=== PATIENT | male | born 1975 | race Two or more races ===

== ENCOUNTER → 2023-09-07 | Outpatient (CLI) | payer OTHER, SELFPAY ==
--- NOTE | 2023-09-07 09:10 | VDLE_ITS ---
Reason For Study: PAIN RIGHT LEFT GSV is normal. CFV is compressible, spontaneous, phasic, Acute deep vein thrombosis is noted in the competent, and demonstrates normal CFV. It is dilated and NONCOMPRESSIBLE. augmentation. Acute deep vein thrombosis is noted in the FV. It is dilated and NONCOMPRESSIBLE. Acute deep vein thrombosis is noted in the POP V. It is dilated and NONCOMPRESSIBLE. DEIV is NONCOMPRESSIBLE with minimal flow noted. PTV is compressible with flow noted by color/PW doppler. Unable to ass T/P trunk nor PER V. Procedure This is a venous duplex using B-mode, color flow and spectral Doppler. Exam performed in department. The study was technically difficult. A preliminary report was called and/or faxed to Zulma SHELTON @ 09:40 am. PT has appt Mon & procedure Tu. VL/Venous Duplex US, Unilateral Interpretation Summary Acute deep vein thrombosis is noted in the right external iliac vein, common fe moral vein, femoral vein, popliteal vein. Ordering Physician: Meir Hurtado Referring Physician: Jaime Bailey Performed By: Violet Whiting, RDCS, RVT
--- OUTSIDE RECORDS SUMMARY | 2023-09-07 09:35 | XMS RPT_ITS | CCD ---
Author Name Unknown Address [address] [place] [address] Organization [facility] Care Team Providers Care Slip Tender Name Role Phone Prakash Garridos Unavailable Wyatt Triplett Unavailable Unavailable Wyatt Triplett Unavailable Unavailable Tourlas, Justino Unavailable Unavailabl e Radhika, Justino Unavailable UnavailAv Schreiber Unavailable Unavailable Tourlas, Justino Unavailable Unavailabl e Tourlas, Justino Unavailable Unavailabl e Yan Garridostantinos Primary Care Provider [phone] Justino Garrido Primary Care Provider LIDIA LAW Referring Unavailab le LIDIA LAW Admitting Unavailab le YAN GARRIDOSTANTINOS Primary Care UnavailJustino Almanzar MD Primary Care Provider Justino Garrido MD Unavailable Unavail able Radhika Justino Unavailable UnavailAv Schreiber Unavailable Unavailable Tristianlas, Justino Unavailable [phone] Unavailable Unavailable Unavailable Unavailable Justino Garrido MD Primary Care Provider Justino Garrido MD Primary Care Provider Leny Garridonos Unavailable [place], [place] I Unavailable Unavailable Radhika PÉREZ, Justino Primary Care Provider Mallgrisel, Carissa Nag S Unavailable Unavailable Unavailable Radhika PÉREZ, Justino Primary Care Provider Leo PÉREZ MPH, Carissa Johnson S Primary Care Pro vider Leo PÉREZ MPH, Carissa Nag S Unavailable Mallapareddi, Carissa Primary Care Provider MALLSTEFREDDI, CARISSA Primary Care Unavailable COOPERRIDER II, ORIN Doherty Referring Unavailabl e COOPERRIDERRADHA Attending Unavailabl e COOPERRIDER II, ORIN Doherty Referring Unavailabl e COOPERRIDER II, ORIN Doherty Attending Unavailabl e TOURBELLE JUSTINO Primary Care Unavailabl e MALLAPAREDDI, CARISSA NAG S Primary Care Unavail able MALLAPAREDDI, CARISSA NAG S Primary Care Unavail able Dr. Wolf Cardenas Attending Unavailable Mallstefredmikala, Dr. Carissa Johnson [facility] Primary Care Unavailable ELA COOLEY Referring Unavailable ELA COOLEY Admitting [facility] Attending Un[facility] Un[facility]LA [facility]OOLEY [facility]av[facility] Referring Unavailable ELA COOLEY Admitting Un[facility] Care Unavailabl e ELA COOLEY Attending Unavailable TOURBELLE, [facility] Primary Care Unavailabl e Radhika PÉREZ, [facility] Primary Care Provider DIDIER THOMPSON Attending Unavailab le MALLAPAREDDI, CARISSA Primary Care Unavailable MALLAPAREDDI, CARISSA NAG S Attending Unavail able MALLAPAREDMIKALA, CARISSA NAG S Primary Care Unavail able MALLAPAREDDI, CARISSA NAG S Attending Unavail able MALLAPAREDDI, CARISSA NAG S Primary Care Unavail able MALLAPAREDDI, CARISSA NAG S Attending Unavail able MALLAPAREDDI, CARISSA NAG S Primary Care Unavail able MALLAPAREDDI, CARISSA NAG S Attending Unavail able MALLAPAREDDI, CARISSA NAG S Primary Care Unavail able MALLSTEFREDDI, CARISSA NAG S Attending Unavail able MALLSTEFREDMIKALA, CARISSA NAG S Primary Care Unavail able DIDIER THOMPSON Referring Unavailab le LEO, CARISSA Primary Care Unavailable ASHVIN SANTOS Attending Unavailable BRITTANY CHOI Consulting Unavailable Allergies Allergy Classification Reported Allergen(s) Allergy Type Date of Onset Reaction(s) Facility NSAIDs (8 sources) celecoxib; Translations: [CeleBREX CAPS] Drug Allergy 6 Shortness Of Breath [facility] (20 sources) celecoxib; Translations: [CELECOXIB] Propensity to adverse reactions to drug 6 Shortness Of Breath [facility] Work Phone: Medications Current Medications Medication Drug Class(es) Dates Sig (Normalized) Sig (Original) allopurinol 300 mg oral tablet (20 sources) Xanthine Oxidase Inhibitor Start: 12-09-2018 take 1 tablet by mouth once daily allopurinol (ZYLOPRIM) 300 MG tablet Take 1 (one) tablet (300 mg total) by mouth daily . 1 12/09/2018 Active Completed/Discontinued Medications Medication Drug Class(es) Dates Sig (Normalized) Sig (Original) acetaminophen 325 mg / HYDROcodone bitartrate 5 mg oral tablet (2 sources) Opioid Agonist Start: 06-28-2017 End: 07-12-2017 take 1 tablet by mouth every six hours HYDROcodone-acetami nophen (NORCO) 5-325 mg per tablet Take 1 (one) tablet by mouth every 6 (six) hours as needed for pain. 20 tablet 0 06/28/2017 07/12/2017 Discontinued BD Disp Hemet 18G X 1-1/2 (1 source) BD Disp Hemet 18G X 1-1/2 Use a new needle to draw up testosterone every 4 weeks. Quantity: 3 Refills: 1 Justino Garrido MD Active BD Disp Hemet 18G X 1-1/2 (1 source) BD Disp Hemet 18G X 1-1/2 Use a new needle to draw up testosterone every 4 weeks. Quantity: 3 Refills: 1 Justino Garrido MD Active calcium carbonate-Vit D3-minerals (CALTRATE) 600 mg calcium- 400 unit tab (5 sources) Start: 09-20-2016 take 1 tablet by mouth once daily calcium carbonate-Vit D3-minerals (CALTRATE) 600 mg calcium- 400 unit tab Take 1 tablet by mouth once daily. 0 09/20/2016 Active Problems Active Problems Problem Classification Problem Date Documented Da te Episodic/Chronic Attention-deficit conduct and disruptive behavior disorders (20 sources) Adult attention deficit hyperactivity disorder ; Translations: [Attention deficit disorder with hyperactivity] 12-01-2022 Chronic Attention-deficit, conduct, and disruptive behavior disorders (20 sources) Attention deficit hyperactivity disorder; Translations: [Attention-deficit hyperactivity disorder, unspecified type] Onset: 6 02-08-2016 Chronic Attention-deficit, conduct, and disruptive behavior disorders (2 sources) Attention-deficit hyperactivity disorder, unspecified type; Translations: [Attention-deficit hyperactivity disorder, unspecified type] Onset: Chronic Blindness and vision defects (6 sources) Hyperopia of right eye; Translations: [Hypermetropia, right eye] Episodic Blindness and vision defects (2 sources) Myopia of left eye; Translations: [Myopia, left eye] Episodic Cataract (20 sources) Nuclear senile cataract; Translations: [Age-related nuclear cataract, unspecified eye] Onset: 6 09-14-2015 Chronic Diseases of white blood cells (2 sources) Elevated white blood cell count, unspecified; Translations: [Elevated white blood cell count, unspecified] Onset: 3 Chronic Disorders of lipid metabolism (20 sources) Hyperlipidemia; Translations: [Hyperlipidemia, unspecified] Onset: 6 05-11-2016 Chronic Esophageal disorders (5 sources) Gastroesophageal reflux disease without esophagitis; Translations: [Gastro-esophageal reflux disease without esophagitis] Onset: 7 09-22-2016 Chronic Essential hypertension (20 sources) Essential hypertension; Translations: [Hypertensive disorder] Onset: 6 07-12-2017 Chronic Gout and other crystal arthropathies (20 sources) Gout; Translations: [Gout, unspecified] 05-22-2023 Chronic Immunizations and screening for infectious disease (20 sources) Contact with and (suspected) exposure to other viral communicable diseases; Translations: [Patient encounter status] Episodic Mood disorders (20 sources) Depressive disorder; Translations: [Depressive disorder, not elsewhere classified] Chronic Osteoarthritis (7 sources) Primary gonarthrosis, bilateral; Translations: [Bilateral primary osteoarthritis of knee] Onset: 3 Chronic Other aftercare (20 sources) H/O: high risk medication; Translations: [Long-term (current) use of other medications] Episodic Other aftercare (1 source) Patient encounter status; Translations: [Other fci (current) drug therapy] 12-01-2022 Episodic Other connective tissue disease (1 source) H/O: gout; Translations: [History of gout] Episodic Other connective tissue disease (1 source) Nontraumatic rupture of rotator cuff of left shoulder; Translations: [Unspecified rotator cuff tear or rupture of left shoulder, not specified as traumatic] Episodic Other connective tissue disease (1 source) Disorder of shoulder; Translations: [Bursitis of unspecified shoulder] Episodic Other connective tissue disease (13 sources) Tear of left rotator cuff; Translations: [Tear of left rotator cuff, unspecified tear extent, unspecified whether traumatic] Onset: 1 10-05-2020 Other connective tissue disease (6 sources) Nontraumatic rupture of rotator cuff of left shoulder; Translations: [Nontraumatic tear of left rotator cuff, unspecified tear extent] Other endocrine disorders (20 sources) Male hypogonadism; Translations: [Other testicular hypofunction] 12-01-2022 Chronic Other endocrine disorders (4 sources) Testicular hypofunction; Translations: [Testicular hypofunction] Onset: 3 Chronic Other inflammatory condition of skin (20 sources) Psoriasis; Translations: [Psoriasis, unspecified] Onset: 7 08-11-2016 Chronic Other liver diseases (20 sources) Steatosis of liver; Translations: [Other chronic nonalcoholic liver disease] Chronic Other male genital disorders (5 sources) Impotence of organic origin; Translations: [Erectile dysfunction] Onset: 6 02-08-2016 Chronic Other male genital disorders (2 sources) Impotence; Translations: [Erectile dysfunction] Onset: 6 02-08-2016 Chronic Other male genital disorders (20 sources) Male erectile dysfunction, unspecified; Translations: [Impotence of organic origin] Onset: 6 02-08-2016 Chronic Other non-traumatic joint disorders (20 sources) Shoulder stiff; Translations: [Stiffness of joint, not elsewhere classified, shoulder region] Episodic Other nutritional; endocrine; and metabolic disorders (20 sources) Body mass index 40+ - severely obese; Translations: [Morbid obesity] Chronic Other nutritional; endocrine; and metabolic disorders (2 sources) Morbid obesity; Translations: [Morbid (severe) obesity due to excess calories] 05-22-2023 Chronic Other nutritional; endocrine; and metabolic disorders (2 sources) Morbid (severe) obesity due to excess calories; Translations: [Morbid (severe) obesity due to excess calories (CMS/HCC)] Onset: 3 Chronic Other screening for suspected conditions (not mental disorders or infectious disease) (13 sources) Hypotestosteronism; Translations: [Testosterone deficiency] Onset: 7 08-11-2016 Chronic Other screening for suspected conditions (not mental disorders or infectious disease) (20 sources) Ultrasonography of abdomen abnormal; Translations: [Abnormal findings on diagnostic imaging of other abdominal regions, including retroperitoneum] Onset: 7 07-12-2017 Episodic Other upper respiratory disease (2 sources) Epistaxis; Translations: [Epistaxis] 11-15-2021 Episodic Phlebitis; thrombophlebitis and thromboembolism (5 sources) Deep venous thrombosis of lower extremity; Translations: [Acute embolism and thrombosis of unspecified deep veins of right proximal lower extremity] Onset: 4 08-28-2023 Episodic Residual codes; unclassified (4 sources) History of arthroscopic procedure on shoulder; Translations: [Other specified postprocedural states] Episodic Residual codes; unclassified (2 sources) Pain, unspecified; Translations: [Pain, unspecified] Onset: 3 Episodic Residual codes; unclassified (2 sources) Other specified postprocedural states; Translations: [Other specified postprocedural states] Onset: 3 Episodic Residual codes; unclassified (2 sources) Edema of foot; Translations: [Localized edema] 05-22-2023 Episodic Substance-related disorders (7 sources) Stimulant dependence; Translations: [Other stimulant dependence, uncomplicated] Onset: 4 08-22-2023 Chronic Unclassified (20 sources) Obstructive sleep apnea syndrome; Translations: [Obstructive sleep apnea (adult) (pediatric)] Onset: 11-02-2016 Chronic Past or Other Problems Problem Classification Problem Date Documented Da te Episodic/Chronic Abdominal pain (20 sources) Right upper quadrant pain; Translations: [Right upper quadrant pain] Onset: 07-12-2017 07-12-2017 Episodic Biliary tract disease (20 sources) Gallstone; Translations: [Cholelithiasis without obstruction] Onset: 07-12-2017 07-12-2017 Episodic Complication of device; implant or graft (5 sources) Astigmatism; Translations: [Astigmatism following corneal transplant] Onset: 09-26-2016 09-26-2016 Episodic Nausea and vomiting (20 sources) Nausea and vomiting; Translations: [Nausea with vomiting, unspecified] Onset: 07-12-2017 07-12-2017 Episodic Other aftercare (20 sources) Surgical follow-up; Translations: [Encounter for follow-up examination after completed treatment for conditions other than malignant neoplasm] Onset: 08-02-2017 08-02-2017 Episodic Other aftercare (4 sources) Other salvage determiner (current) drug therapy; Translations: [Other salvage determiner (current) drug therapy] Onset: 12-01-2022 Episodic Other aftercare (2 sources) Encounter for follow-up examination after completed treatment for conditions other than malignant neoplasm; Translations: [Encounter for follow-up examination after completed treatment for conditions other than malignant neoplasm] Onset: 08-14-2022 Episodic Other connective tissue disease (8 sources) Tear of left rotator cuff; Translations: [Unspecified rotator cuff tear or rupture of left shoulder, not specified as traumatic] Onset: 10-05-2020 10-05-2020 Episodic Other endocrine disorders (11 sources) Endocrine disorder, unspecified; Translations: [Hypotestosteronis m] Onset: 08-11-2016 08-11-2016 Episodic Other eye disorders (8 sources) Bilateral keratoconus of corneas; Translations: [Keratoconus, unspecified, bilateral] Onset: 09-29-2016 09-29-2016 Episodic Other eye disorders (5 sources) Keratoconus of left cornea; Translations: [Keratoconus, unspecified, left eye] Onset: 10-09-2016 10-09-2016 Episodic Other gastrointestinal disorders (3 sources) Abnormal findings on diagnostic imaging of other abdominal regions, including retroperitoneum; Translations: [Abnormal abdominal ultrasound] Onset: 07-12-2017 07-12-2017 Episodic Other non-traumatic joint disorders (3 sources) Pain in left shoulder; Translations: [Pain in left shoulder] Onset: 12-06-2022 Episodic Other nutritional; endocrine; and metabolic disorders (20 sources) Hyperuricemia; Translations: [Other abnormal blood chemistry] Resolved: 05-24-2020 Episodic Residual codes; unclassified (1 source) H/O: surgery; Translations: [Postop check] Onset: 08-02-2017 08-02-2017 Episodic Residual codes; unclassified (4 sources) Localized edema; Translations: [Localized edema] Onset: 05-22-2023 Episodic Unclassified (5 sources) Onset: 12-01-2022 12-01-2022 NEGATED: Highlighted row has not occurred!Residual codes; unclassified (13 sources) Disease Episodic Results Test Name Value Interpretation Reference Range Facil ity Vital Signs Date Time Vital Sign Value Performing Clinician Faci lity 08-28-2023 07:47-0500 Body height 177.8 cm Carissa Winslow MD MPH Work Phone: [facility] 08-28-2023 07:47-0500 Body mass index (BMI) [Ratio] 46.36 kg/m2 Carissa Winslow MD MPH Work Phone: [facility] 08-28-2023 07:47-0500 Body weight 146.56 kg Carissa Winslow MD MPH Work Phone: [facility] 08-28-2023 07:47-0500 Diastolic blood pressure 80 mm[Hg] Carissa Winslow MD MPH Work Phone: [facility] 08-28-2023 07:47-0500 Heart rate 81 /min Carissa Winslow MD MPH Work Phone: [facility] 08-28-2023 07:47-0500 SaO2% (BldA) [Mass fraction] 96 % Carissa Winslow MD MPH Work Phone: [facility] 08-28-2023 07:47-0500 Systolic blood pressure 120 mm[Hg] Carissa Winslow MD MPH Work Phone: [facility] 08-22-2023 07:56-0500 Body mass index (BMI) [Ratio] 45.92 kg/m2 Carissa Winslow MD MPH Work Phone: [facility] 08-22-2023 07:56-0500 Body weight 145.15 kg Carissa Winslow MD MPH Work Phone: [facility] 08-22-2023 07:56-0500 Diastolic blood pressure 90 mm[Hg] Carissa Winslow MD MPH Work Phone: [facility] 08-22-2023 07:56-0500 Heart rate 83 /min Carissa Winslow MD MPH Work Phone: [facility] 08-22-2023 07:56-0500 SaO2% (BldA) [Mass fraction] 96 % Carissa Winslow MD MPH Work Phone: [facility] 08-22-2023 07:56-0500 Systolic blood pressure 138 mm[Hg] Carissa Winslow MD MPH Work Phone: [facility] 05-22-2023 09:15-0400 Body mass index (BMI) [Ratio] 45.38 kg/m2 Carissa Winslow MD MPH Work Phone: [facility] 05-22-2023 09:15-0400 Body weight 143.47 kg Carissa Winslow MD MPH Work Phone: [facility] 05-22-2023 09:15-0400 Diastolic blood pressure 90 mm[Hg] Cairssa Winslow MD MPH Work Phone: [facility] 05-22-2023 09:15-0400 Heart rate 77 /min Carissa Winslow MD MPH Work Phone: [facility] 05-22-2023 09:15-0400 SaO2% (BldA) [Mass fraction] 98 % Carissa Winslow MD MPH Work Phone: [facility] 05-22-2023 09:15-0400 Systolic blood pressure 142 mm[Hg] Carissa Winslow MD MPH Work Phone: [facility] 03-27-2023 12:53-0400 Body height 175.3 cm Ela Cooley [employer] Work Phone: [facility] 03-27-2023 12:53-0400 Body mass index (BMI) [Ratio] 57.3 kg/m2 Ela Cooley [employer] Work Phone: [facility] 03-27-2023 12:53-0400 Body weight 176 kg Ela Rodriguezck [employer] Work Phone: [facility] 03-06-2023 08:20-0400 Body mass index (BMI) [Ratio] 44.22 kg/m2 Carissa Winslow MD MPH Work Phone: [facility] 03-06-2023 08:20-0400 Body weight 139.8 kg Carissa Winslow MD MPH Work Phone: [facility] 03-06-2023 08:20-0400 Diastolic blood pressure 80 mm[Hg] Carissa Winslow MD MPH Work Phone: [facility] 03-06-2023 08:20-0400 Heart rate 75 /min Carissa Winslow MD MPH Work Phone: [facility] 03-06-2023 08:20-0400 SaO2% (BldA) [Mass fraction] 96 % Carissa Winslow MD MPH Work Phone: [facility] 03-06-2023 08:20-0400 Systolic blood pressure 120 mm[Hg] Carissa Winslow MD MPH Work Phone: [facility] 12-01-2022 07:56-0400 Body height 177.8 cm Carissa Winslow MD MPH Work Phone: [facility] 12-01-2022 07:56-0400 Body mass index (BMI) [Ratio] 43.46 kg/m2 Carissa Winslow MD MPH Work Phone: [facility] 12-01-2022 07:56-0400 Body weight 137.4 kg Carissa Winslow MD MPH Work Phone: [facility] 12-01-2022 07:56-0400 Diastolic blood pressure 70 mm[Hg] Carissa Winslow MD MPH Work Phone: [facility] 12-01-2022 07:56-0400 Heart rate 97 /min Carissa Winslow MD MPH Work Phone: [facility] 12-01-2022 07:56-0400 SaO2% (BldA) [Mass fraction] 96 % Carissa Winslow MD MPH Work Phone: [facility] 12-01-2022 07:56-0400 Systolic blood pressure 110 mm[Hg] Carissa Winslow MD MPH Work Phone: [facility] 11-30-2022 08:00-0400 Body height 175.3 cm Ela Cooley CNP Work Phone: [facility] 11-30-2022 08:00-0400 Body mass index (BMI) [Ratio] 57.3 kg/m2 Ela Cooley CNP Work Phone: [facility] 11-30-2022 08:00-0400 Body weight 176 kg Ela Cooley CNP Work Phone: [facility] 08-22-2022 07:43-0500 Body height 176.91 cm Carissa Winslow Work Phone: [facility] Work Phone: 08-22-2022 07:43-0500 Body mass index (BMI) [Ratio] 51.21 kg/m2 Carissa Winslow Work Phone: [facility] Work Phone: 08-22-2022 07:43-0500 Body surface area Derived from formula 2.65 m2 Carissa Nag S Mallapareddi Work Phone: [facility] Work Phone: 08-22-2022 07:43-0500 Body weight 160.26 kg Carissa Nag S Mallapareddi Work Phone: [facility] Work Phone: 08-22-2022 07:43-0500 Diastolic blood pressure 80 mm[Hg] Carissa Nag S Mallapareddi Work Phone: [facility] Work Phone: 08-22-2022 07:43-0500 Heart rate 74 /min Carissa Nag S Mallapareddi Work Phone: [facility] Work Phone: 08-22-2022 07:43-0500 Systolic blood pressure 122 mm[Hg] Carissa Nag S Mallapareddi Work Phone: [facility] Work Phone: 05-12-2022 13:50-0400 Body height 176.91 cm Carissa Nag S Mallapareddi Work Phone: [facility] Work Phone: 05-12-2022 13:50-0400 Body mass index (BMI) [Ratio] 54.7 kg/m2 Carissa Nag S Mallapareddi Work Phone: [facility] Work Phone: 05-12-2022 13:50-0400 Body surface area Derived from formula 2.72 m2 Carissa Nag S Mallapareddi Work Phone: [facility] Work Phone: 05-12-2022 13:50-0400 Body weight 171.21 kg Carissa Nag S Mallapareddi Work Phone: [facility] Work Phone: 05-12-2022 13:50-0400 Diastolic blood pressure 84 mm[Hg] Carissa Nag S Mallapareddi Work Phone: [facility] Work Phone: 05-12-2022 13:50-0400 Heart rate 89 /min Carissa Nag S Mallapareddi Work Phone: [facility] Work Phone: 05-12-2022 13:50-0400 Systolic blood pressure 128 mm[Hg] Carissa Nag S Mallapareddi Work Phone: [facility] Work Phone: 02-10-2022 10:42-0400 Body height 176.9 cm Carissa Nag S Mallapareddi Work Phone: [facility] Work Phone: 02-10-2022 10:42-0400 Body mass index (BMI) [Ratio] 53.83 kg/m2 Carissa Nag S Mallapareddi Work Phone: [facility] Work Phone: 02-10-2022 10:42-0400 Body surface area Derived from formula 2.71 m2 Carissa Nag S Mallapareddi Work Phone: [facility] Work Phone: 02-10-2022 10:42-0400 Body weight 168.46 kg Carissa Nag S Mallapareddi Work Phone: [facility] Work Phone: 02-10-2022 10:42-0400 Diastolic blood pressure 90 mm[Hg] Carissa Nag S Mallapareddi Work Phone: [facility] Work Phone: 02-10-2022 10:42-0400 Heart rate 84 /min Carissa Nag S Mallapareddi Work Phone: [facility] Work Phone: 02-10-2022 10:42-0400 Systolic blood pressure 144 mm[Hg] Carissa Rice Mallapareddi Work Phone: [facility] Work Phone: 11-15-2021 14:30-0400 Diastolic blood pressure 110 mm[Hg] Justino Tourlas Other Phone: [facility] 11-15-2021 14:30-0400 Heart rate 102 /min Justino Tourlas Other Phone: [facility] 11-15-2021 14:30-0400 SaO2% (BldA) [Mass fraction] 97 % Justino Tourlas Other Phone: [facility] 11-15-2021 14:30-0400 Systolic blood pressure 169 mm[Hg] Justino Tourlas Other Phone: [facility] 11-15-2021 13:01-0400 Body temperature 97.16 [degF] Justino Tourlas Other Phone: [facility] 11-15-2021 13:01-0400 Body weight 170 kg Justino Tourlas Other Phone: [facility] 11-15-2021 13:01-0400 Respiratory rate 18 /min Justino Tourlas Other Phone: [facility] 05-30-2021 08:46-0400 Body mass index (BMI) [Ratio] 50.03 kg/m2 Justino Tourlas Work Phone: [facility] Work Phone: 05-30-2021 08:46-0400 Body surface area Derived from formula 2.62 m2 Justino Tourlas Work Phone: [facility] Work Phone: 05-30-2021 08:46-0400 Body temperature 98.2 [degF] Justino Radhika Work Phone: [facility] Work Phone: 05-30-2021 08:46-0400 Body weight 156.72 kg Justino Garrido Work Phone: [facility] Work Phone: 05-30-2021 08:46-0400 Diastolic blood pressure 80 mm[Hg] Justino Radhika Work Phone: [facility] Work Phone: 05-30-2021 08:46-0400 Heart rate 85 /min Justino Garrido Work Phone: [facility] Work Phone: 05-30-2021 08:46-0400 Systolic blood pressure 130 mm[Hg] Justino Radhika Work Phone: [facility] Work Phone: 03-07-2021 08:25-0400 Body mass index (BMI) [Ratio] 49.59 kg/m2 Justino Garrido Work Phone: [facility] Work Phone: 03-07-2021 08:25-0400 Body surface area Derived from formula 2.61 m2 Justino Radhika Work Phone: [facility] Work Phone: 03-07-2021 08:25-0400 Body temperature 98 [degF] Justino Tristianlas Work Phone: [facility] Work Phone: 03-07-2021 08:25-0400 Body weight 155.36 kg Justino Garrido Work Phone: [facility] Work Phone: 03-07-2021 08:25-0400 Diastolic blood pressure 90 mm[Hg] Justino Radhika Work Phone: [facility] Work Phone: 03-07-2021 08:25-0400 Diastolic blood pressure 86 mm[Hg] Justino Tristianlas Work Phone: [facility] Work Phone: 03-07-2021 08:25-0400 Heart rate 72 /min Justino Garrido Work Phone: [facility] Work Phone: 03-07-2021 08:25-0400 Systolic blood pressure 138 mm[Hg] Justino Tristianlas Work Phone: [facility] Work Phone: 03-07-2021 08:25-0400 Systolic blood pressure 136 mm[Hg] Justino Tristianlas Work Phone: [facility] Work Phone: 12-06-2020 10:55-0400 Body mass index (BMI) [Ratio] 55.46 kg/m2 Justino Osborne DO Work Phone: 12-06-2020 10:55-0400 Body surface area Derived from formula 2.74 m2 Justino Osborne DO Work Phone: 12-06-2020 10:55-0400 Body weight 173.73 kg Justino Garrido MD [facility] DO Work Phone: 12-06-2020 10:55-0400 Diastolic blood pressure 88 mm[Hg] Justino Garrido MD [facility] DO Work Phone: 12-06-2020 10:55-0400 Heart rate 88 /min Justino Garrido MD [facility] DO Work Phone: 12-06-2020 10:55-0400 Systolic blood pressure 122 mm[Hg] Justino Garrido MD [facility] DO Work Phone: 10-22-2020 14:21-0400 BMI (Body Mass Index) 56.12 kg/m2 Lidia [facility] 10-22-2020 14:21-0400 Body weight 172.37 kg [facility] 10-22-2020 14:21-0400 Height 175.3 cm Lidia [facility] 08-31-2020 09:29-0500 BMI (Body Mass Index) 53.09 kg/m2 [facility] 08-31-2020 09:29-0500 Body weight 167.83 kg [facility] 08-31-2020 09:29-0500 Height 177.8 cm [facility] 03-11-2020 08:05-0400 BMI (Body Mass Index) 53.09 kg/m2 [facility] 03-11-2020 08:05-0400 Body weight 167.83 kg [facility] 03-11-2020 08:05-0400 Height 177.8 cm [facility] 09-22-2019 10:24-0500 BMI (Body Mass Index) 55.6 kg/m2 Justino Garrido [facility] Work Phone: 09-22-2019 10:24-0500 Body weight 174.18 kg Justino Garrido [facility] Work Phone: 09-22-2019 10:24-0500 BP Diastolic 80 mm[Hg] Justino Garrido [facility] Work Phone: 09-22-2019 10:24-0500 BP Systolic 118 mm[Hg] Justino Garrido [facility] Work Phone: 09-22-2019 10:24-0500 BSA (Body Surface Area) 2.75 m2 Justino Garrido [facility] Work Phone: 09-22-2019 10:24-0500 Height 176.99 cm Justino Garrido [facility] Work Phone: 09-22-2019 10:24-0500 Pulse (Heart Rate) 80 /min Justino Garrido [facility] Work Phone: 12-03-2017 08:57-0400 BMI (Body Mass Index) 50.22 kg/m2 Lidia Law [facility] 12-03-2017 08:57-0400 Height 177.8 cm Lidia Thanh [facility] 12-03-2017 08:57-0400 Weight 158.76 kg Lidia Law [facility] 08-02-2017 09:13-0500 Body Temperature 98.8 [degF] Wyatt [facility] Work Phone: 08-02-2017 09:13-0500 BP Diastolic 75 mm[Hg] Wyatt Triplett [facility] Work Phone: 08-02-2017 09:13-0500 BP Systolic 118 mm[Hg] Wyatt Triplett [facility] Work Phone: 08-02-2017 09:13-0500 Pulse (Heart Rate) 100 /min Wyatt Triplett [facility] Work Phone: 08-02-2017 09:13-0500 Pulse Oximetry 94 % Wyatt Triplett [facility] Work Phone: 07-12-2017 08:12-0500 BMI (Body Mass Index) 50.43 kg/m2 [facility] Work Phone: 07-12-2017 08:12-0500 Body Temperature 97.81 [degF] [facility]att [facility] Work Phone: 07-12-2017 08:12-0500 BP Diastolic 79 mm[Hg] Wyatt Triplett [facility] Work Phone: 07-12-2017 08:12-0500 BP Systolic 124 mm[Hg] Wyatt [facility] Work Phone: 07-12-2017 08:12-0500 Pulse (Heart Rate) 84 /min [facility] Work Phone: 07-12-2017 08:12-0500 Pulse Oximetry 95 % Wyatt Triplett [employer] Work Phone: 07-12-2017 08:12-0500 Weight 159.44 kg Wyatt Triplett [employer] Work Phone: 06-28-2017 15:00-0500 BP Diastolic 92 mm[Hg] Marbin Krishna [employer] Work Phone: 06-28-2017 15:00-0500 BP Systolic 147 mm[Hg] Marbin Krishna [employer] Work Phone: 06-28-2017 15:00-0500 Pulse (Heart Rate) 94 /min Marbin Krishna [employer] Work Phone: 06-28-2017 15:00-0500 Pulse Oximetry 93 % Marbin Krishna [employer] Work Phone: 06-28-2017 15:00-0500 Respiratory Rate 18 /min Marbin Krishna [employer] Work Phone: 06-28-2017 10:34-0500 BMI (Body Mass Index) 51.53 kg/m2 Marbin Krishna [employer] Work Phone: 06-28-2017 10:34-0500 Body Temperature 98.49 [degF] Marbin Krishna [employer] Work Phone: 06-28-2017 [id number] Height 177.8 cm Marbin Krishna [facility] Work Phone: 06-28-2017 [id number] Weight 162.89 kg Marbin Krishna [facility] Work Phone: Encounters Encounter Date Encounter Type Care Provider Facility Start: 08-28-2023 End: 08-28-2023 ambulatory CARISSA WINSLOW [facility] Ambulatory Start: 08-28-2023 End: 08-28-2023 Office outpatient visit 25 minutes Carissa Winslow MD MPH Work Phone: [facility] Procedures Date Procedure Procedure Detail Performing Clinician Start: 03-06-2023 OPIATE/OPIOID/BENZO EXTENDED PRESCRIPTION COMPLIANCE CARISSA MALLAPAREDDI Start: 03-06-2023 OPIATE/OPIOID/BENZO PRESCRIPTION COMPLIANCE CARISSA MALLAPAREDDI Start: 03-02-2023 CBC W Auto Differential panel - Blood CARISSA MALLAPAREDDI Start: 12-01-2022 CBC W Auto Differential panel - Blood CARISSA MALLAPAREDDI Start: 12-01-2022 Comprehensive metabolic 2000 panel - Serum or Plasma CARISSA MALLAPAREDDI Start: 12-01-2022 Lipid panel CARISSA MALLAPAREDDI Start: 12-01-2022 PROSTATE SPECIFIC ANTIGEN, SCREEN CARISSA MALLAPAREDDI Start: 12-01-2022 Testosterone [Mass/volume] in Serum or Plasma [facility] Start: 12-01-2022 Lipid 1996 panel - Serum or Plasma Carissa Winslow MD MPH Work Phone: Start: 11-30-2022 Arthrocentesis aspir&/inj major jt/bursa w/o us Ela Cooley [employer] Work Phone: Start: 12-20-2021 End: 12-20-2021 Arthrocentesis aspir&/inj major jt/bursa w/o us Ela Cooley [employer] Work Phone: Start: 12-17-2021 Lipid 1996 panel - Serum or Plasma Carissa Winslow MD MPH Work Phone: Start: 06-27-2021 Arthrocentesis aspir&/inj major jt/bursa w/o us Ela Velasquezcock [employer] Work Phone: Start: 09-20-2020 Mri any jt upper extremity w/o contrast matrl Ela Raphael Cooley Work Phone: Start: 05-17-2020 Lipid panel Justino Garrido Start: 03-11-2020 Arthrocentesis Ela Velasquezcock Work Phone: Start: 11-20-2016 H/O: surgery Status post repair of complex wound Radha Rice OD Work Phone: Start: 11-02-2016 Adult depression screening assessment Ela Rodriguezyariel ROJAS Work Phone: Start: 09-29-2016 H/O: cornea recipient Status post corneal transplant Radha Rice OD Work Phone: Arthroscopy of shoulder Mena Garrido MD Plan of Treatment Date Care Activity Detail Author Start: 11-30-2031 DTaP/Tdap/Td Vaccine s (2 - Td or Tdap) DTaP/Tdap/Td Vaccines (2 - Td or Tdap) [facility] Start: 11-30-2031 Tetanus vaccination Tetanus: Every 1 0yrs [facility] Start: 12-02-2027 Lipid panel Lipid Panel [facility] Start: 12-02-2027 LIPID SCREEN LIPID SCREEN [facility] Start: 12-17-2026 Lipid panel Lipid Panel [facility] Start: 12-01-2025 DIABETES SCREEN DIABETES SCREEN [facility] Start: 12-17-2024 Diabetes mellitus screening Diabetes Screening [facility] Start: 09-19-2023 End: 09-19-2023 Patient encounter procedure 09/19/2023 8:20 AM EST Office Visit [facility] [address] [place] [id number] Carissa Winslow MD MPH [address] [facility] [address] [place], [place] [id number] [facility] Start: 2023 Zoster Vaccines (1 of 2) Zoste r Vaccines (1 of 2) [facility] Start: 08-22-2023 End: 08-22-2024 Basic metabolic 2000 panel - Serum or Plasma [facility] Service Area Work Phone: Immunizations Immunization Date Immunization Notes Care Provider Fa cility 11-29-2021 tetanus toxoid, reduced diphtheria toxoid, and acellular pertussis vaccine, adsorbed; Translations: [Tdap (Boostrix)] Justino Garrido Work Phone: [facility] Work Phone: Payers Date Payer Category Payer Unknown 2021 Unknown [employer] [place] [employer] [id number] 07/30/2021-Present [id number] [place] [address] Indemnity [id number] 07-30-2021 Unknown [id number] 07-30-2018 Private Health Insurance xxx [id number] 07-30-2017 Private Health Insurance xxx [id number] 04-29-2017 Private Health Insurance [id number] 3 04-29-2017 Private Health Insurance [id number] 1973 Unknown [id number] [id number] .900 1973 Unknown [id number] 2.16.840.1.550910.3.579.2 .1245 1973 Unknown [id number] 2.16.840.1.590964.3.579.2 .1245 1973 Unknown [id number] 2.16.840.1.190918.3.579.2 .1069 1973 Unknown [id number] 2.16.840.1.163369.3.579.2 .903 1973 Unknown [id number] 2.16.840.1.864278.3.579.2 .903 1973 Unknown [id number] 2.16.840.1.036053.3.579.2 .90 1973 Unknown [id number] 2.16.840.1.571925.3.579.2 .1973 Unknown [id number] 2.16.840.1.094171.3.579.2 .1973 Unknown [id number] 2.16.840.1.206245.3.579.2 .1259 1973 Unknown [id number] 2.16.840.1.530772.3.579.2 .902 1973 Unknown [id number] 2.16.840.1.216738.3.579.2 .4 1973 Unknown [id number] 2.16.840.1.608537.3.579.2 .1243 1973 Unknown [id number] 2.16.840.1.372188.3.579.2 .1243 1973 Unknown [id number] 2.16.840.1.249068.3.579.2 .1243 1973 Unknown [id number] 2.16.840.1.712244.3.579.2 .1243 1973 Unknown [id number] 2.16.840.1.154382.3.579.2 .903 Medicaid [id number] [id number] 3 Unknown [id number] 3 Social History Date Type Detail Facility Start: 12-03-2017 End: 12-01-2022 Tobacco smoking status NHIS Never smoker [facility] Work Phone: Start: 1975 Sex Assigned At Not on file O [facility] Work Phone: Start: 08-31-2020 End: 12-01-2022 Tobacco use and exposure [facility] Start: 08-31-2020 End: 03-28-2023 Alcohol intake Current non-drinker of alcohol (finding) [facility] Start: 10-17-2021 End: 08-28-2023 Exposure to SARS-CoV-2 (event) Not sure [facility] Start: 06-27-2021 End: 08-22-2023 No recent domestic travel No recent domestic travel [facility] Work Phone: Tobacco smoking consumption unknown [facility] Start: 08-14-2022 End: 08-22-2023 Tobacco use panel [facility] Start: 08-30-2020 Gender identity Identifies as male gender (finding) [facility] Start: 08-30-2020 Sexual orientation Heterosexual (fin ding) [facility] Start: 12-01-2022 Alcohol intake Lifetime non-d zach (finding) [facility] Work Phone: Start: 03-06-2023 End: 08-28-2023 Alcohol intake Ex-drinker (finding) [facility] Work Phone: NEGATED: Highlighted row - - [facility] Work Phone: Medical Equipment Procedure Code Equipment Code Equipment Origin al Text Equipment Identifier Dates Corneal Tissue F[employer] - [id number] Start: 08-05-2015 Functional Status Date Assessment Result Facility NEGATED: Highlighted row Functional performance Functional status health issues are not documented Disease [facility] Work Phone: Mental Status Date Assessment Result Facility NEGATED: Highlighted row Cognitive function [Interpretation] Cognitive status health issues are not documented Disease [facility] Work Phone: Clinical Notes 07-12-2016 to 08-28-2023 Carissa Winslow MD MPH - 08/28/2023 7:40 AM ESTAssessment & Plan Note - Carissa Winslow MD MPH - 08/22/2023 8:16 AM Sandra Winslow MD MPH - 08/22/2023 8:00 AM EST Note Date & Type Note Facility 08-28-2023 History of Present illness Narrative Subjective Patient ID: Shivani Veras III is a 47 y.o. male who presents for ER Follow-up (Pt went [facility] for a Blood clot - was advised to discuss being on xarelto daily due to having these before). HPI Patient is here for follow up after recent ED visit for DVT. Patient reports that he has had chronic right lower extremity edema which is worse than left edema since a very young age. However recently he noticed a significant increase overnight along with pain in his right hip. Due to this he went to the emergency department for further evaluation for possible hip abnormalities. However they found DVT on further evaluation. Was started on Xarelto. He is on testosterone supplementation. No recent extended sendentary periods. No recent surgical interventions. Denies shortness of breath. Reviewed records from his recent emergency department visit including imaging. Reports that it was initially thought that he needed thrombectomy but later on decided not to go ahead with the thrombectomy at the previous facility. He would like to discuss that with a specialist. Referral has been provided. Referral to vascular surgery given the chronic nature of the swelling in the right lower extremity and now with DVT. Ultrasound Duplex Venous Leg RIGHT Conclusions * Right. * Acute partially occlusive deep vein thrombosis noted in the mid and distal segment of the external iliac vein. * Completely occlusive acute deep vein thrombosis in the common femoral, profunda, femoral and popliteal veins of the right lower extremity. * Inadequate visualization of compression of the right posterior tibial veins. However, color flow noted suggestive of vein patency. * Unable to visualize the right peroneal veins due to edema and body habitus. Recommendations * Acute, partially occlusive right iliofemoral DVT. Review of Systems ROS negative except discussed above in HPI. Vitals: 08/28/23 0747 BP: 120/80 Pulse: 81 SpO2: 96% Objective Physical Exam Musculoskeletal: Right lower leg: Edema (significant pedal edema worse in right lower extremity. no significant tenderness appreciated.) present. Assessment/Plan Shivani was seen today for er follow-up. Diagnoses and all orders for this visit: Deep vein thrombosis (DVT) of proximal vein of right lower extremity, unspecified chronicity (CMS/HCC) (Primary) - Referral to Vascular Surgery; Future Follow up as scheduled in late Aug. Carissa Winslow MD MPH documented in this encounter [facility] Work Phone: 08-22-2023 Evaluation + Plan note Associated Problem(s): Stimulant dependence (CMS/HCC) Is taking Ritalin for ADHD. Under control with regimen. No side-effects so far from Ritalin. [facility] Work Phone: 08-22-2023 Miscellaneous Notes Associated Problem(s): Stimulant dependence (CMS/HCC) Is taking Ritalin for ADHD. Under control with regimen. No side-effects so far from Ritalin. documented in this encounter [facility] Work Phone: 08-22-2023 History of Present illness Narrative Subjective Patient ID: Shivani Veras III is a 47 y.o. male who presents for Follow-up (PT is here today for 3 month FUV. ). HPI Here for follow up. I have personally reviewed the OARRS report for SHIVANI VERAS. I have considered the risks of abuse, dependence, addiction and diversion. Is the patient prescribed a combination of a benzodiazepine and opioid? No. Last urine drug screening date/ordered today: 03/06/2023 Date of the last Controlled Substance Agreement: 03/06/2023 STIMULANTS What is the patient s goal of therapy? Adult ADHD. Is this being achieved with current treatment? yes. Activities of Daily Living: Yes, it is my opinion that this patient is benefitting from stimulant therapy . Physical functioning: Same Family relationships: Same Social relationships: Same Mood: Same Sleep patterns: Same Overall functioning: Same TESTOSTERONE Testosterone: continuation of therapy. What is the patient s goal of therapy? low testosterone. Is this being achieved with current treatment? yes. Date of last Testosterone check: 12/01/2022. Date of last CBC: 03/06/2023 Date of last PSA: 03/06/2023. Activities of Daily Living: Yes, it is my overall opinion that this patient is benefitting from testosterone therapy Physical functioning: Same Family relationships: Same Social relationships: Same Mood: Same Sleep patterns: Same Overall functioning: Same Here for follow up. Gout: Last flare up was about 3 years ago. Flare up frequency is reduced since stopping indapamide. Takes allopurinol when he notices symptoms are starting. As discussed below pedal edema is being a concern. With starting Lasix. Patient reports that he is able to recognize a flareup coming on before it happens. So he will be cautious. Encouraged to avoid dehydration. Psoriasis: He was diagnosed more than 20 years ago. Has been using betamethasone cream when he has plaques. Male hypogonadism: Currently taking testosterone. Has not noticed any side effects from testosterone as well. last CBC is normal. Erectile dysfunction: Takes sildenafil 20 mg. Takes about 5 tablets each time. Uses this about couple times a week. Denies noticing any side effects from the medication. Denies chest pain, palpitation or headaches. Adult ADHD: Was diagnosed over 20 years ago. Has been on Ritalin since then. 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 Pedal edema: Patient reports that based on the diet he takes pedal edema can be mild to severe. He was started on lasix at previous visit. Reports that he has noticed improvement but feels like he needs higher dose as he has residual edema. Increasing dose to 20mg. Discussed the potential for gout flareups. Hypertension: Blood pressure is elevated today. No chest pain cough or shortness of breath. Always been within normal limits in the past. Has been having little more salty food lately. Plan: Starting Lisinopril. BMP before the appointment. Recommended to check his blood pressure regularly. Improve his diet as well. Reviewed blood test results with patient. No concerns for Cushings at this time. Morbid obesity: reports that he has tried Wellbutrin in the past with some success. He would like to try that. Thinks that it may cause drowsiness. No hx of seizures. Plan: Started Wellbutrin. Discussed possible side-effects. Review of Systems ROS negative except discussed above in HPI. Vitals: 08/22/23 0756 BP: 138/90 Pulse: 83 SpO2: 96% Objective Physical Exam Constitutional: Appearance: Normal appearance. Cardiovascular: Rate and Rhythm: Normal rate and regular rhythm. Pulmonary: Effort: Pulmonary effort is normal. Breath sounds: Normal breath sounds. Musculoskeletal: Cervical back: Normal range of motion and neck supple. Lymphadenopathy: Cervical: No cervical adenopathy. Neurological: Mental Status: He is alert. Assessment/Plan Shivani was seen today for follow-up. Diagnoses and all orders for this visit: Stimulant dependence (CMS/HCC) (Primary) Pedal edema - Basic Metabolic Panel; Future - furosemide (Lasix) 20 mg tablet; Take 1 tablet (20 mg) by mouth once daily. Attention deficit disorder of adult with hyperactivity - buPROPion SR (Wellbutrin SR) 150 mg 12 hr tablet; Take 1 tablet (150 mg) by mouth 2 times a day. Do not crush, chew, or split. Morbid obesity (CMS/HCC) - buPROPion SR (Wellbutrin SR) 150 mg 12 hr tablet; Take 1 tablet (150 mg) by mouth 2 times a day. Do not crush, chew, or split. Hypogonadism in male Follow up in 4 weeks. Carissa Winslow MD MPH documented in this encounter [facility] Work Phone: 05-22-2023 History of Present illness Narrative Subjective Patient ID: Shivani Veras III is a 47 y.o. male who presents for 3 mth ov. [facility] Here for follow up. I have personally reviewed the OARRS report for SHIVANI VERAS. I have considered the risks of abuse, dependence, addiction and diversion. Is the patient prescribed a combination of a benzodiazepine and opioid? No. Last urine drug screening date/ordered today: 03/06/2023 Date of the last Controlled Substance Agreement: 03/06/2023 STIMULANTS What is the patient s goal of therapy? Adult ADHD. Is this being achieved with current treatment? yes. Activities of Daily Living: Yes, it is my opinion that this patient is benefitting from stimulant therapy . Physical functioning: Same Family relationships: Same Social relationships: Same Mood: Same Sleep patterns: Same Overall functioning: Same TESTOSTERONE Testosterone: continuation of therapy. What is the patient s goal of therapy? low testosterone. Is this being achieved with current treatment? yes. Date of last Testosterone check: 12/01/2022. Date of last CBC: 03/06/2023 Date of last PSA: 03/06/2023. Activities of Daily Living: Yes, it is my overall opinion that this patient is benefitting from testosterone therapy Physical functioning: Same Family relationships: Same Social relationships: Same Mood: Same Sleep patterns: Same Overall functioning: Same Here for follow up. Gout: Last flare up was about 2 years ago. Flare up frequency is reduced since stopping indapamide. Takes allopurinol when he notices symptoms are starting. As discussed below pedal edema is being a concern. With starting Lasix. Patient reports that he is able to recognize a flareup coming on before it happens. So he will be cautious. Encouraged to avoid dehydration. Psoriasis: He was diagnosed more than 20 years ago. Has been using betamethasone cream when he has plaques. Male hypogonadism: Currently taking testosterone. Has not noticed any side effects from testosterone as well. last CBC is normal. Erectile dysfunction: Takes sildenafil 20 mg. Takes about 5 tablets each time. Uses this about couple times a week. Denies noticing any side effects from the medication. Denies chest pain, palpitation or headaches. Adult ADHD: Was diagnosed over 20 years ago. Has been on Ritalin since then. 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 Pedal edema: Patient reports that based on the diet he takes pedal edema can be mild to severe. Starting lasix. Discussed the potential for gout flareups. Hypertension: Blood pressure is elevated today. No chest pain cough or shortness of breath. Always been within normal limits in the past. Has been having little more salty food lately. Plan: Recommended to check his blood pressure regularly. Improve his diet as well. Will consider checking for cushings at follow up visit. Morbid obesity: We will contact further evaluation with checking cortisol levels. Review of Systems ROS negative except discussed above in HPI. Vitals: 05/22/23 0915 BP: 142/90 Pulse: 77 SpO2: 98% Objective Physical Exam Constitutional: Appearance: Normal appearance. Cardiovascular: Rate and Rhythm: Normal rate and regular rhythm. Pulmonary: Effort: Pulmonary effort is normal. Breath sounds: Normal breath sounds. Musculoskeletal: Cervical back: Normal range of motion and neck supple. Right lower leg: Edema (Right more than left) present. Left lower leg: Edema present. Lymphadenopathy: Cervical: No cervical adenopathy. Neurological: Mental Status: He is alert. Assessment/Plan Shivani was seen today for 3 mth ov. Diagnoses and all orders for this visit: Hypogonadism in male (Primary) Attention deficit disorder of adult with hyperactivity Morbid obesity (CMS/HCC) - dexAMETHasone (Decadron) 1 mg tablet; Take at 11pm one time - Cortisol AM; Future Pedal edema - furosemide (Lasix) 20 mg tablet; Take 0.5 tablets (10 mg) by mouth once daily. Chronic gout without tophus, unspecified cause, unspecified site Follow up in 3 months. Carissa Winslow MD MPH documented in this encounter [facility] Work Phone: 04-06-2023 History of Present illness Narrative At this time patient does not wish to proceed forward with any therapy or required conservative measures that his insurance company wants. Will phone in if at sometime he wishes to go forward. documented in this encounter [facility] 03-28-2023 History of Present illness Narrative [facility] [address] [facility] [address] [facility] [id number] Chief Complaint Patient presents with Left Shoulder - Follow-up Shivani Veras returns to the office today for follow-up on the left shoulder. He denies any recent injury to the shoulder we have been trying to treat the left shoulder pain conservatively, with pills, injections as well as a previous arthroscopy. Unfortunately during his arthroscopy there was significant chondromalacia throughout the shoulder, the humeral head. Today he reports that his pain seems to sit right at the surgical neck of the humerus. He reports that he is able to push on this and reproduce the pain. He had been seen by a different provider and states that that provider had injected the bicep tendon. The patient reports he got about 2 or 3 months of great relief but then it returned. He states that he has had this pain for the last 20+ years and even after his arthroscopy if he did not get any type of relief. This pain is what is causing him so much grief. He is unable to do many activities, be active with his daughter, due to the pain in the left shoulder. He had discussed a possible surgery which would cut the bicep tendon with another provider. He had also discussed shoulder replacements, a total shoulder as well as a reverse total shoulder replacement. Dr. Law had made mention that a shoulder replacement would probably be needed in the future. We are trying to delay that surgery for as long as we can. Unfortunately, the patient continues to have increasing pain as well as limitations on his everyday life activities. The patient's past medical history, surgical history, social history, family history, medications and allergies were reviewed with the patient today and are available in the chart for further review. Allergies Allergen Reactions Celebrex [Celecoxib] Shortness Of Breath Current Outpatient Medications: allopurinol (ZYLOPRIM) 300 MG tablet, Take 1 (one) tablet (300 mg total) by mouth daily ., Disp: , Rfl: 1 CHOLECALCIFEROL, VITAMIN D3, (VITAMIN D3 ORAL), Take 2,000 Units by mouth daily ., Disp: , Rfl: ibuprofen 200 mg cap, Take by mouth As needed ., Disp: , Rfl: methylphenidate HCl (RITALIN) 20 MG tablet, Take 1 (one) tablet (20 mg total) by mouth 3 (three) times a day ., Disp: , Rfl: 0 multivitamin (THERAGRAN) per tablet, Take 1 (one) tablet by mouth daily ., Disp: , Rfl: omeprazole (PRILOSEC) 10 MG capsule, Take 1 (one) capsule (10 mg total) by mouth daily ., Disp: , Rfl: sildenafil, antihypertens, (REVATIO) 20 mg tablet, , Disp: , Rfl: testosterone cypionate (DEPOTESTOTERONE CYPIONATE) 200 mg/mL injection, Inject 1 mL (200 mg total) into the shoulder, thigh, or buttocks every 28 days., Disp: 1 mL, Rfl: 5 Past Medical History: Diagnosis Date ADHD (attention deficit hyperactivity disorder) Hypertension Neuromuscular disorder (HCC) degenerative joint disease Sleep apnea, obstructive wears CPAP Past Surgical History: Procedure Laterality Date ARTHROSCOPY SHOULDER W/ ROTATOR CUFF REPAIR Left 11/12/2020 Procedure: Left shoulder arthroscopy; Surgeon: Lidia Law MD; Location: Main OR; Service: Orthopedic CHOLECYSTECTOMY LAPAROSCOPIC 07/17/2017 [facility] CLOSED REDUCTION HAND FRACTURE EYE SURGERY left cornea replaced INTRACAPSULAR CATARACT EXTRACTION Left JOINT REPLACEMENT Bilateral hip Social History Socioeconomic History Marital status: Tobacco Use Smoking status: Never Smokeless tobacco: Never Substance and Sexual Activity Alcohol use: No Alcohol/week: 0.0 standard drinks of alcohol Drug use: No Sexual activity: Yes Partners: Female control/protection: None ROS: Review of Systems Musculoskeletal: Positive for arthralgias and myalgias. Decreased range of motion in the left shoulder PE: Physical Exam ORTHO: Left Shoulder Exam Tenderness The patient is experiencing tenderness in the biceps tendon. Range of Motion Active abduction: 140 Extension: 30 External rotation: 70 Forward flexion: 150 Internal rotation 90 degrees: 70 Muscle Strength Abduction: 5/5 Internal rotation: 5/5 External rotation: 5/5 Supraspinatus: 4/5 Subscapularis: 5/5 Biceps: 5/5 Other Erythema: absent Scars: present Sensation: normal Pulse: present Comments: +obriens +full can Imaging: Assessment/Plan: After discussion I am ordering a MRI of the left shoulder. I did explain to the patient that after we obtain the MRI we can discuss further surgical interventions. I did relay all of this information on to Dr. Law and he and I are in agreement that after the MRI scan, we would be able to provide better options for the patient. I will see the patient back in the office to review the MRI results. documented in this encounter [facility] 03-06-2023 History of Present illness Narrative Subjective Patient ID: Shviani Veras III is a 47 y.o. male who presents for Follow-up (3 month OV. ). HPI I have personally reviewed the OARRS report for SHIVANI VERAS. I have considered the risks of abuse, dependence, addiction and diversion. Is the patient prescribed a combination of a benzodiazepine and opioid? No. Last urine drug screening date/ordered today: 02/10/2022 Date of the last Controlled Substance Agreement: 02/10/2022 STIMULANTS What is the patient s goal of therapy? Adult ADHD. Is this being achieved with current treatment? yes. Activities of Daily Living: Yes, it is my opinion that this patient is benefitting from stimulant therapy . Physical functioning: Same Family relationships: Same Social relationships: Same Mood: Same Sleep patterns: Same Overall functioning: Same TESTOSTERONE Testosterone: continuation of therapy. What is the patient s goal of therapy? low testosterone. Is this being achieved with current treatment? yes. Date of last Testosterone check: 12/17/2021. Date of last CBC: 12/17/2021. Date of last PSA: 12/17/2021. Activities of Daily Living: Yes, it is my overall opinion that this patient is benefitting from testosterone therapy Physical functioning: Same Family relationships: Same Social relationships: Same Mood: Same Sleep patterns: Same Overall functioning: Same Here for follow up. Gout: Last flare up was about 2 years ago. Flare up frequency is reduced since stopping indapamide. Takes allopurinol when he notices symptoms are starting. Psoriasis: He was diagnosed more than 20 years ago. Has been using betamethasone cream when he has plaques. Male hypogonadism: Currently taking testosterone. Has not noticed any side effects from testosterone as well. last CBC is normal. Erectile dysfunction: Takes sildenafil 20 mg. Takes about 5 tablets each time. Uses this about couple times a week. Denies noticing any side effects from the medication. Denies chest pain, palpitation or headaches. Adult ADHD: Was diagnosed over 20 years ago. Has been on Ritalin since then. 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 Will consider checking for cushings at follow up visit. Review of Systems ROS negative except discussed above in HPI. Vitals: 03/06/23 0820 BP: 120/80 Pulse: 75 SpO2: 96% Objective Physical Exam Constitutional: Appearance: Normal appearance. Cardiovascular: Rate and Rhythm: Normal rate and regular rhythm. Pulmonary: Effort: Pulmonary effort is normal. Breath sounds: Normal breath sounds. Neurological: Mental Status: He is alert. Assessment/Plan Shivani was seen today for follow-up. Diagnoses and all orders for this visit: Attention deficit disorder of adult with hyperactivity - Opiate/Opioid/Benzo Extended Prescription Compliance; Future Needed contracts signed. Signed contracts. Checked OARRS. Urine drug screen ordered. Follow up in 3 months. Carissa Winslow MD MPH documented in this encounter [facility] Work Phone: 01-10-2023 Note HNO ID: [id number] Author: Radha Rice OD Service: ? Author Type: THREAD TOOL GRINDER SET UP OPERATOR Type: Progress Notes Filed: 01/10/2023 10:47 AM Note Text: ASSESSMENT/PLAN: 1. 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 Myopia, left - ICD9: 367.1, ICD10: H52.12 3. Regular astigmatism, bilateral - ICD9: 367.21, ICD10: H52.223 4. Presbyopia - ICD9: 367.4, ICD10: H52.4 Continue to wear his glasses with the update. Will recheck his contact lens at a visit and see how we can improve his vision Return in 1-2 weeks wearing the CL and checking OR Radha Rice OD I have confirmed and edited as necessary the relevant ophthalmic history, ROS, and the neuro exam findings as obtained by others. [facility] 01-10-2023 Instructions Radha Rice OD - 01/10/2023 10:45 AM EDT ASSESSMENT/PLAN: 1. 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 Myopia, left - ICD9: 367.1, ICD10: H52.12 3. Regular astigmatism, bilateral - ICD9: 367.21, ICD10: H52.223 4. Presbyopia - ICD9: 367.4, ICD10: H52.4 Continue to wear his glasses with the update. Will recheck his contact lens at a visit and see how we can improve his vision Return in 1-2 weeks wearing the CL and checking OR documented in this encounter [facility] 01-10-2023 History of Present illness Narrative ASSESSMENT/PLAN: 1. 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 Myopia, left - ICD9: 367.1, ICD10: H52.12 3. Regular astigmatism, bilateral - ICD9: 367.21, ICD10: H52.223 4. Presbyopia - ICD9: 367.4, ICD10: H52.4 Continue to wear his glasses with the update. Will recheck his contact lens at a visit and see how we can improve his vision Return in 1-2 weeks wearing the CL and checking OR Radha Rice OD I have confirmed and edited as necessary the relevant ophthalmic history, ROS, and the neuro exam findings as obtained by others. documented in this encounter [facility] 12-01-2022 History of Present illness Narrative Subjective Patient ID: Shivani Veras III is a 47 y.o. male who presents for Follow-up (3 month OV. ). HPI I have personally reviewed the OARRS report for SHIVANI VERAS. I have considered the risks of abuse, dependence, addiction and diversion. Is the patient prescribed a combination of a benzodiazepine and opioid? No. Last urine drug screening date/ordered today: 02/10/2022 Date of the last Controlled Substance Agreement: 02/10/2022 STIMULANTS What is the patient s goal of therapy? Adult ADHD. Is this being achieved with current treatment? yes. Activities of Daily Living: Yes, it is my opinion that this patient is benefitting from stimulant therapy . Physical functioning: Same Family relationships: Same Social relationships: Same Mood: Same Sleep patterns: Same Overall functioning: Same TESTOSTERONE Testosterone: continuation of therapy. What is the patient s goal of therapy? low testosterone. Is this being achieved with current treatment? yes. Date of last Testosterone check: 12/17/2021. Date of last CBC: 12/17/2021. Date of last PSA: 12/17/2021. Activities of Daily Living: Yes, it is my overall opinion that this patient is benefitting from testosterone therapy Physical functioning: Same Family relationships: Same Social relationships: Same Mood: Same Sleep patterns: Same Overall functioning: Same Here for follow up. Gout: Last flare up was about 2 years ago. Flare up frequency is reduced since stopping indapamide. Takes allopurinol when he notices symptoms are starting. Psoriasis: He was diagnosed more than 20 years ago. Has been using betamethasone cream when he has plaques. Male hypogonadism: Currently taking testosterone. Has not noticed any side effects from testosterone as well. last CBC is normal. Erectile dysfunction: Takes sildenafil 20 mg. Takes about 5 tablets each time. Uses this about couple times a week. Denies noticing any side effects from the medication. Denies chest pain, palpitation or headaches. Adult ADHD: Was diagnosed over 20 years ago. Has been on Ritalin since then. 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 Will consider checking for cushings at follow up visit. Review of Systems ROS negative except discussed above in HPI. Vitals: 12/01/22 0756 BP: 110/70 Pulse: 97 SpO2: 96% Objective Physical Exam Constitutional: Appearance: Normal appearance. Neck: Comments: Mild hump in the back(patient thinks this is from weight lifting). Cardiovascular: Rate and Rhythm: Normal rate and regular rhythm. Pulmonary: Effort: Pulmonary effort is normal. Breath sounds: Normal breath sounds. Musculoskeletal: Cervical back: Normal range of motion and neck supple. Lymphadenopathy: Cervical: No cervical adenopathy. Neurological: Mental Status: He is alert. Assessment/Plan Shivani was seen today for follow-up. Diagnoses and all orders for this visit: Attention deficit disorder of adult with hyperactivity (Primary) Follow-up encounter involving medication - Comprehensive Metabolic Panel; Future - Lipid Panel; Future Hypogonadism in male - Prostate Specific Antigen, Screen; Future - CBC and Auto Differential; Future - Testosterone; Future Healthcare maintenance - Comprehensive Metabolic Panel; Future - Lipid Panel; Future Follow up in 3 months. Carissa Winslow MD MPH documented in this encounter [facility] Work Phone: 11-30-2022 History of Present illness Narrative Associated Order(s): LG Jt Injection/Arthrocentesis: R knee; LG Jt Injection/Arthrocentesis: L knee Post-Procedure Diagnose(s): Primary osteoarthritis of both knees 11/30/22 Shivani Veras 1975 Chief Complaint Patient presents with Left Knee - Pain B/l knee inj Right Knee - Pain HISTORY of Present Illness: Shivani Veras is a 47 y.o. year old male that presents today with Pain of the Left Knee (B/l knee inj ) and Pain of the Right Knee . Shivani Veras has had injections in the past. Last injection to right/left knee was 08/14/22 and they tolerated well. They have been treated w/ oral medications & injections. Patient denies new injury to the knees. The following portions of the patient's history were reviewed and updated as appropriate: allergies, current medications, past surgical history and problem list PAST MEDICAL HISTORY The patient's Medications, Allergies, Past Surgical History, Medical History, Family History and Social History were reviewed and can be found in their online medical record, and I have reviewed this information with Shivani Veras at the time of their visit. They are significant for Past Medical History: Diagnosis Date ADHD (attention deficit hyperactivity disorder) Hypertension Neuromuscular disorder (HCC) degenerative joint disease Sleep apnea, obstructive wears CPAP IMAGING Notes: none new today. Reviewed from last visit. IMPRESSION And PLAN: Cortisone injection today. Will follow up in 3 months if effective. Call if no improvement in 10 days. 1. Primary osteoarthritis of both knees LG Jt Injection/Arthrocentesis: R knee Performed by: Ela Cooley CNP Authorized by: Ela Cooley CNP CPT 79864 - Large Joint Arthrocentesis: Consent given by: Patient Time out: Immediately prior to the procedure a time out was called Physician or proceduralist has discussed critical or nonroutine steps, procedure duration and anticipated blood loss: Yes Supporting Documentation: Indications: Pain, joint swelling and diagnostic evaluation Procedure Details: Location: Knee Site: R knee Prep: patient was prepped and draped in usual sterile fashion Needle size: 22 G Approach: Anterolateral Medications: 40 mg triamcinolone acetonide 40 mg/mL Anesthetic used: Lidocaine 1% Anesthetic amount (mL): 2 Patient tolerance: Patient tolerated the procedure well with no immediate complications LG Jt Injection/Arthrocentesis: L knee Performed by: Ela Cooley CNP Authorized by: Ela Cooley CNP CPT 16382 - Large Joint Arthrocentesis: Consent given by: Patient Time out: Immediately prior to the procedure a time out was called Physician or proceduralist has discussed critical or nonroutine steps, procedure duration and anticipated blood loss: Yes Supporting Documentation: Indications: Pain and diagnostic evaluation Procedure Details: Location: Knee Site: L knee Prep: patient was prepped and draped in usual sterile fashion Needle size: 22 G Approach: Anterolateral Medications: 40 mg triamcinolone acetonide 40 mg/mL Anesthetic used: Lidocaine 1% Anesthetic amount (mL): 2 Patient tolerance: Patient tolerated the procedure well with no immediate complications Ela Cooley CNP documented in this encounter [facility] 02-10-2022 History of Present illness Narrative I have personally reviewed the OARRS report for SHIVANI VERAS. I have considered the risks of abuse, dependence, addiction and diversion.Is the patient prescribed a combination of a benzodiazepine and opioid? No.Last urine drug screening date/ordered today: 2Date of the last Controlled Substance Agreement: 02/10/2022TIMULANTSWhat is the patient s goal of therapy? Adult ADHD.Is this being achieved with current treatment? yes.Activities of Daily Living:Yes, it is my opinion that this patient is benefitting from stimulant therapy .Physical functioning: SameFamily relationships: SameSocial relationships: SameMood: SameSleep patterns: SameOverall functioning: SameTESTOSTERONETestosterone: continuation of therapy.What is the patient s goal of therapy? low testosterone.Is this being achieved with current treatment? yes.Date of last Testosterone check: 12/17/2021.Date of last CBC: 12/17/2021.Date of last PSA: 12/17/2021.Activities of Daily Living: Yes, it is my overall opinion that this patient is benefitting from testosterone therapyPhysical functioning: SameFamily relationships: SameSocial relationships: SameMood: SameSleep patterns: SameOverall functioning: SameGout: Last flare up was about 2 years ago. Flare up frequency is reduced since stopping indapamide. Takes allopurinol when he notices symptoms are starting.Psoriasis: He was diagnosed more than 20 years ago. Has been using betamethasone cream when he has plaques. ItMale hypogonadism: Currently taking testosterone. Has not noticed any side effects from testosterone as well.Erectile dysfunction: Takes sildenafil 20 mg. Takes about 5 tablets each time. Uses this about couple times a week. Denies noticing any side effects from the medication. Denies chest pain, palpitation or headaches.Adult ADHD: Was diagnosed over 20 years ago. 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 I have considered the risks of abuse, dependence, addiction and diversion.Is the patient prescribed a combination of a benzodiazepine and opioid? No.Last urine drug screening date/ordered today: 2Date of the last Controlled Substance Agreement: 02/10/2022TIMULANTSWhat is the patient s goal of therapy? Adult ADHD.Is this being achieved with current treatment? yes.Activities of Daily Living:Yes, it is my opinion that this patient is benefitting from stimulant therapy .Physical functioning: SameFamily relationships: SameSocial relationships: SameMood: SameSleep patterns: SameOverall functioning: SameTESTOSTERONETestosterone: continuation of therapy.What is the patient s goal of therapy? low testosterone.Is this being achieved with current treatment? yes.Date of last Testosterone check: 12/17/2021.Date of last CBC: 12/17/2021.Date of last PSA: 12/17/2021.Activities of Daily Living: Yes, it is my overall opinion that this patient is benefitting from testosterone therapyPhysical functioning: SameFamily relationships: SameSocial relationships: SameMood: SameSleep patterns: SameOverall functioning: SameHere for follow up.Gout: Last flare up was about 2 years ago. Flare up frequency is reduced since stopping indapamide. Takes allopurinol when he notices symptoms are starting.Psoriasis: He was diagnosed more than 20 years ago. Has been using betamethasone cream when he has plaques.Male hypogonadism: Currently taking testosterone. Has not noticed any side effects from testosterone as well. last CBC is normal.Erectile dysfunction: Takes sildenafil 20 mg. Takes about 5 tablets each time. Uses this about couple times a week. Denies noticing any side effects from the medication. Denies chest pain, palpitation or headaches.Adult ADHD: Was diagnosed over 20 years ago. 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 Three point touch. Will adjust contact lens power. Continue yearly exams. I have confirmed and edited as necessary the relevant ophthalmic history, ROS, and the neuro exam findings as obtained by others. I have seen and examined Shivani Veras. I have discussed the case and the management of this patient's care with the Resident/Fellow, if applicable. I also have reviewed and agree with the assessment and plan as stated above and agree with all of its relevant components. 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 Three point touch. Will adjust contact lens power. Continue yearly exams. I have confirmed and edited as necessary the relevant ophthalmic history, ROS, and the neuro exam findings as obtained by others. I have seen and examined Shivani Veras. I have discussed the case and the management of this patient's care with the Resident/Fellow, if applicable. I also have reviewed and agree with the assessment and plan as stated above and agree with all of its relevant components. 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 Three point touch. Will adjust contact lens power. Continue yearly exams. I have confirmed and edited as necessary the relevant ophthalmic history, ROS, and the neuro exam findings as obtained by others. I have seen and examined Shivani Veras. I have discussed the case and the management of this patient's care with the Resident/Fellow, if applicable. I also have reviewed and agree with the assessment and plan as stated above and agree with all of its relevant components. Orin Rice II, OD documented in this encounter [facility] 12-20-2021 History of Present illness Narrative Associated Order(s): LG Jt Injection/Arthrocentesis: L knee; LG Jt Injection/Arthrocentesis: L glenohumeral Post-Procedure Diagnose(s): Primary osteoarthritis of both knees; S/P arthroscopy of left shoulder LG Jt Injection/Arthrocentesis: L knee Date/Time: 12/20/2021 12:00 PM Performed by: Ela Cooley CNP Authorized by: Ela Cooley CNP CPT 05419 - Large Joint Arthrocentesis: Consent given by: Patient Time out: Immediately prior to the procedure a time out was called Physician or proceduralist has discussed critical or nonroutine steps, procedure duration and anticipated blood loss: Yes Supporting Documentation: Indications: Pain and diagnostic evaluation Procedure Details: Location: Knee Site: L knee Prep: patient was prepped and draped in usual sterile fashion Needle size: 22 G Approach: Anterolateral Medications: 40 mg triamcinolone acetonide 40 mg/mL Anesthetic used: Lidocaine 1% Anesthetic amount (mL): 2 Patient tolerance: Patient tolerated the procedure well with no immediate complications LG Jt Injection/Arthrocentesis: L glenohumeral Date/Time: 12/20/2021 12:00 PM Performed by: Ela Cooley CNP Authorized by: Ela Cooley CNP CPT [id number] - Large Joint Arthrocentesis: Consent given by: Patient Time out: Immediately prior to the procedure a time out was called Supporting Documentation: Indications: Pain and diagnostic evaluation Procedure Details: Location: Shoulder Site: L glenohumeral Prep: patient was prepped and draped in usual sterile fashion Needle size: 22 G Approach: Posterior Medications: 40 mg triamcinolone acetonide 40 mg/mL Anesthetic used: Lidocaine 1% Anesthetic amount (mL): 2 Patient tolerance: Patient tolerated the procedure well with no immediate complications 12/20/21 Shivani Veras 1975 Chief Complaint Patient presents with Left Knee - Pain, Follow-up Left Shoulder - Pain, Follow-up HISTORY of Present Illness: Shivani Veras is a 46 y.o. year old male that presents today with Pain and Follow-up of the Left Knee and Pain and Follow-up of the Left Shoulder . Shivani Veras has had injections in the past. Last injection to left knee was 03/11/2020 and to the shoulder was 06/21/21. and they tolerated well. They have been treated w/ oral medications & injections. Patient denies new injury to the knee or shoulder The following portions of the patient's history were reviewed and updated as appropriate: allergies, current medications, past surgical history and problem list Assessment No documentation. PAST MEDICAL HISTORY The patient's Medications, Allergies, Past Surgical History, Medical History, Family History and Social History were reviewed and can be found in their online medical record, and I have reviewed this information with Shivani Veras at the time of their visit. They are significant for Past Medical History: Diagnosis Date ADHD (attention deficit hyperactivity disorder) Hypertension Neuromuscular disorder (HCC) degenerative joint disease Sleep apnea, obstructive wears CPAP IMAGING Notes: L Knee: No acute fracture or dislocation. There is moderate to severe degenerative changes of the left knee. IMPRESSION And PLAN: Cortisone injection today. Will follow up in 3 months if effective. Call if no improvement in 10 days. 1. S/P arthroscopy of left shoulder 2. 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 Refit into HGP. Order in trial for pick-up. Will need starter kit and suction cup. Recheck in one week. I have confirmed and edited as necessary the relevant ophthalmic history, ROS, and the neuro exam findings as obtained by others. I have seen and examined Shivani Veras. I have discussed the case and the management of this patient's care with the Resident/Fellow, if applicable. I also have reviewed and agree with the assessment and plan as stated above and agree with all of its relevant components. 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 Refit into HGP. Order in trial for pick-up. Will need starter kit and suction cup. Recheck in one week. I have confirmed and edited as necessary the relevant ophthalmic history, ROS, and the neuro exam findings as obtained by others. I have seen and examined Shivani Veras. I have discussed the case and the management of this patient's care with the Resident/Fellow, if applicable. I also have reviewed and agree with the assessment and plan as stated above and agree with all of its relevant components. Orin Rice II, OD documented in this encounter [facility] 10-27-2021 Instructions Radha Rice OD - 10/27/2021 4:44 PM EDT ASSESSMENT/PLAN: 1. 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 Myopia, left - ICD9: 367.1, ICD10: H52.12 3. Regular astigmatism, bilateral - ICD9: 367.21, ICD10: H52.223 4. Presbyopia - ICD9: 367.4, ICD10: H52.4 Suggested updating his glasses as desired. Will order RGP for the right eye and call to dispense. Return when CL comes in. documented in this encounter [facility] 10-27-2021 History of Present illness Narrative ASSESSMENT/PLAN: 1. 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 Myopia, left - ICD9: 367.1, ICD10: H52.12 3. Regular astigmatism, bilateral - ICD9: 367.21, ICD10: H52.223 4. Presbyopia - ICD9: 367.4, ICD10: H52.4 Suggested updating his glasses as desired. Will order RGP for the right eye and call to dispense. Return when CL comes in. Radha Rice OD documented in this encounter [facility] 06-27-2021 History of Present illness Narrative Associated Order(s): LG Jt Injection/Arthrocentesis: L glenohumeral; LG Jt Injection/Arthrocentesis: R glenohumeral Post-Procedure Diagnose(s): S/P arthroscopy of left shoulder; Bursitis and tendinitis of shoulder region LG Jt Injection/Arthrocentesis: L glenohumeral Performed by: Ela Cooley CNP Authorized by: Ela Cooley CNP CPT 06524 - Large Joint Arthrocentesis: Consent given by: Patient Time out: Immediately prior to the procedure a time out was called Physician or proceduralist has discussed critical or nonroutine steps, procedure duration and anticipated blood loss: Yes Supporting Documentation: Indications: Pain and diagnostic evaluation Procedure Details: Location: Shoulder Site: L glenohumeral Prep: patient was prepped and draped in usual sterile fashion Needle size: 22 G Approach: Posterior Medications: 40 mg triamcinolone acetonide 40 mg/mL Anesthetic used: Lidocaine 1% Anesthetic amount (mL): 2 Patient tolerance: Patient tolerated the procedure well with no immediate complications LG Jt Injection/Arthrocentesis: R glenohumeral Performed by: Ela Cooley CNP Authorized by: Ela Cooley CNP CPT 54913 - Large Joint Arthrocentesis: Consent given by: Patient Time out: Immediately prior to the procedure a time out was called Physician or proceduralist has discussed critical or nonroutine steps, procedure duration and anticipated blood loss: Yes Supporting Documentation: Indications: Pain and diagnostic evaluation Procedure Details: Location: Shoulder Site: R glenohumeral Prep: patient was prepped and draped in usual sterile fashion Needle size: 22 G Approach: Posterior Medications: 40 mg triamcinolone acetonide 40 mg/mL Anesthetic used: Lidocaine 1% Anesthetic amount (mL): 2 Patient tolerance: Patient tolerated the procedure well with no immediate complications [facility] [address] [facility] [address] [facility] [id number] No chief complaint on file. Shivani Veras returns to the office today for an injection to the left shoulder and for right shoulder pain. He had the left shoulder scoped this past spring which is doing well with the injections. The right shoulder, that has been painful for years, is now becoming worse. He denies any specific injury to the right shoulder. He reports that it isn't as bad as the left one was. He has only minimal decreased range of motion in the right shoulder but he has pain with motion and some decreased strength due to the pain. He has tried otc pain medications but they only seem to take the edge off. The injections help with the left shoulder and he would like to try an injection to the right. He denies any injury to the right shoulder. The patient's past medical history, surgical history, social history, family history, medications and allergies were reviewed with the patient today and are available in the chart for further review. Allergies Allergen Reactions Celebrex [Celecoxib] Shortness Of Breath Current Outpatient Medications: allopurinol (ZYLOPRIM) 300 MG tablet, Take 300 mg by mouth daily ., Disp: , Rfl: 1 CHOLECALCIFEROL, VITAMIN D3, (VITAMIN D3 ORAL), Take 2,000 Units by mouth daily ., Disp: , Rfl: ibuprofen 200 mg cap, Take by mouth As needed ., Disp: , Rfl: methylphenidate HCl (RITALIN) 20 MG tablet, Take 20 mg by mouth 3 (three) times a day., Disp: , Rfl: 0 multivitamin (THERAGRAN) per tablet, Take 1 tablet by mouth daily., Disp: , Rfl: omeprazole (PRILOSEC) 10 MG capsule, Take 10 mg by mouth daily ., Disp: , Rfl: testosterone cypionate (DEPOTESTOTERONE CYPIONATE) 200 mg/mL injection, Inject 1 mL (200 mg total) into the shoulder, thigh, or buttocks every 28 days., Disp: 1 mL, Rfl: 5 Past Medical History: Diagnosis Date ADHD (attention deficit hyperactivity disorder) Hypertension Neuromuscular disorder (HCC) degenerative joint disease Sleep apnea, obstructive wears CPAP Past Surgical History: Procedure Laterality Date ARTHROSCOPY SHOULDER W/ ROTATOR CUFF REPAIR Left 11/12/2020 Procedure: Left shoulder arthroscopy; Surgeon: Lidia Law MD; Location: [place]; Service: Orthopedic CHOLECYSTECTOMY LAPAROSCOPIC 07/17/2017 [facility] CLOSED REDUCTION HAND FRACTURE EYE SURGERY left cornea replaced INTRACAPSULAR CATARACT EXTRACTION Left JOINT REPLACEMENT Bilateral hip Social History Socioeconomic History Marital status: Tobacco Use Smoking status: Never Smoker Smokeless tobacco: Never Used Substance and Sexual Activity Alcohol use: No Alcohol/week: 0.0 standard drinks Drug use: No Sexual activity: Yes Partners: Female control/protection: None ROS: Review of Systems PE: Physical Exam ORTHO: Right Shoulder Exam Tenderness The patient is experiencing tenderness in the acromioclavicular joint and acromion. Range of Motion Active abduction: 160 Forward flexion: 170 Muscle Strength Internal rotation: 5/5 External rotation: 5/5 Supraspinatus: 4/5 Subscapularis: 5/5 Biceps: 5/5 Tests Cross arm: positive Impingement: negative Drop arm: negative Other Erythema: absent Scars: absent Sensation: normal Pulse: present Comments: +obriens +Neer +Empty can Imaging: R Shoulder: No acute fracture or dislocation identified. Moderate osteoarthritis of the acromioclavicular and moderate to severe osteoarthritis of the glenohumeral joint. Slight high-riding humerus suggest underlying rotator cuff pathology Assessment/Plan: After exam and reviewing of the patient x-ray images, I offered him cortisone injections to bilateral shoulders which he gladly accepted. I did this without complications and he tolerated this well. He is able to have these every 3 months if needed. He is to return to the office in two weeks if there is no improvement. He verbalizes understanding and is in agreement with the treatment plan. documented in this encounter [facility] 03-07-2021 History of Present illness Narrative OARRS Report Last Screening Date: 03/07/21I have personally reviewed the OARRS report for SHIVANI VERAS. I have considered the risks of abuse, dependence, addiction and diversion.Last urine drug screening date/ordered today: 03/05/21 - consistentDate of the last Controlled Substance Agreement: 05/30/21IMULANTSWhat is the patient s goal of therapy? To help control ADHD.Is this being achieved with current treatment? Yes.Activities of Daily Living:Yes, it is my opinion that this patient is benefitting from stimulant therapy .Physical functioning: BetterFamily relationships: BetterSocial relationships: BetterMood: BetterSleep patterns: BetterOverall functioning: BetterTESTOSTERONETestosterone: continuation of therapy.What is the patient s goal of therapy? To help improve male hypogonadism.Is this being achieved with current treatment? Yes.I attest the patient DOES NOT have: breast cancer, polycythemia (hematocrit > 54%), prostate cancer (Prostate-specific antigen > 4 ng per mL (4 mcg per L) or presence of nodules/induration on digital rectal examination (referral to a urologist is required before considering testosterone therapy).Date of last Testosterone check: Febate of last CBC: Febate of last PSA: Febctivities of Daily Living: Yes, it is my overall opinion that this patient is benefitting from testosterone therapyPhysical functioning: BetterFamily relationships: BetterSocial relationships: BetterMood: BetterSleep patterns: BetterOverall functioning: BetterMale hypogonadismStableCurrently inj himself w/ testosterone 200 mg [id number] any adverse rxns to thisSince starting testosterone injections, pt feels like he has more energy and less fatigueTestosterone does not help ED - using sildenafil for this - this helps - denies any adverse rxns to medADHDControlledCurrently on Ritalin 20 mg tid - helping him focus at work and at home - denies adverse rxns to medGout w/ hyperuricemiaStableRecent uric acid level elevated - pt states he has not been consistently taking his allopurinol - he forgetsDenies any recent gout flaresPsoriasisStableLocated on skin and scalpPRN Betamethasone cream helps - denies any adverse rxns to med [facility] Work Phone: 11-26-2020 History of Present illness Narrative Dictation on: 11/26/2020 5:30 PM by: LIDIA LAW [[id number]] documented in this encounter [facility] 05-24-2020 History of Present illness Narrative OARRS Report Last Screening Date: 03/07/21I have personally reviewed the OARRS report for SHIVANI VERAS. I have considered the risks of abuse, dependence, addiction and diversion.Last urine drug screening date/ordered today: 05/24/2020 - consistentDate of the last Controlled Substance Agreement: 05/24/2020STIMULANTSWhat is the patient s goal of therapy? To help control ADHD.Is this being achieved with current treatment? Yes.Activities of Daily Living:Yes, it is my opinion that this patient is benefitting from stimulant therapy .Physical functioning: BetterFamily relationships: BetterSocial relationships: BetterMood: BetterSleep patterns: BetterOverall functioning: BetterTESTOSTERONETestosterone: continuation of therapy.What is the patient s goal of therapy? To help improve male hypogonadism.Is this being achieved with current treatment? Yes.I attest the patient DOES NOT have: breast cancer, polycythemia (hematocrit > 54%), prostate cancer (Prostate-specific antigen > 4 ng per mL (4 mcg per L) or presence of nodules/induration on digital rectal examination (referral to a urologist is required before considering testosterone therapy).Date of last Testosterone check: Julate of last CBC: Julate of last PSA: Julctivities of Daily Living: Yes, it is my overall opinion that this patient is benefitting from testosterone therapyPhysical functioning: BetterFamily relationships: BetterSocial relationships: BetterMood: BetterSleep patterns: BetterOverall functioning: BetterMale hypogonadismStableCurrently inj himself w/ testosterone 200 mg [id number] any adverse rxns to thisSince starting testosterone injections, pt feels like he has more energy and less fatigueTestosterone does not help ED - using sildenafil for this - this helps - denies any adverse rxns to medADHDControlledCurrently on Ritalin 20 mg tid - helping him focus at work and at home - denies adverse rxns to medGout w/ hyperuricemiaStableRecent uric acid level elevated - pt states he has not been consistently taking his allopurinol - he forgetsDeneis any recent gout flaresPsoriasisStableLocated on skin and scalpPRN Betamethasone cream helps - denies any adverse rxns to medReviewed recent labs w/ ptLDL elevatedPt has intentionally lost about 40 lbs since November 2020 by watching his diet and exercise -[facility] Work Phone: documented as of this encounter (statuses as of 10/27/2021) [facility] History of Past illness Narrative* Problem Noted Date Resolved Date Cupping of optic disc 07/12/2016 09/22/2016 Astigmatism following corneal transplant 016 09/22/2016 Keratoconus of left eye 10/05/2015 09/22/19 17 Astigmatism of both eyes 08/31/2015 017 Status post corneal transplant 08/06/2015 0 09/22/2016 MICHELLE (subconjunctival hemorrhage) 08/06/2015 09/22/2016 Glaucoma suspect 06/30/2015 10/27/2021 Corneal scar, left eye 06/30/2015 7 Disability examination 06/09/2015 7 Keratoconus of both eyes 06/09/2015 017 Glaucoma suspect of both eyes 06/09/2015 Myelinated nerve fibers of optic disc 06/09/2015 09/22/2016 documented as of this encounter (statuses as of 11/25/2021) [facility] History of Past illness Narrative* Problem Noted Date Resolved Date Cupping of optic disc 07/12/2016 09/22/2016 Astigmatism following corneal transplant 016 09/22/2016 Keratoconus of left eye 10/05/2015 09/22/19 17 Astigmatism of both eyes 08/31/2015 017 Status post corneal transplant 08/06/2015 0 09/22/2016 MICHELLE (subconjunctival hemorrhage) 08/06/2015 09/22/2016 Glaucoma suspect 06/30/2015 10/27/2021 Corneal scar, left eye 06/30/2015 7 Disability examination 06/09/2015 7 Keratoconus of both eyes 06/09/2015 017 Glaucoma suspect of both eyes 06/09/2015 Myelinated nerve fibers of optic disc 06/09/2015 09/22/2016 documented as of this encounter (statuses as of 12/20/2021) [facility] History of Past illness Narrative* Problem Noted Date Resolved Date Cupping of optic disc 07/12/2016 09/22/2016 Astigmatism following corneal transplant 016 09/22/2016 Keratoconus of left eye 10/05/2015 09/22/19 17 Astigmatism of both eyes 08/31/2015 017 Status post corneal transplant 08/06/2015 0 09/22/2016 MICHELLE (subconjunctival hemorrhage) 08/06/2015 09/22/2016 Glaucoma suspect 06/30/2015 10/27/2021 Corneal scar, left eye 06/30/2015 7 Disability examination 06/09/2015 7 Keratoconus of both eyes 06/09/2015 017 Glaucoma suspect of both eyes 06/09/2015 Myelinated nerve fibers of optic disc 06/09/2015 09/22/2016 documented as of this encounter (statuses as of 01/13/2022) [facility] History of Past illness Narrative* Problem Noted Date Resolved Date Cupping of optic disc 07/12/2016 09/22/2016 Astigmatism following corneal transplant 016 09/22/2016 Keratoconus of left eye 10/05/2015 09/22/19 17 Astigmatism of both eyes 08/31/2015 017 Status post corneal transplant 08/06/2015 0 09/22/2016 MICHELLE (subconjunctival hemorrhage) 08/06/2015 09/22/2016 Glaucoma suspect 06/30/2015 10/27/2021 Corneal scar, left eye 06/30/2015 7 Disability examination 06/09/2015 7 Keratoconus of both eyes 06/09/2015 017 Glaucoma suspect of both eyes 06/09/2015 Myelinated nerve fibers of optic disc 06/09/2015 09/22/2016 documented as of this encounter (statuses as of 01/10/2023) [facility] S/P [facility]roscopy of left [facility]- [facility] S/P [facility]roscopy of left shoulder- Primary Nontraumatic tear of left rotator cuff, unspecified tear extent Bursitis and tendinitis of shoulder region [facility] Hyperopia, right- Primary Myopia, left Regular astigmatism, bilateral Presbyopia [facility] Diagnosis Keratoconus of both eyes- Primary [facility]atoconus, unspecified [facility] Keratoconus of both eyes- Primary Keratoconus, unspecified documented in this encounter [facility] note* Diagnosis S/P arthroscopy of left shoulder- Primary Primary osteoarthritis of both knees documented in this encounter [facility] note* Diagnosis Keratoconus of both eyes- Primary Keratoconus, unspecified [facility] Diagnosis Primary osteoarthritis of both knees- Primary documented in this encounter [facility] note* Diagnosis Attention deficit disorder of adult with hyperactivity- Primary Attention deficit disorder with hyperactivity Follow-up encounter involving medication Hypogonadism in male Healthcare maintenance documented in this encounter [facility] Work Phone: Evaluation note* Diagnosis Hyperopia, right- Primary Myopia, left Regular astigmatism, bilateral Presbyopia documented in this encounter [facility] note* Diagnosis Attention deficit disorder of adult with hyperactivity Attention deficit disorder with hyperactivity documented in this encounter [facility] Work Phone: Evaluation note* Diagnosis S/P arthroscopy of left shoulder- Primary Tear of left rotator cuff, unspecified tear extent, unspecified whether traumatic documented in this encounter [facility] note* Diagnosis Hypogonadism in male- Primary Attention deficit disorder of adult with hyperactivity Attention deficit disorder with hyperactivity Morbid obesity (CMS/HCC) Morbid obesity Pedal edema Edema Chronic gout without tophus, unspecified cause, unspecified site documented in this encounter [facility] Work Phone: Evaluation note* Diagnosis Stimulant dependence (CMS/HCC)- Primary Pedal edema Edema Attention deficit disorder of adult with hyperactivity Attention deficit disorder with hyperactivity Morbid obesity (CMS/HCC) Morbid obesity Hypogonadism in male Primary hypertension Unspecified essential hypertension documented in this encounter [facility] Work Phone: Evaluation note* Diagnosis Deep vein thrombosis (DVT) of proximal vein of right lower extremity, unspecified chronicity (CMS/HCC)- Primary documented in this encounter [facility] Work Phone: Instructions* Name Dates Details Instructions not documented [facility] Work Phone: Reason for referral (narrative)* Consultation (Routine) - Pending Review Specialty Diagnoses / Procedures Referred By Raquel roldan Referred To Contact Vascular Surgery Diagnoses Deep vein thrombosis (DVT) of proximal vein of right lower extremity, unspecified chronicity (CMS/HCC) Carissa Winslow MD MPH [facility] [facility], [address] [place] [address] [address], [address] [facility] [address] [place] [address] Referral ID Status Reason Start Date Expiration Date Visits Requested Visits Authorized [id number] Pending Review Specialty Services Required 08/28/2023 08/27/2024 1 1 [facility] Work Phone: Assessments Diagnosis Primary osteoarthritis of jodie th knees - Primary Diagnosis Right upper quadrant abdomin al pain - Primary Nausea and vomiting, intract ability of vomiting not specified, unspecified vomiting type Calculus of gallbladder with out cholecystitis without obstruction Abnormal abdominal ultrasoun d Nonspecific (abnormal) findings on radiological and other examination of abdominal area, including retroperitoneum DAYAN on CPAP Essential hypertension Unspecified essential hypertension Diagnosis Calculus of gallbladder with out cholecystitis without obstruction - Primary Diagnosis Postop check - Primary Follow-up examination, following unspecified surgery Diagnosis Tear of left rotator cuff, unspecified tear extent, unspecified whether traumatic- Primary Diagnosis Tear of left rotator cuff, unspecified tear extent, unspecified whether traumatic Diagnosis Tear of left rotator cuff, unspecified tear extent, unspecified whether traumatic- Primary Hypertension, unspecified type Exposure to SARS-associated coronavirus Tear of left rotator cuff- Primary Diagnosis Tear of left rotator cuff- Primary Tear of left rotator cuff, unspecified tear extent, unspecified whether traumatic Diagnosis Tear of left rotator cuff- Primary Nontraumatic tear of left rotator cuff, unspecified tear extent Tear of left rotator cuff, unspecified tear extent, unspecified whether traumatic Diagnosis Tear of left rotator cuff- Primary Nontraumatic tear of left rotator cuff, unspecified tear extent- Primary Tear of left rotator cuff, unspecified tear extent, unspecified whether traumatic Diagnosis Primary osteoarthritis of both knees- Primary Diagnosis Primary osteoarthritis of both knees Diagnosis Tear of left rotator cuff- Primary Nontraumatic tear of left rotator cuff, unspecified tear extent- Primary Tear of left rotator cuff, unspecified tear extent, unspecified whether traumatic Diagnosis Tear of left rotator cuff- Primary Nontraumatic tear of left rotator cuff, unspecified tear extent- Primary Tear of left rotator cuff, unspecified tear extent, unspecified whether traumatic Diagnosis Tear of left rotator cuff- Primary Nontraumatic tear of left rotator cuff, unspecified tear extent- Primary Tear of left rotator cuff, unspecified tear extent, unspecified whether traumatic Discharge Instructions * Marbin Krishna MD - 06/28/2017 Biliary Colic: Care Instructions Your Care Instructions Biliary (say [id number] ) colic is belly pain caused by gallbladder problems. It is usually caused by a gallstone moving through or blocking the common bile duct or cystic duct. Gallstones are stones that form in the gallbladder. They are made of cholesterol and other substances. The gallbladder is a small sac located just under the liver. It stores bile released by the liver. Bile helps you digest fats. Gallstones also can form in the common bile duct or cystic duct. These ducts carry bile from the gallbladder and the liver to the small intestine. Gallstones may be as small as a grain of sand or as large as a golf ball. Gallstones that cause severe symptoms usually are treated with surgery to remove the gallbladder. If the first attack of biliary colic is mild, it is often safe to wait until you have had another attack before you think about having surgery. The doctor has checked you carefully, but problems can develop later. If you notice any problems ornew symptoms, get medical treatment right away. Follow-up care is a esqueda part of your treatment and safety. Be sure to make and go to all appointments, and call your doctor if you are having problems. It's also a good idea to know your test resultsand keep a list of the medicines you take. How can you care for yourself at home? Take pain medicines exactly as directed. If the doctor gave you a prescription medicine for pain, take it as prescribed. If you are not taking a prescription pain medicine, ask your doctor if you can take an [id number]-dul-[id number] medicine. Read and follow all instructions on the label. Avoid foods that cause symptoms, especially fatty foods. These can cause biliary colic. You may need more tests to look at your gallbladder. When should you call for help? Call your doctor now or seek immediate medical care if: You have a fever. You have new belly pain, or your pain gets worse. There is a new or increasing yellow tint to your skin or the whites of your eyes. Your urine is dark yellow-brown, or your stools are light-colored or white. You cannot keep down fluids. Watch closely for changes in your health, and be sure to contact your doctor if: You do not get better as expected. You are not getting better after 1 day (24 hours). Where can you learn more? Log into your personal health record on https://[employer]Ut[employer] and enter X038 in the Education box to learn more about Biliary Colic: Care Instructions. Current as of: March 07, 2016 Content Version: 11.2 2449-1963 [employer]. Care instructions adapted under license by your healthcare professional. If you have questions about a medical condition or this instruction, always ask your healthcare professional. [employer] disclaims any warranty or liability for your use of this information. Gallbladder and Liver: Anatomy Sketch Current as of: August 03, 2016 Content Version: 11.2 [employer]. Care instructions adapted under license by your healthcare professional. If you have questions about a medical condition or this instruction, always ask your healthcare professional. [employer] disclaims any warranty or liability for your use of this information. Low-Fat Diet for Gallbladder Disease: Care Instructions Your Care Instructions When you eat, the gallbladder releases bile, which helps you digest the fat in food. If you have aninflamed gallbladder, this may cause pain. A low-fat diet may give your gallbladder a rest so you can start to heal. Your doctor and dietitian can help you make an eating plan that does not irritate your digestive system. Always talk with your doctor or dietitian before you make changes in your diet. Follow-up care is a esqueda part of your treatment and safety. Be sure to make and go to all appointments, and call your doctor if you are having problems. It's also a good idea to know your test resultsand keep a list of the medicines you take. How can you care for yourself at home? Eat many small meals and snacks each day instead of three large meals. Choose lean meats. Eat no more than 5 to 6 ounces of meat a day. Cut off all fat you can see. Eat chicken and turkey without the skin. Many types of fish, such as salmon, taveras trout, tuna, and reeves, provide healthy omega-3 fat. But, avoid fish canned in oil, such as sardines in olive oil. Bake, broil, or grill meats, poultry, or fish instead of frying them in butter or fat. Drink or eat nonfat or low-fat milk, yogurt, cheese, or other milk products each day. Read the labels on cheeses, and choose those with less than 5 grams of fat an ounce. Try fat-free sour cream, cream cheese, or yogurt. Avoid cream soups and cream sauces on pasta. Eat low-fat ice cream, frozen yogurt, or sorbet. Avoid regular ice cream. Eat whole-grain cereals, breads, crackers, rice, or pasta. Avoid high-fat foods such as croissants,scones, biscuits, waffles, doughnuts, muffins, granola, and high-fat breads. Flavor your foods with herbs and spices (such as basil, tarragon, or mint), fat- free sauces, or lemon juice instead of butter. You can also use butter substitutes, fat-free mayonnaise, or fat-free dressing. Try applesauce, prune puree, or mashed bananas to replace some or all of the fat when you bake. Limit fats and oils, such as butter, margarine, mayonnaise, and salad dressing, to no more than 1 tablespoon a meal. Avoid high-fat foods, such as: Chocolate, whole milk, ice cream, and processed cheese. Fried or buttered foods. Sausage, salami, and gallardo. Cinnamon rolls, cakes, pies, cookies, and other pastries. Prepared snack foods, such as potato chips, nut and granola bars, and mixed nuts. Coconut and avocado. Learn how to read food labels for serving sizes and ingredients. Fast-food and convenience-food meals often have lots of fat. Where can you learn more? Log into your personal health record on https://[employer]Ut[employer] and enter Z797 in the Education box to learn more about Low-Fat Diet for Gallbladder Disease: Care Instructions. Current as of: February 22, 2016 Content Version: 11.2 9356-9225 [employer]. Care instructions adapted under license by your healthcare professional. If you have questions about a medical condition or this instruction, always ask your healthcare professional. [employer] disclaims any warranty or liability for your use of this information. Your blood pressure was noted to be elevated in the Emergency Department today. Please follow-up with your primary care physician to have your blood pressure rechecked and to decide if you will benefit from life style changes,starting on medications, or modify your current blood pressure regimen. in this encounter Summary Purpose Family History No Family History Records Found Father Name Dates Details Family history of dementia(V 17.2, Z81.8) Status:Active Family history of type 2 haylee betes mellitus(V18.0, Z83.3) Status:Active Family history of cerebrovas cular accident (CVA)(V17.1, Z82.3) Status:Active Father Name Dates Details Family history of dementia(V 17.2, Z81.8) Status:Active Family history of type 2 haylee betes mellitus(V18.0, Z83.3) Status:Active Family history of cerebrovas cular accident (CVA)(V17.1, Z82.3) Status:Active Father Name Dates Details Family history of dementia(V 17.2, Z81.8) Status:Active Family history of type 2 haylee betes mellitus(V18.0, Z83.3) Status:Active Family history of cerebrovas cular accident (CVA)(V17.1, Z82.3) Status:Active Unknown Family Member Name Dates Details Family history of cerebrovas cular accident (CVA): Father(V17.1, Z82.3) Status:Active Family history of type 2 haylee betes mellitus: Father(V18.0, Z83.3) Status:Active Family history of dementia: Father(V17.2, Z81.8) Status:Active Unknown Family Member Name Dates Details Family history of dementia: Father(V17.2, Z81.8) Status:Active Family history of type 2 haylee betes mellitus: Father(V18.0, Z83.3) Status:Active Family history of cerebrovas cular accident (CVA): Father(V17.1, Z82.3) Status:Active Unknown Family Member Name Dates Details Family history of dementia: Father(V17.2, Z81.8) Status:Active Family history of type 2 haylee betes mellitus: Father(V18.0, Z83.3) Status:Active Family history of cerebrovas cular accident (CVA): Father(V17.1, Z82.3) Status:Active Unknown Family Member Name Dates Details Family history of cerebrovas cular accident (CVA): Father(V17.1, Z82.3) Status:Active Family history of type 2 haylee betes mellitus: Father(V18.0, Z83.3) Status:Active Family history of dementia: Father(V17.2, Z81.8) Status:Active Unknown Family Member Name Dates Details Family history of dementia: Father(V17.2, Z81.8) Status:Active Family history of type 2 haylee betes mellitus: Father(V18.0, Z83.3) Status:Active Family history of cerebrovas cular accident (CVA): Father(V17.1, Z82.3) Status:Active Unknown Family Member Name Dates Details Family history of dementia: Father(V17.2, Z81.8) Status:Active Family history of type 2 haylee betes mellitus: Father(V18.0, Z83.3) Status:Active Family history of cerebrovas cular accident (CVA): Father(V17.1, Z82.3) Status:Active Unknown Family Member Name Dates Details Family history of dementia: Father(V17.2, Z81.8) Status:Active Family history of type 2 haylee betes mellitus: Father(V18.0, Z83.3) Status:Active Family history of cerebrovas cular accident (CVA): Father(V17.1, Z82.3) Status:Active Unknown Family Member Name Dates Details Family history of dementia: Father(V17.2, Z81.8) Status:Active Family history of type 2 haylee betes mellitus: Father(V18.0, Z83.3) Status:Active Family history of cerebrovas cular accident (CVA): Father(V17.1, Z82.3) Status:Active Unknown Family Member Name Dates Details Family history of dementia: Father(V17.2, Z81.8) Status:Active Family history of type 2 haylee betes mellitus: Father(V18.0, Z83.3) Status:Active Family history of cerebrovas cular accident (CVA): Father(V17.1, Z82.3) Status:Active Unknown Family Member Name Dates Details Family history of dementia: Father(V17.2, Z81.8) Status:Active Family history of type 2 haylee betes mellitus: Father(V18.0, Z83.3) Status:Active Family history of cerebrovas cular accident (CVA): Father(V17.1, Z82.3) Status:Active Unknown Family Member Name Dates Details Family history of cerebrovas cular accident (CVA): Father(V17.1, Z82.3) Status:Active Family history of type 2 haylee betes mellitus: Father(V18.0, Z83.3) Status:Active Family history of dementia: Father(V17.2, Z81.8) Status:Active Unknown Family Member Name Dates Details Family history of dementia: Father(V17.2, Z81.8) Status:Active Family history of type 2 haylee betes mellitus: Father(V18.0, Z83.3) Status:Active Family history of cerebrovas cular accident (CVA): Father(V17.1, Z82.3) Status:Active Unknown Family Member Name Dates Details Family history of dementia: Father(V17.2, Z81.8) Status:Active Family history of type 2 haylee betes mellitus: Father(V18.0, Z83.3) Status:Active Family history of cerebrovas cular accident (CVA): Father(V17.1, Z82.3) Status:Active Unknown Family Member Name Dates Details Family history of cerebrovas cular accident (CVA): Father(V17.1, Z82.3) Status:Active Family history of type 2 haylee betes mellitus: Father(V18.0, Z83.3) Status:Active Family history of dementia: Father(V17.2, Z81.8) Status:Active Unknown Family Member Name Dates Details Family history of dementia: Father(V17.2, Z81.8) Status:Active Family history of type 2 haylee betes mellitus: Father(V18.0, Z83.3) Status:Active Family history of cerebrovas cular accident (CVA): Father(V17.1, Z82.3) Status:Active Unknown Family Member Name Dates Details Family history of dementia: Father(V17.2, Z81.8) Status:Active Family history of type 2 haylee betes mellitus: Father(V18.0, Z83.3) Status:Active Family history of cerebrovas cular accident (CVA): Father(V17.1, Z82.3) Status:Active Unknown Family Member Name Dates Details Family history of dementia: Father(V17.2, Z81.8) Status:Active Family history of type 2 haylee betes mellitus: Father(V18.0, Z83.3) Status:Active Family history of cerebrovas cular accident (CVA): Father(V17.1, Z82.3) Status:Active Unknown Family Member Name Dates Details Family history of dementia: Father(V17.2, Z81.8) Status:Active Family history of type 2 haylee betes mellitus: Father(V18.0, Z83.3) Status:Active Family history of cerebrovas cular accident (CVA): Father(V17.1, Z82.3) Status:Active Advance Directives No Advanced Directives Records FoundDocuments on File Type Date Recorded Patient Interventional Radiology Technologist Expl anation Advance Directives and Living Will Documents on File Type Date Recorded Patient Interventional Radiology Technologist Expl anation Advance Directives and Livin g Will 09/20/2020 7:10 AM Documents on File Type Date Recorded Patient Interventional Radiology Technologist Expl anation Advance Directives and Livin g Will 09/20/2020 7:10 AM Documents on File Type Date Recorded Patient Interventional Radiology Technologist Expl anation Advance Directives and Livin g Will 10/13/2020 7:10 AM Documents on File Type Date Recorded Patient Interventional Radiology Technologist Expl anation Advance Directives and Living Will Documents on File Type Date Recorded Patient Interventional Radiology Technologist Expl anation Advance Directives and Livin g Will 10/19/2020 7:10 AM Documents on File Type Date Recorded Patient Interventional Radiology Technologist Expl anation Advance Directives and Livin g Will 11/12/2020 8:59 AM Documents on File Type Date Recorded Patient Interventional Radiology Technologist Expl anation Advance Directive(s) 09/28/2016 10:02 AM Advance Directive(s) 10/05/2015 9:13 AM Advance Directive(s) 09/16/2015 12:06 PM Reason for Referral Status Reason Specialty Diagnoses / Procedures Referred By Contact Referred To Contact New Request Radiology Diagnoses Tear of left rotator cuff, unspecified tear extent, unspecified whether traumatic Procedures MR Shoulder Left Without Contrast Ela Cooley CNP [address] [place] [address] Status Reason Specialty Diagnoses / Procedures Referre d By Contact Referred To Contact Closed Radiology Diagnoses Tear of left rotator cuff, unspecified tear extent, unspecified whether traumatic Procedures MR Shoulder Left Without Contrast Ela Cooley CNP [address] [place] [address] Status Reason Specialty Diagnoses / Procedures Referred By Contact Referred To Contact Authorized Rehabilitation Diagnoses Tear of left rotator cuff, unspecified tear extent, unspecified whether traumatic Ela Cooley CNP [address] [place] [address] [facility] [place] [id number] [place] [address] Specialty Diagnoses / Procedures Referred By Contac t Referred To Contact Radiology Diagnoses Tear of left rotator cuff, unspecified tear extent, unspecified whether traumatic Procedures MR Shoulder Left Without Contrast Ela Cooley CNP [address] [place] [address] Referral ID Status Reason Start Date Expiration Date V isits Requested Visits Authorized [id number] New Request 03/27/2023 03/26/2024 1 1 History of Present Illness * Ela Cooley CNP - 08/31/2020 4:45 PM EST [facility] [address] [place] [phone] Chief Complaint Patient presents with Left Shoulder - Pain Shivani E Dove returns to the office today for left shoulder pain. The left shoulder started to hurt him about 20 years ago. He was told that he was too young for any type of surgery. The shoulder hurtoff and on but now his range of motion has become much more limited. He does notice a decreased in strength, just range of motion. He states that when he tries to lift the arm over his head, it catches, pops with a sharp pain and then he is able to lift the arm further. He feels as though the shoulder is unstable at times but has never been dislocated. He has had injections in the past, 4 or so years ago and they never helped. He has also had physical therapy years ago, again, not helping with the shoulder. With the shape the shoulder is in today, he doesn't believe that any type of injectionor therapy will help. He takes otc pain relievers which only just seem to take the edge off but doesn't take the pain away. The patient's past medical history, surgical history, social history, family history, medications and allergies were reviewed with the patient today and are available in the chart for further review. Allergies Allergen Reactions Celebrex [Celecoxib] Shortness Of Breath Current Outpatient Medications: allopurinol (ZYLOPRIM) 300 MG tablet, Take 300 mg by mouth daily ., Disp: , Rfl: 1 CHOLECALCIFEROL, VITAMIN D3, (VITAMIN D3 ORAL), Take 2,000 Units by mouth daily ., Disp: , Rfl: FLUoxetine (PROZAC) 20 MG capsule, TAKE 1 CAPSULE BY MOUTH EVERY DAY, Disp: , Rfl: ibuprofen (ADVIL,MOTRIN) 800 MG tablet, Take 800 mg by mouth daily., Disp: , Rfl: indapamide (LOZOL) 2.5 MG tablet, Take 1 tablet (2.5 mg total) by mouth daily., Disp: 30 tablet, Rfl: 11 methylphenidate HCl (RITALIN) 20 MG tablet, Take 20 mg by mouth 3 (three) times a day., Disp: , Rfl: 0 multivitamin (THERAGRAN) per tablet, Take 1 tablet by mouth daily., Disp: , Rfl: sildenafil (VIAGRA) 100 MG tablet, TAKE 1 TABLET BY MOUTH ONCE DAILY NEEDED FOR ERECTILE DYSFUNCTION, Disp: 10 tablet, Rfl: 11 testosterone cypionate (DEPOTESTOTERONE CYPIONATE) 200 mg/mL injection, Inject 1 mL (200 mg total) into the shoulder, thigh, or buttocks every 28 days., Disp: 1 mL, Rfl: 5 topiramate (TOPAMAX) 25 MG capsule, Take 50 mg by mouth 2 (two) times a day., Disp: , Rfl: 0 Past Medical History: Diagnosis Date ADHD (Attention Deficit Hyperactivity Disorder) Hypertension Neuromuscular disorder (HCC) degenerative joint disease Past Surgical History: Procedure Laterality Date CHOLECYSTECTOMY LAPAROSCOPIC 07/17/2017 [facility] CLOSED REDUCTION HAND FRACTURE EYE SURGERY left cornea replaced INTRACAPSULAR CATARACT EXTRACTION Left JOINT REPLACEMENT Bilateral hip Social History Socioeconomic History Marital status: Spouse name: Not on file Number of children: Not on file Years of education: Not on file Highest education level: Not on file Occupational History Not on file Social Needs Financial resource strain: Not on file Food insecurity Worry: Not on file Inability: Not on file Transportation needs Medical: Not on file Non-medical: Not on file Tobacco Use Smoking status: Never Smoker Smokeless tobacco: Never Used Substance and Sexual Activity Alcohol use: No Alcohol/week: 0.0 standard drinks Drug use: No Sexual activity: Yes Partners: Female control/protection: None Lifestyle Physical activity Days per week: Not on file Minutes per session: Not on file Stress: Not on file Relationships Social connections Talks on phone: Not on file Gets together: Not on file Attends amish service: Not on file Active member of club or organization: Not on file Attends meetings of clubs or organizations: Not on file Relationship status: Not on file Other Topics Concern Not on file Social History Narrative Not on file ROS: Review of Systems Constitutional: Negative for activity change and fatigue. HENT: Negative for congestion, hearing loss and trouble swallowing. Eyes: Negative for visual disturbance. Respiratory: Negative for chest tightness and shortness of breath. Cardiovascular: Negative for chest pain and palpitations. Gastrointestinal: Negative for abdominal pain, diarrhea, nausea and vomiting. Endocrine: Negative for polydipsia, polyphagia and polyuria. Genitourinary: Negative for decreased urine volume, difficulty urinating and hematuria. Musculoskeletal: Positive for arthralgias. Negative for joint swelling and myalgias. Skin: Negative for color change, rash and wound. Allergic/Immunologic: Negative for immunocompromised state. Neurological: Negative for dizziness, weakness, light-headedness and numbness. Hematological: Does not bruise/bleed easily. Psychiatric/Behavioral: Negative for confusion and sleep disturbance. The patient is not nervous/anxious. PE: Physical Exam Constitutional: He is oriented to person, place, and time. He appears well- developed and well-nourished. HENT: Head: Normocephalic. Eyes: Pupils are equal, round, and reactive to light. Neck: Normal range of motion. Neck supple. Cardiovascular: Normal rate and regular rhythm. Pulmonary/Chest: Effort normal and breath sounds normal. Abdominal: Soft. Bowel sounds are normal. Musculoskeletal: General: Tenderness present. Left shoulder: He exhibits decreased range of motion, bony tenderness, crepitus, pain and decreasedstrength. Neurological: He is alert and oriented to person, place, and time. Skin: Skin is warm and dry. ORTHO: Left Shoulder Exam Tenderness The patient is experiencing tenderness in the acromion and biceps tendon. Range of Motion Active abduction: 90 abnormal Forward flexion: 130 abnormal Muscle Strength Supraspinatus: 4/5 Subscapularis: 5/5 Biceps: 4/5 Tests Apprehension: positive Cross arm: positive Drop arm: positive Other Erythema: absent Scars: absent Sensation: normal Pulse: present Comments: +obriens +speeds Imaging: L Shoulder No acute fracture or dislocation. There is severe glenohumeral joint arthritis. Assessment/Plan: After examination and reviewing of the patient x-ray images, we discussed treatment options. I am going to order a MRI for further evaluation of the rotator cuff. I am also going to review the patient imaging with Dr. Law and discuss surgical options for the shoulder. The patient would like to avoid a shoulder replacement if at all possible and is curious as to if the bone spurs can just be removed. I informed him that I would dicussed these options with Dr. Law and get back to him with Dr. Law's recommendations. The patient verbalizes understanding and is in agreement with the treatment plan. documented in this encounter* Ela Cooley CNP - 09/29/2020 11:46 AM EST [facility] [address] [facility] [address] [facility] [phone] Chief Complaint Patient presents with Left Shoulder - Follow-up Shivani Veras returns to the office today for follow up on the left shoulder. He states the shoulderis about the same. It continues to be sore and he continues with limited range of motion and strength. He did have a MRI and is here today for results. He denies any new injury or change in the shoulder. The patient's past medical history, surgical history, social history, family history, medications and allergies were reviewed with the patient today and are available in the chart for further review. Allergies Allergen Reactions Celebrex [Celecoxib] Shortness Of Breath Current Outpatient Medications: allopurinol (ZYLOPRIM) 300 MG tablet, Take 300 mg by mouth daily ., Disp: , Rfl: 1 CHOLECALCIFEROL, VITAMIN D3, (VITAMIN D3 ORAL), Take 2,000 Units by mouth daily ., Disp: , Rfl: FLUoxetine (PROZAC) 20 MG capsule, TAKE 1 CAPSULE BY MOUTH EVERY DAY, Disp: , Rfl: ibuprofen (ADVIL,MOTRIN) 800 MG tablet, Take 800 mg by mouth daily., Disp: , Rfl: indapamide (LOZOL) 2.5 MG tablet, Take 1 tablet (2.5 mg total) by mouth daily., Disp: 30 tablet, Rfl: 11 methylphenidate HCl (RITALIN) 20 MG tablet, Take 20 mg by mouth 3 (three) times a day., Disp: , Rfl: 0 multivitamin (THERAGRAN) per tablet, Take 1 tablet by mouth daily., Disp: , Rfl: sildenafil (VIAGRA) 100 MG tablet, TAKE 1 TABLET BY MOUTH ONCE DAILY NEEDED FOR ERECTILE DYSFUNCTION, Disp: 10 tablet, Rfl: 11 sildenafil, antihypertens, (REVATIO) 20 mg tablet, TAKE 1 5 TABS BY MOUTH 1 HOUR BEFORE SEXUAL ACTIVITY. NO MORE THAN 5 TABS IN 24 HOURS, Disp: , Rfl: testosterone cypionate (DEPOTESTOTERONE CYPIONATE) 200 mg/mL injection, Inject 1 mL (200 mg total) into the shoulder, thigh, or buttocks every 28 days., Disp: 1 mL, Rfl: 5 topiramate (TOPAMAX) 25 MG capsule, Take 50 mg by mouth 2 (two) times a day., Disp: , Rfl: 0 Past Medical History: Diagnosis Date ADHD (Attention Deficit Hyperactivity Disorder) Hypertension Neuromuscular disorder (HCC) degenerative joint disease Past Surgical History: Procedure Laterality Date CHOLECYSTECTOMY LAPAROSCOPIC 07/17/2017 [facility] CLOSED REDUCTION HAND FRACTURE EYE SURGERY left cornea replaced INTRACAPSULAR CATARACT EXTRACTION Left JOINT REPLACEMENT Bilateral hip Social History Socioeconomic History Marital status: Spouse name: Not on file Number of children: Not on file Years of education: Not on file Highest education level: Not on file Occupational History Not on file Social Needs Financial resource strain: Not on file Food insecurity Worry: Not on file Inability: Not on file Transportation needs Medical: Not on file Non-medical: Not on file Tobacco Use Smoking status: Never Smoker Smokeless tobacco: Never Used Substance and Sexual Activity Alcohol use: No Alcohol/week: 0.0 standard drinks Drug use: No Sexual activity: Yes Partners: Female control/protection: None Lifestyle Physical activity Days per week: Not on file Minutes per session: Not on file Stress: Not on file Relationships Social connections Talks on phone: Not on file Gets together: Not on file Attends amish service: Not on file Active member of club or organization: Not on file Attends meetings of clubs or organizations: Not on file Relationship status: Not on file Other Topics Concern Not on file Social History Narrative Not on file ROS: Review of Systems Constitutional: Negative for activity change and fatigue. HENT: Negative for congestion, hearing loss and trouble swallowing. Eyes: Negative for visual disturbance. Respiratory: Negative for chest tightness and shortness of breath. Cardiovascular: Negative for chest pain and palpitations. Gastrointestinal: Negative for abdominal pain, diarrhea, nausea and vomiting. Endocrine: Negative for polydipsia, polyphagia and polyuria. Genitourinary: Negative for decreased urine volume, difficulty urinating and hematuria. Musculoskeletal: Positive for arthralgias. Negative for joint swelling and myalgias. Skin: Negative for color change, rash and wound. Allergic/Immunologic: Negative for immunocompromised state. Neurological: Negative for dizziness, weakness, light-headedness and numbness. Hematological: Does not bruise/bleed easily. Psychiatric/Behavioral: Negative for confusion and sleep disturbance. The patient is not nervous/anxious. PE: Physical Exam Constitutional: He is oriented to person, place, and time. He appears well- developed and well-nourished. HENT: Head: Normocephalic. Eyes: Pupils are equal, round, and reactive to light. Neck: Normal range of motion. Neck supple. Cardiovascular: Normal rate and regular rhythm. Pulmonary/Chest: Effort normal and breath sounds normal. Abdominal: Soft. Bowel sounds are normal. Musculoskeletal: General: Tenderness present. Left shoulder: He exhibits decreased range of motion, pain and decreased strength. Neurological: He is alert and oriented to person, place, and time. Skin: Skin is warm and dry. Imaging: MRI L Shoulder 1. Rotator cuff tendinosis with intermediate to high-grade partial-thickness articular sided tearing of the central cuff with possible full-thickness component. 2. Intact biceps tendon. 3. Mild acromioclavicular osteoarthritis with subacromial subdeltoid bursitis. 4. Severe glenohumeral osteoarthritis with circumferential labral degeneration, joint effusion and synovitis. Assessment/Plan: After exam and reviewing of the MRI images, we discussed surgical options. Shivani does not want a shoulder replacement at all at this time. I did review the MRI images with Dr. Law and he agreed to perform an arthroscopy of the shoulder with RC repair and hopefully postpone theshoulder replacement. I am going to start him in physical therapy at this time although I don't believe it will bring much benefit given how much arthritis is in the shoulder. The office will contacthim to schedule the surgery. I am more than happy to see him back if needed prior to his surgery. The patient verbalizes understanding and is in agreement with the treatment plan. documented in this encounter* Rick Elizabeth, PT - 10/06/2020 7:00 AM EST [facility] Evaluation Today's Date 10/06/2020 Patient Name: Shivani Veras Date of : 1975 Case Name: Left Rotator Cuff Tear Functional Diagnosis: 1. Tear of left rotator cuff, unspecified tear extent, unspecified whether traumatic Clinical Information: Subjective Referring Diagnosis: Left Rotator Cuff Tear Follow-up with physician: 10/22/2020 History of Present Illness Surgery Date: 11/10/2020 Per medical records dated: 09/20/20 Contemporary Medical History: MRI IMPRESSION: 1. Rotator cuff tendinosis with intermediate to high-grade partial-thickness articular sided tearing of the central cuff with possible full-thickness component. 2. Intact biceps tendon. 3. Mild acromioclavicular osteoarthritis with subacromial subdeltoid bursitis. 4. Severe glenohumeral osteoarthritis with circumferential labral degeneration, joint effusion and synovitis. Subjective History: Pt reports c/o chronic left shoulder pain worsening over the past 1-2 years. Hereports h/o degenerative joint disease and a bone spur in his shoulder. He reports unknown mechanism of injury and denies trauma. He denies numbness/tingling in the UE. Previous Imaging: X-ray and MRI Hand dominance: right Pain Scale: Pain location: shoulder Average Pain: 4/10 Pain at highest: 9/10 Aggravating factors: reaching, lifting, carrying Easing factors: rest, Ibuprofen 24 Hour Symptom Behavior Morning Pain: sudden End of day pain: worse Personal Goals: Manage pain and improve stability Functional Mobility Status Functional Limitations: recent decline in level of ADL Social Support: Jewish, social, or cultural considerations to be made aware of before starting treatment: No Activities of Daily Living: Lower Body: increased time and effort with all Instrumental Activities of Daily Living: Current Vocational Participation: [employer] Vocational Task Requirements: primarily working from a computer Sleep Assessment Sleep disturbance: Sleep Disturbance Red Flags: None Comments: Barriers to Care: None Jewish, social, or cultural considerations to be made aware of before starting treatment: No Shoulder Left Shoulder Tenderness: acromioclavicular joint and biceps tendon Range of Motion: Flexion: Active: 80 Extension: Active: 42 Abduction: Active: 70 IR 0 deg.: ROM Left Active IR 0: PSIS. ER 0 deg.: Active: 34 Muscle Strength: Flexion: 2 Extension: 3+ Abduction: 2 Adduction: 4+ IR: 4 ER: 2+ Special Testing Cross arm: Negative Empty can: Positive Load shift: Negative Speed's test: Negative Additional Comments: FOTO: 30 Treatments: Physical Therapy Exercise Log - 10/06/20 0739 OTHER Notes Visit 1: 7:06 - 7:36 Therapeutic Exercise (76522) Intervention provided written HEP handouts consisting of the following: Parameters table slides (flex, scap and abd) Intervention ER doorway stretch Parameters scap retractions PT Treatment Times Total Treatment Time 30 Goals: Physical Therapy Ortho Goals: CARRYING/MOVING/HANDLING: Patient will be able to lift and carry up to 10 lbs in 4 weeks SELF CARE: Patient will be able to complete ADL's including bathing, dressing, and hair care without difficulty in 4 weeks. IMPAIRMENT: Patient will demonstrate improved postural awareness in PT sessions to facilitate mechanical alignment and function in 3 weeks. IMPAIRMENT: Improve pain from 9/10 to <4/10 during reaching, lifting and carrying in 4 weeks IMPAIRMENT: Improve gross MMT of the Left Shoulder from 2+/5 to 3/5 in 4 weeks IMPAIRMENT: Improve AROM of Left Shoulder Flexion and Abduction to at least 120 degrees in 4 weeks. IMPAIRMENT: Improve AROM of Left Shoulder ER from 34 degrees to at least 45 degrees in 4 weeks. OTHER: Patient will increase FOTO score from 30 to at least 40 to show MDC/MCII and expected functional outcome in 4 weeks. OTHER: Patient will be able to properly demonstrate independence with HEP in 1 week. CPT Code 01899 Low 51692 Moderate 96014 High History 0 1-2 3+ Comorbidities: HTN and DJD, Personal factors: chronicity or severity of the current condition Examination of body systems (elements of body structures & functions, activity limitations, and/or participation restrictions) 1-2 elements 3+ elements 4+ elements See below clinical impression Clinical Presentation Stable Evolving Unstable As evidenced by reproduction of or changes in symptoms with certain movements and pt report of overall worsening of symtpoms over time Decision Making Low (FOTO >/= 69) Moderate (FOTO 34 - 68) High (FOTO </= 33) FOTO score= 30 Pt is a 45 y.o. male who presents to PT services with c/o left shoulder pain. Upon assessment, pt has been found with the following impairments: impaired posture, decreased ROM, decreased strength and pain. 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 The pt would benefit from skilled PT services focused on the above listed impairments and limitations in order to safely progress pt to their desired level of function. Pt to be discharged from OP PT services if/when goals are met, if they fail to make progress with conservative management in PT, if their level of progress plateaus, or if they do not maintain compliance with attendance or HEP. At this time, it is my clinical judgment that services are medically necessary. Plan of Care Frequency of Visits: 2 times per week Duration: 4 weeks Interventions: Therapeutic Exercise, Neuromuscular Re-Education, Manual Therapy, Hot/Cold Pack and Vasopneumatic Rehab Potential: fair Suicide Screen Signs and Symptoms of Abuse/Neglect: No Actions Taken: No Suicide Risk: Does the patient feel like ending their life today?No Actions Taken: No Patient Education Provided Pt was educated on the benefits of therapy and importance of compliance with sessions and HEP for rehabilitation. Pt was also educated on treatment diagnosis, POC, and frequency/duration of treatment. Clinical Impression Pt would benefit from PT interventions for left rotator cuff tear to address impairments in ROM andstability as well as pain control. Rick Elizabeth PT State License, [id number] documented in this encounter* Ann Jolly, SYED - 10/08/2020 7:00 AM EST [facility] DAILY TREATMENT NOTE Today's Date 10/08/2020 Patient Name: Shivani Veras Date of : 1975 Current Visit #: 2 Authorized Visits: 199 Case Name: Left Rotator Cuff Tear History: Pre-Treatment Pain Scale: 3 Symptoms: stabilized Functional Diagnosis: 1. Nontraumatic tear of left rotator cuff, unspecified tear extent Clinical Information: Subjective: His shoulder is sore most all the time. Surgery is scheduled for November 10. He is compliant with HEP. Objective Reviewed HEP for correct techniques. Initiated light strengthening without sx increase. Treatments: Physical Therapy Exercise Log - 10/08/20 0751 OTHER Notes visit 2: 7:04-7:40 Therapeutic Exercise (28732) Intervention provided written HEP handouts consisting of the following: Parameters table slides (flex, scap and abd) x10 each Intervention ER doorway stretch Parameters scap retractions rows LIBRADO 2x10 Intervention ER 2x10 GTT Parameters IR LIBRADO 2x10 Intervention supine cane x10 flex/horizontal/ER/press ups Parameters UEB 6' fwd/back PT Treatment Times Therex Total Time 36 Direct Treatment Time 36 Total Treatment Time 36 Goals: Physical Therapy Ortho Goals: CARRYING/MOVING/HANDLING: Patient will be able to lift and carry up to 10 lbs in 4 weeks SELF CARE: Patient will be able to complete ADL's including bathing, dressing, and hair care without difficulty in 4 weeks. IMPAIRMENT: Patient will demonstrate improved postural awareness in PT sessions to facilitate mechanical alignment and function in 3 weeks. IMPAIRMENT: Improve pain from 9/10 to <4/10 during reaching, lifting and carrying in 4 weeks IMPAIRMENT: Improve gross MMT of the Left Shoulder from 2+/5 to 3/5 in 4 weeks IMPAIRMENT: Improve AROM of Left Shoulder Flexion and Abduction to at least 120 degrees in 4 weeks. IMPAIRMENT: Improve AROM of Left Shoulder ER from 34 degrees to at least 45 degrees in 4 weeks. OTHER: Patient will increase FOTO score from 30 to at least 40 to show MDC/MCII and expected functional outcome in 4 weeks. OTHER: Patient will be able to properly demonstrate independence with HEP in 1 week. Patient Education: Quality of movement with patient demonstrated understanding. Post-Treatment Pain Scale: 3 Assessment: Patient had an expected response to treatment. Skilled Intervention demonstrated by modifications of treatment per exercise log including increased intensity and safety interventions per exercise log. Progress towards goals as expected. Plan for Next Visit: Treatment Visit with focus on pain control and strengthening Ann Jolly PTA STATE LICENSE, [id number] documented in this encounter* Jayden Owen PTA - 10/13/2020 7:00 AM EDT [facility] DAILY TREATMENT NOTE Today's Date 10/13/2020 Patient Name: Shivani Veras Date of : 1975 Current Visit #: 3 Authorized Visits: 199 Case Name: Left Rotator Cuff Tear History: Pre-Treatment Pain Scale: 3 Symptoms: stabilized Functional Diagnosis: 1. Nontraumatic tear of left rotator cuff, unspecified tear extent Clinical Information: Subjective: Pt reports shoulder was hurting yesterday but did not remember doing anything out of the ordinary to get it flared up. Objective Treatments: Physical Therapy Exercise Log - 10/13/20 0705 OTHER Notes visit 2: 7:05-7:40 Therapeutic Exercise ([id number]) Intervention Pulleys - x3 min Parameters UEB 6' fwd/back Intervention table slides (flex, scap and abd) x10 each Parameters ER doorway stretch - 20 sec x3 Intervention IR strap stretch - 20 sec x3 Parameters scap retractions rows, ext LIBRADO 2x10 Intervention IR LIBRADO 2x10 Parameters ER 2x10 GTT Intervention Wall Push up - 2x10 Parameters supine cane x10 flex/horizontal/ER/press ups Intervention Reverse Codemans - x20 cw, ccw Parameters Serratus punch - x10 Intervention Sidelying - 2x10 1# PT Treatment Times Therex Total Time 35 Direct Treatment Time 35 Total Treatment Time 35 Goals: Physical Therapy Ortho Goals: CARRYING/MOVING/HANDLING: Patient will be able to lift and carry up to 10 lbs in 4 weeks SELF CARE: Patient will be able to complete ADL's including bathing, dressing, and hair care without difficulty in 4 weeks. IMPAIRMENT: Patient will demonstrate improved postural awareness in PT sessions to facilitate mechanical alignment and function in 3 weeks. IMPAIRMENT: Improve pain from 9/10 to <4/10 during reaching, lifting and carrying in 4 weeks IMPAIRMENT: Improve gross MMT of the Left Shoulder from 2+/5 to 3/5 in 4 weeks IMPAIRMENT: Improve AROM of Left Shoulder Flexion and Abduction to at least 120 degrees in 4 weeks. IMPAIRMENT: Improve AROM of Left Shoulder ER from 34 degrees to at least 45 degrees in 4 weeks. OTHER: Patient will increase FOTO score from 30 to at least 40 to show MDC/MCII and expected functional outcome in 4 weeks. OTHER: Patient will be able to properly demonstrate independence with HEP in 1 week. Patient Education: Quality of movement with patient demonstrated understanding. Post-Treatment Pain Scale: 3 Assessment: Patient had an expected response to treatment. Skilled Intervention demonstrated by modifications of treatment per exercise log including increased load and increased rate and safety interventions per exercise log. Progress towards goals as expected. Plan for Next Visit: Treatment Visit with focus on strengthening and stability Jayden Owen PTA STATE LICENSE, [id number] documented in this encounter* Ann Jolly PTA - 10/15/2020 7:00 AM EDT [facility] DAILY TREATMENT NOTE Today's Date 10/15/2020 Patient Name: Shivani Vears Date of : 1975 Current Visit #: 4 Authorized Visits: 199 Case Name: Left Rotator Cuff Tear History: Pre-Treatment Pain Scale: 3 Symptoms: gradually improved Functional Diagnosis: 1. Nontraumatic tear of left rotator cuff, unspecified tear extent Clinical Information: Subjective: He still has pain with certain movements. Objective ER strength 4-/5. Initiated door stretches and s/l abd stretch with mild pain increase. Treatments: Physical Therapy Exercise Log - 10/15/20 0912 OTHER Notes visit 3: 7:05-7:45 Therapeutic Exercise (68891) Intervention Pulleys - x3 min Parameters UEB 6' fwd/back Intervention table slides (flex, scap and abd) x10 each NT Parameters ER doorway stretch - 20 sec x3 Intervention IR strap stretch - 20 sec x3 Parameters scap retractions rows, ext LIBRADO 2x10 Intervention IR LIBRADO 2x10 Parameters ER 2x10 GTT Intervention Wall Push up - 2x10 Parameters supine cane x10 flex/horizontal/ER/press ups Intervention Reverse [employer]emans - x20 cw, ccw 1# Parameters Serratus punch -2x10 3# Intervention Sidelying - ER/abd 2x10 1# Parameters supine alphabet 1# PT Treatment Times Therex Total Time 40 Direct Treatment Time 40 Total Treatment Time 40 Goals: Physical Therapy Ortho Goals: CARRYING/MOVING/HANDLING: Patient will be able to lift and carry up to 10 lbs in 4 weeks SELF CARE: Patient will be able to complete ADL's including bathing, dressing, and hair care without difficulty in 4 weeks. IMPAIRMENT: Patient will demonstrate improved postural awareness in PT sessions to facilitate mechanical alignment and function in 3 weeks. IMPAIRMENT: Improve pain from 9/10 to <4/10 during reaching, lifting and carrying in 4 weeks IMPAIRMENT: Improve gross MMT of the Left Shoulder from 2+/5 to 3/5 in 4 weeks IMPAIRMENT: Improve AROM of Left Shoulder Flexion and Abduction to at least 120 degrees in 4 weeks. IMPAIRMENT: Improve AROM of Left Shoulder ER from 34 degrees to at least 45 degrees in 4 weeks. OTHER: Patient will increase FOTO score from 30 to at least 40 to show MDC/MCII and expected functional outcome in 4 weeks. OTHER: Patient will be able to properly demonstrate independence with HEP in 1 week. Patient Education: Quality of movement with patient demonstrated understanding. Post-Treatment Pain Scale: 3 Assessment: Patient had an expected response to treatment. Skilled Intervention demonstrated by modifications of treatment per exercise log including increased intensity and safety interventions per exercise log. Progress towards goals as expected. Plan for Next Visit: Treatment Visit with focus on strengthening Ann Jolly PTA STATE LICENSE, [id number] documented in this encounter* Lidia Law MD - 02/10/2019 5:41 PM EDT Dictation on: 02/10/2019 5:42 PM by: LIDIA LAW [[id number]] documented in this encounter* Ela Cooley CNP - 03/11/2020 5:07 PM EDT Associated Order(s): LG Jt Injection/Arthrocentesis: R knee; LG Jt Injection/Arthrocentesis: L knee Post-Procedure Diagnose(s): Primary osteoarthritis of both knees LG Jt Injection/Arthrocentesis: R knee Performed by: Ela Cooley CNP Authorized by: Ela Cooley CNP CPT 18979 - Large Joint Arthrocentesis: Consent given by: Patient Time out: Immediately prior to the procedure a time out was called Physician or proceduralist has discussed critical or nonroutine steps, procedure duration and anticipated blood loss: Yes Supporting Documentation: Indications: Pain, joint swelling and diagnostic evaluation Procedure Details: Location: Knee Site: R knee Prep: patient was prepped and draped in usual sterile fashion Needle size: 22 G Approach: Anterolateral Medications: 40 mg triamcinolone acetonide 40 mg/mL Anesthetic used: Lidocaine 1% Anesthetic amount (mL): 2 Patient tolerance: Patient tolerated the procedure well with no immediate complications LG Jt Injection/Arthrocentesis: L knee Performed by: Ela Cooley CNP Authorized by: Ela Cooley CNP CPT 30904 - Large Joint Arthrocentesis: Consent given by: Patient Time out: Immediately prior to the procedure a time out was called Physician or proceduralist has discussed critical or nonroutine steps, procedure duration and anticipated blood loss: Yes Supporting Documentation: Indications: Pain and diagnostic evaluation Procedure Details: Location: Knee Site: L knee Prep: patient was prepped and draped in usual sterile fashion Needle size: 22 G Approach: Anterolateral Medications: 40 mg triamcinolone acetonide 40 mg/mL Anesthetic used: Lidocaine 1% Anesthetic amount (mL): 2 Patient tolerance: Patient tolerated the procedure well with no immediate complications * Ela Cooley CNP - 03/11/2020 5:04 PM EDT [facility] [address] [facility] [address] [facility] [id number] Chief Complaint Patient presents with Left Knee - Pain Right Knee - Pain Left Shoulder - Pain Shivani Veras returns to the office today for injections to bilateral knees. He states he has had injections to the knees previously by Dr. Law. These injections do seem to help him with bilateral knee pain. He states his last injection was about 1 year ago. He states the injections do help himfor quite a few months. He is here today for another round of injections. He did state that Dr. Law told him that soon as the injections stop working for him that they would discuss a total kneereplacement. The patient's past medical history, surgical history, social history, family history, medications and allergies were reviewed with the patient today and are available in the chart for further review. Allergies Allergen Reactions Celebrex [Celecoxib] Shortness Of Breath Current Outpatient Medications: allopurinol (ZYLOPRIM) 300 MG tablet, Take 300 mg by mouth daily ., Disp: , Rfl: 1 CHOLECALCIFEROL, VITAMIN D3, (VITAMIN D3 ORAL), Take 2,000 Units by mouth daily ., Disp: , Rfl: FLUoxetine (PROZAC) 20 MG capsule, TAKE 1 CAPSULE BY MOUTH EVERY DAY, Disp: , Rfl: ibuprofen (ADVIL,MOTRIN) 800 MG tablet, Take 800 mg by mouth daily., Disp: , Rfl: indapamide (LOZOL) 2.5 MG tablet, Take 1 tablet (2.5 mg total) by mouth daily., Disp: 30 tablet, Rfl: 11 methylphenidate HCl (RITALIN) 20 MG tablet, Take 20 mg by mouth 3 (three) times a day., Disp: , Rfl: 0 multivitamin (THERAGRAN) per tablet, Take 1 tablet by mouth daily., Disp: , Rfl: sildenafil (VIAGRA) 100 MG tablet, TAKE 1 TABLET BY MOUTH ONCE DAILY NEEDED FOR ERECTILE DYSFUNCTION, Disp: 10 tablet, Rfl: 11 testosterone cypionate (DEPOTESTOTERONE CYPIONATE) 200 mg/mL injection, Inject 1 mL (200 mg total) into the shoulder, thigh, or buttocks every 28 days., Disp: 1 mL, Rfl: 5 topiramate (TOPAMAX) 25 MG capsule, Take 50 mg by mouth 2 (two) times a day., Disp: , Rfl: 0 Past Medical History: Diagnosis Date ADHD (Attention Deficit Hyperactivity Disorder) Hypertension Neuromuscular disorder (HCC) degenerative joint disease Past Surgical History: Procedure Laterality Date CHOLECYSTECTOMY LAPAROSCOPIC 07/17/2017 [facility] CLOSED REDUCTION HAND FRACTURE EYE SURGERY left cornea replaced INTRACAPSULAR CATARACT EXTRACTION Left JOINT REPLACEMENT Bilateral hip Social History Socioeconomic History Marital status: Spouse name: Not on file Number of children: Not on file Years of education: Not on file Highest education level: Not on file Occupational History Not on file Social Needs Financial resource strain: Not on file Food insecurity Worry: Not on file Inability: Not on file Transportation needs Medical: Not on file Non-medical: Not on file Tobacco Use Smoking status: Never Smoker Smokeless tobacco: Never Used Substance and Sexual Activity Alcohol use: No Alcohol/week: 0.0 standard drinks Drug use: No Sexual activity: Yes Partners: Female control/protection: None Lifestyle Physical activity Days per week: Not on file Minutes per session: Not on file Stress: Not on file Relationships Social connections Talks on phone: Not on file Gets together: Not on file Attends amish service: Not on file Active member of club or organization: Not on file Attends meetings of clubs or organizations: Not on file Relationship status: Not on file Other Topics Concern Not on file Social History Narrative Not on file ROS: Review of Systems Constitutional: Negative for activity change and fatigue. HENT: Negative for congestion, hearing loss and trouble swallowing. Eyes: Negative for visual disturbance. Respiratory: Negative for chest tightness and shortness of breath. Cardiovascular: Negative for chest pain and palpitations. Gastrointestinal: Negative for abdominal pain, diarrhea, nausea and vomiting. Endocrine: Negative for polydipsia, polyphagia and polyuria. Genitourinary: Negative for decreased urine volume, difficulty urinating and hematuria. Musculoskeletal: Positive for arthralgias. Negative for joint swelling and myalgias. Skin: Negative for color change, rash and wound. Allergic/Immunologic: Negative for immunocompromised state. Neurological: Negative for dizziness, weakness, light-headedness and numbness. Hematological: Does not bruise/bleed easily. Psychiatric/Behavioral: Negative for confusion and sleep disturbance. The patient is not nervous/anxious. PE: Physical Exam Constitutional: He is oriented to person, place, and time. He appears well- developed and well-nourished. HENT: Head: Normocephalic. Eyes: Pupils are equal, round, and reactive to light. Neck: Normal range of motion. Neck supple. Cardiovascular: Normal rate and regular rhythm. Pulmonary/Chest: Effort normal and breath sounds normal. Abdominal: Soft. Bowel sounds are normal. Musculoskeletal: Normal range of motion. General: Tenderness present. Neurological: He is alert and oriented to person, place, and time. Skin: Skin is warm and dry. Imaging: B/L Knees Right knee: No acute fracture. Severe medial knee compartment joint space narrowing with moderate marginal osteophytes. Moderate marginal osteophytes of the lateral knee compartment. Mild patellofemoral compartment joint space narrowing with minimal osteophytic spurring. Small suprapatellar joint effusion. Left knee: No acute fracture. Severe medial knee compartment joint space narrowing with [id number]-fo-mech appearance and moderate marginal osteophytes. Moderate marginal osteophytes of the lateral knee compartments. Severe patellofemoral compartment joint space narrowing with [id number] appearance andmoderate marginal osteophytes. No significant joint effusion. Assessment/Plan: After examination and reviewing of the patient x-ray images I injected bilateral knees, per patient request, without complications. He tolerated this well. I did inform him he could receive these every 3 months as needed. I will be happy to see him back as needed. documented in this encounter* Rick Elizabeth, PT - 10/20/2020 7:00 AM EDT [facility] OUT[facility] DAILY TREATMENT NOTE Today's Date 10/20/2020 Patient Name: Shivani Veras Date of : 1975 Current Visit #: 5 Authorized Visits: 199 Case Name: Left Rotator Cuff Tear History: Pre-Treatment Pain Scale: 0 Symptoms: gradually improved Functional Diagnosis: 1. Nontraumatic tear of left rotator cuff, unspecified tear extent Clinical Information: Subjective: Pt denies change in med hx and reports no new complaints. He reports slight improvementin ROM and ability to use the left arm for ADLs/IADLs but continues to have pain with reaching. Objective Treatments: Physical Therapy Exercise Log - 10/20/20 0704 OTHER Notes visit 5: 7:03 - 7:42 Therapeutic Exercise ([id number]) Intervention UEB lvl 2, 3' fwd/back Parameters Flexion wall slides 10x5 Intervention IR strap stretch - 20 sec x3 Parameters ER doorway stretch - 20 sec x3 Intervention rows/ext LIBRADO 2x10 Parameters ER 2x10 LIBRADO Intervention IR LIBRADO 2x10 Parameters Wall Push up - 2x10 Intervention cane AAROM scaption and abd x5 Parameters standing serratus punches LIBRADO 2x10 Intervention Reverse Codemans - x20 cw, ccw 2# Parameters Sidelying - ER/abd 2x10 2# PT Treatment Times Therex Total Time 39 Direct Treatment Time 39 Total Treatment Time 39 Goals: Physical Therapy Ortho Goals: CARRYING/MOVING/HANDLING: Patient will be able to lift and carry up to 10 lbs in 4 weeks SELF CARE: Patient will be able to complete ADL's including bathing, dressing, and hair care without difficulty in 4 weeks. IMPAIRMENT: Patient will demonstrate improved postural awareness in PT sessions to facilitate mechanical alignment and function in 3 weeks. IMPAIRMENT: Improve pain from 9/10 to <4/10 during reaching, lifting and carrying in 4 weeks IMPAIRMENT: Improve gross MMT of the Left Shoulder from 2+/5 to 3/5 in 4 weeks IMPAIRMENT: Improve AROM of Left Shoulder Flexion and Abduction to at least 120 degrees in 4 weeks. IMPAIRMENT: Improve AROM of Left Shoulder ER from 34 degrees to at least 45 degrees in 4 weeks. OTHER: Patient will increase FOTO score from 30 to at least 40 to show MDC/MCII and expected functional outcome in 4 weeks. OTHER: Patient will be able to properly demonstrate independence with HEP in 1 week. Patient Education: Quality of movement and HEP Adherence with patient verbalized understanding. Post-Treatment Pain Scale: 0 Assessment: Patient had an expected response to treatment. Skilled Intervention demonstrated by modifications of treatment per exercise log including increased load and increased intensity and safety interventions per exercise log. Progress towards goals as expected. Plan: Discharge Rick Elizabeth PT State License, [id number] documented in this encounter* Lidia Law MD - 10/22/2020 5:54 PM EDT Dictation on: 10/22/2020 5:57 PM by: LIDIA LAW [[id number]] documented in this encounter* Randy Barrera PTA - 10/22/2020 1:45 PM EDT [facility] OUT[facility] DAILY TREATMENT NOTE Today's Date 10/22/2020 Patient Name: Shivani Veras Date of : 1975 Current Visit #: 6 Authorized Visits: 199 Case Name: Left Rotator Cuff Tear History: Pre-Treatment Pain Scale: 1 Symptoms: stabilized Functional Diagnosis: 1. Nontraumatic tear of left rotator cuff, unspecified tear extent Clinical Information: Subjective: Pt reports generalized ache and pain at rest and increased intensity with movement Objective 1 Pt reports min difficulty carrying 10lbs, he would have more trouble raising it to shoulder ht 2 Pt reports min difficulty with ADL's 3 Pt reports and demos improved postural awareness and alignment 4 Pt reports 6/10 pain on avg with use 5 MMT gross LUE = 3/5 6 pt demod 120 flexion and 100 abd in LUE 7 Pt demod 45 deg ER 8 FOTO score = 53 9 Pt reports ind with HEP and has no questions Treatments: Physical Therapy Exercise Log - 10/22/20 1354 OTHER Notes visit 6: [id number] Therapeutic Exercise ([id number]) Intervention UEB lvl 2, 3' fwd/back Parameters Flexion wall slides 10x5 Intervention IR strap stretch - 20 sec x3 Parameters ER doorway stretch - 20 sec x3 Intervention rows/ext LIBRADO 2x10 Parameters ER 2x10 LIBRADO Intervention IR LIBRADO 2x10 Parameters Wall Push up - 2x10 Intervention cane AAROM scaption and abd x5 Parameters standing serratus punches LIBRADO 2x10 Intervention Reverse Codemans - x20 cw, ccw 2# Parameters Sidelying - ER/abd 2x10 2# PT Treatment Times Therex Total Time 28 Direct Treatment Time 28 Total Treatment Time 28 Goals: Physical Therapy Ortho Goals: CARRYING/MOVING/HANDLING: Patient will be able to lift and carry up to 10 lbs in 4 weeks SELF CARE: Patient will be able to complete ADL's including bathing, dressing, and hair care without difficulty in 4 weeks. IMPAIRMENT: Patient will demonstrate improved postural awareness in PT sessions to facilitate mechanical alignment and function in 3 weeks. IMPAIRMENT: Improve pain from 9/10 to <4/10 during reaching, lifting and carrying in 4 weeks IMPAIRMENT: Improve gross MMT of the Left Shoulder from 2+/5 to 3/5 in 4 weeks IMPAIRMENT: Improve AROM of Left Shoulder Flexion and Abduction to at least 120 degrees in 4 weeks. IMPAIRMENT: Improve AROM of Left Shoulder ER from 34 degrees to at least 45 degrees in 4 weeks. OTHER: Patient will increase FOTO score from 30 to at least 40 to show MDC/MCII and expected functional outcome in 4 weeks. OTHER: Patient will be able to properly demonstrate independence with HEP in 1 week. Patient Education: Verbal HEP with patient verbalized understanding. Post-Treatment Pain Scale: 1 Assessment: Patient had an expected response to treatment. Skilled Intervention demonstrated by modifications of treatment per exercise log including assessment of patient's response and safety interventions per exercise log. Progress towards goals as expected. Plan for Next Visit: Discharge Randy Barrera PTA STATE LICENSE, [id number] documented in this encounter Chief Complaint F/U on medicationFollow upPt received Tdap vaccine in left deltoid. Pt tolerated well. Pt stable upon release3 month.3 month. Medications Administered Section Inactive Administered Medications - up to 3 most recent administrations Medication Order MAR Action Action Date Dose Rate Site tropicamide 1 % 1 Drop (MYDRIACYL) 1 Drop, BOTH EYES, ONCE, 1 dose, On Kaylin 10/27/21 at 1700, FOR THE EYE Given 10/27/2021 5:00 PM EDT 1 Drop Inactive Administered Medications - up to 3 most recent administrations Medication Order MAR Action Action Date Dose Rate Site tropicamide 1 % 1 Drop (MYDRIACYL) 1 Drop, BOTH EYES, ONCE, 1 dose, On Sun01/10/23 at 1030, FOR THE EYE Given 01/10/2023 10:30 AM EDT 1 Drop Additional Source Comments ED Provider Notes - Marbin Krishna MD - 06/28/2017 12:07 PM ESTED Notes - July Parnell RN - 06/28/2017 11:47 AM ESTED Triage Notes - Lissett Carmona RN - 06/28/2017 10:30 AM EST Miscellaneous Notes (unrecog nized section and content) Formatting of this note may be different from the original. PCP: Justino Garrido MD Chief Complaint Patient presents with Abdominal Pain HPI: This is a 41-year-old male reports today to the emergency department with midepigastric abdominal pain. The symptoms been present since last night after they ate at a local soup and sandwich restaurant in which he states that he might have eaten too much but then forced himself to vomit and has since been experiencing some constipation. He is describing moderate to severe abdominal pain. He tried 2 enemas and magnesium citrate yesterday without a lot of improvement in his symptoms. No fever chills. No chest pain or shortness breath. No headache or confusion. He arrives today in the emerge department for evaluation with his and child. He has never had previous abdominal surgery. REVIEW OF SYSTEMS: Review of Systems Constitutional: Negative for chills, fatigue and fever. HENT: Negative for ear pain and nosebleeds. Eyes: Negative for pain and visual disturbance. Respiratory: Negative for cough, chest tightness and shortness of breath. Cardiovascular: Negative for chest pain and palpitations. Gastrointestinal: Positive for abdominal pain, constipation and nausea. Negative for diarrhea and vomiting. Genitourinary: Negative for dysuria, flank pain and hematuria. Musculoskeletal: Negative for back pain. Skin: Negative for rash and wound. Allergic/Immunologic: Negative for immunocompromised state. Neurological: Negative for seizures. Psychiatric/Behavioral: Negative for agitation and confusion. All other systems reviewed and are negative. Past Medical History: Past Medical History: Diagnosis Date ADHD (attention deficit hyperactivity disorder) Hypertension Neuromuscular disorder (HCC) degenerative joint disease Past medical history reviewed. Past Surgical History: Past Surgical History: Procedure Laterality Date EYE SURGERY left cornea replaced JOINT REPLACEMENT Past surgical history reviewed. Family History: Family History Problem Relation Age of Onset Diabetes Father Family history reviewed. Social History: Social History Social History Marital status: Spouse name: N/A Number of children: N/A Years of education: N/A Occupational History Not on file. Social History Main Topics Smoking status: Never Smoker Smokeless tobacco: Never Used Alcohol use No Drug use: No Sexual activity: Yes Partners: Female control/ protection: None Other Topics Concern Not on file Social History Narrative No narrative on file Social history reviewed. Allergies: Allergies Allergen Reactions Celebrex [Celecoxib] Shortness Of Breath Medications: Shivani Veras Home Medication Instructions Prior to Surgery JACQUELINE:[id number] Printed on:06/28/17 0820 Medication Information Take last dose on Take the morning of surgery Comment(s) betamethasone dipropionate (DIPROLENE) 0.05 % cream Apply topically 2 (two) times a day. CHOLECALCIFEROL, VITAMIN D3, (VITAMIN D3 ORAL) Take 2,000 Units by mouth daily . HYDROcodone-acetaminophen (NORCO) 5-325 mg per tablet Take 1 (one) tablet by mouth every 6 (six) hours as needed for pain. ibuprofen (ADVIL,MOTRIN) 800 MG tablet Take 800 mg by mouth daily. indapamide (LOZOL) 2.5 MG tablet Take 1 tablet (2.5 mg total) by mouth daily. multivitamin (THERAGRAN) per tablet Take 1 tablet by mouth daily. ondansetron (ZOFRAN ODT) 4 MG disintegrating tablet Dissolve 1 (one) tablet (4 mg total) on top of tongue every 8 (eight) hours as needed for nausea. pravastatin (PRAVACHOL) 20 MG tablet Take 20 mg by mouth daily . prednisoLONE acetate (PRED FORTE) 1 % ophthalmic suspension Apply 1 drop to eye daily Left eye. testosterone cypionate (DEPOTESTOTERONE CYPIONATE) 200 mg/mL injection Inject 1 mL (200 mg total) into the shoulder, thigh, or buttocks every 28 days. PHYSICAL EXAMINATION: Initial Vital Signs BP 136/77 (BP Location: Right arm, Patient Position: Lying) Pulse 91 Temp 98.5 ?F (36.9 ?C) Resp 18 Ht 5' 10 Wt (!) 162.9 kg (359 lb 1.6 oz) SpO2 93% BMI 51.53 kg/m2 Physical Exam Constitutional: He is oriented to person, place, and time. He appears well- developed and well-nourished. No distress. HENT: Head: Normocephalic and atraumatic. Eyes: Conjunctivae are normal. No scleral icterus. Cardiovascular: Normal rate and regular rhythm. Pulmonary/Chest: Effort normal and breath sounds normal. No respiratory distress. Abdominal: Soft. He exhibits no distension. There is generalized tenderness. There is no rigidity, no rebound and no guarding. Neurological: He is alert and oriented to person, place, and time. No cranial nerve deficit. Coordination normal. Skin: No rash noted. He is not diaphoretic. No pallor. Psychiatric: He has a normal mood and affect. His behavior is normal. Vital Signs During ED Visit (as charted by nursing) Patient Vitals for the past 24 hrs: BP Temp Pulse Resp SpO2 Height Weight 06/28/17 1300 136/77 - 91 18 93 % - - 06/28/17 1204 (!) 138/93 - 90 18 93 % - - 06/28/17 1034 (!) 125/92 98.5 ?F (36.9 ?C) (!) 100 16 95 % 5' 10 (!) 162.9 kg (359 lb 1.6 oz) IMPRESSION: SNOMED CT(R) 1. Calculus of gallbladder without cholecystitis without obstruction [facility] DECISION MAKING: MDM Number of Diagnoses or Management Options Diagnosis management comments: Abdominal pain yesterday and a 41-year-old male taking Prilosec for GERD. Amount and/or Complexity of Data Reviewed Clinical lab tests: ordered and reviewed Tests in the radiology section of CPT : ordered and reviewed Review and summarize past medical records: yes Risk of Complications, Morbidity, and/or Mortality Presenting problems: high Diagnostic procedures: high Management options: high Patient Progress Patient progress: stable Laboratory Results Labs Reviewed COMPREHENSIVE METABOLIC PANEL - Abnormal; Notable for the following: Result Value Potassium 3.4 (*) Glucose 103 (*) All other components within normal limits Narrative: The eGFR should be used for monitoring renal function only and not for medication dosing. URINALYSIS - Abnormal; Notable for the following: Clarity, Urine Cloudy (*) Specific Andrews 1.033 (*) pH, Urine 8.0 (*) Blood, Urine Small (*) Bacteria, Urine Rare (*) Amorphous Crystals Many (*) All other components within normal limits Narrative: Microscopic examination is performed on all urinalysis samples and only positive findings are reported. The test for blood on the chemical analytic portion of urinalysis may also be positive due to hemoglobinuria and myoglobinuria and if red blood cells are present they are quantified by microscopic examination. CBC WITH AUTO DIFFERENTIAL - Abnormal; Notable for the following: WBC 13.48 (*) Neutrophils Abs 10.06 (*) Monocytes Abs 1.35 (*) All other components within normal limits LIPASE - Normal LACTIC ACID, PLASMA - Normal RAINBOW DRAW Narrative: The following orders were created for panel order [place] Draw. Procedure Abnormality Status --------- ------ Lavender Top[[id number]] Final result Mint Green Top[[id number]] Final result Gold Top[[id number]] Final result Light Blue Top[[id number]] Final result Khan Top[[id number]] Final result [place] Top[[id number]] Final result Please view results for these tests on the individual orders. LAVENDER TOP MINT GREEN TOP GOLD TOP LIGHT BLUE TOP KHAN TOP PINK TOP CBC AND DIFFERENTIAL Narrative: The following orders were created for panel order CBC w/ Diff. Procedure Abnormality Status --------- ------ CBC Auto Differential[[id number]] Abnormal Final result Please view results for these tests on the individual orders. Imaging Results US Abdomen Limited Study Preliminary Result 1. Cholelithiasis with mild distention of the lumen of the gallbladder and minimal pericholecystic fluid. There is no gallbladder wall thickening and there was no sonographic Arriaga's sign to strongly suggest cholecystitis. If there is clinical concern for cystic duct obstruction, consider further evaluation with a nuclear medicine hepatobiliary scan. 2. Probable mild fatty infiltration of the liver without focal hepatic lesion. [facility] Workstation ID: [id number] CT Abdomen Pelvis With IV Contrast Only Preliminary Result 1. Nonspecific gallbladder distention. If there is clinical concern for cholecystitis, consider ultrasound follow-up. 2. Small infiltrate in the posterior right lung base could reflect atelectasis or mild pneumonia. [facility] Workstation ID: [id number] I have discussed the results of tests and studies, suggested appropriate follow- up and symptomatic control at home and answered questions for the patient and loved ones. Low-fat diet, and symptomatic treatment with pain and nausea medications and prescriptions. Patient should follow-up promptly with general surgery. PROCEDURES (if any, during ED visit): Procedures MEDICATIONS ORDERED/GIVEN (if any, during ED visit): Medications sodium chloride (PF) (NS) 0.9 % flush 5 mL (not administered) HYDROmorphone (DILAUDID) 0.5 mg/mL injection 0.5 mg (0.5 mg Intravenous Given 06/28/17 1158) ondansetron (ZOFRAN) injection 4 mg (4 mg Intravenous Given 06/28/17 1158) iopamidol (ISOVUE-370) 76 % injection 75 mL (75 mL Intravenous Contrast Administered 06/28/17 1148) Marbin Krishna MD 06/28/17 9408 Pt states that he started having abd pain yesterday afternoon. Pt thought it was just gas but pepto bismol didn't help. Pt states that he took 2 enemas and a bottle of mag citrate yesterday with minimal results. Pt c/o generalized abd pain and black liquid stool. Pt with abd pain since yesterday located mid epigastric, pt denies n/v/d/feversin this encounter (unrecognized sect ion and content) No Status Records FoundNo Status Records FoundNo Status Records FoundNo Status Records FoundNo Status Records FoundNo Status Records FoundNo Status Records FoundNo Status Records FoundNo Status Records FoundNo Status Records FoundNo Status Records FoundNo Status Records FoundNo Status Records Found INFORMATION SOURCE (unrecogn ized section and content) DATE CREATED AUTHOR AUTHOR'S ORGANIZ ATION 03/28/2019 [facility] DATE CREATED AUTHOR AUTHOR'S ORGANIZ ATION 11/09/2020 [facility] DATE CREATED AUTHOR AUTHOR'S ORGANIZ ATION 02/16/2022 [employer] DATE CREATED AUTHOR AUTHOR'S ORGANIZ ATION 02/19/2022 [facility] DATE CREATED AUTHOR AUTHOR'S ORGANIZ ATION 01/11/2023 [facility] DATE CREATED AUTHOR AUTHOR'S ORGANIZ ATION 03/06/2023 [facility] DATE CREATED AUTHOR AUTHOR'S ORGANIZ ATION 03/09/2023 [facility] DATE CREATED AUTHOR AUTHOR'S ORGANIZ ATION 03/28/2023 [facility] DATE CREATED AUTHOR AUTHOR'S ORGANIZ ATION 07/22/2023 [facility] DATE CREATED AUTHOR AUTHOR'S ORGANIZ ATION 08/30/2023 [facility] DATE CREATED AUTHOR AUTHOR'S ORGANIZ ATION 08/30/2023 [facility] DATE CREATED AUTHOR AUTHOR'S ORGANIZ ATION 08/31/2023 [facility] Reason for Visit (unrecogniz ed section and content) Status Reason Specialty Diagnoses / Procedures Referre d By Contact Referred To Contact Closed Radiology Diagnoses Tear of left rotator cuff, unspecified tear extent, unspecified whether traumatic Procedures MR Shoulder Left Without Contrast Ela Cooley, CRYSTAL [address] [id number] Reason Comments Follow-up Reason Comments Physical Therapy Status Reason Specialty Diagnoses / Procedures Referred By Contact Referred To Contact Authorized Rehabilitation Diagnoses Tear of left rotator cuff, unspecified tear extent, unspecified whether traumatic Ela Cooley CNP [address] [place] [address] [facility] [place] [address] [address] [address] [place] [address] Reason Comments Follow-up Reason Comments Pain Reason Comments Pre-op Exam left shoulder Reason Comments Follow-up Suture / Staple Removal Reason Comments Pain Follow-up Reason Comments Yearly Exam Reason Comments Contact lens evaluation Reason Comments New contact Reason Comments Contact Lens Follow Up Reason Comments Medication Refill Reason Comments Pain B/l knee inj Pain Reason Comments Follow-up 3 month OV. Reason Comments Yearly Exam Contact lens evaluation Reason Comments 3 mth ov Reason Comments Follow-up PT is here today for 3 month FUV. Reason Comments ER Follow-up Pt went [facility] f or a Blood clot - was advised to discuss being on xarelto daily due to having these before Care Teams (unrecognized sec tion and content) Slip Tender Relationship Specialty Start Date End Date Justino Garrido MD [address] [place] [address] PCP - General Family Practice 10/27/21 Slip Tender Relationship Specialty Start Date End Date Justino Garrido MD [address] [place] [address] PCP - General Family Practice 10/27/21 Slip Tender Relationship Specialty Start Date End Date Justino Garrido MD [address] [place] [address] PCP - General Family Practice 10/27/21 Slip Tender Relationship Specialty Start Date End Date Justino Garrido MD PCP - General Family Medicine 06/28/17 Slip Tender Relationship Specialty Start Date End Date Justino Garrido MD [address] [place] [address] PCP - General Family Practice 10/27/21 Slip Tender Relationship Specialty Start Date End Date Justino Garrido MD PCP - General Family Medicine 06/28/17 Slip Tender Relationship Specialty Start Date End Date Justino Garrido MD PCP - General Family Medicine 06/28/17 Slip Tender Relationship Specialty Start Date End Date Carissa Winslow MD MPH [address] [facility], [address] [place] [address] PCP - General 02/10/22 Carissa Winslow MD MPH [address] [facility] [address] [place] [address] PCP - [employer] PCP 02/27/22 Slip Tender Relationship Specialty Start Date End Date Carissa Winslow [address] [facility] [facility] [address] [place] [address] PCP - General Family Medicine 01/10/23 Slip Tender Relationship Specialty Start Date End Date Carissa Winslow MD MPH [address] [facility], [address] [place] [address] PCP - General 02/10/22 [facility] Wins[facility] [address] [facility] [address] [place] [address] PCP - [employer] PCP 02/27/22 Slip Tender Relationship Specialty Start Date End Date Justino Garrido MD PCP - General Family Medicine 06/28/17 Slip Tender Relationship Specialty Start Date End Date Justino Garrido MD [address] [place] [address] PCP - General Family Medicine 06/28/17 Slip Tender Relationship Specialty Start Date End Date Carissa Winslow MD MPH [address] [facility], [address] [place] [address] PCP - General 02/10/22 Carissa Winslow MD MPH [address] [facility], [address] [place] [address] PCP - [employer] PCP 02/27/22 Slip Tender Relationship Specialty Start Date End Date Carissa Winslow MD MPH [address] [facility] [address] [place] [address] PCP - General 02/10/22 Carissa Winslow MD MPH [address] [facility] [address] [place] [address] PCP - [employer] PCP 02/27/22 Slip Tender Relationship Specialty Start Date End Date Carissa Winslow MD MPH [address] [facility], [address] [place] [address] PCP - General 02/10/22 Carissa Winslow MD MPH [address] [facility] [address] [place] [address] PCP - [employer] PCP 02/27/22 Source Comments (unrecognize d section and content) In the event this informatio n is protected by the Federal Confidentiality of Alcohol and Drug Abuse Patient Records regulations: The Federal rules restrict any use of the information to criminally investigate or prosecute any alcohol or drug abuse patient.[facility] the event this information is protected by the Federal Confidentiality of Alcohol and Drug Abuse Patient Records regulations: The Federal rules restrict any use of the information to criminally investigate or prosecute any alcohol or drug abuse patient.[facility] the event this information is protected by the Federal Confidentiality of Alcohol and Drug Abuse Patient Records regulations: The Federal rules restrict any use of the information to criminally investigate or prosecute any alcohol or drug abuse patient.[facility] the event this information is protected by the Federal Confidentiality of Alcohol and Drug Abuse Patient Records regulations: The Federal rules restrict any use of the information to criminally investigate or prosecute any alcohol or drug abuse patient.[facility] the event this information is protected by the Federal Confidentiality of Alcohol and Drug Abuse Patient Records regulations: The Federal rules restrict any use of the information to criminally investigate or prosecute any alcohol or drug abuse patient.[facility] <item> Privacy Markings (unrecogniz ed section and content) Section Author: Jennyfer Gonzales PROHIBITION ON REDISCLOSURE OF CONFIDENTIAL INFORMATION This notice accompanies a disclosure of information concerning a client made to you with the consent of such client. FOR RECORDS PERTAINING TO PATIENTS WHO ARE OR HAVE BEEN ENROLLED IN A CHEMICAL DEPENDENCY/SUBSTANCEABUSE PROGRAM, SOME INFORMATION MAY BE OMITTED. This clinical summary was aggregated from multiple sources. Caution should be exercised in using it in the provision of clinical care. This summary normalizes information from multiple sources, and as a consequence, information in this document may materially change the coding, format and clinical context of patient data. In addition, data may be omitted in some cases. CLINICAL DECISIONS SHOULD BE BASED ON THE PRIMARY CLINICAL RECORDS. [facility]. provides no warranty or guarantee of the accuracy or completeness of information in this document.
== END | disposition home or self-care (01) ==
LOC: CVS 09:08
PROVIDERS: PCP Family Medicine; Referring Provider Surgery Trauma Surgery; Visit Provider Surgery Trauma Surgery
DX: M79.604 Pain in right leg (principal); I82.409 Acute embolism and thrombosis of unspecified deep veins of unspecified lower extremity
CPT/HCPCS: 93971

== ENCOUNTER 2023-09-10 16:07 | Inpatient (IN) | payer OTHER, SELFPAY ==
[2023-09-10 15:40] VITALS: BMI 44.1
[2023-09-10 15:47] VITALS: BMI 45.8
[2023-09-10 17:08] VITALS: BP 134/83; PULSE 87; RESP 17; TEMP 36.6; O2SAT 92
[2023-09-10 17:15] VITALS: O2SAT 95
--- NOTE | 2023-09-10 17:19 | PCM.HP.STD ---
HPI - General General Date of Admission: 09/10/23 HPI Narrative SHIVANI BOOTHE, is a 47 M who presents with extensive RLE DVT with no improvement in symptoms or thrombus resolution with~3 weeks of anticoagulation. He presents for heparin bridging prior to venogram and thrombectomy. [facility] Medical History ADHD Hand fracture Neuromuscular disorder Sleep apnea Home Medications allopurinol 300 mg tablet 300 mg PO DAILY 09/03/23 [History Last Taken Unknown] cholecalciferol (vitamin D3) 50 mcg (2,000 unit) capsule 50 mcg PO DAILY 09/03/23 [History Last Taken Unknown] methylphenidate HCl 20 mg tablet 20 mg PO TID 09/03/23 [History Last Taken Unknown] multivitamin,tx-minerals 1 tab PO DAILY 09/03/23 [History Last Taken Unknown] omeprazole 10 mg capsule,delayed release 10 mg PO DAILY 09/03/23 [History Last Taken Unknown] rivaroxaban 15 mg (42)-20 mg (9) tablets in a starter pack (Xarelto DVT-PE Treatment 30-Day Starter) See Rx Instructions PO .COMPLEX 09/03/23 [History Last Taken Unknown] sildenafil (pulm.hypertension) 20 mg tablet (Revatio) 20 mg PO TID 09/03/23 [History Last Taken Unknown] testosterone cypionate 200 mg/mL intramuscular oil 200 mg IM Q4W 09/03/23 [History Last Taken Unknown] bupropion HCl 150 mg tablet,12 hr sustained-release 150 mg PO Q12H appetite 09/10/23 [History Last Taken Unknown] furosemide 20 mg tablet 20 mg PO DAILY 09/10/23 [History Last Taken Unknown] lisinopril 10 mg tablet 10 mg PO DAILY 09/10/23 [History Last Taken Unknown] Allergy/AdvReac Type Severity Reaction Status Date / Time celecoxib [From Celebrex] Allergy Intermediate Shortness Verified 09/03/23 14:51 of breath Family History Other CVA (cerebral vascular accident) Diabetes Heart disease Surgical History H/O arthroscopy of shoulder (~11/12/20) H/O cataract extraction H/O eye surgery (~2015) History of cholecystectomy (~06/2017) Joint replaced (~2014) Social History Smoking Status: Never smoker ROS Constitutional Constitutional: Denies chills, fever(s), frequent falls, lethargy or weakness Eyes Eyes: Denies blind spots, change in vision or loss of vision ENT HEENT: Denies bleeding gums, hoarseness or sore throat Cardiovascular Cardiovascular: Reports edema; Denies abdominal pain, bluish discoloration of hand/feet, chest pain with activity, claudication, cold extremities, cyanosis, dyspnea on exertion, erythema on extremities, irregular heart rhythm, leg ulcers, numbness in extremities or weakness in extremities Respiratory/Chest Respiratory/Chest: Denies cough, excessive phlegm production, shortness of breath at rest, shortness of breath with exertion or wheezing Gastrointestinal Gastrointestinal: Denies anorexia, change in stool character, constipation, diarrhea, melena or rectal bleeding Genitourinary Genitourinary: Denies dysuria or hematuria Musculoskeletal Musculoskeletal: Denies abnormal gait Integumentary Integumentary: Reports other Details: ; Denies erythema, non-healing lesions or wounds Neurologic Neurologic: Denies abnormal speech, focal weakness, headache(s), loss of vision, numbness, paresthesias or sensory deficit Hematologic/Lymphatic Hematologic/Lymphatic: Denies easy bleeding, easy bruising or lymphadenopathy Vital Signs Vital Signs Vital Signs: 09/10/23 17:08 Temperature 97.9 F Temperature Source Temporal Pulse Rate 87 Respiratory Rate 17 Blood Pressure 134/83 H Blood Pressure Mean 100 Blood Pressure Source Monitor Pulse Ox 92 Oxygen Delivery Method Room Air Weight Weight: 315 lb Body Mass Index (BMI) 45.8 Physical Exam Const alert, oriented x3, no apparent distress and healthy appearing General Appearance: cooperative; Negative for combative or lethargic Orientation / Consciousness: awake Exam Limitations: no limitations HEENT Head and Scalp: normocephalic and atraumatic Eyes EOMs intact bilaterally General Eye: normal appearance of both eyes Neck full ROM, no lymphadenopathy, thyroid normal and No no carotid bruits General: trachea midline; Negative for lymphadenopathy or tenderness Thyroid: thyroid normal Lymph Lymphatic: Negative for no lymphadenopathy noted Resp normal respiratory effort, no use of accessory muscles and clear to auscultation bilaterally Effort and Inspection: Negative for labored, stridor or audible wheezes Cardio regular rate and regular rhythm Back/Spine Cervical Spine: cervical ROM normal Extremity full ROM and normal capillary refill General Extremity: edema right lower extremity Skin no rashes or lesions noted and no wounds Neuro oriented x3, CN's II-XII intact bilaterally, no focal motor deficits and no sensory deficits noted Psych thought process normal, cooperative, affect normal, speech normal and activity/motor behavior normal Assessment & Plan Assessment/Plan (1) DVT (deep venous thrombosis): QUALIFIERS: DVT location: lower extremity Affected thrombotic vein of extremity: iliac Chronicity: acute Laterality: right Qualified Code(s): I82.421 - Acute embolism and thrombosis of right iliac vein PLAN: -heparin -venogram tomorrow Charges/Coding Visit Charges Inpatient E&M: 32449 Init Hosp L3
[2023-09-10 17:51] LABS: Hematocrit 43.8 % (40-54); Hemoglobin 14.4 g/dL (13.0-16.5); Mean Corp Hgb Conc 32.9 g/dL (32-36); Mean Corpuscular Hgb 31.6 pg (27.0-32.0); Mean Corpuscular Volume 96.3 fL (80-94); Mean Platelet Vol. 9.3 fl (6.2-12.0); Platelet Count 282 K/mm3 (150-450); RBC Distribution Width CV 13.5 % (11.6-14.6); RBC Distribution Width SD 47.9 fl (35.1-43.9); Red Blood Count 4.55 M/mm3 (4.6-6.2); White Blood Count 9.1 K/mm3 (4.4-11.0)
[2023-09-10 17:53] LABS: Partial Thromboplast Time 35.5 Seconds (24.1-36.2)
[2023-09-10 18:04] LABS: Anion Gap 7 (5-15); BUN 16 mg/dL (7-18); BUN/Creat Ratio 13.7 RATIO (10-20); Calcium,Total 9.3 mg/dL (8.5-10.1); Chloride 107 mmol/L (98-107); Creatinine, Serum 1.17 mg/dL (0.70-1.30); EST Glomerular Filtration Rate 70 mL/min (>60); Est Glom Filt Rate - Afr Amer 85 mL/min (>60); Estimated Creatinine Clearance 107.56 ml/min; Glucose 100 mg/dL (74-106); Potassium 3.6 mmol/L (3.5-5.1); Sodium Level 141 mmol/L (136-145)
--- OUTSIDE RECORDS SUMMARY | 2023-09-10 19:51 | XMS RPT_ITS | CCD ---
Author Name Unknown Address [address] [place] [address] Organization [facility] Care Team Providers Care Industrial Designer Name Role Phone Prakash Garridos Unavailable Wyatt Triplett Unavailable Unavailable Wyatt Triplett Unavailable Unavailable Tourlas, Justino Unavailable Unavailabl e Radhika, Justino Unavailable UnavailAv Schreiber Unavailable Unavailable Tourlas, Justino Unavailable Unavailabl e Tourlas, Justino Unavailable Unavailabl e Yan Garridostantinos Primary Care Provider Justino Garrido Primary Care Provider LIDIA LAW Referring Unavailab le LIDIA LAW Admitting Unavailab le YAN GARRIDOSTANTINOS Primary Care UnavailJustino Almanzar MD Primary Care Provider Justino Garrido MD Unavailable Unavail able Radhika Justino Unavailable UnavailAv Schreiber Unavailable Unavailable Tristianlas, Justino Unavailable [phone] Unavailable Unavailable Unavailable Unavailable Justino Garrido MD Primary Care Provider Justino Garrido MD Primary Care Provider Prakash Garridos Unavailable [place] Unavailable Unavailable Radhika [...] Cardenas Attending Unavailable Mallstefredmikala, Dr. Carissa Johnson [facility] Primary Care Unavailable ELA COOLEY Referring Unavailable ELA COOLEY Admitting [facility] Attending Un[facility] Unavail[facility] e ELA COOLEY Attending [facility] Referring Unavailable ELA COOLEY Admitting [facility] Care Unavailabl e ELA COOLEY Attending Unavailable [facility] Primary Care Unavailabl e Radhika PÉREZ, [facility] Primary Care Provider DIDIER THOMPSON Attending Unavailab [...] CAPS] Drug Allergy [address] [facility] (20 sources) celecoxib; Translations: [CELECOXIB] Propensity to adverse reactions to drug 6 Shortness Of [address] [facility] Work Phone: Medications Current Medications Medication [...] tablet 0 06/28/2017 07/12/2017 Discontinued BD Disp [place] 18G X 1-1/2 (1 source) BD Disp [place] 18G X 1-1/2 Use a new needle to draw up testosterone every 4 weeks. 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; Translations: [Other usp (current) drug therapy] Onset: 12-01-2022 Episodic Other [...] cm Carissa Winslow MD MPH Work Phone: [facility] 08-28-2023 07:47-0500 Body mass index (BMI) [Ratio] 46.36 kg/m2 Carissa Winslow MD MPH Work Phone: [facility] 08-28-2023 07:47-0500 Body weight 146.56 kg Carissa Winslow MD MPH Work Phone: [facility] 08-28-2023 07:47-0500 Diastolic blood pressure 80 mm[Hg] Carissa Winslow MD MPH Work Phone: [facility] 08-28-2023 07:47-0500 Heart rate 81 /min Carissa Winslow MD MPH Work Phone: [facility] 08-28-2023 07:47-0500 SaO2% (BldA) [Mass fraction] 96 % Carissa Winslow MD MPH Work Phone: [facility] 08-28-2023 07:47-0500 Systolic blood pressure 120 mm[Hg] Carissa Winslow MD MPH Work Phone: [facility] 08-22-2023 07:56-0500 Body mass index (BMI) [Ratio] 45.92 kg/m2 Carissa Winslow MD MPH Work Phone: [facility] 08-22-2023 07:56-0500 Body weight 145.15 kg Carissa Winslow MD MPH Work Phone: [facility] 08-22-2023 07:56-0500 Diastolic blood pressure 90 mm[Hg] Carissa Winslow MD MPH Work Phone: [facility] 08-22-2023 07:56-0500 Heart rate 83 /min Carissa Winslow MD MPH Work Phone: [facility] 08-22-2023 07:56-0500 SaO2% (BldA) [Mass fraction] 96 % Carissa Winslow MD MPH Work Phone: [facility] 08-22-2023 07:56-0500 Systolic blood pressure 138 mm[Hg] Carissa Winslow MD MPH Work Phone: [facility] 05-22-2023 09:15-0400 Body mass index (BMI) [Ratio] 45.38 kg/m2 Carissa Winslow MD MPH Work Phone: [facility] 05-22-2023 09:15-0400 Body weight 143.47 kg Carissa Winslow MD MPH Work Phone: [facility] 05-22-2023 09:15-0400 Diastolic blood pressure 90 mm[Hg] Carissa Winslow MD MPH Work Phone: [facility] 05-22-2023 09:15-0400 Heart rate 77 /min Carissa Winslow MD MPH Work Phone: [facility] 05-22-2023 09:15-0400 SaO2% (BldA) [Mass fraction] 98 % Carissa Winslow MD MPH Work Phone: [facility] 05-22-2023 09:15-0400 Systolic blood pressure 142 mm[Hg] Carissa Winslow MD MPH Work Phone: [facility] 03-27-2023 12:53-0400 Body height 175.3 cm Ela Cooley ENGINEERING DESIGN MANAGER Work Phone: [facility] 03-27-2023 12:53-0400 Body mass index (BMI) [Ratio] 57.3 kg/m2 Ela Cooley ENGINEERING DESIGN MANAGER Work Phone: [facility] 03-27-2023 12:53-0400 Body weight 176 kg Ela Rodriguezck ENGINEERING DESIGN MANAGER Work Phone: [facility] 03-06-2023 08:20-0400 Body mass index (BMI) [Ratio] 44.22 kg/m2 Carissa Winslow MD MPH Work Phone: [facility] 03-06-2023 08:20-0400 Body weight 139.8 kg Carissa Winslow MD MPH Work Phone: [facility] 03-06-2023 08:20-0400 Diastolic blood pressure 80 mm[Hg] Carissa Winslow MD MPH Work Phone: [facility] 03-06-2023 08:20-0400 Heart rate 75 /min Carissa Winslow MD MPH Work Phone: [facility] 03-06-2023 08:20-0400 SaO2% (BldA) [Mass fraction] 96 % Carissa Winslow MD MPH Work Phone: [facility] 03-06-2023 08:20-0400 Systolic blood pressure 120 mm[Hg] Carissa Winslow MD MPH Work Phone: [facility] 12-01-2022 07:56-0400 Body height 177.8 cm Carissa Winslow MD MPH Work Phone: [facility] 12-01-2022 07:56-0400 Body mass index (BMI) [Ratio] 43.46 kg/m2 Carissa Winslow MD MPH Work Phone: [facility] 12-01-2022 07:56-0400 Body weight 137.4 kg Carissa Winslow MD MPH Work Phone: [facility] 12-01-2022 07:56-0400 Diastolic blood pressure 70 mm[Hg] Carissa Winslow MD MPH Work Phone: [facility] 12-01-2022 07:56-0400 Heart rate 97 /min Carissa Winslow MD MPH Work Phone: [facility] 12-01-2022 07:56-0400 SaO2% (BldA) [Mass fraction] 96 % Carissa Winslow MD MPH Work Phone: [facility] 12-01-2022 07:56-0400 Systolic blood pressure 110 mm[Hg] Carissa Winslow MD MPH Work Phone: [facility] 11-30-2022 08:00-0400 Body height 175.3 cm Ela Cooley CNP Work Phone: [facility] 11-30-2022 08:00-0400 Body mass index (BMI) [Ratio] 57.3 kg/m2 Ela Cooley CNP Work Phone: [facility] 11-30-2022 08:00-0400 Body weight 176 kg Ela Cooley CNP Work Phone: [facility] 08-22-2022 07:43-0500 Body height 176.91 cm Carissa Winslow Work Phone: [facility] Work Phone: 08-22-2022 07:43-0500 Body mass index (BMI) [Ratio] 51.21 kg/m2 Carissa Winslow Work Phone: [facility] Work Phone: 08-22-2022 07:43-0500 Body surface area Derived from formula 2.65 m2 Carissa Nag S Mallapareddi Work Phone: [facility] Work Phone: 08-22-2022 07:43-0500 Body weight 160.26 kg Carissa Nag S Mallapareddi Work Phone: [facility] Work Phone: 08-22-2022 07:43-0500 Diastolic blood pressure 80 mm[Hg] Carissa Nag S Mallapareddi Work Phone: [facility] Work Phone: 08-22-2022 07:43-0500 Heart rate 74 /min Carissa Nag S Mallapareddi Work Phone: [facility] Work Phone: 08-22-2022 07:43-0500 Systolic blood pressure 122 mm[Hg] Carissa Nag S Mallapareddi Work Phone: [facility] Work Phone: 05-12-2022 13:50-0400 Body height 176.91 cm Carissa Nag S Mallapareddi Work Phone: [facility] Work Phone: 05-12-2022 13:50-0400 Body mass index (BMI) [Ratio] 54.7 kg/m2 Carissa Nag S Mallapareddi Work Phone: [facility] Work Phone: 05-12-2022 13:50-0400 Body surface area Derived from formula 2.72 m2 Carissa Nag S Mallapareddi Work Phone: [facility] Work Phone: 05-12-2022 13:50-0400 Body weight 171.21 kg Carissa Nag S Mallapareddi Work Phone: [facility] Work Phone: 05-12-2022 13:50-0400 Diastolic blood pressure 84 mm[Hg] Carissa Nag S Mallapareddi Work Phone: [facility] Work Phone: 05-12-2022 13:50-0400 Heart rate 89 /min Carissa Nag S Mallapareddi Work Phone: [facility] Work Phone: 05-12-2022 13:50-0400 Systolic blood pressure 128 mm[Hg] Carissa Nag S Mallapareddi Work Phone: [facility] Work Phone: 02-10-2022 10:42-0400 Body height 176.9 cm Carissa Nag S Mallapareddi Work Phone: [facility] Work Phone: 02-10-2022 10:42-0400 Body mass index (BMI) [Ratio] 53.83 kg/m2 Carissa Nag S Mallapareddi Work Phone: [facility] Work Phone: 02-10-2022 10:42-0400 Body surface area Derived from formula 2.71 m2 Carissa Nag S Mallapareddi Work Phone: [facility] Work Phone: 02-10-2022 10:42-0400 Body weight 168.46 kg Carissa Nag S Mallapareddi Work Phone: [facility] Work Phone: 02-10-2022 10:42-0400 Diastolic blood pressure 90 mm[Hg] Carissa Nag S Mallapareddi Work Phone: [facility] Work Phone: 02-10-2022 10:42-0400 Heart rate 84 /min Carissa Nag S Mallapareddi Work Phone: [facility] Work Phone: 02-10-2022 10:42-0400 Systolic blood pressure 144 mm[Hg] Carissa Rice Mallapareddi Work Phone: [facility] Work Phone: 11-15-2021 14:30-0400 Diastolic blood pressure 110 mm[Hg] Justino Tourlas Other Phone: [facility] 11-15-2021 14:30-0400 Heart rate 102 /min Justino Tourlas Other Phone: [facility] 11-15-2021 14:30-0400 SaO2% (BldA) [Mass fraction] 97 % Justino Tourlas Other Phone: [facility] 11-15-2021 14:30-0400 Systolic blood pressure 169 mm[Hg] Justino Tourlas Other Phone: [facility] 11-15-2021 13:01-0400 Body temperature 97.16 [degF] Justino Tourlas Other Phone: [facility] 11-15-2021 13:01-0400 Body weight 170 kg Justino Tourlas Other Phone: [facility] 11-15-2021 13:01-0400 Respiratory rate 18 /min Justino Tourlas Other Phone: [facility] 05-30-2021 08:46-0400 Body mass index (BMI) [Ratio] 50.03 kg/m2 Justino Tourlas Work Phone: [facility] Work Phone: 05-30-2021 08:46-0400 Body surface area Derived from formula 2.62 m2 Justino Tourlas Work Phone: [facility] Work Phone: 05-30-2021 08:46-0400 Body temperature 98.2 [degF] Justino Radhika Work Phone: [facility] Work Phone: 05-30-2021 08:46-0400 Body weight 156.72 kg Justino Garrido Work Phone: [facility] Work Phone: 05-30-2021 08:46-0400 Diastolic blood pressure 80 mm[Hg] Justino Radhika Work Phone: [facility] Work Phone: 05-30-2021 08:46-0400 Heart rate 85 /min Justino Garrido Work Phone: [facility] Work Phone: 05-30-2021 08:46-0400 Systolic blood pressure 130 mm[Hg] Justino Radhika Work Phone: [facility] Work Phone: 03-07-2021 08:25-0400 Body mass index (BMI) [Ratio] 49.59 kg/m2 Justino Garrido Work Phone: [facility] Work Phone: 03-07-2021 08:25-0400 Body surface area Derived from formula 2.61 m2 Justino Radhika Work Phone: [facility] Work Phone: 03-07-2021 08:25-0400 Body temperature 98 [degF] Justino Tristianlas Work Phone: [facility] Work Phone: 03-07-2021 08:25-0400 Body weight 155.36 kg Justino Garrido Work Phone: [facility] Work Phone: 03-07-2021 08:25-0400 Diastolic blood pressure 90 mm[Hg] Justino Radhika Work Phone: [facility] Work Phone: 03-07-2021 08:25-0400 Diastolic blood pressure 86 mm[Hg] Jsutino Tristianlas Work Phone: [facility] Work Phone: 03-07-2021 08:25-0400 Heart rate 72 /min Justino Garrido Work Phone: [facility] Work Phone: 03-07-2021 08:25-0400 Systolic blood pressure 138 mm[Hg] Justino Tristianlas Work Phone: [facility] Work Phone: 03-07-2021 08:25-0400 Systolic blood pressure 136 mm[Hg] Justino Tristianlas Work Phone: [facility] Work Phone: 12-06-2020 10:55-0400 Body mass index (BMI) [Ratio] 55.46 kg/m2 Justino Osborne DO Work Phone: 12-06-2020 10:55-0400 Body surface area Derived from formula 2.74 m2 Justino Osborne DO Work Phone: 12-06-2020 10:55-0400 Body weight 173.73 kg Justino Garrido MD [facility] DO Work Phone: 12-06-2020 10:55-0400 Diastolic blood pressure 88 mm[Hg] Justino Garrido MD [facility] DO Work Phone: 12-06-2020 10:55-0400 Heart rate 88 /min Justino Garrido MD [facility] DO Work Phone: 12-06-2020 10:55-0400 Systolic blood pressure 122 mm[Hg] Justino Garrido MD [facility] DO Work Phone: 10-22-2020 14:21-0400 BMI (Body Mass Index) 56.12 kg/m2 Lidia [facility] 10-22-2020 14:21-0400 Body weight 172.37 kg [facility] 10-22-2020 14:21-0400 Height 175.3 cm Lidia [facility] 08-31-2020 09:29-0500 BMI (Body Mass Index) 53.09 kg/m2 [facility] 08-31-2020 09:29-0500 Body weight 167.83 kg [facility] 08-31-2020 09:29-0500 Height 177.8 cm [facility] 03-11-2020 08:05-0400 BMI (Body Mass Index) 53.09 kg/m2 [facility] 03-11-2020 08:05-0400 Body weight 167.83 kg [facility] 03-11-2020 08:05-0400 Height 177.8 cm [facility] 09-22-2019 10:24-0500 BMI (Body Mass Index) 55.6 kg/m2 Justino Garrido [facility] Work Phone: 09-22-2019 10:24-0500 Body weight 174.18 kg Justino Garrido [facility] Work Phone: 09-22-2019 10:24-0500 BP Diastolic 80 mm[Hg] Justino Garrido [facility] Work Phone: 09-22-2019 10:24-0500 BP Systolic 118 mm[Hg] Justino Garrido [facility] Work Phone: 09-22-2019 10:24-0500 BSA (Body Surface Area) 2.75 m2 Justino Garrido [facility] Work Phone: 09-22-2019 10:24-0500 Height 176.99 cm Justino Garrido [facility] Work Phone: 09-22-2019 10:24-0500 Pulse (Heart Rate) 80 /min Justino Garrido [facility] Work Phone: 12-03-2017 08:57-0400 BMI (Body Mass Index) 50.22 kg/m2 Lidia Law [facility] 12-03-2017 08:57-0400 Height 177.8 cm Lidia Thanh [facility] 12-03-2017 08:57-0400 Weight 158.76 kg Lidia Law [facility] 08-02-2017 09:13-0500 Body Temperature 98.8 [degF] Wyatt [facility] Work Phone: 08-02-2017 09:13-0500 BP Diastolic 75 mm[Hg] Wyatt Triplett [facility] Work Phone: 08-02-2017 09:13-0500 BP Systolic 118 mm[Hg] Wyatt Triplett [facility] Work Phone: 08-02-2017 09:13-0500 Pulse (Heart Rate) 100 /min Wyatt Triplett [facility] Work Phone: 08-02-2017 09:13-0500 Pulse Oximetry 94 % Wyatt Triplett [facility] Work Phone: 07-12-2017 08:12-0500 BMI (Body Mass Index) 50.43 kg/m2 [facility]att [facility] Work Phone: 07-12-2017 08:12-0500 Body Temperature 97.81 [degF] Wyatt [facility] Work Phone: 07-12-2017 08:12-0500 BP Diastolic 79 mm[Hg] [facility] Work Phone: 07-12-2017 08:12-0500 BP Systolic 124 mm[Hg] Wyatt [facility] Work Phone: 07-12-2017 08:12-0500 Pulse (Heart Rate) 84 /min [facility] Work Phone: 07-12-2017 08:12-0500 Pulse Oximetry 95 % Wyatt Triplett [facility] Work Phone: 07-12-2017 08:12-0500 Weight 159.44 kg Wyatt Triplett [facility] Work Phone: 06-28-2017 15:00-0500 BP Diastolic 92 mm[Hg] Marbin Krishna [facility] Work Phone: 06-28-2017 15:00-0500 BP Systolic 147 mm[Hg] Marbni Krishna [facility] Work Phone: 06-28-2017 15:00-0500 Pulse (Heart Rate) 94 /min Marbin Krishna [facility] Work Phone: 06-28-2017 15:00-0500 Pulse Oximetry 93 % Marbin Krishna [facility] Work Phone: 06-28-2017 15:00-0500 Respiratory Rate 18 /min Marbin Krishna [facility] Work Phone: 06-28-2017 10:34-0500 BMI (Body Mass Index) 51.53 kg/m2 Marbin Krishna [facility] Work Phone: 06-28-2017 10:34-0500 Body Temperature 98.49 [degF] Marbin Krishna [facility] Work Phone: 06-28-2017 [id number] Height 177.8 [address] [facility] Work Phone: [phone] Weight 162.89 kg Marbin Krishna [facility] Work Phone: Encounters Encounter Date Encounter Type Care Provider Facility Start: 08-28-2023 End: 08-28-2023 ambulatory CARISSA WINSLOW [facility] Ambulatory Start: 08-28-2023 End: 08-28-2023 Office outpatient visit 25 minutes Carissa Winslow MD MPH Work Phone: [facility] Procedures Date Procedure Procedure Detail Performing [...] Testosterone [Mass/volume] in Serum or Plasma [facility] Start: 12-01-2022 Lipid 1996 panel - Serum or Plasma Carissa Winslow MD MPH Work Phone: Start: 11-30-2022 Arthrocentesis aspir&/inj major jt/bursa w/o us Ela Cooley ENGINEERING DESIGN MANAGER Work Phone: Start: 12-20-2021 End: 12-20-2021 Arthrocentesis aspir&/inj major jt/bursa w/o us Ela Cooley ENGINEERING DESIGN MANAGER Work Phone: Start: 12-17-2021 Lipid 1996 panel - Serum or Plasma Carissa Winslow MD MPH Work Phone: Start: 06-27-2021 Arthrocentesis aspir&/inj major jt/bursa w/o us Ela Velasquezcock ENGINEERING DESIGN MANAGER Work Phone: Start: 09-20-2020 Mri any jt upper extremity w/o contrast matrl Ela Rapheal Cooley Work Phone: Start: 05-17-2020 Lipid panel [...] DTaP/Tdap/Td Vaccines (2 - Td or Tdap) [facility] Start: 11-30-2031 Tetanus vaccination Tetanus: Every [address] [facility] Start: 12-02-2027 Lipid panel Lipid Panel [facility] Start: 12-02-2027 LIPID SCREEN LIPID SCREEN [facility] Start: 12-17-2026 Lipid panel Lipid Panel [facility] Start: 12-01-2025 DIABETES SCREEN DIABETES SCREEN [facility] Start: 12-17-2024 Diabetes mellitus screening Diabetes Screening [facility] Start: 09-19-2023 End: 09-19-2023 Patient encounter procedure 09/19/2023 8:20 AM EST Office Visit [facility] [address] [place] [id number] Carissa Winslow MD MPH [address] [facility] [address] [place], [place] [id number] [facility] Start: 2023 Zoster Vaccines (1 of 2) Zoste r Vaccines (1 of 2) [facility] Start: 08-22-2023 End: 08-22-2024 Basic metabolic 2000 panel - Serum or Plasma [facility] Service Area Work Phone: Immunizations Immunization Date Immunization Notes Care Provider Fa cility 11-29-2021 tetanus toxoid, reduced diphtheria toxoid, and acellular pertussis vaccine, adsorbed; Translations: [Tdap (Boostrix)] Justino Garrido Work Phone: [facility] Work Phone: Payers Date Payer Category Payer Unknown 2021 Unknown [employer] [place] [employer] [id number] 07/30/2021-Present [address] [place] [address] Indemnity [id number] 07-30-2021 Unknown [id number] 07-30-2018 Private Health Insurance xxx [id number] 07-30-2017 Private Health Insurance xxx [id number] 04-29-2017 Private Health Insurance [id number] 3 04-29-2017 Private Health Insurance [id number] 1973 Unknown [id number] 2.16.840.1.441993.3.579.2 .900 1973 Unknown [id number] 2.16.840.1.860888.3.579.2 .1245 1973 Unknown [id number] 2.16.840.1.076645.3.579.2 .1245 1973 Unknown [id number] 2.16.840.1.012115.3.579.2 .1069 1973 Unknown [id number] 2.16.840.1.421401.3.579.2 .903 1973 Unknown [id number] 2.16.840.1.301442.3.579.2 .903 1973 Unknown [id number] 2.16.840.1.580572.3.579.2 .90 1973 Unknown [id number] 2.16.840.1.639129.3.579.2 .1973 Unknown [id number] 2.16.840.1.523431.3.579.2 .1973 Unknown [id number] 2.16.840.1.515372.3.579.2 .1259 1973 Unknown [id number] 2.16.840.1.529036.3.579.2 .902 1973 Unknown [id number] 2.16.840.1.758716.3.579.2 .4 1973 Unknown [id number] 2.16.840.1.946286.3.579.2 .1243 1973 Unknown [id number] 2.16.840.1.045309.3.579.2 .1243 1973 Unknown [id number] 2.16.840.1.463869.3.579.2 .1243 1973 Unknown [id number] 2.16.840.1.478261.3.579.2 .1243 1973 Unknown [id number] 2.16.840.1.463607.3.579.2 .903 Medicaid [id number] [id number] 3 Unknown [id number] 3 Social History Date Type Detail Facility Start: 12-03-2017 End: 12-01-2022 Tobacco smoking status NHIS Never smoker [facility] Work Phone: Start: 1975 Sex Assigned At Not on file [facility] Work Phone: Start: 08-31-2020 End: 12-01-2022 Tobacco use and exposure [facility] Start: 08-31-2020 End: 03-28-2023 Alcohol intake Current non-drinker of alcohol (finding) [facility] Start: 10-17-2021 End: 08-28-2023 Exposure to SARS-CoV-2 (event) Not sure [facility] Start: 06-27-2021 End: 08-22-2023 No recent domestic travel No recent domestic travel [facility] Work Phone: Tobacco smoking consumption unknown [facility] Start: 08-14-2022 End: 08-22-2023 Tobacco use panel [facility] Start: 08-30-2020 Gender identity Identifies as male gender (finding) [facility] Start: 08-30-2020 Sexual orientation Heterosexual (fin ding) [facility] Start: 12-01-2022 Alcohol intake Lifetime non-d zach (finding) [facility] Work Phone: Start: 03-06-2023 End: 08-28-2023 Alcohol intake Ex-drinker (finding) [facility] Work Phone: NEGATED: Highlighted row - - [facility] Work Phone: Medical Equipment Procedure Code Equipment Code Equipment Origin al Text Equipment Identifier Dates Corneal Tissue Fee-[facility] [employer] - [id number] Start: 08-05-2015 Functional Status Date Assessment Result Facility NEGATED: Highlighted row Functional performance Functional status health issues are not documented Disease [facility] Work Phone: Mental Status Date Assessment Result Facility NEGATED: Highlighted row Cognitive function [Interpretation] Cognitive status health issues are not documented Disease [facility] Work Phone: Clinical Notes 07-12-2016 to 08-28-2023 [...] who presents for ER Follow-up (Pt went [facility] for a Blood clot - was [...] Winslow MD MPH documented in this encounter [facility] Work Phone: 08-22-2023 Evaluation + Plan note Associated Problem(s): Stimulant dependence (CMS/HCC) Is taking Ritalin for ADHD. Under control with regimen. No side-effects so far from Ritalin. [facility] Work Phone: 08-22-2023 Miscellaneous Notes Associated Problem(s): Stimulant dependence (CMS/HCC) Is taking Ritalin for ADHD. Under control with regimen. No side-effects so far from Ritalin. documented in this encounter [facility] Work Phone: 08-22-2023 History of Present [...] ago. Has been on Ritalin since then. 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 Pedal edema: Patient reports [...] Winslow MD MPH documented in this encounter [facility] Work Phone: 05-22-2023 History of Present illness Narrative Subjective Patient ID: Shivani Veras III is a 47 y.o. male who presents for 3 mth ov. [facility] Here for follow up. I have personally [...] ago. Has been on Ritalin since then. 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 Pedal edema: Patient reports [...] Winslow MD MPH documented in this encounter [facility] Work Phone: 04-06-2023 History of Present illness Narrative At this time patient does not wish to proceed forward with any therapy or required conservative measures that his insurance company wants. Will phone in if at sometime he wishes to go forward. documented in this encounter [facility] 03-28-2023 History of Present illness Narrative [facility] [address] [facility] [address] [facility] [id number] Chief Complaint Patient presents with Left Shoulder [...] Main OR; Service: Orthopedic CHOLECYSTECTOMY LAPAROSCOPIC 07/17/2017 [facility] CLOSED REDUCTION HAND FRACTURE EYE SURGERY [...] the MRI results. documented in this encounter [facility] 03-06-2023 History of Present illness Narrative [...] ago. Has been on Ritalin since then. 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 Will consider checking [...] Winslow MD MPH documented in this encounter [facility] Work Phone: 01-10-2023 Note HNO ID: [id number] Author: Radha Rice OD Service: ? Author Type: BUSINESS DEVELOPMENT COORDINATOR Type: Progress Notes Filed: 01/10/2023 10:47 AM [...] neuro exam findings as obtained by others. [facility] 01-10-2023 Instructions Radha Rice OD - 01/10/2023 [...] and checking OR documented in this encounter [facility] 01-10-2023 History of Present illness Narrative ASSESSMENT/PLAN: [...] obtained by others. documented in this encounter [facility] 12-01-2022 History of Present illness Narrative Subjective [...] ago. Has been on Ritalin since then. 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 Desk [...] Winslow MD MPH documented in this encounter [facility] Work Phone: 11-30-2022 History of Present [...] CNP Authorized by: Ela Cooley CNP CPT 76964 - Large Joint Arthrocentesis: Consent given by: [...] CNP Authorized by: Ela Cooley CNP CPT 59443 - Large Joint Arthrocentesis: Consent given by: [...] Ela Cooley CNP documented in this encounter [facility] 02-10-2022 History of Present illness Narrative [...] years ago. 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 Author Type: BUSINESS DEVELOPMENT COORDINATOR Type: Progress Notes Filed: 01/13/2022 1:31 PM [...] its relevant components. Orin Rice II, ISMAEL [facility] 01-13-2022 Instructions Orin Rice II, OD - [...] Rice II, OD documented in this encounter [facility] 01-13-2022 History of Present illness Narrative Assessment [...] Rice II, OD documented in this encounter [facility] 12-20-2021 History of Present illness Narrative Associated Order(s): LG Jt Injection/Arthrocentesis: L knee; LG Jt Injection/Arthrocentesis: L glenohumeral Post-Procedure Diagnose(s): Primary osteoarthritis of both knees; S/P arthroscopy of left shoulder LG Jt Injection/Arthrocentesis: L knee Date/Time: 12/20/2021 12:00 PM Performed by: Ela Cooley CNP Authorized by: Ela Cooley CNP CPT 14595 - Large Joint Arthrocentesis: Consent given by: [...] CNP Authorized by: Ela Cooley CNP CPT 46878 - Large Joint Arthrocentesis: Consent given by: [...] Ela Cooley CNP documented in this encounter [facility] 11-25-2021 Instructions Orin Rice II, OD [...] by others. I have seen and examined Sihvani Veras. I have discussed the case and the management of this patient's care with the Resident/Fellow, if applicable. I also have reviewed and agree with the assessment and plan as stated above and agree with all of its relevant components. Orin Rice II, OD documented in this encounter [facility] 11-25-2021 History of Present illness Narrative Assessment [...] Rice II, OD documented in this encounter [facility] 10-27-2021 Instructions Radha Rice OD - 10/27/2021 [...] CL comes in. documented in this encounter [facility] 10-27-2021 History of Present illness Narrative ASSESSMENT/PLAN: [...] Radha Rice OD documented in this encounter [facility] 06-27-2021 History of Present illness Narrative Associated Order(s): LG Jt Injection/Arthrocentesis: L glenohumeral; LG Jt Injection/Arthrocentesis: R glenohumeral Post-Procedure Diagnose(s): S/P arthroscopy of left shoulder; Bursitis and tendinitis of shoulder region LG Jt Injection/Arthrocentesis: L glenohumeral Performed by: Ela Cooley CNP Authorized by: Ela Cooley CNP CPT 53854 - Large Joint Arthrocentesis: Consent given by: [...] CNP Authorized by: Ela Cooley CNP CPT 12791 - Large Joint Arthrocentesis: Consent given by: [...] no immediate complications [facility] [address] [facility] [address] [facility] [phone] No chief complaint on file. Shivani Veras [...] arthroscopy; Surgeon: Lidia Law MD; Location: Main NH; Service: Orthopedic CHOLECYSTECTOMY LAPAROSCOPIC 07/17/2017 [facility] CLOSED REDUCTION HAND FRACTURE EYE SURGERY [...] the treatment plan. documented in this encounter [facility] 03-07-2021 History of Present illness Narrative [...] hypogonadismStableCurrently inj himself w/ testosterone 200 mg [id number] any adverse rxns to thisSince starting testosterone [...] - denies any adverse rxns to med [facility] Work Phone: 11-26-2020 History of Present illness Narrative Dictation on: 11/26/2020 5:30 PM by: LIDIA LAW [[id number]] documented in this encounter [facility] 05-24-2020 History of Present illness Narrative [...] hypogonadismStableCurrently inj himself w/ testosterone 200 mg [id number] any adverse rxns to thisSince starting testosterone [...] 2020 by watching his diet and exercise -[facility] Work Phone: documented as of this encounter (statuses as of 10/27/2021) [facility] History of Past illness Narrative* Problem Noted [...] of this encounter (statuses as of 11/25/2021) [facility] History of Past illness Narrative* Problem Noted [...] of this encounter (statuses as of 12/20/2021) [facility] History of Past illness Narrative* Problem Noted [...] of this encounter (statuses as of 01/13/2022) [facility] History of Past illness Narrative* Problem Noted [...] of this encounter (statuses as of 01/10/2023) [facility] S/P [facility]roscopy of left [facility]- Primary [facility] S/P [facility]roscopy of left shoulder- Primary Nontraumatic tear of left rotator cuff, unspecified tear extent Bursitis and tendinitis of shoulder region [facility] Diagnosis Hyperopia, right- Primary Myopia, left Regular astigmatism, bilateral Presbyopia [facility] Keratoconus of both eyes- Primary Keratoconus, unspecified [facility] Keratoconus of both eyes- Primary Keratoconus, unspecified documented in this encounter [facility] note* Diagnosis S/P arthroscopy of left shoulder- Primary Primary osteoarthritis of both knees documented in this encounter [facility] note* Diagnosis Keratoconus of both eyes- Primary Keratoconus, unspecified [facility] Diagnosis Primary osteoarthritis of both knees- Primary documented in this encounter [facility] note* Diagnosis Attention deficit disorder of adult with hyperactivity- Primary Attention deficit disorder with hyperactivity Follow-up encounter involving medication Hypogonadism in male Healthcare maintenance documented in this encounter [facility] Work Phone: Evaluation note* Diagnosis Hyperopia, right- Primary Myopia, left Regular astigmatism, bilateral Presbyopia documented in this encounter [facility] note* Diagnosis Attention deficit disorder of adult with hyperactivity Attention deficit disorder with hyperactivity documented in this encounter [facility] Work Phone: Evaluation note* Diagnosis S/P arthroscopy of left shoulder- Primary Tear of left rotator cuff, unspecified tear extent, unspecified whether traumatic documented in this encounter [facility] note* Diagnosis Hypogonadism in male- Primary Attention deficit disorder of adult with hyperactivity Attention deficit disorder with hyperactivity Morbid obesity (CMS/HCC) Morbid obesity Pedal edema Edema Chronic gout without tophus, unspecified cause, unspecified site documented in this encounter [facility] Work Phone: Evaluation note* Diagnosis Stimulant dependence (CMS/HCC)- Primary Pedal edema Edema Attention deficit disorder of adult with hyperactivity Attention deficit disorder with hyperactivity Morbid obesity (CMS/HCC) Morbid obesity Hypogonadism in male Primary hypertension Unspecified essential hypertension documented in this encounter [facility] Work Phone: Evaluation note* Diagnosis Deep vein thrombosis (DVT) of proximal vein of right lower extremity, unspecified chronicity (CMS/HCC)- Primary documented in this encounter [facility] Work Phone: Instructions* Name Dates Details Instructions not documented [facility] Work Phone: Reason for referral (narrative)* Consultation (Routine) - Pending Review Specialty Diagnoses / Procedures Referred By Rqauel roldan Referred To Contact Vascular Surgery Diagnoses Deep vein thrombosis (DVT) of proximal vein of right lower extremity, unspecified chronicity (CMS/HCC) Carissa Winslow MD MPH [facility] [facility], [address] [place] [address] [address], [address] [facility] [address] [place] [address] Referral ID Status Reason Start Date Expiration Date Visits Requested Visits Authorized [id number] Pending Review Specialty Services Required 08/28/2023 08/27/2024 1 1 [facility] Work Phone: Assessments Diagnosis Primary osteoarthritis [...] Care Instructions Your Care Instructions Biliary (say MMMU-th-zsg-ee ) colic is belly pain caused by [...] your doctor if you can take an lleu-lsl-vtadskg medicine. Read and follow all instructions on [...] Log into your personal health record on https://Info Assemblyt.FoodShootr and enter X038 in the Education box to learn more about Biliary Colic: Care Instructions. Current as of: March 07, 2016 Content Version: 11.2 3974-7826 [employer]. Care instructions adapted under license by your healthcare professional. If you have questions about a medical condition or this instruction, always ask your healthcare professional. [employer] disclaims any warranty or liability for your use of this information. Gallbladder and Liver: Anatomy Sketch Current as of: August 03, 2016 Content Version: 11.2 [employer]. Care instructions adapted under license by your healthcare professional. If you have questions about a medical condition or this instruction, always ask your healthcare professional. [employer] disclaims any warranty or liability for your [...] Log into your personal health record on https://Info Assemblyt.FoodShootr and enter Z797 in the Education box to learn more about Low-Fat Diet for Gallbladder Disease: Care Instructions. Current as of: February 22, 2016 Content Version: 11.2 4691-3277 [employer]. Care instructions adapted under license by your healthcare professional. If you have questions about a medical condition or this instruction, always ask your healthcare professional. [employer] disclaims any warranty or liability for your [...] FoundDocuments on File Type Date Recorded Patient Deployment Manager Expl anation Advance Directives and Living Will Documents on File Type Date Recorded Patient Deployment Manager Expl anation Advance Directives and Livin g Will 09/20/2020 7:10 AM Documents on File Type Date Recorded Patient Deployment Manager Expl anation Advance Directives and Livin g Will 09/20/2020 7:10 AM Documents on File Type Date Recorded Patient Deployment Manager Expl anation Advance Directives and Livin g Will 10/13/2020 7:10 AM Documents on File Type Date Recorded Patient Deployment Manager Expl anation Advance Directives and Living Will Documents on File Type Date Recorded Patient Deployment Manager Expl anation Advance Directives and Livin g Will 10/19/2020 7:10 AM Documents on File Type Date Recorded Patient Deployment Manager Expl anation Advance Directives and Livin g Will 11/12/2020 8:59 AM Documents on File Type Date Recorded Patient Deployment Manager Expl anation Advance Directive(s) 09/28/2016 10:02 AM Advance Directive(s) 10/05/2015 9:13 AM Advance Directive(s) 09/16/2015 12:06 PM Reason for Referral Status Reason Specialty Diagnoses / Procedures Referred By Contact Referred To Contact New Request Radiology Diagnoses Tear of left rotator cuff, unspecified tear extent, unspecified whether traumatic Procedures MR Shoulder Left Without Contrast Ela Cooley CNP [address] [place] [address] Status Reason Specialty Diagnoses / Procedures Referre d By Contact Referred To Contact Closed Radiology Diagnoses Tear of left rotator cuff, unspecified tear extent, unspecified whether traumatic Procedures MR Shoulder Left Without Contrast Ela Cooley CNP [address] [place] [address] Status Reason Specialty Diagnoses / Procedures Referred By Contact Referred To Contact Authorized Rehabilitation Diagnoses Tear of left rotator cuff, unspecified tear extent, unspecified whether traumatic Ela Cooley CNP [address] [place] [address] [facility] [address] [place] [address] Specialty Diagnoses / Procedures Referred By Contac t Referred To Contact Radiology Diagnoses Tear of left rotator cuff, unspecified tear extent, unspecified whether traumatic Procedures MR Shoulder Left Without Contrast Ela Cooley CNP [address] [place] [address] Referral ID Status Reason Start Date Expiration Date V isits Requested Visits Authorized [id number] New Request 03/27/2023 03/26/2024 1 1 History of Present Illness * Ela Cooley CNP - 08/31/2020 4:45 PM EST [facility] [address] [facility] [address] [place] [phone] Chief Complaint Patient presents with Left Shoulder [...] History: Procedure Laterality Date CHOLECYSTECTOMY LAPAROSCOPIC 07/17/2017 [facility] CLOSED REDUCTION HAND FRACTURE EYE SURGERY [...] file Gets together: Not on file Attends synagogue service: Not on file Active member of [...] 11:46 AM EST [facility] [address] [facility] [address] [facility] [address] Chief Complaint Patient presents with Left Shoulder [...] file Gets together: Not on file Attends synagogue service: Not on file Active member of [...] Elizabeth, PT - 10/06/2020 7:00 AM EST [facility] Evaluation Today's Date 10/06/2020 Patient [...] decline in level of ADL Social Support: Taoist, social, or cultural considerations to be made aware of before starting treatment: No Activities of Daily Living: Lower Body: increased time and effort with all Instrumental Activities of Daily Living: Current 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 Rick Elizabeth PT State License, [id number] documented in this encounter* Ann Jolly, SYED - 10/08/2020 7:00 AM EST [facility] DAILY TREATMENT NOTE Today's Date [...] OTHER Notes visit 2: 7:04-7:40 Therapeutic Exercise (01265) Intervention provided written HEP handouts consisting of [...] and strengthening Ann Jolly PTA STATE LICENSE, [id number] documented in this encounter* Jayden Owen PTA - 10/13/2020 7:00 AM EDT [facility] DAILY TREATMENT NOTE Today's Date [...] OTHER Notes visit 2: 7:05-7:40 Therapeutic Exercise (16795) Intervention Pulleys - x3 min Parameters UEB [...] and stability Jayden Owen PTA STATE LICENSE, [id number] documented in this encounter* Ann Jolly PTA - 10/15/2020 7:00 AM EDT [facility] DAILY TREATMENT NOTE Today's Date 10/15/2020 Patient Name: Shivani Veras Date of : [...] OTHER Notes visit 3: 7:05-7:45 Therapeutic Exercise (55268) Intervention Pulleys - x3 min Parameters UEB [...] on strengthening Ann Jolly PTA STATE LICENSE, [id number] documented in this encounter* Lidia Law MD - 02/10/2019 5:41 PM EDT Dictation on: 02/10/2019 5:42 PM by: LIDIA LAW [[id number]] documented in this encounter* Ela Cooley CNP - 03/11/2020 5:07 PM EDT Associated Order(s): LG Jt Injection/Arthrocentesis: R knee; LG Jt Injection/Arthrocentesis: L knee Post-Procedure Diagnose(s): Primary osteoarthritis of both knees LG Jt Injection/Arthrocentesis: R knee Performed by: Ela Cooley CNP Authorized by: Ela Cooley CNP CPT 32247 - Large Joint Arthrocentesis: Consent given by: [...] CNP Authorized by: Ela Cooley CNP CPT 62800 - Large Joint Arthrocentesis: Consent given by: [...] 5:04 PM EDT [facility] [address] [facility] [address] [facility] [address] Chief Complaint Patient presents with Left Knee [...] History: Procedure Laterality Date CHOLECYSTECTOMY LAPAROSCOPIC 07/17/2017 [facility] CLOSED REDUCTION HAND FRACTURE EYE SURGERY [...] file Gets together: Not on file Attends synagogue service: Not on file Active member of [...] medial knee compartment joint space narrowing with mfjl-fj-clam appearance and moderate marginal osteophytes. Moderate marginal osteophytes of the lateral knee compartments. Severe patellofemoral compartment joint space narrowing with uxjg-ki-gvaw appearance andmoderate marginal osteophytes. No significant joint [...] Elizabeth, PT - 10/20/2020 7:00 AM EDT [facility] DAILY TREATMENT NOTE Today's Date [...] visit 5: 7:03 - 7:42 Therapeutic Exercise (14170) Intervention UEB lvl 2, 3' fwd/back Parameters [...] Plan: Discharge Rick Elizabeth PT State License, [id number] documented in this encounter* Lidia Law MD - 10/22/2020 5:54 PM EDT Dictation on: 10/22/2020 5:57 PM by: LIDIA LAW [[id number]] documented in this encounter* Randy Barrera PTA - 10/22/2020 1:45 PM EDT [facility] DAILY TREATMENT NOTE Today's Date [...] - 10/22/20 1354 OTHER Notes visit 6: [phone] Therapeutic Exercise (69130) Intervention UEB lvl 2, 3' fwd/back Parameters [...] Visit: Discharge Randy Barrera PTA STATE LICENSE, [id number] documented in this encounter Chief Complaint F/U [...] Veras Home Medication Instructions Prior to Surgery JACQUELINE:[id number] Printed on:06/28/17 7885 Medication Information Take last dose on Take [...] the following: Clarity, Urine Cloudy (*) Specific [place] 1.033 (*) pH, Urine 8.0 (*) Blood, [...] following orders were created for panel order Brodnax Draw. Procedure Abnormality Status --------- ------ Lavender Top[[id number]] Final result Mint Green Top[[id number]] Final result Gold Top[[id number]] Final result Light Blue Top[[id number]] Final result Khan Top[[id number]] Final result [place] Top[[id number]] Final result Please view results for these tests on the individual orders. LAVENDER TOP MINT GREEN TOP GOLD TOP LIGHT BLUE TOP KHAN TOP PINK TOP CBC AND DIFFERENTIAL Narrative: The following orders were created for panel order CBC w/ Diff. Procedure Abnormality Status --------- ------ CBC Auto Differential[[id number]] Abnormal Final result Please view results for [...] of the liver without focal hepatic lesion. [facility] Workstation ID: [id number] CT Abdomen Pelvis With IV Contrast Only Preliminary Result 1. Nonspecific gallbladder distention. If there is clinical concern for cholecystitis, consider ultrasound follow-up. 2. Small infiltrate in the posterior right lung base could reflect atelectasis or mild pneumonia. [facility] Workstation ID: [id number] I have discussed the results of tests [...] Administered 06/28/17 1148) Marbin Krishna MD 06/28/17 9962 Pt states that he started having abd [...] DATE CREATED AUTHOR AUTHOR'S ORGANIZ ATION 03/28/2019 [facility] DATE CREATED AUTHOR AUTHOR'S ORGANIZ ATION 11/09/[address] [facility] DATE CREATED AUTHOR AUTHOR'S ORGANIZ ATION 02/16/2022 [employer] DATE CREATED AUTHOR AUTHOR'S ORGANIZ ATION 02/19/2022 [facility] DATE CREATED AUTHOR AUTHOR'S ORGANIZ ATION 01/11/2023 [facility] DATE CREATED AUTHOR AUTHOR'S ORGANIZ ATION 03/06/2023 [facility] DATE CREATED AUTHOR AUTHOR'S ORGANIZ ATION 03/09/2023 [facility] DATE CREATED AUTHOR AUTHOR'S ORGANIZ ATION 03/28/2023 [facility] DATE CREATED AUTHOR AUTHOR'S ORGANIZ ATION 07/22/2023 [facility] EPIC DATE CREATED AUTHOR AUTHOR'S ORGANIZ ATION 08/30/2023 [facility] DATE CREATED AUTHOR AUTHOR'S ORGANIZ ATION 08/30/[address] [facility] DATE CREATED AUTHOR AUTHOR'S ORGANIZ ATION 08/31/2023 [facility] Reason for Visit (unrecogniz ed section and content) Status Reason Specialty Diagnoses / Procedures Referre d By Contact Referred To Contact Closed Radiology Diagnoses Tear of left rotator cuff, unspecified tear extent, unspecified whether traumatic Procedures MR Shoulder Left Without Contrast Ela Cooley, CRYSTAL [id number] Reason Comments Follow-up Reason Comments Physical Therapy Status Reason Specialty Diagnoses / Procedures Referred By Contact Referred To Contact Authorized Rehabilitation Diagnoses Tear of left rotator cuff, unspecified tear extent, unspecified whether traumatic Ela Cooley CNP [address] [place] [address] [facility] [address] [address] [address] [place] [address] Reason Comments Follow-up Reason Comments Pain Reason [...] Care Teams (unrecognized sec tion and content) Industrial Designer Relationship Specialty Start Date End Date Justino Garrido MD [address] [place] [address] PCP - General Family Practice 10/27/21 Industrial Designer Relationship Specialty Start Date End Date Justino Garrido MD [address] [place] [address] PCP - General Family Practice 10/27/21 Industrial Designer Relationship Specialty Start Date End Date Justino Garrido MD [address] [place] [address] PCP - General Family Practice 10/27/21 Industrial Designer Relationship Specialty Start Date End Date Justino Garrido MD PCP - General Family Medicine 06/28/17 Industrial Designer Relationship Specialty Start Date End Date Justino Garrido MD [address] [place] [address] PCP - General Family Practice 10/27/21 Industrial Designer Relationship Specialty Start Date End Date Justino Garrido MD PCP - General Family Medicine 06/28/17 Industrial Designer Relationship Specialty Start Date End Date Justino Garrido MD PCP - General Family Medicine 06/28/17 Industrial Designer Relationship Specialty Start Date End Date Carissa Winslow MD MPH [address] [facility] [place] [address] PCP - General 02/10/22 Carissa Winslow MD MPH [address] [facility] [place] [address] PCP - [employer] PCP 02/27/22 Industrial Designer Relationship Specialty Start Date End Date Carissa Winslow [address] [facility] [address] [place] [address] PCP - General Family Medicine 01/10/23 Industrial Designer Relationship Specialty Start Date End Date Carissa Winslow MD MPH [address] [facility] [place] [address] PCP - General 02/10/22 Carissa Winslow MD MPH [address] [facility] [address] [place] [address] PCP - [employer] PCP 02/27/22 Industrial Designer Relationship Specialty Start Date End Date Justino Garrido MD PCP - General Family Medicine 06/28/17 Industrial Designer Relationship Specialty Start Date End Date Justino Garrido MD [address] [place] [address] PCP - General Family Medicine 06/28/17 Industrial Designer Relationship Specialty Start Date End Date Carissa Winslow MD MPH [address] [facility], [address] [place] [address] PCP - General 02/10/22 Carissa Winslow MD MPH [address] [facility] [place] [address] PCP - [employer] PCP 02/27/22 Industrial Designer Relationship Specialty Start Date End Date Carissa Winslow MD MPH [address] [facility], [address] [place] [address] PCP - General 02/10/22 Carissa Winslow MD MPH [address] [facility], [address] [place] [address] PCP - [employer] PCP 02/27/22 Industrial Designer Relationship Specialty Start Date End Date Carissa Winslow MD MPH [address] [facility], [address] [place] [address] PCP - General 02/10/22 Carissa Winslow MD MPH [address] [facility] [place] [address] PCP - [employer] PCP 02/27/22 Source Comments (unrecognize d section and content) In the event this informatio n is protected by the Federal Confidentiality of Alcohol and Drug Abuse Patient Records regulations: The Federal rules restrict any use of the information to criminally investigate or prosecute any alcohol or drug abuse patient.[facility] the event this information is protected by the Federal Confidentiality of Alcohol and Drug Abuse Patient Records regulations: The Federal rules restrict any use of the information to criminally investigate or prosecute any alcohol or drug abuse patient.[facility] the event this information is protected by the Federal Confidentiality of Alcohol and Drug Abuse Patient Records regulations: The Federal rules restrict any use of the information to criminally investigate or prosecute any alcohol or drug abuse patient.[facility] the event this information is protected by the Federal Confidentiality of Alcohol and Drug Abuse Patient Records regulations: The Federal rules restrict any use of the information to criminally investigate or prosecute any alcohol or drug abuse patient.[facility] the event this information is protected by the Federal Confidentiality of Alcohol and Drug Abuse Patient Records regulations: The Federal rules restrict any use of the information to criminally investigate or prosecute any alcohol or drug abuse patient.[facility] <item> Privacy Markings (unrecogniz ed section and [...] BE BASED ON THE PRIMARY CLINICAL RECORDS. [employer] [facility]. provides no warranty or guarantee of the accuracy or completeness of information in this document.
[2023-09-10] MEDS: HEPARIN/D5w 25,000 UNITS 25,000 UNITS/250 ML IV.SOLN. 18 UNITS CONT INF (20:20)
[2023-09-10] MEDS: 0.9% Saline Lock 10 ML Syringe IV (20:22)
[2023-09-10 21:36] VITALS: BP 117/66; PULSE 77; RESP 16; TEMP 36.9; O2SAT 95
[2023-09-10] MEDS: Acetaminophen 500 MG Tablet 1000 MG PO (21:39)
[2023-09-10] MEDS: buPROPion (SR) 150 MG Tablet.SA PO (21:39)
[2023-09-11] VITALS (13 sets, daily range): BP systolic 110–150; BP diastolic 73–97; PULSE 71–104; RESP 16–20; TEMP 36.4–36.8; O2SAT 91–95; BMI 46.5
[2023-09-11 02:53] LABS: Absolute Lymphocyte Count 1.91 X10^3/uL (0.83-4.51); Absolute Neutrophil Count 5.5 X10^3/uL (2.0-7.7); Basophil# 0.09 X10^3/uL; Eosinophil# 0.35 X10^3/uL; Eosinophils% 3.9 % (0-5); Hematocrit 42.1 % (40-54); Hemoglobin 13.9 g/dL (13.0-16.5); Lymphocyte # 1.91 X10^3/ul (0.83-4.51); Lymphocyte % 21.3 % (19-41); Mean Corpuscular Hgb 31.5 pg (27.0-32.0); Mean Corpuscular Volume 95.5 fL (80-94); Mean Platelet Vol. 9.1 fl (6.2-12.0); Monocyte# 0.88 X10^3/uL; Monocyte% 9.8 % (0-10); NRBC Flagged by Analyzer 0 % (0-5); Neutrophil # 5.52 X10^3/uL (2.7-7.7); Neutrophil % 61.5 % (47-70); Platelet Count 260 K/mm3 (150-450); RBC Distribution Width CV 13.5 % (11.6-14.6); RBC Distribution Width SD 47.9 fl (35.1-43.9); Red Blood Count 4.41 M/mm3 (4.6-6.2)
[2023-09-11 03:03] LABS: Partial Thromboplast Time 75.6 Seconds (24.1-36.2)
--- NOTE | 2023-09-11 05:55 | EKG12_ITS ---
Test Reason : AM EKG Blood Pressure : / mmHG Vent. Rate : 074 BPM Atrial Rate : 074 BPM P-R Int : 148 ms QRS Dur : 098 ms QT Int : 392 ms P-R-T Axes : 052 024 029 degrees QTc Int : 435 ms Normal sinus rhythm Normal ECG No previous ECGs available Confirmed by Kobe Edwards ([id number]), manager editorial DAVID JENNINGS ([id number]) on 09/11/2023 1:50:39 PM Referred By: DARI Confirmed By:Kobe Edwards
--- OUTSIDE RECORDS SUMMARY | 2023-09-11 10:31 | XMS RPT_ITS | CCD ---
Author Name Unknown Address [address] [place] [address] Organization [facility] Care Team Providers Care Media Sales Executive Name Role Phone Prakash Garridos Unavailable Wyatt Triplett Unavailable Unavailable Wyatt Triplett Unavailable Unavailable Tourlas, Justino Unavailable Unavailabl e Radhika, Justino Unavailable UnavailAv Schreiber Unavailable Unavailable Tourlas, Justino Unavailable Unavailabl e Tourlas, Justino Unavailable Unavailabl e Yan Garridostantinos Primary Care Provider Justino Garrido Primary Care Provider [phone] LIDIA LAW Referring Unavailab le LIDIA LAW Admitting Unavailab le YAN GARRIDOSTANTINOS Primary Care UnavailJustino Almanzar MD Primary Care Provider Justino Garrido MD Unavailable Unavail able Radhika Justino Unavailable UnavailAv Schreiber Unavailable Unavailable Tristianlas, Justino Unavailable [phone] Unavailable Unavailable Unavailable Unavailable Justino Garrido MD [...] Cardenas Attending Unavailable Mallstefredmikala, Dr. Carissa Johnson [facility] Primary Care Unavailable ELA COOLEY Referring Unavailable ELA COOLEY Admitting [facility]LA [facility] Attending Un[facility] Unavailabl e ELA COOLEY [facility] Referring Unavailable ELA COOLEY Admitting [facility] Care Unavailabl e ELA COOLEY Attending Unavailable [place]OUR[place], [facility] Primary Care Unavailabl e Radhika PÉREZ, [facility] Primary Care Provider DIDIER THOMPSON Attending [...] CAPS] Drug Allergy 6 Shortness Of Breath [facility] (20 sources) celecoxib; Translations: [CELECOXIB] Propensity to adverse reactions to drug 6 Shortness Of Breath [facility] Work Phone: Medications Current Medications Medication Drug [...] tablet 0 06/28/2017 07/12/2017 Discontinued BD Disp [place] 18G X 1-1/2 (1 source) BD Disp [place] 18G X 1-1/2 Use a new needle to draw up testosterone every 4 weeks. 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; Translations: [Other alf (current) drug therapy] Onset: 12-01-2022 Episodic Other [...] cm Carissa Winslow MD MPH Work Phone: [facility] 08-28-2023 07:47-0500 Body mass index (BMI) [Ratio] 46.36 kg/m2 Carissa Winslow MD MPH Work Phone: [facility] 08-28-2023 07:47-0500 Body weight 146.56 kg Carissa Winslow MD MPH Work Phone: [facility] 08-28-2023 07:47-0500 Diastolic blood pressure 80 mm[Hg] Carissa Winslow MD MPH Work Phone: [facility] 08-28-2023 07:47-0500 Heart rate 81 /min Carissa Winslow MD MPH Work Phone: [facility] 08-28-2023 07:47-0500 SaO2% (BldA) [Mass fraction] 96 % Carissa Winslow MD MPH Work Phone: [facility] 08-28-2023 07:47-0500 Systolic blood pressure 120 mm[Hg] Carissa Winslow MD MPH Work Phone: [facility] 08-22-2023 07:56-0500 Body mass index (BMI) [Ratio] 45.92 kg/m2 Carissa Wnislow MD MPH Work Phone: [facility] 08-22-2023 07:56-0500 Body weight 145.15 kg Carissa Winslow MD MPH Work Phone: [facility] 08-22-2023 07:56-0500 Diastolic blood pressure 90 mm[Hg] Carissa Winslow MD MPH Work Phone: [facility] 08-22-2023 07:56-0500 Heart rate 83 /min Carissa Winslow MD MPH Work Phone: [facility] 08-22-2023 07:56-0500 SaO2% (BldA) [Mass fraction] 96 % Carissa Winslow MD MPH Work Phone: [facility] 08-22-2023 07:56-0500 Systolic blood pressure 138 mm[Hg] Carissa Winslow MD MPH Work Phone: [facility] 05-22-2023 09:15-0400 Body mass index (BMI) [Ratio] 45.38 kg/m2 Cairssa Winslow MD MPH Work Phone: [facility] 05-22-2023 09:15-0400 Body weight 143.47 kg Carissa Winslwo MD MPH Work Phone: [facility] 05-22-2023 09:15-0400 Diastolic blood pressure 90 mm[Hg] Carissa Winslow MD MPH Work Phone: [facility] 05-22-2023 09:15-0400 Heart rate 77 /min Carissa Winslow MD MPH Work Phone: [facility] 05-22-2023 09:15-0400 SaO2% (BldA) [Mass fraction] 98 % Carissa Winslow MD MPH Work Phone: [facility] 05-22-2023 09:15-0400 Systolic blood pressure 142 mm[Hg] Carissa Winslow MD MPH Work Phone: [facility] 03-27-2023 12:53-0400 Body height 175.3 cm Ela Cooley TECHNICAL AID Work Phone: [facility] 03-27-2023 12:53-0400 Body mass index (BMI) [Ratio] 57.3 kg/m2 Ela Cooley TECHNICAL AID Work Phone: [facility] 03-27-2023 12:53-0400 Body weight 176 kg Ela Rodriguezck TECHNICAL AID Work Phone: [facility] 03-06-2023 08:20-0400 Body mass index (BMI) [Ratio] 44.22 kg/m2 Carissa Winslow MD MPH Work Phone: [facility] 03-06-2023 08:20-0400 Body weight 139.8 kg Carissa Winslow MD MPH Work Phone: [facility] 03-06-2023 08:20-0400 Diastolic blood pressure 80 mm[Hg] Carissa Winslow MD MPH Work Phone: [facility] 03-06-2023 08:20-0400 Heart rate 75 /min Carissa Winslow MD MPH Work Phone: [facility] 03-06-2023 08:20-0400 SaO2% (BldA) [Mass fraction] 96 % Carissa Winslow MD MPH Work Phone: [facility] 03-06-2023 08:20-0400 Systolic blood pressure 120 mm[Hg] Carissa Winslow MD MPH Work Phone: [facility] 12-01-2022 07:56-0400 Body height 177.8 cm Carissa Winslow MD MPH Work Phone: [facility] 12-01-2022 07:56-0400 Body mass index (BMI) [Ratio] 43.46 kg/m2 Carissa Winslow MD MPH Work Phone: [facility] 12-01-2022 07:56-0400 Body weight 137.4 kg Carissa Winslow MD MPH Work Phone: [facility] 12-01-2022 07:56-0400 Diastolic blood pressure 70 mm[Hg] Carissa Winslow MD MPH Work Phone: [facility] 12-01-2022 07:56-0400 Heart rate 97 /min Carissa Winslow MD MPH Work Phone: [facility] 12-01-2022 07:56-0400 SaO2% (BldA) [Mass fraction] 96 % Carissa Winslow MD MPH Work Phone: [facility] 12-01-2022 07:56-0400 Systolic blood pressure 110 mm[Hg] Carissa Winslow MD MPH Work Phone: [facility] 11-30-2022 08:00-0400 Body height 175.3 cm Ela Cooley CNP Work Phone: [facility] 11-30-2022 08:00-0400 Body mass index (BMI) [Ratio] 57.3 kg/m2 Ela Cooley CNP Work Phone: [facility] 11-30-2022 08:00-0400 Body weight 176 kg Ela Cooley CNP Work Phone: [facility] 08-22-2022 07:43-0500 Body height 176.91 cm Carissa Winslow Work Phone: [facility] Work Phone: 08-22-2022 07:43-0500 Body mass index (BMI) [Ratio] 51.21 kg/m2 Carissa Winslow Work Phone: [facility] Work Phone: 08-22-2022 07:43-0500 Body surface area Derived from formula 2.65 m2 Carissa Nag S Mallapareddi Work Phone: [facility] Work Phone: 08-22-2022 07:43-0500 Body weight 160.26 kg Carissa Nag S Mallapareddi Work Phone: [facility] Work Phone: 08-22-2022 07:43-0500 Diastolic blood pressure 80 mm[Hg] Carissa Nag S Mallapareddi Work Phone: [facility] Work Phone: 08-22-2022 07:43-0500 Heart rate 74 /min Carissa Nag S Mallapareddi Work Phone: [facility] Work Phone: 08-22-2022 07:43-0500 Systolic blood pressure 122 mm[Hg] Carissa Nag S Mallapareddi Work Phone: [facility] Work Phone: 05-12-2022 13:50-0400 Body height 176.91 cm Carissa Nag S Mallapareddi Work Phone: [facility] Work Phone: 05-12-2022 13:50-0400 Body mass index (BMI) [Ratio] 54.7 kg/m2 Carissa Nag S Mallapareddi Work Phone: [facility] Work Phone: 05-12-2022 13:50-0400 Body surface area Derived from formula 2.72 m2 Carissa Nag S Mallapareddi Work Phone: [facility] Work Phone: 05-12-2022 13:50-0400 Body weight 171.21 kg Carissa Nag S Mallapareddi Work Phone: [facility] Work Phone: 05-12-2022 13:50-0400 Diastolic blood pressure 84 mm[Hg] Carissa Nag S Mallapareddi Work Phone: [facility] Work Phone: 05-12-2022 13:50-0400 Heart rate 89 /min Carissa Nag S Mallapareddi Work Phone: [facility] Work Phone: 05-12-2022 13:50-0400 Systolic blood pressure 128 mm[Hg] Craissa Nag S Mallapareddi Work Phone: [facility] Work Phone: 02-10-2022 10:42-0400 Body height 176.9 cm Carissa Nag S Mallapareddi Work Phone: [facility] Work Phone: 02-10-2022 10:42-0400 Body mass index (BMI) [Ratio] 53.83 kg/m2 Carissa Nag S Mallapareddi Work Phone: [facility] Work Phone: 02-10-2022 10:42-0400 Body surface area Derived from formula 2.71 m2 Carissa Nag S Mallapareddi Work Phone: [facility] Work Phone: 02-10-2022 10:42-0400 Body weight 168.46 kg Carissa Nag S Mallapareddi Work Phone: [facility] Work Phone: 02-10-2022 10:42-0400 Diastolic blood pressure 90 mm[Hg] Carissa Nag S Mallapareddi Work Phone: [facility] Work Phone: 02-10-2022 10:42-0400 Heart rate 84 /min Carissa Nag S Mallapareddi Work Phone: [facility] Work Phone: 02-10-2022 10:42-0400 Systolic blood pressure 144 mm[Hg] Carissa Rice Mallapareddi Work Phone: [facility] Work Phone: 11-15-2021 14:30-0400 Diastolic blood pressure 110 mm[Hg] Justino Tourlas Other Phone: [facility] 11-15-2021 14:30-0400 Heart rate 102 /min Justino Tourlas Other Phone: [facility] 11-15-2021 14:30-0400 SaO2% (BldA) [Mass fraction] 97 % Justino Tourlas Other Phone: [facility] 11-15-2021 14:30-0400 Systolic blood pressure 169 mm[Hg] Justino Tourlas Other Phone: [facility] 11-15-2021 13:01-0400 Body temperature 97.16 [degF] Justino Tourlas Other Phone: [facility] 11-15-2021 13:01-0400 Body weight 170 kg Justino Tourlas Other Phone: [facility] 11-15-2021 13:01-0400 Respiratory rate 18 /min Justino Tourlas Other Phone: [facility] 05-30-2021 08:46-0400 Body mass index (BMI) [Ratio] 50.03 kg/m2 Justino Tourlas Work Phone: [facility] Work Phone: 05-30-2021 08:46-0400 Body surface area Derived from formula 2.62 m2 Justino Tourlas Work Phone: [facility] Work Phone: 05-30-2021 08:46-0400 Body temperature 98.2 [degF] Justino Radhika Work Phone: [facility] Work Phone: 05-30-2021 08:46-0400 Body weight 156.72 kg Justino Garrido Work Phone: [facility] Work Phone: 05-30-2021 08:46-0400 Diastolic blood pressure 80 mm[Hg] Justion Radhika Work Phone: [facility] Work Phone: 05-30-2021 08:46-0400 Heart rate 85 /min Justino Garrido Work Phone: [facility] Work Phone: 05-30-2021 08:46-0400 Systolic blood pressure 130 mm[Hg] Justino Radhika Work Phone: [facility] Work Phone: 03-07-2021 08:25-0400 Body mass index (BMI) [Ratio] 49.59 kg/m2 Justino Garrido Work Phone: [facility] Work Phone: 03-07-2021 08:25-0400 Body surface area Derived from formula 2.61 m2 Justino Radhika Work Phone: [facility] Work Phone: 03-07-2021 08:25-0400 Body temperature 98 [degF] Justino Tristianlas Work Phone: [facility] Work Phone: 03-07-2021 08:25-0400 Body weight 155.36 kg Justino Garrido Work Phone: [facility] Work Phone: 03-07-2021 08:25-0400 Diastolic blood pressure 90 mm[Hg] Justino Radhika Work Phone: [facility] Work Phone: 03-07-2021 08:25-0400 Diastolic blood pressure 86 mm[Hg] Justino Tristianlas Work Phone: [facility] Work Phone: 03-07-2021 08:25-0400 Heart rate 72 /min Justino Garrido Work Phone: [facility] Work Phone: 03-07-2021 08:25-0400 Systolic blood pressure 138 mm[Hg] Justino Tristianlas Work Phone: [facility] Work Phone: 03-07-2021 08:25-0400 Systolic blood pressure 136 mm[Hg] Justino Tristianlas Work Phone: [facility] Work Phone: 12-06-2020 10:55-0400 Body mass index (BMI) [Ratio] 55.46 kg/m2 Justino Osborne DO Work Phone: 12-06-2020 10:55-0400 Body surface area Derived from formula 2.74 m2 Justion Osborne DO Work Phone: 12-06-2020 10:55-0400 Body weight 173.73 kg Justino Garrido MD [facility] DO Work Phone: 12-06-2020 10:55-0400 Diastolic blood pressure 88 mm[Hg] Justino Garrido MD [facility] DO Work Phone: 12-06-2020 10:55-0400 Heart rate 88 /min Justino Garrido MD [facility] DO Work Phone: 12-06-2020 10:55-0400 Systolic blood pressure 122 mm[Hg] Justino Garrido MD [facility] DO Work Phone: 10-22-2020 14:21-0400 BMI (Body Mass Index) 56.12 kg/m2 Lidia [facility] 10-22-2020 14:21-0400 Body weight 172.37 kg [facility] 10-22-2020 14:21-0400 Height 175.3 cm Lidia [facility] 08-31-2020 09:29-0500 BMI (Body Mass Index) 53.09 kg/m2 [facility] 08-31-2020 09:29-0500 Body weight 167.83 kg [facility] 08-31-2020 09:29-0500 Height 177.8 cm [facility] 03-11-2020 08:05-0400 BMI (Body Mass Index) 53.09 kg/m2 [facility] 03-11-2020 08:05-0400 Body weight 167.83 kg [facility] 03-11-2020 08:05-0400 Height 177.8 cm [facility] 09-22-2019 10:24-0500 BMI (Body Mass Index) 55.6 kg/m2 Justino Garrido [facility] Work Phone: 09-22-2019 10:24-0500 Body weight 174.18 kg Justino Garrido [facility] Work Phone: 09-22-2019 10:24-0500 BP Diastolic 80 mm[Hg] Justino Garrido [facility] Work Phone: 09-22-2019 10:24-0500 BP Systolic 118 mm[Hg] Justino Garrido [facility] Work Phone: 09-22-2019 10:24-0500 BSA (Body Surface Area) 2.75 m2 Justino Garrido [facility] Work Phone: 09-22-2019 10:24-0500 Height 176.99 cm Justino Garrido [facility] Work Phone: 09-22-2019 10:24-0500 Pulse (Heart Rate) 80 /min Justino Garrido [facility] Work Phone: 12-03-2017 08:57-0400 BMI (Body Mass Index) 50.22 kg/m2 Lidia Law [facility] 12-03-2017 08:57-0400 Height 177.8 cm Lidia Thanh [facility] 12-03-2017 08:57-0400 Weight 158.76 kg Lidia Law [facility] 08-02-2017 09:13-0500 Body Temperature 98.8 [degF] Wyatt [facility] Work Phone: 08-02-2017 09:13-0500 BP Diastolic 75 mm[Hg] Wyatt Triplett [facility] Work Phone: 08-02-2017 09:13-0500 BP Systolic 118 mm[Hg] Wyatt Triplett [facility] Work Phone: 08-02-2017 09:13-0500 Pulse (Heart Rate) 100 /min Wyatt Triplett [facility] Work Phone: 08-02-2017 09:13-0500 Pulse Oximetry 94 % Wyatt Triplett [facility] Work Phone: 07-12-2017 08:12-0500 BMI (Body Mass Index) 50.43 kg/m2 Wyatt [employer] Work Phone: 07-12-2017 08:12-0500 Body Temperature 97.81 [degF] Wyatt [employer] Work Phone: 07-12-2017 08:12-0500 BP Diastolic 79 mm[Hg] Wyatt Triplett [employer] Work Phone: 07-12-2017 08:12-0500 BP Systolic 124 mm[Hg] Wyatt [employer] Work Phone: 07-12-2017 08:12-0500 Pulse (Heart Rate) 84 /min Wyatt [employer] Work Phone: 07-12-2017 08:12-0500 Pulse Oximetry 95 % Wyatt Triplett [employer] Work Phone: 07-12-2017 08:12-0500 Weight 159.44 kg Wyatt Triplett [employer] Work Phone: 06-28-2017 15:00-0500 BP Diastolic 92 mm[Hg] Marbin Krishna [employer] Work Phone: 06-28-2017 15:00-0500 BP Systolic 147 mm[Hg] Marbin Krishna [employer] Work Phone: 06-28-2017 15:00-0500 Pulse (Heart Rate) 94 /min Marbin Krishna [employer] Work Phone: 06-28-2017 15:00-0500 Pulse Oximetry 93 % Marbin Krishna [employer] Work Phone: 06-28-2017 15:00-0500 Respiratory Rate 18 /min Marbin Krishna [employer] Work Phone: 06-28-2017 10:34-0500 BMI (Body Mass Index) 51.53 kg/m2 Marbin Krishna [employer] Work Phone: 06-28-2017 10:34-0500 Body Temperature 98.49 [degF] Marbin Krishna [employer] Work Phone: 06-28-2017 [id number] Height 177.8 cm Marbin Krishna [facility] Work Phone: 06-28-2017 [id number] Weight 162.89 kg Marbin Krishna [facility] Work Phone: Encounters Encounter Date Encounter Type Care Provider Facility Start: 08-28-2023 End: 08-28-2023 ambulatory CARISSA WINSLOW [facility] Ambulatory Start: 08-28-2023 End: 08-28-2023 Office outpatient visit 25 minutes Carissa Winslow MD MPH Work Phone: [facility] Procedures Date Procedure Procedure Detail [...] Testosterone [Mass/volume] in Serum or Plasma [facility] Start: 12-01-2022 Lipid 1996 panel - Serum or Plasma Carissa Winslow MD MPH Work Phone: Start: 11-30-2022 Arthrocentesis aspir&/inj major jt/bursa w/o us Ela Cooley TECHNICAL AID Work Phone: Start: 12-20-2021 End: 12-20-2021 Arthrocentesis aspir&/inj major jt/bursa w/o us Ela Cooley TECHNICAL AID Work Phone: Start: 12-17-2021 Lipid 1996 panel - Serum or Plasma Carissa Winslow MD MPH Work Phone: Start: 06-27-2021 Arthrocentesis aspir&/inj major jt/bursa w/o us Ela Velasquezcock TECHNICAL AID Work Phone: Start: 09-20-2020 Mri any jt [...] DTaP/Tdap/Td Vaccines (2 - Td or Tdap) [facility] Start: 11-30-2031 Tetanus vaccination Tetanus: Every 1 0yrs [facility] Start: 12-02-2027 Lipid panel Lipid Panel [facility] Start: 12-02-2027 LIPID SCREEN LIPID SCREEN [facility] Start: 12-17-2026 Lipid panel Lipid Panel [facility] Start: 12-01-2025 DIABETES SCREEN DIABETES SCREEN [facility] Start: 12-17-2024 Diabetes mellitus screening Diabetes Screening [facility] Start: 09-19-2023 End: 09-19-2023 Patient encounter procedure 09/19/2023 8:20 AM EST Office Visit [facility] [address] [place] [id number] Carissa Winslow MD MPH [address] [facility] [place], [place] [id number] [facility] Start: 2023 Zoster Vaccines (1 of 2) Zoste r Vaccines (1 of 2) [facility] Start: 08-22-2023 End: 08-22-2024 Basic metabolic 2000 panel - Serum or Plasma [facility] Service Area Work Phone: Immunizations Immunization Date Immunization Notes Care Provider Fa cility 11-29-2021 tetanus toxoid, reduced diphtheria toxoid, and acellular pertussis vaccine, adsorbed; Translations: [Tdap (Boostrix)] Justino Garrido Work Phone: [facility] Work Phone: Payers Date Payer Category Payer Unknown 2021 Unknown [employer] [place] [employer] [id number] 07/30/2021-Present [address] [place] [address] Indemnity [id number] 07-30-2021 Unknown [id number] 07-30-2018 Private Health Insurance xxx [id number] 07-30-2017 Private Health Insurance xxx [id number] 04-29-2017 Private Health Insurance [id number] 3 04-29-2017 Private Health Insurance [id number] 1973 Unknown [id number] [id number] .900 1973 Unknown [id number] 2.16.840.1.351130.3.579.2 .1245 1973 Unknown [id number] 2.16.840.1.018910.3.579.2 .1245 1973 Unknown [id number] 2.16.840.1.122831.3.579.2 .1069 1973 Unknown [id number] 2.16.840.1.476160.3.579.2 .903 1973 Unknown [id number] 2.16.840.1.410525.3.579.2 .903 1973 Unknown [id number] 2.16.840.1.401001.3.579.2 .90 1973 Unknown [id number] 2.16.840.1.002290.3.579.2 .1973 Unknown [id number] 2.16.840.1.947531.3.579.2 .1973 Unknown [id number] 2.16.840.1.181295.3.579.2 .1259 1973 Unknown [id number] 2.16.840.1.340165.3.579.2 .902 1973 Unknown [id number] 2.16.840.1.702454.3.579.2 .4 1973 Unknown [id number] 2.16.840.1.691156.3.579.2 .1243 1973 Unknown [id number] 2.16.840.1.840411.3.579.2 .1243 1973 Unknown [id number] 2.16.840.1.099689.3.579.2 .1243 1973 Unknown [id number] 2.16.840.1.137073.3.579.2 .1243 1973 Unknown [id number] 2.16.840.1.426050.3.579.2 .903 Medicaid [id number] 3 Unknown [id number] 3 Social History Date Type Detail Facility Start: 12-03-2017 End: 12-01-2022 Tobacco smoking status NHIS Never smoker [facility] Work Phone: Start: 1975 Sex Assigned At Not on file [facility] Work Phone: Start: 08-31-2020 End: 12-01-2022 Tobacco use and exposure [facility] Start: 08-31-2020 End: 03-28-2023 Alcohol intake Current non-drinker of alcohol (finding) [facility] Start: 10-17-2021 End: 08-28-2023 Exposure to SARS-CoV-2 (event) Not sure [facility] Start: 06-27-2021 End: 08-22-2023 No recent domestic travel No recent domestic travel [facility] Work Phone: Tobacco smoking consumption unknown [facility] Start: 08-14-2022 End: 08-22-2023 Tobacco use panel [facility] Start: 08-30-2020 Gender identity Identifies as male gender (finding) [facility] Start: 08-30-2020 Sexual orientation Heterosexual (fin ding) [facility] Start: 12-01-2022 Alcohol intake Lifetime non-d zach (finding) [facility] Work Phone: Start: 03-06-2023 End: 08-28-2023 Alcohol intake Ex-drinker (finding) [facility] Work Phone: NEGATED: Highlighted row - - [facility] Work Phone: Medical Equipment Procedure Code Equipment Code Equipment Origin al Text Equipment Identifier Dates Corneal Tissue F[employer] - [id number] Start: 08-05-2015 Functional Status Date Assessment Result Facility NEGATED: Highlighted row Functional performance Functional status health issues are not documented Disease [facility] Work Phone: Mental Status Date Assessment Result Facility NEGATED: Highlighted row Cognitive function [Interpretation] Cognitive status health issues are not documented Disease [facility] Work Phone: Clinical Notes 07-12-2016 to [...] who presents for ER Follow-up (Pt went [facility] for a Blood clot - was advised [...] Winslow MD MPH documented in this encounter [facility] Work Phone: 08-22-2023 Evaluation + Plan note Associated Problem(s): Stimulant dependence (CMS/HCC) Is taking Ritalin for ADHD. Under control with regimen. No side-effects so far from Ritalin. [facility] Work Phone: 08-22-2023 Miscellaneous Notes Associated Problem(s): Stimulant dependence (CMS/HCC) Is taking Ritalin for ADHD. Under control with regimen. No side-effects so far from Ritalin. documented in this encounter [facility] Work Phone: 08-22-2023 History of Present [...] ago. Has been on Ritalin since then. 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 Pedal edema: Patient reports [...] Winslow MD MPH documented in this encounter [facility] Work Phone: 05-22-2023 History of Present illness Narrative Subjective Patient ID: Shivani Veras III is a 47 y.o. male who presents for 3 mth ov. [facility] Here for follow up. I have [...] ago. Has been on Ritalin since then. 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 Pedal edema: Patient reports [...] Winslow MD MPH documented in this encounter [facility] Work Phone: 04-06-2023 History of Present illness Narrative At this time patient does not wish to proceed forward with any therapy or required conservative measures that his insurance company wants. Will phone in if at sometime he wishes to go forward. documented in this encounter [facility] 03-28-2023 History of Present illness Narrative [address] [facility] [address] [facility] [phone] Chief Complaint Patient presents with Left Shoulder [...] Main OR; Service: Orthopedic CHOLECYSTECTOMY LAPAROSCOPIC 07/17/2017 [facility] CLOSED REDUCTION HAND FRACTURE EYE SURGERY left [...] the MRI results. documented in this encounter [facility] 03-06-2023 History of Present illness Narrative Subjective [...] ago. Has been on Ritalin since then. 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 Will consider checking [...] Winslow MD MPH documented in this encounter [facility] Work Phone: 01-10-2023 Note HNO ID: [id number] Author: Radha Rice OD Service: ? Author Type: MACHINERY DISMANTLER Type: Progress Notes Filed: 01/10/2023 10:47 AM [...] neuro exam findings as obtained by others. [facility] 01-10-2023 Instructions Radha Rice OD - 01/10/2023 [...] and checking OR documented in this encounter [facility] 01-10-2023 History of Present illness Narrative ASSESSMENT/PLAN: [...] obtained by others. documented in this encounter [facility] 12-01-2022 History of Present illness Narrative Subjective [...] ago. Has been on Ritalin since then. 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 Desk [...] Winslow MD MPH documented in this encounter [facility] Work Phone: 11-30-2022 History of Present [...] CNP Authorized by: Ela Cooley CNP CPT 68286 - Large Joint Arthrocentesis: Consent given by: [...] CNP Authorized by: Ela Cooley CNP CPT 62990 - Large Joint Arthrocentesis: Consent given by: [...] Ela Cooley CNP documented in this encounter [facility] 02-10-2022 History of Present illness Narrative I [...] years ago. 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 Author Type: MACHINERY DISMANTLER Type: Progress Notes Filed: 01/13/2022 1:31 PM [...] its relevant components. Orin Rice II, ISMAEL [facility] 01-13-2022 Instructions Orin Rice II, OD - [...] Rice II, OD documented in this encounter [facility] 01-13-2022 History of Present illness Narrative Assessment [...] Rice II, OD documented in this encounter [facility] 12-20-2021 History of Present illness Narrative Associated Order(s): LG Jt Injection/Arthrocentesis: L knee; LG Jt Injection/Arthrocentesis: L glenohumeral Post-Procedure Diagnose(s): Primary osteoarthritis of both knees; S/P arthroscopy of left shoulder LG Jt Injection/Arthrocentesis: L knee Date/Time: 12/20/2021 12:00 PM Performed by: Ela Cooley CNP Authorized by: Ela Cooley CNP CPT 07633 - Large Joint Arthrocentesis: Consent given by: [...] CNP Authorized by: Ela Cooley CNP CPT 00409 - Large Joint Arthrocentesis: Consent given by: [...] well with no immediate complications 12/20/21 Shivani Versa 1975 Chief Complaint Patient presents with Left [...] Ela Cooley CNP documented in this encounter [facility] 11-25-2021 Instructions Orin Rice II, OD - [...] Rice II, OD documented in this encounter [facility] 11-25-2021 History of Present illness Narrative Assessment [...] Rice II, OD documented in this encounter [facility] 10-27-2021 Instructions Radha Rice OD - 10/27/2021 [...] CL comes in. documented in this encounter [facility] 10-27-2021 History of Present illness Narrative ASSESSMENT/PLAN: [...] Radha Rice OD documented in this encounter [facility] 06-27-2021 History of Present illness Narrative Associated Order(s): LG Jt Injection/Arthrocentesis: L glenohumeral; LG Jt Injection/Arthrocentesis: R glenohumeral Post-Procedure Diagnose(s): S/P arthroscopy of left shoulder; Bursitis and tendinitis of shoulder region LG Jt Injection/Arthrocentesis: L glenohumeral Performed by: Ela Cooley CNP Authorized by: Ela Cooley CNP CPT 96436 - Large Joint Arthrocentesis: Consent given by: [...] CNP Authorized by: Ela Cooley CNP CPT 54346 - Large Joint Arthrocentesis: Consent given by: [...] no immediate complications [address] [address] [facility] [address] [facility] [phone] No chief complaint on file. Shivani Veras [...] arthroscopy; Surgeon: Lidia Law MD; Location: Main [place]; Service: Orthopedic CHOLECYSTECTOMY LAPAROSCOPIC 07/17/2017 [facility] CLOSED REDUCTION HAND FRACTURE EYE SURGERY left [...] the treatment plan. documented in this encounter [facility] 03-07-2021 History of Present illness Narrative OARRS [...] hypogonadismStableCurrently inj himself w/ testosterone 200 mg [id number] any adverse rxns to thisSince starting testosterone [...] - denies any adverse rxns to med [facility] Work Phone: 11-26-2020 History of Present illness Narrative Dictation on: 11/26/2020 5:30 PM by: LIDIA LAW [[id number]] documented in this encounter [facility] 05-24-2020 History of Present illness Narrative OARRS [...] hypogonadismStableCurrently inj himself w/ testosterone 200 mg [id number] any adverse rxns to thisSince starting testosterone [...] 2020 by watching his diet and exercise -[facility] Work Phone: documented as of this encounter (statuses as of 10/27/2021) [facility] History of Past illness Narrative* Problem Noted [...] of this encounter (statuses as of 11/25/2021) [facility] History of Past illness Narrative* Problem Noted [...] of this encounter (statuses as of 12/20/2021) [facility] History of [facility] illness Narrative* Problem Noted [...] of this encounter (statuses as of 01/13/2022) [facility] of [facility] Narrative* Problem Noted [...] of this encounter (statuses as of 01/10/2023) [facility] Diagnosis S/P [facility]roscopy of left shoulder- Primary [facility] S/P arthroscopy of left shoulder- Primary Nontraumatic tear of left rotator cuff, unspecified tear extent Bursitis and tendinitis of shoulder region [facility] Diagnosis Hyperopia, right- Primary Myopia, left Regular astigmatism, bilateral Presbyopia [facility] Diagnosis Keratoconus of both eyes- Primary Keratoconus, unspecified [facility] Keratoconus of both eyes- Primary Keratoconus, unspecified documented in this encounter [facility] note* Diagnosis S/P arthroscopy of left shoulder- Primary Primary osteoarthritis of both knees documented in this encounter [facility] note* Diagnosis Keratoconus of both eyes- Primary Keratoconus, unspecified [facility] Diagnosis Primary osteoarthritis of both knees- Primary documented in this encounter [facility] note* Diagnosis Attention deficit disorder of adult with hyperactivity- Primary Attention deficit disorder with hyperactivity Follow-up encounter involving medication Hypogonadism in male Healthcare maintenance documented in this encounter [facility] Work Phone: Evaluation note* Diagnosis Hyperopia, right- Primary Myopia, left Regular astigmatism, bilateral Presbyopia documented in this encounter [facility] note* Diagnosis Attention deficit disorder of adult with hyperactivity Attention deficit disorder with hyperactivity documented in this encounter [facility] Work Phone: Evaluation note* Diagnosis S/P arthroscopy of left shoulder- Primary Tear of left rotator cuff, unspecified tear extent, unspecified whether traumatic documented in this encounter [facility] note* Diagnosis Hypogonadism in male- Primary Attention deficit disorder of adult with hyperactivity Attention deficit disorder with hyperactivity Morbid obesity (CMS/HCC) Morbid obesity Pedal edema Edema Chronic gout without tophus, unspecified cause, unspecified site documented in this encounter [facility] Work Phone: Evaluation note* Diagnosis Stimulant dependence (CMS/HCC)- Primary Pedal edema Edema Attention deficit disorder of adult with hyperactivity Attention deficit disorder with hyperactivity Morbid obesity (CMS/HCC) Morbid obesity Hypogonadism in male Primary hypertension Unspecified essential hypertension documented in this encounter [facility] Work Phone: Evaluation note* Diagnosis Deep vein thrombosis (DVT) of proximal vein of right lower extremity, unspecified chronicity (CMS/HCC)- Primary documented in this encounter [facility] Work Phone: Instructions* Name Dates Details Instructions not documented [facility] Work Phone: Reason for referral (narrative)* Consultation (Routine) - Pending Review Specialty Diagnoses / Procedures Referred By Raquel roldan Referred To Contact Vascular Surgery Diagnoses Deep vein thrombosis (DVT) of proximal vein of right lower extremity, unspecified chronicity (CMS/HCC) Carissa Winslow MD MPH [facility] [facility] [address] [place] [address] [address], [address] [facility] [address] [place] [address] Referral ID Status Reason Start Date Expiration Date Visits Requested Visits Authorized [id number] Pending Review Specialty Services Required 08/28/2023 08/27/2024 1 1 [facility] Work Phone: Assessments Diagnosis Primary osteoarthritis [...] Care Instructions Your Care Instructions Biliary (say ODYJ-jq-vcq-ee ) colic is belly pain caused by [...] your doctor if you can take an ylzf-alq-bwqarst medicine. Read and follow all instructions on [...] Log into your personal health record on https://[employer] and enter X038 in the Education box to learn more about Biliary Colic: Care Instructions. Current as of: March 07, 2016 Content Version: 11.2 0440-1272 [facility] [facility]. Care instructions adapted under license by your healthcare professional. If you have questions about a medical condition or this instruction, always ask your healthcare professional. [employer] disclaims any warranty or liability for your use of this information. Gallbladder and Liver: Anatomy Sketch Current as of: August 03, 2016 Content Version: 11.2 [employer] [facility]. Care instructions adapted under license by your healthcare professional. If you have questions about a medical condition or this instruction, always ask your healthcare professional. [employer] [facility] disclaims any warranty or liability for your [...] Log into your personal health record on https://[employer] and enter Z797 in the Education box to learn more about Low-Fat Diet for Gallbladder Disease: Care Instructions. Current as of: February 22, 2016 Content Version: 11.2 5890-3095 [employer] [facility]. Care instructions adapted under license by your healthcare professional. If you have questions about a medical condition or this instruction, always ask your healthcare professional. [employer] [facility] disclaims any warranty or liability for your [...] FoundDocuments on File Type Date Recorded Patient Activity Aid Expl anation Advance Directives and Living Will Documents on File Type Date Recorded Patient Activity Aid Expl anation Advance Directives and Livin g Will 09/20/2020 7:10 AM Documents on File Type Date Recorded Patient Activity Aid Expl anation Advance Directives and Livin g Will 09/20/2020 7:10 AM Documents on File Type Date Recorded Patient Activity Aid Expl anation Advance Directives and Livin g Will 10/13/2020 7:10 AM Documents on File Type Date Recorded Patient Activity Aid Expl anation Advance Directives and Living Will Documents on File Type Date Recorded Patient Activity Aid Expl anation Advance Directives and Livin g Will 10/19/2020 7:10 AM Documents on File Type Date Recorded Patient Activity Aid Expl anation Advance Directives and Livin g Will 11/12/2020 8:59 AM Documents on File Type Date Recorded Patient Activity Aid Expl anation Advance Directive(s) 09/28/2016 10:02 AM Advance Directive(s) 10/05/2015 9:13 AM Advance Directive(s) 09/16/2015 12:06 PM Reason for Referral Status Reason Specialty Diagnoses / Procedures Referred By Contact Referred To Contact New Request Radiology Diagnoses Tear of left rotator cuff, unspecified tear extent, unspecified whether traumatic Procedures MR Shoulder Left Without Contrast Ela Cooley CNP [address] [place] [address] Status Reason Specialty Diagnoses / Procedures Referre d By Contact Referred To Contact Closed Radiology Diagnoses Tear of left rotator cuff, unspecified tear extent, unspecified whether traumatic Procedures MR Shoulder Left Without Contrast Ela Cooley CNP [address] [place] [address] Status Reason Specialty Diagnoses / Procedures Referred By Contact Referred To Contact Authorized Rehabilitation Diagnoses Tear of left rotator cuff, unspecified tear extent, unspecified whether traumatic Ela Cooley CNP [address] [place] [address] [facility] [address] [place] [address] Specialty Diagnoses / Procedures Referred By Contac t Referred To Contact Radiology Diagnoses Tear of left rotator cuff, unspecified tear extent, unspecified whether traumatic Procedures MR Shoulder Left Without Contrast Ela Cooley CNP [address] [place] [address] Referral ID Status Reason Start Date Expiration Date V isits Requested Visits Authorized [id number] New Request 03/27/2023 03/26/2024 1 1 History of Present Illness * Ela Cooley CNP - 08/31/2020 4:45 PM EST [facility] [address] [place] [phone] Chief Complaint Patient presents with Left Shoulder [...] History: Procedure Laterality Date CHOLECYSTECTOMY LAPAROSCOPIC 07/17/2017 [facility] CLOSED REDUCTION HAND FRACTURE EYE SURGERY left [...] file Gets together: Not on file Attends episcopal service: Not on file Active member of [...] 11:46 AM EST [facility] [address] [facility] [address] [facility] [phone] Chief Complaint Patient presents with Left Shoulder [...] file Gets together: Not on file Attends episcopal service: Not on file Active member of [...] Elizabeth, PT - 10/06/2020 7:00 AM EST [facility] Evaluation Today's Date 10/06/2020 [...] decline in level of ADL Social Support: Jain, social, or cultural considerations to be made aware of before starting treatment: No Activities of Daily Living: Lower Body: increased time and effort with all Instrumental Activities of Daily Living: Current 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 Rick Elizabeth PT State License, [id number] documented in this encounter* Ann Jolly, SYED - 10/08/2020 7:00 AM EST [facility] DAILY TREATMENT NOTE Today's [...] OTHER Notes visit 2: 7:04-7:40 Therapeutic Exercise (49478) Intervention provided written HEP handouts consisting of [...] and strengthening Ann Jolly PTA STATE LICENSE, [id number] documented in this encounter* Jayden Owen PTA - 10/13/2020 7:00 AM EDT [facility] DAILY TREATMENT NOTE Today's [...] OTHER Notes visit 2: 7:05-7:40 Therapeutic Exercise (27752) Intervention Pulleys - x3 min Parameters UEB [...] and stability Jayden Owen PTA STATE LICENSE, [id number] documented in this encounter* Ann Jolly PTA - 10/15/2020 7:00 AM EDT [facility] DAILY TREATMENT NOTE Today's [...] OTHER Notes visit 3: 7:05-7:45 Therapeutic Exercise (61272) Intervention Pulleys - x3 min Parameters UEB [...] on strengthening Ann Jolly PTA STATE LICENSE, [id number] documented in this encounter* Lidia Law MD - 02/10/2019 5:41 PM EDT Dictation on: 02/10/2019 5:42 PM by: LIDIA LAW [[id number]] documented in this encounter* Ela Cooley CNP - 03/11/2020 5:07 PM EDT Associated Order(s): LG Jt Injection/Arthrocentesis: R knee; LG Jt Injection/Arthrocentesis: L knee Post-Procedure Diagnose(s): Primary osteoarthritis of both knees LG Jt Injection/Arthrocentesis: R knee Performed by: Ela Cooley CNP Authorized by: Ela Cooley CNP CPT 79840 - Large Joint Arthrocentesis: Consent given by: [...] LG Jt Injection/Arthrocentesis: L knee Performed by: Eal Cooley CNP Authorized by: Ela Cooley CNP CPT 20216 - Large Joint Arthrocentesis: Consent given by: [...] 5:04 PM EDT [facility] [address] [facility] [address] [facility] [phone] Chief Complaint Patient presents with Left Knee [...] History: Procedure Laterality Date CHOLECYSTECTOMY LAPAROSCOPIC 07/17/2017 [facility] CLOSED REDUCTION HAND FRACTURE EYE SURGERY left [...] file Gets together: Not on file Attends episcopal service: Not on file Active member of [...] medial knee compartment joint space narrowing with fkme-cn-ahkj appearance and moderate marginal osteophytes. Moderate marginal osteophytes of the lateral knee compartments. Severe patellofemoral compartment joint space narrowing with scbw-as-okvt appearance andmoderate marginal osteophytes. No significant joint [...] Elizabeth, PT - 10/20/2020 7:00 AM EDT [facility] DAILY TREATMENT NOTE Today's [...] visit 5: 7:03 - 7:42 Therapeutic Exercise (20027) Intervention UEB lvl 2, 3' fwd/back Parameters [...] Plan: Discharge Rick Elizabeth PT State License, [id number] documented in this encounter* Lidia Law MD - 10/22/2020 5:54 PM EDT Dictation on: 10/22/2020 5:57 PM by: LIDIA LAW [[id number]] documented in this encounter* Randy Barrera PTA - 10/22/2020 1:45 PM EDT [facility] DAILY TREATMENT NOTE Today's [...] - 10/22/20 1354 OTHER Notes visit 6: 4671-0257 Therapeutic Exercise (39890) Intervention UEB lvl 2, 3' fwd/back Parameters [...] Visit: Discharge Randy Barrera PTA STATE LICENSE, [id number] documented in this encounter Chief Complaint F/U [...] Veras Home Medication Instructions Prior to Surgery JACQUELINE:[id number] Printed on:06/28/17 7691 Medication Information Take last dose on Take [...] the following: Clarity, Urine Cloudy (*) Specific Sharon 1.033 (*) pH, Urine 8.0 (*) Blood, [...] following orders were created for panel order [place] Draw. Procedure Abnormality Status --------- ------ Lavender Top[[id number]] Final result Mint Green Top[[id number]] Final result Gold Top[[id number]] Final result Light Blue Top[[id number]] Final result Khan Top[[id number]] Final result Surrency Top[[id number]] Final result Please view results for these tests on the individual orders. LAVENDER TOP MINT GREEN TOP GOLD TOP LIGHT BLUE TOP KHAN TOP PINK TOP CBC AND DIFFERENTIAL Narrative: The following orders were created for panel order CBC w/ Diff. Procedure Abnormality Status --------- ------ CBC Auto Differential[[id number]] Abnormal Final result Please view results for [...] of the liver without focal hepatic lesion. [facility] Workstation ID: [id number] CT Abdomen Pelvis With IV Contrast Only Preliminary Result 1. Nonspecific gallbladder distention. If there is clinical concern for cholecystitis, consider ultrasound follow-up. 2. Small infiltrate in the posterior right lung base could reflect atelectasis or mild pneumonia. [facility] Workstation ID: [id number] I have discussed the results of tests [...] Administered 06/28/17 1148) Marbin Krishna MD 06/28/17 3183 Pt states that he started having abd [...] DATE CREATED AUTHOR AUTHOR'S ORGANIZ ATION 03/28/2019 [facility] DATE CREATED AUTHOR AUTHOR'S ORGANIZ ATION 11/09/2020 [facility] DATE CREATED AUTHOR AUTHOR'S ORGANIZ ATION 02/16/2022 [employer] DATE CREATED AUTHOR AUTHOR'S ORGANIZ ATION 02/19/2022 [facility] DATE CREATED AUTHOR AUTHOR'S ORGANIZ ATION 01/11/2023 [facility] DATE CREATED AUTHOR AUTHOR'S ORGANIZ ATION 03/06/2023 [facility] DATE CREATED AUTHOR AUTHOR'S ORGANIZ ATION 03/09/2023 [facility] DATE CREATED AUTHOR AUTHOR'S ORGANIZ ATION 03/28/2023 [facility] DATE CREATED AUTHOR AUTHOR'S ORGANIZ ATION 07/22/2023 [facility] EPIC DATE CREATED AUTHOR AUTHOR'S ORGANIZ ATION 08/30/2023 [facility] DATE CREATED AUTHOR AUTHOR'S ORGANIZ ATION 08/30/2023 [facility] DATE CREATED AUTHOR AUTHOR'S ORGANIZ ATION 08/31/2023 [facility] Reason for Visit (unrecogniz ed section and content) Status Reason Specialty Diagnoses / Procedures Referre d By Contact Referred To Contact Closed Radiology Diagnoses Tear of left rotator cuff, unspecified tear extent, unspecified whether traumatic Procedures MR Shoulder Left Without Contrast Ela Cooley, CRYSTAL [id number] Reason Comments Follow-up Reason Comments Physical Therapy Status Reason Specialty Diagnoses / Procedures Referred By Contact Referred To Contact Authorized Rehabilitation Diagnoses Tear of left rotator cuff, unspecified tear extent, unspecified whether traumatic Ela Cooley CNP [address] [place] [address] [facility] [place] [address] [address] [place] [address] Reason Comments Follow-up Reason Comments Pain Reason [...] Care Teams (unrecognized sec tion and content) Media Sales Executive Relationship Specialty Start Date End Date Justino Garrido MD [address] [place] [address] PCP - General Family Practice 10/27/21 Media Sales Executive Relationship Specialty Start Date End Date Justino Garrido MD [address] [place] [address] PCP - General Family Practice 10/27/21 Media Sales Executive Relationship Specialty Start Date End Date Justino Garrido MD [address] [place] [address] PCP - General Family Practice 10/27/21 Media Sales Executive Relationship Specialty Start Date End Date Justino Garrido MD PCP - General Family Medicine 06/28/17 Media Sales Executive Relationship Specialty Start Date End Date Justino Garrido MD [address] [place] [address] PCP - General Family Practice 10/27/21 Media Sales Executive Relationship Specialty Start Date End Date Justino Garrido MD PCP - General Family Medicine 06/28/17 Media Sales Executive Relationship Specialty Start Date End Date Justino Garrido MD PCP - General Family Medicine 06/28/17 Media Sales Executive Relationship Specialty Start Date End Date Carissa Winslow MD MPH [address] [facility] [address] [place] [address] PCP - General 02/10/22 Carissa Winslow MD MPH [address] [facility] [address] [place] [place] [address] PCP - [employer] ACO PCP 02/27/22 Media Sales Executive Relationship Specialty Start Date End Date Carissa Winslow [address] [facility] [address] [place] [address] PCP - General Family Medicine 01/10/23 Media Sales Executive Relationship Specialty Start Date End Date Carissa Winslow MD MPH [address] [facility], [address] [place] [address] PCP - General 02/10/22 Carissa Winslow MD MPH [address] [facility], [address] [place] [address] PCP - [employer] ACO PCP 02/27/22 Media Sales Executive Relationship Specialty Start Date End Date Justino Garrido MD PCP - General Family Medicine 06/28/17 Media Sales Executive Relationship Specialty Start Date End Date Justino Garrido MD [address] [place] [address] PCP - General Family Medicine 06/28/17 Media Sales Executive Relationship Specialty Start Date End Date Carissa Winslow MD MPH [address] [facility], [address] [place] [address] PCP - General 02/10/22 Carissa Winslow MD MPH [address] [facility], [address] [place] [address] PCP - [employer] ACO PCP 02/27/22 Media Sales Executive Relationship Specialty Start Date End Date Carissa Winslow MD MPH [address] [facility], [address] [place] [address] PCP - General 02/10/22 Carissa Winslow MD MPH [address] [facility], [address] [place] [address] PCP - [employer] ACO PCP 02/27/22 Media Sales Executive Relationship Specialty Start Date End Date Carissa Winslow MD MPH [address] [facility], [address] [place] [address] PCP - General 02/10/22 Carissa Winslow MD MPH [address] [facility], [address] [place] [address] PCP - [employer] ACO PCP 02/27/22 Source Comments (unrecognize d section and content) In the event this informatio n is protected by the Federal Confidentiality of Alcohol and Drug Abuse Patient Records regulations: The Federal rules restrict any use of the information to criminally investigate or prosecute any alcohol or drug abuse patient.[facility] the event this information is protected by the Federal Confidentiality of Alcohol and Drug Abuse Patient Records regulations: The Federal rules restrict any use of the information to criminally investigate or prosecute any alcohol or drug abuse patient.[facility] System[facility] the event this information is protected by the Federal Confidentiality of Alcohol and Drug Abuse Patient Records regulations: The Federal rules restrict any use of the information to criminally investigate or prosecute any alcohol or drug abuse patient.[facility] System[facility] the event this information is protected by the Federal Confidentiality of Alcohol and Drug Abuse Patient Records regulations: The Federal rules restrict any use of the information to criminally investigate or prosecute any alcohol or drug abuse patient.[facility] System[facility] the event this information is protected by the Federal Confidentiality of Alcohol and Drug Abuse Patient Records regulations: The Federal rules restrict any use of the information to criminally investigate or prosecute any alcohol or drug abuse patient.[facility] <item> Privacy Markings (unrecogniz ed section and [...] BE BASED ON THE PRIMARY CLINICAL RECORDS. [employer] [facility]. provides no warranty or guarantee of the accuracy or completeness of information in this document.
--- NOTE | 2023-09-11 14:18 | PCM.OPRPT ---
Report of Operation Date of Procedure: 09/11/23 Pre-Operative Diagnosis: DVT Post-Operative Diagnosis: same Surgery/Procedure Performed:: IVC, bilateral lower extremity venogram IVUS IVC, bilateral common iliac, bilateral external iliac veins Percutaneous mechanical thrombectomy right lower extremity Angioplasty left popliteal vein Angioplasty/stent right external/common iliac vein Surgeon: Meir Hurtado Type of Anesthesia: Local and Sedation,Conscious Estimated Blood Loss (mL): 150 Description of Procedure: HPI: Patient is a 47-year-old male with acute right lower extremity deep venous thrombosis who was initially evaluated outside facility and felt to be not a good candidate for thrombectomy. He presented to us for second opinion and given the extent of his thrombus and his lack of resolution of symptoms with anticoagulation he is taken now for attempted percutaneous mechanical thrombectomy. Is also suspicion for central venous compression or obstruction given that this was unprovoked DVT and that his symptoms and thrombus have not improved with anticoagulation. Description of procedure: Upon obtaining form consent and verification correct patient procedure site patient taken to the Cutting Department Supervisor where he was positioned prepped and draped in usual sterile fashion. Timeout was performed conscious sedation ministered Versed and fentanyl. Skin overlying the right popliteal vein was anesthetized 1% lidocaine vessel accessed with a micropuncture needle wire and ultrasound guidance. Of note the vein was very small in caliber and difficult to visualize and not a typical appearance for an acute DVT. We were ultimately able to successfully access the vessel and the micropuncture needle and exchanged for micropuncture sheath. Through this a hand-injection right lower extremity venogram was performed which revealed satisfactory positioning within the popliteal femoral vein however there was an appearance of chronic occlusion with multiple collateral branches coursing along the track of the femoral vein. [place] that this was worth attempting to cross in order to facilitate thrombectomy so a glide advantage wire was advanced through the micropuncture sheath which was then exchanged out for an 8 Egyptian sheath. Using multiple combinations of wires and catheters we made efforts to cross the total occlusion with some limited success and intravascular ultrasound probe was then advanced over the wire and evaluation of our progress taken. This did reveal that we were within what appeared to be chronically totally occluded femoral vein however just below the confluence with the profunda vein we were unable to maintain position within the femoral vein and the wire and catheter went into multiple side branches. Despite multiple efforts we were unable to cross into the patent common femoral vein so we then anesthetized the skin overlying the left popliteal vein and the vessel was accessed under ultrasound guidance with micropuncture needle wire. This then exchanged over a micropuncture sheath through the injection left lower extremity venogram was performed revealed satisfactory positioning. There was a dual system of the but the popliteal and the femoral vein both of which were of fairly small caliber compared to normal diameter. [place] advantage wire was then advanced and the micropuncture sheath exchanged out for an 8 Egyptian sheath. We then advanced our into the inferior vena cava and using an IM catheter we navigated to the contralateral iliac vein system advancing into the common femoral vein. The catheter was then withdrawn and intravascular sound probe was advanced over the wire and recorded pullback performed of the right great saphenous vein, common femoral vein, external vein, common iliac vein, IVC, left common iliac vein, left external leg vein. This revealed significant compression in both the common and external iliac veins on the right side as well as some external compression of the left side. This also revealed subacute to chronic appearing common femoral vein thrombus down into the profunda origin and patent saphenofemoral junction with a very small channel within the common femoral vein for venous outflow. The hope is that with suction thrombectomy we will be able to clear the common femoral subacute thrombus and over the profunda thrombus as well there is also thrombus into the external iliac vein which appeared more acute in nature. The 8 Egyptian sheath was exchanged out for a 14 Egyptian sheath through which an Inari flow retriever catheter, T16, was advanced and positioned in the distal external iliac vein. Multiple aspirations were performed with some subacute appearing thrombus produced. Repeat intravascular ultrasound of the venogram imaging showed some improvement in the thrombus burden however there is still near occlusive distal common femoral thrombus and profunda occlusion. Is felt that it would be advantageous to work through the larger aspiration catheter which would require femoral access so the the wires and catheters were withdrawn and silk suture placed in the skin after which manual pressure held for 5 minutes. The patient was then flipped onto his back and reprepped and draped after which skin overlying the left common femoral vein was anesthetized 1% lidocaine the vessel asked with micropuncture needle wire. This then exchanged for micropuncture sheath through which a glide advantage wire was advanced in the vena cava and the IM catheter used to navigate into the contralateral leg system. Next the 20 Egyptian Inari sheath was advanced and the T20 catheter advanced over the wire and positioned in the external iliac vein. Further multiple aspirations were performed with some further subacute thrombus returned however there continue be thrombus burden in the common femoral and profunda veins. The retrieval disc was then advanced and attempts to mechanically disrupt the clot while aspirating were performed though no further significant thrombus was returned. Repeat imaging did not show much improvement in the thrombus. We then selectively cannulated the profunda vein and again attempted the retrieval disc with no real success. Given the appearance of the thrombus and his inability to be aspirated or dislodged was felt that this was fairly chronic and no further endovascular efforts would be successful. Given his focal location there was a sense that open thrombectomy could be successful. Since there was severe compression of the external and common iliac veins this was then felt to be appropriate to treat with plans for open thrombectomy during the same hospitalization. Next a [place] Vena 16 x 100 advanced over the wire and positioned to cover the entirety of the area of compression. This was then deployed and postdilated with a 14 mm angioplasty balloon along its entirety. Intravascular was then readvanced and recorded pullback performed which revealed satisfactory resolution of the compression with satisfactory stent positioning and good wall apposition. Wires and catheters then withdrawn and silk suture placed in the femoral access site which was then secured as the sheath was withdrawn. Manage pressure was then held after which patient was taken to the PCU for recovery. Grafts/Implants Used: [place] Vena [id number]
[2023-09-11] MEDS: oxyCODONE 5 MG Tablet PO ×2 (14:40→22:26)
[2023-09-11] MEDS: Acetaminophen 500 MG Tablet 1000 MG PO ×2 (14:41→20:52)
[2023-09-11] MEDS: Lisinopril 10 MG Tablet PO (14:41)
[2023-09-11] MEDS: Methylphenidate HCl 5 MG Tablet 20 MG PO (14:41)
[2023-09-11] MEDS: HEPARIN/D5w 25,000 UNITS 25,000 UNITS/250 ML IV.SOLN. 18 UNITS CONT INF (14:47)
[2023-09-11 15:39] LABS: ACT Activated Clotting Time 217 sec (74-137)
[2023-09-11 15:40] LABS: ACT Activated Clotting Time 206 sec (74-137)
[2023-09-11 15:41] LABS: ACT Activated Clotting Time 206 sec (74-137)
[2023-09-11 15:42] LABS: ACT Activated Clotting Time 212 sec (74-137)
[2023-09-11 15:43] LABS: ACT Activated Clotting Time 223 sec (74-137)
--- NOTE | 2023-09-11 16:28 | CHAPLAIN ---
Type of Pastoral Visit _x__ Initial Visit ___ Follow-up Visit ___ On-call Visit ___ General Patient Visit ___ Spiritual Assessment ___ Family Conference ___ Bereavement ___ Rapid Response ___ Code Blue ___ Other (describe below) Pastoral Care Referral From _x__ Patient ___ Family ___ Nurse ___ Physician ___ Gas Fitter Apprentice ___ Hydrographer ___ Other (describe below) Sacrament/Intervention _x__ Active listening ___ Anointing ___ Sikhism ___ Bereavement ___ Communion ___ [place] exploration ___ ___ Life review _x__ Prayer ___ Reconciliation ___ Sacrament of Sick _x__ Supportive presence ___ Wedding ___ Other (describe below) Pastoral Comments initially the patient was out of the room and a calling card was left; pt returned to room after procedure but stated that after seven hours the procedure did not have success and I will be having surgery tomorrow ; pt is asked about his feelings, his coping with situation, and his concerns; pt appears to be calm and states that he is still doing fine even through the difficulty today; spouse is with pt and is supportive; spouse is offered support too; pt denies any needs but does welcome prayer; pt is active in a local scientology; follow up would be helpful
[2023-09-11] MEDS: buPROPion (SR) 150 MG Tablet.SA PO (20:53)
[2023-09-11 22:07] LABS: Partial Thromboplast Time 89.8 Seconds (24.1-36.2)
[2023-09-12] VITALS (14 sets, daily range): BP systolic 95–164; BP diastolic 63–87; PULSE 85–117; RESP 16–18; TEMP 36.6–37.3; O2SAT 91–98; BMI 47.0
[2023-09-12 04:31] LABS: Absolute Lymphocyte Count 1.58 X10^3/uL (0.83-4.51); Absolute Neutrophil Count 5.9 X10^3/uL (2.0-7.7); Basophil# 0.08 X10^3/uL; Basophil% 0.9 % (0-1); Eosinophil# 0.36 X10^3/uL; Eosinophils% 3.9 % (0-5); Hemoglobin 12.6 g/dL (13.0-16.5); Lymphocyte # 1.58 X10^3/ul (0.83-4.51); Lymphocyte % 17.3 % (19-41); Mean Corp Hgb Conc 33.2 g/dL (32-36); Mean Corpuscular Hgb 31.6 pg (27.0-32.0); Mean Corpuscular Volume 95.2 fL (80-94); Monocyte# 1.01 X10^3/uL; Monocyte% 11.1 % (0-10); NRBC Flagged by Analyzer 0 % (0-5); Neutrophil # 5.85 X10^3/uL (2.7-7.7); Neutrophil % 64.1 % (47-70); Platelet Count 237 K/mm3 (150-450); RBC Distribution Width CV 13.3 % (11.6-14.6); RBC Distribution Width SD 47.6 fl (35.1-43.9); Red Blood Count 3.99 M/mm3 (4.6-6.2); White Blood Count 9.1 K/mm3 (4.4-11.0)
[2023-09-12 04:45] LABS: Anion Gap 5 (5-15); BUN 22 mg/dL (7-18); BUN/Creat Ratio 22.3 RATIO (10-20); Calcium,Total 8.9 mg/dL (8.5-10.1); Chloride 108 mmol/L (98-107); Creatinine, Serum 0.99 mg/dL (0.70-1.30); EST Glomerular Filtration Rate 85 mL/min (>60); Est Glom Filt Rate - Afr Amer 103 mL/min (>60); Estimated Creatinine Clearance 127.23 ml/min; Glucose 105 mg/dL (74-106); Sodium Level 142 mmol/L (136-145)
[2023-09-12] MEDS: oxyCODONE 5 MG Tablet PO ×2 (05:01→23:14)
[2023-09-12 05:05] LABS: International Normalized Ratio 1.1; Partial Thromboplast Time 65.9 Seconds (24.1-36.2); Prothrombin Time (Protime)PT. 14.2 SECONDS (11.7-14.9)
[2023-09-12] MEDS: HEPARIN/D5w 25,000 UNITS 25,000 UNITS/250 ML IV.SOLN. 17 UNITS CONT INF ×2 (05:17→23:16)
[2023-09-12] MEDS: Methylphenidate HCl 5 MG Tablet 20 MG PO (05:41)
[2023-09-12] MEDS: Acetaminophen 500 MG Tablet 1000 MG PO ×2 (05:41→21:44)
--- NOTE | 2023-09-12 05:55 | EKG12_ITS ---
Test Reason : PREOP Blood Pressure : / mmHG Vent. Rate : 085 BPM Atrial Rate : 085 BPM P-R Int : 144 ms QRS Dur : 098 ms QT Int : 378 ms P-R-T Axes : 043 015 017 degrees QTc Int : 449 ms Normal sinus rhythm Normal ECG When compared with ECG of 11-SEP-2023 05:31, No significant change was found Confirmed by Kobe Edwards ([id number]), editor & co founder RAF QUESADA ([id number]) on 09/12/2023 1:40:48 PM Referred By: DARI Confirmed By:Kobe Edwards
[2023-09-12 11:40] LABS: Partial Thromboplast Time 61.5 Seconds (24.1-36.2)
[2023-09-12] MEDS: Lactated Ringers 1,000 ML 15 ML IV ×2 (12:09→17:28)
--- NOTE | 2023-09-12 12:30 | THRO_PTH ---
PATHOLOGY RESULTS PATIENT: SHIVANI BOOTHE III LOC: [facility] U#:[id number] AGE/SX: 47/M ROOM: [facility] RE09/10/[address]: Dr. Meir Hurtado MD : 1975 BED: 1 DIS: 09/13/2023 SPEC #: [id number] RECD: 09/12/23 18:34 STATUS: DOMITILA ANDREWS #: [id number] ALEC: 09/12/23 12:[address]: Meir Hurtado DEPT: SURGICAL PATHOLOGY RECD BY: Melody Baxter ENTERED: 09/13/23 08:50 SP TYPE: THROMBUS OTHR DR: Dr. Jaime Bailey MD Tissues: BLOOD CLOT, NOS Procedures: Surgery Specimen Level III HEADER OPERATION: Thrombectomy, lower PRE-OP DIAGNOSIS: Deep venous thrombosis right leg TISSUE SUBMITTED: Right femoral vein thrombus MICROSCOPIC DIAGNOSIS Right femoral vein thrombus, thrombectomy: Fragments of organizing thrombus. SJ:nasrin 09/17/2023 MICROSCOPIC DESCRIPTION Slides are reviewed. GROSS DESCRIPTION Received in fixative is one container labeled with the patient's name and designated right femoral vein thrombus. The specimen consists of multiple irregular fragments of blood clots that in aggregate measure 4.0 x 3.0 x 0.3 cm. The specimen is totally submitted in two cassettes. MARIE/gisselle 09/13/23 TC:5 CPT: 68608
[2023-09-12] MEDS: Cefazolin 3 GM in 0.9% Normal Saline (100mL Bag) 100 ML IV (13:00)
--- NOTE | 2023-09-12 14:24 | CASEMGMT ---
KATIE CM attempted assessment x2, pt remains off of floor. Assessment to be completed at later time.
[2023-09-12 15:54] LABS: Hematocrit 38.9 % (40-54); Hemoglobin 12.5 g/dL (13.0-16.5)
--- NOTE | 2023-09-12 16:04 | OP.PCM_ITS ---
Report of Operation Date of Procedure: 09/12/23 Pre-Operative Diagnosis: DVT Post-Operative Diagnosis: same Surgery/Procedure Performed:: open thrombectomy, right common femoral/profunda veins Surgeon: Meir Hurtado Type of Anesthesia: General Specimen's removed: thrombus Estimated Blood Loss (mL): 1400 Description of Procedure: HPI: Patient is a 47-year-old male with extensive deep venous thrombosis of the right lower extremity with prior efforts at percutaneous mechanical thrombectomy. He has residual subacute appearing thrombus in his common femoral, profundofemoral veins. He is taken now for attempted open thrombectomy of the the vessels in an effort to improve his venous outflow and alleviate his symptoms. Description of procedure: Upon to the informed consent and verification correct patient procedure site patient taken to the operating was placed under general esthesia. He was then positioned prepped and draped in usual fashion time was performed. Ultrasound was used to evaluate the location of the saphenofemoral junction as well as the common femoral vein confluence. Oblique incision was made and Bovie cautery was used to dissect down through subcutaneous tissue and self-retaining retractor put in position. Further dissection carried down to the saphenofemoral junction. The saphenofemoral junction and great saphenous vein were enormous with multiple crossing branches with confluence into the saphenofemoral dent. These were identified and dissected with sharp dissection in an effort to preserve as many collateral branches as possible. Some of the lateral branches overlying the profunda were likely to need to be ligated however these were preserved for the time being. Further dissection was carried cephalad up to the common femoral vein above the confluence. This was then dissected free circumferentially and a running was placed vessel loop. Further dissection carried down onto the great saphenous vein writing was placed vessel loop. We attempted to medially mobilize the saphenofemoral junction however the lateral branches anchored in the position. These were then ligated with silk ties and divided which allowed further medial retraction and expose the distal common femoral vein and the confluence. Sharp dissection used dissect free the profunda vein as well as 2 large collateral branches adjacent to it. A right angle was used to place a vessel (individually and then finally the femoral vein which was chronically totally occluded was dissected free enough to clamp. Patient was then bolused with heparin and all the branches occluded Vesseloops. The femoral vein was then occluded with an atraumatic clamp and a transverse venotomy created in the common femoral vein just above the confluence. Moderate amount of subacute to chronic appearing thrombus was encountered. This was very adherent to the wall and took significant efforts to extract however we are to successfully extract from the distal common femoral vein and the ostia of the profunda. The femoral vein had more chronic appearing thrombus and only small channels with blood returned so this was not attempted to thrombectomize. After the majority of the thrombus had been withdrawn to medium size branches in the posterior aspect of the common femoral vein began to torrential a backbleed. Attempts were made to visualize in order to obtain control however this given the size of the femoral veins this was not feasible so the venotomy was then extended cephalad with Zepeda scissors and we were able to directly control the vessels with DeBakey forceps. The more inferior 1 was oversewn with 5-0 Prolene and held under tension to maintain control without securing the suture knot. We could not visualize the more cephalad vessel adequately so this was simply controlled with forceps. Further thrombus was then extracted from the profunda vein ostia as well as the more superior aspect of the common femoral vein. The venotomy was then closed with 5-0 Prolene running fashion. As we completed suture line the suture that gave hemostasis for when the medical record specialist vein branches were then withdrawn and the suture line completed. Satisfactory stasis was then noted. There appeared to continue to be thrombus within the common femoral vein so the saphenofemoral junction heart was then opened transversely and we are to milk back thrombus which was more chronic in nature from the common femoral vein. After no further palpable thrombus was present within the common femoral vein the transverse venotomy was then repaired with 5-0 Prolene running fashion. After complete suture line clamps were removed and satisfactory hemostasis was noted. There was no continued palpable thrombus within the common femoral vein on the saphenofemoral junction. The femoral vein continues to feel sclerotic and consistent with chronic occlusion. The profunda vein was thickened but compressible and felt to have a chance to continue patency. The field was then inspected for hemostasis and the incision closed with 2-0 Vicryl followed by 3-0 Vicryl for Monocryl and Dermabond for the skin. Axial fill was placed between each of the layers of closure. Patient was then awake from anesthesia taken recovery room with anticipated return to the PCU.
[2023-09-12] MEDS: buPROPion (SR) 150 MG Tablet.SA PO (21:45)
[2023-09-12] MEDS: BENZOCAINE/MENTHOL 1 LOZENGE MUCOUS MEM (23:14)
[2023-09-13 03:12] VITALS: BP 110/64; PULSE 110; RESP 16; TEMP 36.6; O2SAT 94
[2023-09-13] MEDS: oxyCODONE 5 MG Tablet PO ×2 (03:17→09:26)
[2023-09-13] MEDS: BENZOCAINE/MENTHOL 1 LOZENGE MUCOUS MEM ×3 (03:17→09:27)
[2023-09-13 04:48] VITALS: BP 102/69; PULSE 98; RESP 16; TEMP 36.6; O2SAT 97
[2023-09-13] MEDS: Acetaminophen 500 MG Tablet 1000 MG PO (05:21)
[2023-09-13] MEDS: Methylphenidate HCl 5 MG Tablet 20 MG PO (05:47)
[2023-09-13 06:39] LABS: Absolute Lymphocyte Count 1.85 X10^3/uL (0.83-4.51); Absolute Neutrophil Count 8.3 X10^3/uL (2.0-7.7); Basophil% 0.8 % (0-1); Eosinophil# 0.27 X10^3/uL; Eosinophils% 2.2 % (0-5); Hematocrit 35.3 % (40-54); Hemoglobin 11.4 g/dL (13.0-16.5); Lymphocyte # 1.85 X10^3/ul (0.83-4.51); Lymphocyte % 15.2 % (19-41); Mean Corp Hgb Conc 32.3 g/dL (32-36); Mean Corpuscular Hgb 31.7 pg (27.0-32.0); Mean Corpuscular Volume 98.1 fL (80-94); Monocyte# 1.24 X10^3/uL; Monocyte% 10.2 % (0-10); NRBC Flagged by Analyzer 0 % (0-5); Neutrophil # 8.33 X10^3/uL (2.7-7.7); Neutrophil % 68.6 % (47-70); Platelet Count 249 K/mm3 (150-450); RBC Distribution Width CV 13.7 % (11.6-14.6); RBC Distribution Width SD 49.7 fl (35.1-43.9); White Blood Count 12.2 K/mm3 (4.4-11.0)
[2023-09-13 06:50] LABS: Partial Thromboplast Time 77.1 Seconds (24.1-36.2)
[2023-09-13 07:13] VITALS: O2SAT 94
[2023-09-13 07:38] VITALS: O2SAT 91
--- NOTE | 2023-09-13 07:56 | PCM.PN.SRG ---
Subjective Subjective Patient is seen resting comfortably in bed this morning. He reports expected post-operative pain which is tolerable with current pain control regimen. He has been voiding without difficulty and ambulating well around the room. He had a small amount of dinner last night, but did not eat very much due to a sore throat. His throat is feeling better this morning. He denies any CP, SOB, palpitations, syncope/presyncope, N/V, F/C. He has been on therapeutic heparin drip overnight. His Hgb was stable this morning at 11.4. No bleeding from any of the incision/access sites. Prevena vacuum dressing is maintaining good seal. Objective Data Objective Data Vital Signs: Vital Signs Temp Pulse Resp BP Pulse Ox O2 Del Method O2 Flow Rate 97.9 F 98 16 102/69 91 Room Air 4 09/13/23 04:48 09/13/23 04:48 09/13/23 04:48 09/13/23 04:48 09/13/23 07:38 09/13/23 07:38 09/13/23 04:48 Oxygen Flow Rate (L/min) 4 Oxygen Delivery Method Room Air Weight: 318 lb 5.56 oz Body Mass Index (BMI) 47.0 Intake & Output: Intake and Output for Last 24 Hours 09/11/23 09/12/23 09/13/23 23:59 23:59 23:59 Intake Total 1485 / 1485 2920.00 / 2920.00 500 / 500 Output Total 250 / 250 405 / 405 200 / 200 Balance 1235 / 1235 2515.00 / 2515.00 300 / 300 Lab / Micro Data 09/13/23 06:16 09/12/23 04:20 Labs: Laboratory Results - last 24 hr 09/12/23 11:02: APTT 61.5 H 09/12/23 15:45: Hgb 12.5 L, Hct 38.9 L 09/12/23 17:28: Blood Type O NEGATIVE, Antibody Screen NEGATIVE, Crossmatch See Detail 09/13/23 06:16: WBC 12.2 H, RBC 3.60 L, Hgb 11.4 L, Hct 35.3 L, MCV 98.1 H, MCH 31.7, MCHC 32.3, RDW Std Deviation 49.7 H, RDW Coeff of Jaylin 13.7, Plt Count 249, MPV 9.0, Immature Gran % (Auto) 3.000 H, Neut % (Auto) 68.6, Lymph % (Auto) 15.2 L, [place] % (Auto) 10.2 H, Eos % (Auto) 2.2, Baso % (Auto) 0.8, Absolute Neuts (auto) 8.3 H, Absolute Lymphs (auto) 1.85, Nucleated RBC % 0, APTT 77.1 H Physical Exam Const oriented x3 and no apparent distress Resp normal respiratory effort Cardio regular rate and regular rhythm Extremity Extremity Narrative: R groin incision site with Prevena dressing intact. Ecchymosis noted, but no significant swelling. L groin access site with surrounding ecchymosis but no significant swelling. R and L poopliteal access sites with sutures intact, mild ecchymosis, no significant swelling. No bleeding/drainage/erythema. Assessment & Plan Assessment/Plan (1) DVT (deep venous thrombosis): QUALIFIERS: Affected thrombotic vein of extremity: iliac Chronicity: acute DVT location: lower extremity Laterality: right Qualified Code(s): I82.421 - Acute embolism and thrombosis of right iliac vein PLAN: Plan Patient is s/p venogram with mechanical thrombectomy and right iliac vein stenting on 09/11/23 and s/p open thrombectomy of the right common femoral/profunda veins on 09/12/2023. He tolerated both procedures well. He has been hemodynamically stable on therapeutic anticoagulation overnight. All access and incision sites are satisfactory in appearance. Will plan to transition from heparin to lovenox today. First lovenox dose will be given here prior to discharge within 1 hour after heparin is discontinued. Plan is for lovenox x 1 month at discharge. Will continue Plavix 75mg daily. The Prevena vacuum dressing will stay in place x 1 week. He will return to the office as an outpatient in 1 week for suture removal.
--- NOTE | 2023-09-13 08:16 | DS.PCM_ITS ---
Providers Date of Admission: 09/10/23 Primary Care Physician: Dr. Jaime Bailey MD Reason For Visit: HEPRIN BRIDGE Diagnosis Discharge Diagnosis (1) DVT (deep venous thrombosis): Status: Acute Code(s): I82.409 - Acute embolism and thrombosis of unspecified deep veins of unspecified lower extremity Qualifiers: Affected thrombotic vein of extremity: iliac Chronicity: acute DVT location: lower extremity Laterality: right Qualified Code(s): I82.421 - Acute embolism and thrombosis of right iliac vein Plan Patient is s/p venogram with mechanical thrombectomy and right iliac vein stenting on 09/11/23 and s/p open thrombectomy of the right common femoral/profunda veins on 09/12/2023. He tolerated both procedures well. He has been hemodynamically stable on therapeutic anticoagulation overnight. All access and incision sites are satisfactory in appearance. Will plan to transition from heparin to lovenox today. First lovenox dose will be given here prior to discharge within 1 hour after heparin is discontinued. Plan is for lovenox x 1 month at discharge. Will continue Plavix 75mg daily. The Prevena vacuum dressing will stay in place x 1 week. He will return to the office as an outpatient in 1 week for suture removal. Medications at Discharge Home Medications allopurinol 300 mg tablet 300 mg PO DAILY 09/03/23 cholecalciferol (vitamin D3) 50 mcg (2,000 unit) capsule 50 mcg PO DAILY 09/03/23 methylphenidate HCl 20 mg tablet 20 mg PO TID 09/03/23 multivitamin,tx-minerals 1 tab PO DAILY 09/03/23 omeprazole 10 mg capsule,delayed release 10 mg PO DAILY 09/03/23 testosterone cypionate 200 mg/mL intramuscular oil 200 mg IM Q4W 09/03/23 bupropion HCl 150 mg tablet,12 hr sustained-release 150 mg PO Q12H appetite 09/10/23 furosemide 20 mg tablet 20 mg PO DAILY 09/10/23 lisinopril 10 mg tablet 10 mg PO DAILY 09/10/23 clopidogrel 75 mg tablet 75 mg PO DAILY 30 days #30 tabs 09/13/23 enoxaparin 150 mg/mL subcutaneous syringe (Lovenox) 150 mg subcut Q12H 30 days #60 mL 09/13/23 oxycodone 5 mg tablet 5 mg PO Q8H PRN PRN Pain Score 4-10 3 days #9 tabs 09/13/23 Hospital Course Operations - Summary of Care Provided Hospital Course: Mr. Irvin Veras is a 47-year-old male who was admitted to the hospital on 09/10/2023 for heparin bridging for planned venogram with thrombectomy on 09/12/2023. He did undergo venogram with mechanical thrombectomy and right iliac vein stenting on 09/12/2023. Unfortunately, not all of the clot burden was able to be removed during that procedure and he subsequently needed to undergo open thrombectomy on 09/13/2023. He tolerated both procedures well. Following the procedures he was restarted on therapeutic heparin dose. He has been hemodynamically stable. All incision sites are satisfactory in appearance without any bleeding complications. He has been tolerating a normal diet, ambulating well, voiding without difficulty, and his pain is well-controlled on current oral regimen. Plan for anticoagulation at discharge is Lovenox. Due to iliac vein stent, he will also be discharged on Plavix 75 mg daily. He will return to the office for suture removal in 1 week and for routine postoperative visit in 3 to 4 weeks. He is discharged today in medically stable condition. Weight / BMI Weight Weight: 318 lb 5.56 oz Body Mass Index (BMI) 47.0 ABG / Lab / Microbiology Data 09/13/23 06:16 09/12/23 04:20 Laboratory: Laboratory Results - last 24 hr 09/12/23 11:02: APTT 61.5 H 09/12/23 15:45: Hgb 12.5 L, Hct 38.9 L 09/12/23 17:28: Blood Type O NEGATIVE, Antibody Screen NEGATIVE, Crossmatch See Detail 09/13/23 06:16: WBC 12.2 H, RBC 3.60 L, Hgb 11.4 L, Hct 35.3 L, MCV 98.1 H, MCH 31.7, MCHC 32.3, RDW Std Deviation 49.7 H, RDW Coeff of Jaylin 13.7, Plt Count 249, MPV 9.0, Immature Gran % (Auto) 3.000 H, Neut % (Auto) 68.6, Lymph % (Auto) 15.2 L, [place] % (Auto) 10.2 H, Eos % (Auto) 2.2, Baso % (Auto) 0.8, Absolute Neuts (auto) 8.3 H, Absolute Lymphs (auto) 1.85, Nucleated RBC % 0, APTT 77.1 H D/C Instructions Discharge Diet: No restrictions May shower in (days): 1 Weight Bearing Status: Weight bearing as tolerated Lifting Restricted to (Lbs): 20 Lifting Restrictions: Do not lift greater than 20 pounds for 2 weeks Call your doctor if your incision/area has: Sudden Increased Bleeding and Foul Smelling Discharge Call your doctor if you observe: Fever of 101 or Higher and Uncontrolled pain Additional Instructions: You have an incision in the right groin which is covered with a Prevena vacuum dressing. This vacuum dressing should remain in place for 1 week and we will remove it at your office visit next week. If the dressing alarms or cannot maintain seal, then you may remove it early as needed. To remove you will need to first hold down the power button until it beeps and turns off, then disconnect the white connector in the tubing to release the pressure, then you should notice the purple foam and the dressing puff up at which time you can peel off the dressing and throw it away. Should she run into this issue, please contact the office and we can also help walk you through this. You have access sites also in the left groin and behind both knees. Each of these is closed with a suture. The sutures will remain in place for 1 week and we will remove them at your office visit next week. You may leave these areas open to air. You may shower, it is okay for soap and water to rinse over all of the sites. Pat gently to dry. Do not submerge any of the incisions in water such as to take a bath, go swimming, etc. for 2 weeks. You're blood thinning medication has been changed from Xarelto to Lovenox. Stop taking Xarelto. You received your first dose of Lovenox here at the hospital. You will inject Lovenox 150mg subcutaneously every 12 hours at home. You have also been started on Plavix 75mg to be taken by mouth once daily. You have been prescribed oxycodone 5 mg tablet to be taken by mouth every 8 hours as needed for pain. This is to be taken only as directed. Do not take in combination with any other prescription pain medications. You make take I buprofen/Advil and Tylenol with this as needed. Return to the office in 1 week for suture removal and in 3-4 weeks for a follow- up appointment. Our office will contact you to schedule these appointments if they have not yet been made. If you have any questions, concerns, or need to change your appointments please call us at . Please Follow Up With: Zulma Vanessa PA When: 1 week for suture removal 10/04/2023 for 3 week f/u Meaningful Use Info Meaningful Use Diagnoses (Choose all that apply): VTE VTE Anticoag overlap given w/in hospital stay or rx'd at dc?: Yes Pt receive overlap for 5 days?: Yes Discharge Plan Admission Admit Date/Time: 09/10/23 16:07 Primary Reason for Your Visit: Thrombectomy Attending Provider: Meir Hurtado Primary Care Provider: Jaime Bailey Discharge Orders/Prescriptions Prescriptions: New clopidogrel 75 mg Tablet 75 mg PO DAILY 30 Days Qty: 30 11RF oxycodone 5 mg Tablet 5 mg PO Q8H PRN PRN (Reason: Pain Score 4-10) 3 Days Qty: 9 0RF enoxaparin [Lovenox] 150 mg/mL syringe 150 mg subcut Q12H 30 Days Qty: 60 0RF Continued allopurinol 300 mg tablet 300 mg PO DAILY cholecalciferol (vitamin D3) 50 mcg (2,000 unit) capsule 50 mcg PO DAILY methylphenidate HCl 20 mg tablet 20 mg PO TID multivitamin,tx-minerals Tablet 1 tab PO DAILY omeprazole 10 mg capsule,delayed release(DR/EC) 10 mg PO DAILY testosterone cypionate 200 mg/mL oil 200 mg IM Q4W bupropion HCl 150 mg tablet sustained-release 12 hr 150 mg PO Q12H Patient Comments: take 1 tablet by mouth twice a day DO NOT CRUSH, CHEW, AND/OR DIVIDE furosemide 20 mg tablet 20 mg PO DAILY Patient Comments: take 1 tablet by mouth once daily lisinopril 10 mg tablet 10 mg PO DAILY Patient Comments: take 1 tablet by mouth once daily Discontinued sildenafil (pulm.hypertension) [Revatio] 20 mg tablet 20 mg PO TID Rx Instructions: administer doses at least 4-6 hours apart Xarelto DVT-PE Treat 30d Start 15 mg (42)- 20 mg (9) tablets,dose pack See Rx Instructions PO .COMPLEX Rx Instructions: take one-15 mg tablet twice daily for 21 days, then one-20 mg tablet once daily; must take with meal/food PO Referrals / Follow Up: Jaime Bailey MD [Primary Care Provider] - Disposition Disposition (needs filled in before D/C Order can be placed): Home, Self Care
--- NOTE | 2023-09-13 08:52 | CASEMGMT ---
Social Work As per initial corporate communications specialist, pt does not have LW/POA and declined additional information. TRICE Márquez
[2023-09-13 09:25] VITALS: BP 102/71; PULSE 111; RESP 18; TEMP 36.8; O2SAT 92
[2023-09-13] MEDS: Furosemide 20 MG Tablet PO (09:25)
[2023-09-13] MEDS: Clopidogrel Bisulfate 75 MG Tablet PO (09:25)
[2023-09-13] MEDS: Pantoprazole Sodium 20 MG Tablet PO (09:25)
[2023-09-13] MEDS: Multivitamins,Ther W-Minerals Tablet 1 TABLET PO (09:26)
[2023-09-13] MEDS: Enoxaparin 150 MG/ML Syringe SC (09:26)
[2023-09-13] MEDS: Cholecalciferol (VIT D3) 25 MCG TABLET (1,000 UNITS) 50 MCG PO (09:26)
[2023-09-13] MEDS: buPROPion (SR) 150 MG Tablet.SA PO (09:26)
--- NOTE | 2023-09-13 09:30 | NURSING ---
Patient self administered lovenox injection with this RN's instruction and observing. Written materials provided. and patient both verbalize understanding of self lovenox injections.
--- NOTE | 2023-09-13 09:45 | CASEMGMT ---
RN?CM?COLLECTIONS ASSISTANT?CM?to room to meet with patient for initial transition planning/care coordination?assessment.?RN?CM?introduced self and role at [facility].? Pt voices understanding and consents to?assessment?at this time.? Pt resting in bed in no distress at this time.? @ bedside. Pt is A/O at this time and answers all questions appropriately.?? Care providers, pharmacy, and demographics verified/updated at this time. PCP:Dr Jaime Bailey Specialists: Dr Hurtado-vascular, Dr Law-ortho in [place], Dr Cardenas-ortho in [place] Preferred Pharmacy: [facility] Insurance: [employer] Prescription Benefit:?yes. Pt to discharge home on Lovenox. Per TREVOR RosasU RN CM, roque check completed @ [facility] and pt has $0 co-pay and they only have a partial-fill available at this time. Pt and made aware and state they will f/u with [facility] re:getting remainder of Rx filled. 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 Living Will/HPOA:?Pt does not currently have LW/HCPOA. Pt made aware that he can contact as an out-pt and make appt in the future if he decides he would like to talk with someone about this or would like to utilize [facility] social work for advanced directive completion.?? LNOK: Jovanna Living Arrangements: Lives w/ and 11-yr-old dtr in split-level home. No steps to enter through back entrance. Once in the house, he can stay on main floor. Independent and denies difficulty w/stairs. Transportation:?Pt states drives self and states no transportation concerns at this time.? also drives. DME: Has a CPAP. Pt states no need for further DME at this time.? HHC/SNF: Has had HHC in the past after hip surgery. No needs identified. Pt wishes to return home and states has no concerns with going home at time of discharge.? Pt and voices no further concerns/needs at this time.? Advised them to ask for?CM?if any further questions/concerns/needs arise.? They voice understanding. PLAN:??Home Freddy SNOW?RN?CM
--- NOTE | 2023-09-13 10:58 | PHA.DC.MC.R ---
Pharmacy [facility] has performed discharge medication reconciliation and counseling for this patient. The patient's discharge medication list was reviewed for discrepancies and discrepancies were resolved. The patient was counseled on the following discharge medications and changes in medications for homegoing were reviewed. 1. LOVENOX 2. PLAVIX 3. OXYCODONE The Reason for Use, instructions for use, and potential side effects were reviewed for all new medications. The patient's questions regarding all of their medications were answered. The patient was able to verbally demonstrate an understanding of their discharge medications. The patient was discharge counselled by Cosme Collins PharmD Candidate Medications at Discharge Home Medications allopurinol 300 mg tablet 300 mg PO DAILY 09/03/23 cholecalciferol (vitamin D3) 50 mcg (2,000 unit) capsule 50 mcg PO DAILY 09/03/23 methylphenidate HCl 20 mg tablet 20 mg PO TID 09/03/23 multivitamin,tx-minerals 1 tab PO DAILY 09/03/23 omeprazole 10 mg capsule,delayed release 10 mg PO DAILY 09/03/23 testosterone cypionate 200 mg/mL intramuscular oil 200 mg IM Q4W 09/03/23 bupropion HCl 150 mg tablet,12 hr sustained-release 150 mg PO Q12H appetite 09/10/23 furosemide 20 mg tablet 20 mg PO DAILY 09/10/23 lisinopril 10 mg tablet 10 mg PO DAILY 09/10/23 clopidogrel 75 mg tablet 75 mg PO DAILY 30 days #30 tabs 09/13/23 enoxaparin 150 mg/mL subcutaneous syringe (Lovenox) 150 mg subcut Q12H 30 days #60 mL 09/13/23 oxycodone 5 mg tablet 5 mg PO Q8H PRN PRN Pain Score 4-10 3 days #9 tabs 09/13/23
[2023-10-05 16:27] LABS: ACT Activated Clotting Time 212 sec (74-137)
[2023-10-05 16:27] LABS: ACT Activated Clotting Time 223 sec (74-137)
== END 2023-09-13 10:58 | disposition home or self-care (01) | DRG 271 ==
PROVIDERS: Admitting Provider Surgery Trauma Surgery; PCP Family Medicine; Visit Provider Surgery Trauma Surgery
PROC: 06CM0ZZ Extirpation of Matter from Right Femoral Vein, Open Approach (ICD-10-PCS; principal; 2023-09-12 12:10)
DX: I82.411 Acute embolism and thrombosis of right femoral vein (principal); Z68.42 Body mass index [BMI] 45.0-49.9, adult; I82.421 Acute embolism and thrombosis of right iliac vein; E66.01 Morbid (severe) obesity due to excess calories; F90.9 Attention-deficit hyperactivity disorder, unspecified type; Z79.899 Other long term (current) drug therapy
CPT/HCPCS: 36005; 36010; 36415; 37187; 37238; 37248; 37252; 37253; 75822; 75825; 76937; 80048; 85014; 85018; 85025; 85027; 85347; 85610; 85730; 86850; 86900; 86901; 86920; 86922; 88304; 93005; 99152; 99153; 99252; A4648; C1725; C1753; C1769; C1894; J7030; J7040; J7120; Q9967; A4216; C1757; C1876; C1887; G0463; J2405

== ENCOUNTER 2023-09-23 10:41 | Emergency (ER) | payer OTHER, SELFPAY ==
[2023-09-23 10:42] VITALS: BP 154/83; PULSE 91; RESP 18; TEMP 36.4; O2SAT 100; BMI 46.5
--- NOTE | 2023-09-23 11:08 | EKG12_ITS ---
Test Reason : SOB Blood Pressure : / mmHG Vent. Rate : 091 BPM Atrial Rate : 091 BPM P-R Int : 136 ms QRS Dur : 090 ms QT Int : 380 ms P-R-T Axes : 067 007 045 degrees QTc Int : 467 ms Normal sinus rhythm Normal ECG Confirmed by VANESSA PÉREZ, MANI ([id number]), industrial editor RAF QUESADA ([id number]) on 10/01/2023 9:42:17 AM Referred By: LUIS Confirmed By:JENNY MENDEZ MD
--- NOTE | 2023-09-23 11:08 | CT_ITS ---
We are attempting to reach an attending provider to discuss findings. An addendum with communication details will be sent when the communication is complete. STUDY: CTA CHEST REASON FOR EXAM: Male, 48 years old. Chest pain, sob, recent thrombectomy RADIATION DOSAGE (If Supplied By Facility): CTDIvol = ( 20.97 ) mGy, DLP = ( 523.52 ) mGycm TECHNIQUE: The examination was performed with the intravenous administration of IV 100mL Isovue-370. Post-processing of the angiographic images was performed, with multiplanar reformation and 3D reconstruction. Individualized dose optimization techniques were used for this CT. COMPARISON: No relevant prior comparison study available FINDINGS: Normal enhancement of the main pulmonary artery and right and left pulmonary arteries. Filling defects in the right lower lobe pulmonary artery consistent with pulmonary embolism. Normal thoracic aorta and visualized great vessels. There is no demonstrated aortic dissection. Normal heart and pericardium. Normal mediastinum. Normal hilar regions. Normal visualized trachea and bronchi. Atelectatic changes in the right lower lobe. Left lower lobe nodule abutting the left hemidiaphragm measuring about 2.6 x 1.4 x 1.8 cm. No focal infiltrate otherwise is seen. There are no pleural effusions. Normal chest wall structures. Mild degenerative changes of the spine. Normal visualized upper abdomen. CT/CTA Chest W/WO Contrast IMPRESSION: Pulmonary embolism in the right lower lobe pulmonary artery. Left lower lobe nodule for which further investigation with PET/CT scan or tissue sampling is recommended, lung RADS category 4B. Electronically Signed: Donald Jenkins MD at 12:05 EST ,
--- NOTE | 2023-09-23 11:10 | EX.ED.DYSGE1 ---
HPI History of Present Illness Chief Complaint: Shortness of Breath Informant: patient Narrative Narrative: Patient presents secondary to intermittent chest pain and shortness of breath. He underwent thrombectomy of DVT in the right leg on September [address] Hurtado. He is currently on Lovenox twice daily. He states last , September 20 he developed some chest pain and shortness of breath. He was in [place] at the time as his daughter was being admitted to [facility]. He was taken to [facility] and had blood work done in triage, but states after 8 hours he is still not seen a physician and left. I am able to look up records and he had 3 troponin draws at that time, 19, 18, and 21. He states his symptoms are overall improved but he still has occasional shortness of breath and chest pain and wanted to be checked. [facility] Medical History ADHD Hand fracture Neuromuscular disorder Sleep apnea Home Medications allopurinol 300 mg tablet 300 mg PO DAILY 09/03/23 [History Last Taken Unknown] cholecalciferol (vitamin D3) 50 mcg (2,000 unit) capsule 50 mcg PO DAILY 09/03/23 [History Last Taken Unknown] methylphenidate HCl 20 mg tablet 20 mg PO TID 09/03/23 [History Last Taken Unknown] multivitamin,tx-minerals 1 tab PO DAILY 09/03/23 [History Last Taken Unknown] omeprazole 10 mg capsule,delayed release 10 mg PO DAILY 09/03/23 [History Last Taken Unknown] testosterone cypionate 200 mg/mL intramuscular oil 200 mg IM Q4W 09/03/23 [History Last Taken Unknown] bupropion HCl 150 mg tablet,12 hr sustained-release 150 mg PO Q12H appetite 09/10/23 [History Last Taken Unknown] furosemide 20 mg tablet 20 mg PO DAILY 09/10/23 [History Last Taken Unknown] lisinopril 10 mg tablet 10 mg PO DAILY 09/10/23 [History Last Taken Unknown] clopidogrel 75 mg tablet 75 mg PO DAILY 30 days #30 tabs 09/13/23 [Rx Last Taken Unknown] enoxaparin 150 mg/mL subcutaneous syringe (Lovenox) 150 mg subcut Q12H 30 days #60 mL 09/13/23 [Rx Last Taken Unknown] oxycodone 5 mg tablet 5 mg PO Q8H PRN PRN Pain Score 4-10 3 days #9 tabs 09/13/23 [Rx Last Taken Unknown] Allergy/AdvReac Type Severity Reaction Status Date / Time celecoxib [From Celebrex] Allergy Intermediate Shortness Verified 09/23/23 10:42 of breath Family History Other CVA (cerebral vascular accident) Diabetes Heart disease Surgical History H/O arthroscopy of shoulder (~11/12/20) H/O cataract extraction H/O eye surgery (~2015) History of cholecystectomy (~06/2017) Joint replaced (~2014) Social History Smoking Status: Never smoker ROS ROS ED Constitutional Constitutional ED: Denies chills or fever(s) Eyes Eyes: Denies discharge from eye(s) ENT ENT ED: Denies discharge from eye(s), rhinorrhea or sore throat Cardiovascular Cardiovascular: Reports chest pain; Denies palpitations Respiratory/Chest Respiratory/Chest: Reports dyspnea; Denies cough Gastrointestinal Gastrointestinal: Denies abdominal pain, nausea or vomiting Genitourinary Genitourinary ED: Denies dysuria Musculoskeletal Musculoskeletal: Denies back pain or extremity pain Integumentary Denies Abrasions or rash Neurologic Neurologic: Denies headache(s) or weakness Psychiatric Psychiatric: Denies anxiety or depression Allergic/Immunologic Allergic/Immunologic ED: Denies lip swelling or urticaria EXAM Physical Exam Const Vital Signs: 09/23/23 10:42 09/23/23 11:34 Temperature 97.6 F L Temperature Source Temporal Pulse Rate 91 Respiratory Rate 18 Respiratory Depth Normal Respiratory Pattern Normal Blood Pressure 154/83 H Blood Pressure Mean 106 Pulse Ox 100 Oxygen Delivery Method Room Air Positive well nourished and well developed General Appearance ED: well developed HEENT Reports moist mucous membranes Eyes EOMs intact bilaterally Chest Wall inspection of chest normal and palpation of chest normal Resp normal respiratory effort and clear to auscultation bilaterally Cardio regular rate and regular rhythm GI non-tender Palpation: soft Extremity Extremity Narrative: Bilateral lower extremity edema. Neuro oriented x3 Psych mental status grossly normal MDM MDM MDM Narrative Medical decision making narrative: Patient placed on surveillance monitor. EKG obtained to evaluate for cardiac arrhythmia/ischemia. IV line established. Labwork obtained to evaluate for leukocytosis, anemia, and electrolyte derangement. CTA of the chest obtained to evaluate for potential pulmonary embolism. History & Record Review Discussion w/independent historian: Patient Additional record(s) reviewed:: Prior inpatient record Lab Data Attestation: I reviewed the patient's lab results. Labs: Laboratory Results - last 24 hr 09/23/23 11:10 WBC 8.8 RBC 3.29 L Hgb 10.8 L Hct 33.1 L MCV 100.6 H MCH 32.8 H MCHC 32.6 RDW Std Deviation 55.4 H RDW Coeff of Jaylin 15.1 H Plt Count 329 MPV 8.6 Immature Gran % (Auto) 3.700 H Neut % (Auto) 65.0 Lymph % (Auto) 16.6 L [place] % (Auto) 11.1 H Eos % (Auto) 3.1 Baso % (Auto) 0.5 Absolute Neuts (auto) 5.7 Absolute Lymphs (auto) 1.46 Nucleated RBC % 0 Sodium 140 Potassium 3.8 Chloride 109 H Carbon Dioxide 27.0 Anion Gap 4 L BUN 18 Creatinine 0.94 Estim Creat Clear Calc 132.56 Est GFR (MDRD) Af Amer 109 Est GFR (MDRD) Non-Af 90 BUN/Creatinine Ratio 19.1 Glucose 97 Calcium 9.5 Troponin I High Sens 6 Radiography Diagnostic Testing: Clinical Impression(s) from Imaging Studies Chest CTA 09/23/23 11:08 IMPRESSION: Pulmonary embolism in the right lower lobe pulmonary artery. Left lower lobe nodule for which further investigation with PET/CT scan or tissue sampling is recommended, lung RADS category 4B. Electronically Signed: Donald Jenkins MD at 12:05 EST , ADDENDUM: 09/23/23 1220 IMPRESSION: Pulmonary embolism in the right lower lobe pulmonary artery. Left lower lobe nodule for which further investigation with PET/CT scan or tissue sampling is recommended, lung RADS category 4B. N.B. : The above Results were Read Back by Donald Jenkins MD to Veronika Holguin MD, and understanding confirmed on 09/23/2023 12:14:00 (ET). Electronically Signed: Donald Jenkins MD at 12:05 EST , EKG Initial EKG: Attestation: I personally reviewed and interpreted this EKG as follows: Interpretation: Sinus Rhythm (Sinus at 91 with no acute ischemia.) Treatment and Re-Evaluation :: CBC reveals normal white count 8.8 with a hemoglobin of 10.8. Chemistry studies are unremarkable. Troponin is normal at 6. EKG per my interpretation is sinus rhythm with no acute ischemia. CTA of the chest does reveal pulmonary embolism the right lower lobe pulmonary artery. There is a left lower lobe nodule which warrants further investigation as well. I spoke with Dr. Hurtado, the patient's vascular surgeon. He does want the patient to continue Lovenox and be sure to stress compliance as 1 missed dose could be enough to make him form a clot. He will follow the patient closely in the office. This was all relayed to the patient. He will continue Lovenox as previously prescribed. We also discussed the left lung nodule. He states that was seen on a recent study as well but he has not yet followed up. This again was encouraged to follow-up with his primary care physician for further testing. Discharge Plan Triage Chief Complaint: Shortness of Breath ED Provider: Veronika Holguin Dx/Rx/DC Orders Clinical Impression: Lung nodule, Pulmonary embolism Instructions: Pulmonary Embolism, ED Pulmonary Nodule, Solitary Prescriptions: No Action allopurinol 300 mg tablet 300 mg PO DAILY cholecalciferol (vitamin D3) 50 mcg (2,000 unit) capsule 50 mcg PO DAILY methylphenidate HCl 20 mg tablet 20 mg PO TID multivitamin,tx-minerals Tablet 1 tab PO DAILY omeprazole 10 mg capsule,delayed release(DR/EC) 10 mg PO DAILY testosterone cypionate 200 mg/mL oil 200 mg IM Q4W bupropion HCl 150 mg tablet sustained-release 12 hr 150 mg PO Q12H Patient Comments: take 1 tablet by mouth twice a day DO NOT CRUSH, CHEW, AND/OR DIVIDE furosemide 20 mg tablet 20 mg PO DAILY Patient Comments: take 1 tablet by mouth once daily lisinopril 10 mg tablet 10 mg PO DAILY Patient Comments: take 1 tablet by mouth once daily clopidogrel 75 mg Tablet 75 mg PO DAILY 30 Days Qty: 30 11RF oxycodone 5 mg Tablet 5 mg PO Q8H PRN PRN (Reason: Pain Score 4-10) 3 Days Qty: 9 0RF enoxaparin [Lovenox] 150 mg/mL syringe 150 mg subcut Q12H 30 Days Qty: 60 0RF Primary Care Provider: Jaime Bailey Referrals: Jaime Bailey MD [Primary Care Provider] - As soon as possible Meir Hurtado MD [Med Staff - Active Staff] - 3-5 Days Activity Restrictions/Additional Instructions: As discussed, your case was reviewed with Dr. Hurtado. He would like you to continue your Lovenox as prescribed. He will be following you in the office closely. You also have evidence of a left lung nodule that requires further workup. Please follow-up with your primary care physician regarding this. Disposition Disposition: Home, Self Care
[2023-09-23 11:17] LABS: Absolute Lymphocyte Count 1.46 X10^3/uL (0.83-4.51); Absolute Neutrophil Count 5.7 X10^3/uL (2.0-7.7); Basophil# 0.04 X10^3/uL; Basophil% 0.5 % (0-1); Eosinophil# 0.27 X10^3/uL; Eosinophils% 3.1 % (0-5); Hematocrit 33.1 % (40-54); Hemoglobin 10.8 g/dL (13.0-16.5); Lymphocyte # 1.46 X10^3/ul (0.83-4.51); Lymphocyte % 16.6 % (19-41); Mean Corp Hgb Conc 32.6 g/dL (32-36); Mean Corpuscular Hgb 32.8 pg (27.0-32.0); Mean Corpuscular Volume 100.6 fL (80-94); Mean Platelet Vol. 8.6 fl (6.2-12.0); Monocyte# 0.98 X10^3/uL; Monocyte% 11.1 % (0-10); NRBC Flagged by Analyzer 0 % (0-5); Neutrophil # 5.73 X10^3/uL (2.7-7.7); Platelet Count 329 K/mm3 (150-450); RBC Distribution Width CV 15.1 % (11.6-14.6); RBC Distribution Width SD 55.4 fl (35.1-43.9); Red Blood Count 3.29 M/mm3 (4.6-6.2); White Blood Count 8.8 K/mm3 (4.4-11.0)
--- OUTSIDE RECORDS SUMMARY | 2023-09-23 11:20 | XMS RPT_ITS | CCD ---
Author Name Unknown Address [address] [place] [address] Organization [facility] Care Team Providers Care 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 Name Role Phone Justino Garrido Unavailable Wyatt Triplett Unavailable Unavailable Wyatt Triplett Unavailable Unavailable Tristianlas, Justino Unavailable Unavailabl e Radhika, Justino Unavailable UnavailAv Schreiber Unavailable Unavailable Tourlas, Justino Unavailable Unavailabl e Tourlas, Justino Unavailable Unavailabl e Yan Garridostantinos Primary Care Provider Justino Garrido Primary Care Provider [phone] LIDIA LAW Referring Unavailab le LIDIA LAW Admitting Unavailab le YAN GARRIDOSTANTINOS Primary Care Unavailrobles Garrido MD, Justino Primary Care Provider Justino Garrido MD Unavailable Unavail able Yan Garridostantinos Unavailable UnavailAv Schreiber Unavailable Unavailable Tristianlas, Justino Unavailable [phone] Unavailable Unavailable Unavailable Unavailable Radhika PÉREZ, Justino Primary Care Provider Radhika PÉREZ, Justino Primary Care Provider Justino Garrido Unavailable [place], [place] I Unavailable Unavailable Radhika PÉREZ, Justino Primary Care Provider Mallgrisel, Carissafly Johnson S Unavailable [phone] Unavailable Unavailable Radhika PÉREZ, Justino Primary Care Provider Goldy PÉREZ MPH, Carissa Johnson S Primary Care Pro vider Goldy PÉREZ MPH, Carissa Nag S Unavailable Mallapareddi, Carissa Primary Care Provider MALLDAVIDREDMIKALA, CARISSA Primary Care Unavailable COOPERRIDER II, ORIN Doherty Referring Unavailabl e COOPERRIDERNATALIE Attending Unavailabl e COOPERRIDER II, ORIN Doherty Referring Unavailabl e COOPERRIDER II, ORIN Doherty Attending Unavailabl e TOURBELLE JUSTINO Primary Care Unavailabl e MALLAPAREDDI, CARISSA NAG S Primary Care Unavail able MALLAPAREDMIKALA, CARISSA NAG S Primary Care Unavail able Dr. Wolf Cardenas Attending Unavailable Malldavidredmikala, Dr. Carissa Johnson [facility] Care Unavailable YASHIRA COOLEY Referring Unavailable YASHIRA COOLEY Admitting [facility] YASHIRA COOLEY Attending Un[facility] Unavailabl YASHIRA Ruth Attending [facility] Unavailabl e YASHIRA COOLEY Referring Unavailable YASHIRA COOLEY Admitting Unavailable [facility] Primary Care Unavailabl e YASHIRA COOLEY Attending Un[facility] Care Unavailabl e Radhika PÉREZ, [facility] Primary Care Provider DIDIER THOMPSON Attending Unavailab le MALLAPAREDMIKALA, CARISSA Primary Care Unavailable MALLAPAREDDI, CARISSA NAG [...] CARISSA NAG S Primary Care Unavail able MALLDAVIDREDDI, CARISSA NAG S Attending Unavail able MALLDAVIDREDMIKALA, CARISSA JOHNSON S Primary Care Unavail able DIDIER THOMPSON Referring Unavailab le GOLDY, CARISSA Primary Care Unavailable ASHVIN SANTOS Attending Unavailable BRITTANY CHOI Consulting Unavailable Allergies Allergy Classification Reported Allergen(s) Allergy Type Date of Onset Reaction(s) Facility NSAIDs (8 sources) celecoxib; Translations: [CeleBREX CAPS] Drug Allergy 6 Shortness Of Breath [facility] (20 sources) celecoxib; Translations: [CELECOXIB] Propensity to adverse reactions to drug 6 Shortness Of Breath [facility] Work Phone: Medications Current Medications Medication [...] tablet 0 06/28/2017 07/12/2017 Discontinued BD Disp [place] 18G X 1-1/2 (1 source) BD Disp [place] 18G X 1-1/2 Use a new needle to draw up testosterone every 4 weeks. 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; Translations: [Other snf (current) drug therapy] Onset: 12-01-2022 Episodic Other [...] Date Time Vital Sign Value Performing Clinician Stewart rodriguez 08-28-2023 07:47-0500 Body height 177.8 cm Carissa Winslow MD MPH Work Phone: [facility] 08-28-2023 07:47-0500 Body mass index (BMI) [Ratio] 46.36 kg/m2 Carissa Winslow MD MPH Work Phone: [facility] 08-28-2023 07:47-0500 Body weight 146.56 kg Carissa Winslow MD MPH Work Phone: [facility] 08-28-2023 07:47-0500 Diastolic blood pressure 80 mm[Hg] Carissa Winslow MD MPH Work Phone: [facility] 08-28-2023 07:47-0500 Heart rate 81 /min Carissa Winslow MD MPH Work Phone: [facility] 08-28-2023 07:47-0500 SaO2% (BldA) [Mass fraction] 96 % Carissa Winslow MD MPH Work Phone: [facility] 08-28-2023 07:47-0500 Systolic blood pressure 120 mm[Hg] Carissa Winslow MD MPH Work Phone: [facility] 08-22-2023 07:56-0500 Body mass index (BMI) [Ratio] 45.92 kg/m2 Carissa Winslow MD MPH Work Phone: [facility] 08-22-2023 07:56-0500 Body weight 145.15 kg Carissa Winslow MD MPH Work Phone: [facility] 08-22-2023 07:56-0500 Diastolic blood pressure 90 mm[Hg] Carissa Winslow MD MPH Work Phone: [facility] 08-22-2023 07:56-0500 Heart rate 83 /min Carissa Winslow MD MPH Work Phone: [facility] 08-22-2023 07:56-0500 SaO2% (BldA) [Mass fraction] 96 % Carissa Winslow MD MPH Work Phone: [facility] 08-22-2023 07:56-0500 Systolic blood pressure 138 mm[Hg] Carissa Winslow MD MPH Work Phone: [facility] 05-22-2023 09:15-0400 Body mass index (BMI) [Ratio] 45.38 kg/m2 Carissa Winslow MD MPH Work Phone: [facility] 05-22-2023 09:15-0400 Body weight 143.47 kg Carissa Winslow MD MPH Work Phone: [facility] 05-22-2023 09:15-0400 Diastolic blood pressure 90 mm[Hg] Carissa Winslow MD MPH Work Phone: [facility] 05-22-2023 09:15-0400 Heart rate 77 /min Carissa Winslow MD MPH Work Phone: [facility] 05-22-2023 09:15-0400 SaO2% (BldA) [Mass fraction] 98 % Carissa Winslow MD MPH Work Phone: [facility] 05-22-2023 09:15-0400 Systolic blood pressure 142 mm[Hg] Carissa Winslow MD MPH Work Phone: [facility] 03-27-2023 12:53-0400 Body height 175.3 cm Yashira Cooley [employer] Work Phone: [facility] 03-27-2023 12:53-0400 Body mass index (BMI) [Ratio] 57.3 kg/m2 Yashira Cooley [employer] Work Phone: [facility] 03-27-2023 12:53-0400 Body weight 176 kg Yashira Cooley [employer] Work Phone: [facility] 03-06-2023 08:20-0400 Body mass index (BMI) [Ratio] 44.22 kg/m2 Carissa Winslow MD MPH Work Phone: [facility] 03-06-2023 08:20-0400 Body weight 139.8 kg Carissa Winslow MD MPH Work Phone: [facility] 03-06-2023 08:20-0400 Diastolic blood pressure 80 mm[Hg] Carissa Winslow MD MPH Work Phone: [facility] 03-06-2023 08:20-0400 Heart rate 75 /min Carissa Winslow MD MPH Work Phone: [facility] 03-06-2023 08:20-0400 SaO2% (BldA) [Mass fraction] 96 % Carissa Winslow MD MPH Work Phone: [facility] 03-06-2023 08:20-0400 Systolic blood pressure 120 mm[Hg] Carissa Winslow MD MPH Work Phone: [facility] 12-01-2022 07:56-0400 Body height 177.8 cm Carissa Winslow MD MPH Work Phone: [facility] 12-01-2022 07:56-0400 Body mass index (BMI) [Ratio] 43.46 kg/m2 Carissa Winslow MD MPH Work Phone: [facility] 12-01-2022 07:56-0400 Body weight 137.4 kg Carissa Winslow MD MPH Work Phone: [facility] 12-01-2022 07:56-0400 Diastolic blood pressure 70 mm[Hg] Carissa Winslow MD MPH Work Phone: [facility] 12-01-2022 07:56-0400 Heart rate 97 /min Carissa Winslow MD MPH Work Phone: [facility] 12-01-2022 07:56-0400 SaO2% (BldA) [Mass fraction] 96 % Carissa Winslow MD MPH Work Phone: [facility] 12-01-2022 07:56-0400 Systolic blood pressure 110 mm[Hg] Carissa Winslow MD MPH Work Phone: [facility] 11-30-2022 08:00-0400 Body height 175.3 cm Yashira Cooley CNP Work Phone: [facility] 11-30-2022 08:00-0400 Body mass index (BMI) [Ratio] 57.3 kg/m2 Yashira Cooley CNP Work Phone: [facility] 11-30-2022 08:00-0400 Body weight 176 kg Yashira Cooley CNP Work Phone: [facility] 08-22-2022 07:43-0500 Body height 176.91 cm Carissa Winslow Work Phone: [facility] Work Phone: 08-22-2022 07:43-0500 Body mass index (BMI) [Ratio] 51.21 kg/m2 Carissa Winslow Work Phone: [facility] Work Phone: 08-22-2022 07:43-0500 Body surface area Derived from formula 2.65 m2 Carissa Nag S Mallapareddi Work Phone: [facility] Work Phone: 08-22-2022 07:43-0500 Body weight 160.26 kg Carissa Nag S Mallapareddi Work Phone: [facility] Work Phone: 08-22-2022 07:43-0500 Diastolic blood pressure 80 mm[Hg] Carissa Nag S Mallapareddi Work Phone: [facility] Work Phone: 08-22-2022 07:43-0500 Heart rate 74 /min Carissa Nag S Mallapareddi Work Phone: [facility] Work Phone: 08-22-2022 07:43-0500 Systolic blood pressure 122 mm[Hg] Carissa Nag S Mallapareddi Work Phone: [facility] Work Phone: 05-12-2022 13:50-0400 Body height 176.91 cm Carissa Nag S Mallapareddi Work Phone: [facility] Work Phone: 05-12-2022 13:50-0400 Body mass index (BMI) [Ratio] 54.7 kg/m2 Carissa Nag S Mallapareddi Work Phone: [facility] Work Phone: 05-12-2022 13:50-0400 Body surface area Derived from formula 2.72 m2 Carissa Nag S Mallapareddi Work Phone: [facility] Work Phone: 05-12-2022 13:50-0400 Body weight 171.21 kg Carissa Nag S Mallapareddi Work Phone: [facility] Work Phone: 05-12-2022 13:50-0400 Diastolic blood pressure 84 mm[Hg] Carissa Nag S Mallapareddi Work Phone: [facility] Work Phone: 05-12-2022 13:50-0400 Heart rate 89 /min Carissa Nag S Mallapareddi Work Phone: [facility] Work Phone: 05-12-2022 13:50-0400 Systolic blood pressure 128 mm[Hg] Carissa Nag S Mallapareddi Work Phone: [facility] Work Phone: 02-10-2022 10:42-0400 Body height 176.9 cm Carissa Nag S Mallapareddi Work Phone: [facility] Work Phone: 02-10-2022 10:42-0400 Body mass index (BMI) [Ratio] 53.83 kg/m2 Carissa Nag S Mallapareddi Work Phone: [facility] Work Phone: 02-10-2022 10:42-0400 Body surface area Derived from formula 2.71 m2 Carissa Nag S Mallapareddi Work Phone: [facility] Work Phone: 02-10-2022 10:42-0400 Body weight 168.46 kg Carissa Nag S Mallapareddi Work Phone: [facility] Work Phone: 02-10-2022 10:42-0400 Diastolic blood pressure 90 mm[Hg] Carissa Nag S Mallapareddi Work Phone: [facility] Work Phone: 02-10-2022 10:42-0400 Heart rate 84 /min Carissa Nag S Mallapareddi Work Phone: [facility] Work Phone: 02-10-2022 10:42-0400 Systolic blood pressure 144 mm[Hg] Carissa Rice [employer] Work Phone: [facility] Work Phone: 11-15-2021 14:30-0400 Diastolic blood pressure 110 mm[Hg] Justino Tourlas Other Phone: [facility] 11-15-2021 14:30-0400 Heart rate 102 /min Justino Tourlas Other Phone: [facility] 11-15-2021 14:30-0400 SaO2% (BldA) [Mass fraction] 97 % Justino Tourlas Other Phone: [facility] 11-15-2021 14:30-0400 Systolic blood pressure 169 mm[Hg] Justino Tourlas Other Phone: [facility] 11-15-2021 13:01-0400 Body temperature 97.16 [degF] Justino Tourlas Other Phone: [facility] 11-15-2021 13:01-0400 Body weight 170 kg Justino Tourlas Other Phone: [facility] 11-15-2021 13:01-0400 Respiratory rate 18 /min Justino Tourlas Other Phone: [facility] 05-30-2021 08:46-0400 Body mass index (BMI) [Ratio] 50.03 kg/m2 Justino Tourlas Work Phone: [facility] Work Phone: 05-30-2021 08:46-0400 Body surface area Derived from formula 2.62 m2 Justino Tourlas Work Phone: [facility] Work Phone: 05-30-2021 08:46-0400 Body temperature 98.2 [degF] Justino Radhika Work Phone: [facility] Work Phone: 05-30-2021 08:46-0400 Body weight 156.72 kg Justino Garrido Work Phone: [facility] [facility] Work Phone: 05-30-2021 08:46-0400 Diastolic blood pressure 80 mm[Hg] Justino Radhika Work Phone: [facility] Work Phone: 05-30-2021 08:46-0400 Heart rate 85 /min Justino Garrido Work Phone: [employer] [facility] Work Phone: 05-30-2021 08:46-0400 Systolic blood pressure 130 mm[Hg] Justino Garrido Work Phone: [facility] Work Phone: 03-07-2021 08:25-0400 Body mass index (BMI) [Ratio] 49.59 kg/m2 Justino Garrido Work Phone: [facility] Work Phone: 03-07-2021 08:25-0400 Body surface area Derived from formula 2.61 m2 Justino Radhika Work Phone: [facility] Work Phone: 03-07-2021 08:25-0400 Body temperature 98 [degF] Justino Tristianlas Work Phone: [facility] Work Phone: 03-07-2021 08:25-0400 Body weight 155.36 kg Justino Garrido Work Phone: [facility] Work Phone: 03-07-2021 08:25-0400 Diastolic blood pressure 90 mm[Hg] Justino Garrido Work Phone: [facility] Work Phone: 03-07-2021 08:25-0400 Diastolic blood pressure 86 mm[Hg] Justino Radhika Work Phone: [facility] Work Phone: 03-07-2021 08:25-0400 Heart rate 72 /min Justino Garrido Work Phone: [facility] Work Phone: 03-07-2021 08:25-0400 Systolic blood pressure 138 mm[Hg] Justino Radhika Work Phone: [facility] Work Phone: 03-07-2021 08:25-0400 Systolic blood pressure 136 mm[Hg] Justino Radhika Work Phone: [facility] Work Phone: 12-06-2020 10:55-0400 Body mass index (BMI) [Ratio] 55.46 kg/m2 Justino Garrido MD, [facility] [facility] Work Phone: 12-06-2020 10:55-0400 Body surface area Derived from formula 2.74 m2 Justino Rodas [facility] Work Phone: 12-06-2020 10:55-0400 Body weight 173.73 kg Justino Garrido MD [facility] Work Phone: 12-06-2020 10:55-0400 Diastolic blood pressure 88 mm[Hg] Justino Garrido MD [facility] Work Phone: 12-06-2020 10:55-0400 Heart rate 88 /min Justino Garrido MD [facility] DO Work Phone: 12-06-2020 10:55-0400 Systolic blood pressure 122 mm[Hg] Justino Garrido MD [facility] DO Work Phone: 10-22-2020 14:21-0400 BMI (Body Mass Index) 56.12 kg/m2 Lidia [facility] 10-22-2020 14:21-0400 Body weight 172.[address] [facility] 10-22-2020 14:21-0400 Height 175.3 cm Lidia [facility] 08-31-2020 09:29-0500 BMI (Body Mass Index) 53.09 kg/m2 [facility] 08-31-2020 09:29-0500 Body weight 167.83 kg [facility] 08-31-2020 09:29-0500 Height 177.8 cm [facility] 03-11-2020 08:05-0400 BMI (Body Mass Index) 53.09 kg/m2 [facility] 03-11-2020 08:05-0400 Body weight 167.83 kg [facility] 03-11-2020 08:05-0400 Height 177.8 cm [facility] 09-22-2019 10:24-0500 BMI (Body Mass Index) 55.6 kg/m2 Justino Garrido [facility] Work Phone: 09-22-2019 10:24-0500 Body weight 174.18 kg Justino Garrido [facility] Work Phone: 09-22-2019 10:24-0500 BP Diastolic 80 mm[Hg] Justino Garrido [facility] Work Phone: 09-22-2019 10:24-0500 BP Systolic 118 mm[Hg] Justino Garrido [facility] Work Phone: 09-22-2019 10:24-0500 BSA (Body Surface Area) 2.75 m2 Justino Garrido [facility] Work Phone: 09-22-2019 10:24-0500 Height 176.99 cm Justino Garrido [facility] Work Phone: 09-22-2019 10:24-0500 Pulse (Heart Rate) 80 /min Justino Garrido [facility] Work Phone: 12-03-2017 08:57-0400 BMI (Body Mass Index) 50.22 kg/m2 Lidia Law [facility] 12-03-2017 08:57-0400 Height 177.8 cm Lidia Thanh [facility] 12-03-2017 08:57-0400 Weight 158.76 kg Lidia Law [facility] 08-02-2017 09:13-0500 Body Temperature 98.8 [degF] Wyatt Triplett [facility] Work Phone: 08-02-2017 09:13-0500 BP Diastolic 75 mm[Hg] Wyatt Triplett [facility] Work Phone: 08-02-2017 09:13-0500 BP Systolic 118 mm[Hg] Wyatt Triplett [facility] Work Phone: 08-02-2017 09:13-0500 Pulse (Heart Rate) 100 /min Wyatt Triplett [facility] Work Phone: 08-02-2017 09:13-0500 Pulse Oximetry 94 % Wyatt Triplett [facility] Work Phone: 07-12-2017 08:12-0500 BMI (Body Mass Index) 50.43 kg/m2 Wyatt Triplett [employer] Work Phone: 07-12-2017 08:12-0500 Body Temperature 97.81 [degF] [facility]att [employer] Work Phone: 07-12-2017 08:12-0500 BP Diastolic 79 mm[Hg] [facility]att Triplett [employer] Work Phone: 07-12-2017 08:12-0500 BP Systolic 124 mm[Hg] Wyatt Triplett [employer] [facility] Work Phone: 07-12-2017 08:12-0500 Pulse (Heart Rate) 84 /min Wyatt Triplett [employer] Work Phone: 07-12-2017 08:12-0500 Pulse Oximetry 95 % Wyatt Triplett [employer] Work Phone: 07-12-2017 08:12-0500 Weight 159.44 kg Wyatt Triplett [employer] Work Phone: 06-28-2017 15:00-0500 BP Diastolic 92 mm[Hg] Marbin Krishna [employer] Work Phone: 06-28-2017 15:00-0500 BP Systolic 147 mm[Hg] Marbin Krishna [employer] Work Phone: 06-28-2017 15:00-0500 Pulse (Heart Rate) 94 /min Marbin Krishna [employer] Work Phone: 06-28-2017 15:00-0500 Pulse Oximetry 93 % Marbin Krishna [employer] Work Phone: 06-28-2017 15:00-0500 Respiratory Rate 18 /min Marbin Krishna [employer] Work Phone: 06-28-2017 10:34-0500 BMI (Body Mass Index) 51.53 kg/m2 Marbin Krishna [employer] Work Phone: 06-28-2017 10:34-0500 Body Temperature 98.49 [degF] Marbin Krishna [employer] Work Phone: 06-28-2017 10:34050 Height 177.8 cm Marbin Krishna [facility] Work Phone: 06-28-2017 [id number] Weight 162.89 kg Marbin Krishna [facility] Work Phone: Encounters Encounter Date Encounter Type Care Provider Facility Start: 08-28-2023 End: 08-28-2023 ambulatory CARISSA WINSLOW [facility] Start: 08-28-2023 End: 08-28-2023 Office outpatient visit 25 minutes Carissa Winslow MD MPH Work Phone: [facility] Procedures Date Procedure Procedure Detail Performing Clinician Start: 03-06-2023 OPIATE/OPIOID/BENZO EXTENDED PRESCRIPTION COMPLIANCE CARISSA MALLAPAREDDI Start: 03-06-2023 OPIATE/OPIOID/BENZO PRESCRIPTION COMPLIANCE CARISSA MALLAPAREDDI Start: 03-02-2023 CBC W Auto Differential panel - Blood CARISSA MALLAPAREDDI Start: 12-01-2022 CBC W Auto Differential panel - Blood CARISSA MALLAPAREDDI Start: 12-01-2022 Comprehensive metabolic 2000 panel - Serum or [facility] Start: 12-01-2022 Lipid panel CARISSA MALLAPAREDDI Start: 12-01-2022 PROSTATE SPECIFIC ANTIGEN, SCREEN CARISSA MALLAPAREDDI Start: 12-01-2022 Testosterone [Mass/volume] in Serum or Plasma CARISSA MALLAPAREDDI Start: 12-01-2022 Lipid 1996 panel - Serum or Plasma Carissa Winslow MD MPH Work Phone: Start: 11-30-2022 Arthrocentesis aspir&/inj major jt/bursa w/o us Yashira Cooley [employer] Work Phone: Start: 12-20-2021 End: 12-20-2021 Arthrocentesis aspir&/inj major jt/bursa w/o us Yashira Cooley [employer] Work Phone: Start: 12-17-2021 Lipid 1996 panel - Serum or Plasma Carissa Winslow MD MPH Work Phone: Start: 06-27-2021 Arthrocentesis aspir&/inj major jt/bursa w/o us Yashira Velasquezcock [employer] Work Phone: Start: 09-20-2020 Mri any jt upper extremity w/o contrast matrl Yashira Raphael Cooley Work Phone: Start: 05-17-2020 Lipid panel Jusitno Garrido Start: 03-11-2020 Arthrocentesis Yashira Velasquezcock Work Phone: Start: 11-20-2016 H/O: surgery Status post repair of complex wound Natalie Rice OD Work Phone: Start: 11-02-2016 Adult depression screening assessment Yashira Rodriguezck [employer] Work Phone: Start: 09-29-2016 H/O: cornea recipient Status post corneal transplant Natalie Rice OD Work Phone: Arthroscopy of shoulder Mena Garrido MD Plan of Treatment Date Care Activity Detail Author Start: 11-30-2031 DTaP/Tdap/Td Vaccine s (2 - Td or Tdap) DTaP/Tdap/Td Vaccines (2 - Td or Tdap) [facility] Start: 11-30-2031 Tetanus vaccination Tetanus: Every 1 0yrs [facility] Start: 12-02-2027 Lipid panel Lipid Panel [facility] Start: 12-02-2027 LIPID SCREEN LIPID SCREEN [facility] Start: 12-17-2026 Lipid panel Lipid Panel [facility] Start: 12-01-2025 DIABETES SCREEN DIABETES SCREEN [facility] Start: 12-17-2024 Diabetes mellitus screening Diabetes Screening [facility] Start: 09-19-2023 End: 09-19-2023 Patient encounter procedure 09/19/2023 8:20 AM EST Office Visit [facility] [address] [place] [id number] Carissa Winslow MD MPH [address] [facility] [place], [place] [id number] [facility] Start: 2023 Zoster Vaccines (1 of 2) Zoste r Vaccines (1 of 2) [facility] Start: 08-22-2023 End: 08-22-2024 Basic metabolic 2000 panel - Serum or Plasma [facility] Service Area Work Phone: Immunizations Immunization Date Immunization Notes Care Provider Fa cility 11-29-2021 tetanus toxoid, reduced diphtheria toxoid, and acellular pertussis vaccine, adsorbed; Translations: [Tdap (Boostrix)] Justino Garrido Work Phone: [facility] Work Phone: Payers Date Payer Category Payer Unknown 2021 Unknown [employer] [place] [id number] 07/30/2021-Present [address] [place] [address] Indemnity [id number] 07-30-2021 Unknown [id number] 07-30-2018 Private Health Insurance xxx [id number] 07-30-2017 Private Health Insurance xxx [id number] 04-29-2017 Private Health Insurance [id number] 3 04-29-2017 Private Health Insurance [id number] 1973 Unknown [id number] 2.16.840.1.693417.3.579.2 .900 1973 Unknown [id number] 2.16.840.1.223871.3.579.2 .1245 1973 Unknown [id number] 2.16.840.1.862282.3.579.2 .1245 1973 Unknown [id number] 2.16.840.1.377990.3.579.2 .1069 1973 Unknown [id number] 2.16.840.1.288744.3.579.2 .903 1973 Unknown [id number] 2.16.840.1.216713.3.579.2 .903 1973 Unknown [id number] 2.16.840.1.367990.3.579.2 .90 1973 Unknown [id number] 2.16.840.1.951828.3.579.2 .90 1973 Unknown [id number] 2.16.840.1.012961.3.579.2 .1973 Unknown [id number] 2.16.840.1.492814.3.579.2 .1259 1973 Unknown [id number] 2.16.840.1.589998.3.579.2 .2 1973 Unknown [id number] 2.16.840.1.381359.3.579.2 .1243 1973 Unknown [id number] 2.16.840.1.983345.3.579.2 .1243 1973 Unknown [id number] 2.16.840.1.632084.3.579.2 .1243 1973 Unknown [id number] 2.16.840.1.324528.3.579.2 .1243 1973 Unknown [id number] 2.16.840.1.529189.3.579.2 .1243 1973 Unknown [id number] 2.16.840.1.090424.3.579.2 .903 Medicaid [id number] [id number] 3 Unknown [id number] [id number] 3 Social History Date Type Detail Facility Start: 12-03-2017 End: 12-01-2022 Tobacco smoking status NHIS Never smoker [facility] Work Phone: Start: 1975 Sex Assigned At Not on file O [facility] Work Phone: Start: 08-31-2020 End: 12-01-2022 Tobacco use and exposure Never used [facility] Start: 08-31-2020 End: 03-28-2023 Alcohol intake Current non-drinker of alcohol (finding) [facility] Start: 10-17-2021 End: 08-28-2023 Exposure to SARS-CoV-2 (event) Not sure [facility] Start: 06-27-2021 End: 08-22-2023 No recent domestic travel No recent domestic travel [facility] Work Phone: Tobacco smoking consumption unknown [facility] Start: 08-14-2022 End: 08-22-2023 Tobacco use panel [facility] Start: 08-30-2020 Gender identity Identifies as male gender (finding) [facility] Start: 08-30-2020 Sexual orientation Heterosexual (fin ding) [facility] Start: 12-01-2022 Alcohol intake Lifetime non-d zach (finding) [facility] Work Phone: Start: 03-06-2023 End: 08-28-2023 Alcohol intake Ex-drinker (finding) [facility] Work Phone: NEGATED: Highlighted row - - [facility] Work Phone: Medical Equipment Procedure Code Equipment Code Equipment Origin al Text Equipment Identifier Dates Corneal Tissue Fee-Eye Bank - [id number] Start: 08-05-2015 Functional Status Date Assessment Result Facility NEGATED: Highlighted row Functional performance Functional status health issues are not documented Disease [facility] Work Phone: Mental Status Date Assessment Result Facility NEGATED: Highlighted row Cognitive function [Interpretation] Cognitive status health issues are not documented Disease [facility] Work Phone: Clinical Notes 07-12-2016 [...] who presents for ER Follow-up (Pt went [facility] for a Blood clot - was [...] Winslow MD MPH documented in this encounter [facility] Work Phone: 08-22-2023 Evaluation + Plan note Associated Problem(s): Stimulant dependence (CMS/HCC) Is taking Ritalin for ADHD. Under control with regimen. No side-effects so far from Ritalin. [facility] Work Phone: 08-22-2023 Miscellaneous Notes Associated Problem(s): Stimulant dependence (CMS/HCC) Is taking Ritalin for ADHD. Under control with regimen. No side-effects so far from Ritalin. documented in this encounter [facility] Work Phone: 08-22-2023 History of Present [...] ago. Has been on Ritalin since then. 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 Pedal edema: Patient reports [...] Winslow MD MPH documented in this encounter [facility] Work Phone: 05-22-2023 History of Present illness Narrative Subjective Patient ID: Shivani Veras III is a 47 y.o. male who presents for 3 mth ov. [facility] Here for follow up. I [...] ago. Has been on Ritalin since then. 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 Pedal edema: Patient reports [...] Winslow MD MPH documented in this encounter [facility] Work Phone: 04-06-2023 History of Present illness Narrative At this time patient does not wish to proceed forward with any therapy or required conservative measures that his insurance company wants. Will phone in if at sometime he wishes to go forward. documented in this encounter [facility] 03-28-2023 History of Present illness Narrative [facility] [address] [facility] [address] [facility] [phone] Chief Complaint Patient presents with Left Shoulder [...] Main OR; Service: Orthopedic CHOLECYSTECTOMY LAPAROSCOPIC 07/17/2017 [facility] CLOSED REDUCTION HAND FRACTURE EYE SURGERY [...] the MRI results. documented in this encounter [facility] 03-06-2023 History of Present illness Narrative [...] ago. Has been on Ritalin since then. 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 Will consider checking [...] Winslow MD MPH documented in this encounter [facility] Work Phone: 01-10-2023 Note HNO ID: [id number] Author: Natalie Rice OD Service: ? Author Type: INSURANCE AGENCY OWNER Type: Progress Notes Filed: 01/10/2023 10:47 AM [...] weeks wearing the CL and checking OR Natalie Rice OD I have confirmed and edited as necessary the relevant ophthalmic history, ROS, and the neuro exam findings as obtained by others. [facility] 01-10-2023 Instructions Natalie Rice OD - 01/10/2023 10:45 AM EDT [...] and checking OR documented in this encounter [facility] 01-10-2023 History of Present illness Narrative ASSESSMENT/PLAN: [...] weeks wearing the CL and checking OR Natalie Rice OD I have confirmed and edited as necessary the relevant ophthalmic history, ROS, and the neuro exam findings as obtained by others. documented in this encounter [facility] 12-01-2022 History of Present illness Narrative Subjective [...] ago. Has been on Ritalin since then. 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 Will consider checking [...] Winslow MD MPH documented in this encounter [facility] Work Phone: 11-30-2022 History of Present [...] LG Jt Injection/Arthrocentesis: R knee Performed by: Yashira Cooley CNP Authorized by: Yashira Cooley CNP CPT 44242 - Large Joint Arthrocentesis: Consent given by: [...] LG Jt Injection/Arthrocentesis: L knee Performed by: Yashira Cooley CNP Authorized by: Yashira Cooley CNP CPT 52095 - Large Joint Arthrocentesis: Consent given by: [...] the procedure well with no immediate complications Yashira Cooley CNP documented in this encounter [facility] 02-10-2022 History of Present illness Narrative [...] years ago. 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 Author Type: INSURANCE AGENCY OWNER Type: Progress Notes Filed: 01/13/2022 1:31 PM [...] its relevant components. Orin Rice II, OD [facility] 01-13-2022 Instructions Orin Rice II, OD - [...] Rice II, OD documented in this encounter [facility] 01-13-2022 History of Present illness Narrative Assessment [...] Rice II, OD documented in this encounter [facility] 12-20-2021 History of Present illness Narrative Associated Order(s): LG Jt Injection/Arthrocentesis: L knee; LG Jt Injection/Arthrocentesis: L glenohumeral Post-Procedure Diagnose(s): Primary osteoarthritis of both knees; S/P arthroscopy of left shoulder LG Jt Injection/Arthrocentesis: L knee Date/Time: 12/20/2021 12:00 PM Performed by: Yashira Cooley CNP Authorized by: Yashira Cooley CNP CPT 40752 - Large Joint Arthrocentesis: Consent given by: [...] glenohumeral Date/Time: 12/20/2021 12:00 PM Performed by: Yashira Cooley CNP Authorized by: Yashira Cooley CNP CPT 76706 - Large Joint Arthrocentesis: Consent given by: [...] shoulder 2. Primary osteoarthritis of both knees Yashira Cooley CNP documented in this encounter [facility] 11-25-2021 Instructions Orin Rice II, OD [...] Rice II, OD documented in this encounter [facility] 11-25-2021 History of Present illness Narrative Assessment [...] Rice II, OD documented in this encounter [facility] 10-27-2021 Instructions Natalie Rice OD - 10/27/2021 4:44 PM EDT [...] CL comes in. documented in this encounter [facility] 10-27-2021 History of Present illness Narrative ASSESSMENT/PLAN: 1. 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 Myopia, left - ICD9: 367.1, ICD10: H52.12 3. Regular astigmatism, bilateral - ICD9: 367.21, ICD10: H52.223 4. Presbyopia - ICD9: 367.4, ICD10: H52.4 Suggested updating his glasses as desired. Will order RGP for the right eye and call to dispense. Return when CL comes in. Natalie Rice OD documented in this encounter [facility] 06-27-2021 History of Present illness Narrative Associated Order(s): LG Jt Injection/Arthrocentesis: L glenohumeral; LG Jt Injection/Arthrocentesis: R glenohumeral Post-Procedure Diagnose(s): S/P arthroscopy of left shoulder; Bursitis and tendinitis of shoulder region LG Jt Injection/Arthrocentesis: L glenohumeral Performed by: Yashira Cooley CNP Authorized by: Yashira Cooley CNP CPT 13369 - Large Joint Arthrocentesis: Consent given by: [...] LG Jt Injection/Arthrocentesis: R glenohumeral Performed by: Yashira Cooley CNP Authorized by: Yashira Cooley CNP CPT 18028 - Large Joint Arthrocentesis: Consent given by: [...] no immediate complications [facility] [address] [facility] [address] [facility] [phone] No chief complaint on file. Shivani Veras [...] Main OR; Service: Orthopedic CHOLECYSTECTOMY LAPAROSCOPIC 07/17/2017 [facility] CLOSED REDUCTION HAND FRACTURE EYE SURGERY [...] the treatment plan. documented in this encounter [facility] 03-07-2021 History of Present illness Narrative OARRS Report Last Screening Date: 03/07/21I have personally reviewed the OARRS report for SHIVANI VERAS. I have considered the risks of abuse, dependence, addiction and diversion.Last urine drug screening date/ordered today: 03/05/21 - consistentDate of the last Controlled Substance Agreement: 05/30/21IMULANTSWt is the patient s goal of therapy? [...] hypogonadismStableCurrently inj himself w/ testosterone 200 mg [id number] any adverse rxns to thisSince starting testosterone [...] - denies any adverse rxns to med [facility] Work Phone: 11-26-2020 History of Present illness Narrative Dictation on: 11/26/2020 5:30 PM by: LIDIA LAW [[id number]] documented in this encounter [facility] 05-24-2020 History of Present illness Narrative [...] hypogonadismStableCurrently inj himself w/ testosterone 200 mg [id number] any adverse rxns to thisSince starting testosterone [...] 2020 by watching his diet and exercise [facility] Work Phone: documented as of this encounter (statuses as of 10/27/2021) [facility] History of Past illness Narrative* Problem Noted [...] of this encounter (statuses as of 11/25/2021) [facility] of Past illness Narrative* Problem Noted [...] of this encounter (statuses as of 12/20/2021) [facility] of Past illness Narrative* Problem Noted [...] of this encounter (statuses as of 01/13/2022) [facility] of Past illness Narrative* Problem Noted [...] of this encounter (statuses as of 01/10/2023) [facility] Diagnosis S/P [facility]roscopy of left [facility]- Primary [facility] S/P arthroscopy of left shoulder- Primary Nontraumatic tear of left rotator cuff, unspecified tear extent Bursitis and tendinitis of shoulder region [facility] Hyperopia, right- Primary Myopia, left Regular astigmatism, bilateral Presbyopia [facility] Diagnosis Keratoconus of both eyes- Primary Keratoconus, unspecified [facility]* Diagnosis Keratoconus of both eyes- Primary Keratoconus, unspecified [facility]* Diagnosis S/P arthroscopy of left shoulder- Primary Primary osteoarthritis of both knees documented in this encounter [facility] note* Diagnosis Keratoconus of both eyes- Primary Keratoconus, unspecified documented in this encounter [facility] note* Diagnosis Primary osteoarthritis of both knees- Primary documented in this encounter [facility] note* Diagnosis Attention deficit disorder of adult with hyperactivity- Primary Attention deficit disorder with hyperactivity Follow-up encounter involving medication Hypogonadism in male Healthcare maintenance documented in this encounter [facility] Work Phone: Evaluation note* Diagnosis Hyperopia, right- Primary Myopia, left Regular astigmatism, bilateral Presbyopia documented in this encounter [facility] note* Diagnosis Attention deficit disorder of adult with hyperactivity Attention deficit disorder with hyperactivity documented in this encounter [facility] Work Phone: Evaluation note* Diagnosis S/P arthroscopy of left shoulder- Primary Tear of left rotator cuff, unspecified tear extent, unspecified whether traumatic [facility] Diagnosis Hypogonadism in male- Primary Attention deficit disorder of adult with hyperactivity Attention deficit disorder with hyperactivity Morbid obesity (CMS/HCC) Morbid obesity Pedal edema Edema Chronic gout without tophus, unspecified cause, unspecified site documented in this encounter [facility] Work Phone: Evaluation note* Diagnosis Stimulant dependence (CMS/HCC)- Primary Pedal edema Edema Attention deficit disorder of adult with hyperactivity Attention deficit disorder with hyperactivity Morbid obesity (CMS/HCC) Morbid obesity Hypogonadism in male Primary hypertension Unspecified essential hypertension documented in this encounter [facility] Work Phone: Evaluation note* Diagnosis Deep vein thrombosis (DVT) of proximal vein of right lower extremity, unspecified chronicity (CMS/HCC)- Primary documented in this encounter [facility] Work Phone: Instructions* Name Dates Details Instructions not documented [facility] Work Phone: Reason for referral (narrative)* Consultation (Routine) - Pending Review Specialty Diagnoses / Procedures Referred By Contac t Referred To Contact Vascular Surgery Diagnoses Deep vein thrombosis (DVT) of proximal vein of right lower extremity, unspecified chronicity (CMS/HCC) Carissa Winslow MD MPH [address] [facility], [address] [place] [address] Zackery Wilder M, [address] [facility] [address] [place] [address] Referral ID Status Reason Start Date Expiration Date Visits Requested Visits Authorized [id number] Pending Review Specialty Services Required 08/28/2023 08/27/2024 1 1 [facility] Work Phone: Assessments Diagnosis Primary osteoarthritis [...] Care Instructions Your Care Instructions Biliary (say PEBJ-go-hon-ee ) colic is belly pain caused by [...] your doctor if you can take an majp-kro-aqrnfao medicine. Read and follow all instructions on [...] Log into your personal health record on [email or web address] and enter X038 in the Education box to learn more about Biliary Colic: Care Instructions. Current as of: March 07, 2016 Content Version: 11.2 9127-4532 [employer]. Care instructions adapted under license by your healthcare professional. If you have questions about a medical condition or this instruction, always ask your healthcare professional. [employer] disclaims any warranty or liability for your use of this information. Gallbladder and Liver: Anatomy Sketch Current as of: August 03, 2016 Content Version: 11.2 [employer]. Care instructions adapted under license by your healthcare professional. If you have questions about a medical condition or this instruction, always ask your healthcare professional. [employer] disclaims any warranty or liability for your [...] Log into your personal health record on [email or web address] and enter Z797 in the Education box to learn more about Low-Fat Diet for Gallbladder Disease: Care Instructions. Current as of: February 22, 2016 Content Version: 11.2 7932-6177 [employer]. Care instructions adapted under license by your healthcare professional. If you have questions about a medical condition or this instruction, always ask your healthcare professional. [employer] disclaims any warranty or liability for your [...] FoundDocuments on File Type Date Recorded Patient Mold Insert Changer Expl anation Advance Directives and Living Will Documents on File Type Date Recorded Patient Mold Insert Changer Expl anation Advance Directives and Livin g Will 09/20/2020 7:10 AM Documents on File Type Date Recorded Patient Mold Insert Changer Expl anation Advance Directives and Livin g Will 09/20/2020 7:10 AM Documents on File Type Date Recorded Patient Mold Insert Changer Expl anation Advance Directives and Livin g Will 10/13/2020 7:10 AM Documents on File Type Date Recorded Patient Mold Insert Changer Expl anation Advance Directives and Living Will Documents on File Type Date Recorded Patient Mold Insert Changer Expl anation Advance Directives and Livin g Will 10/19/2020 7:10 AM Documents on File Type Date Recorded Patient Mold Insert Changer Expl anation Advance Directives and Livin g Will 11/12/2020 8:59 AM Documents on File Type Date Recorded Patient Mold Insert Changer Expl anation Advance Directive(s) 09/28/2016 10:02 AM Advance Directive(s) 10/05/2015 9:13 AM Advance Directive(s) 09/16/2015 12:06 PM Reason for Referral Status Reason Specialty Diagnoses / Procedures Referred By Contact Referred To Contact New Request Radiology Diagnoses Tear of left rotator cuff, unspecified tear extent, unspecified whether traumatic Procedures MR Shoulder Left Without Contrast Yashira Cooley CNP [address] [place] [address] Status Reason Specialty Diagnoses / Procedures Referre d By Contact Referred To Contact Closed Radiology Diagnoses Tear of left rotator cuff, unspecified tear extent, unspecified whether traumatic Procedures MR Shoulder Left Without Contrast Yashira Cooley CNP [address] [place] [address] Status Reason Specialty Diagnoses / Procedures Referred By Contact Referred To Contact Authorized Rehabilitation Diagnoses Tear of left rotator cuff, unspecified tear extent, unspecified whether traumatic Yashira Cooley CNP [address] [place] [address] [facility] [place] [address] [address] [place] [address] Specialty Diagnoses / Procedures Referred By Contac t Referred To Contact Radiology Diagnoses Tear of left rotator cuff, unspecified tear extent, unspecified whether traumatic Procedures MR Shoulder Left Without Contrast Yashira Cooley CNP [address] [place] [address] Referral ID Status Reason Start Date Expiration Date V isits Requested Visits Authorized [id number] New Request 03/27/2023 03/26/2024 1 1 History of Present Illness * Yashira Cooley CNP - 08/31/2020 4:45 PM EST [facility] [address] [place] [phone] Chief Complaint Patient presents with Left Shoulder - Pain Shivani Veras returns to the office today for left [...] History: Procedure Laterality Date CHOLECYSTECTOMY LAPAROSCOPIC 07/17/2017 [facility] CLOSED REDUCTION HAND FRACTURE EYE SURGERY [...] file Gets together: Not on file Attends gnosticist service: Not on file Active member of [...] the treatment plan. documented in this encounter* Yashira Cooley CNP - 09/29/2020 11:46 AM EST [facility] [address] [facility] [address] [facility] [phone] Chief Complaint Patient presents with Left Shoulder [...] file Gets together: Not on file Attends gnosticist service: Not on file Active member of [...] Elizabeth, PT - 10/06/2020 7:00 AM EST [facility] Evaluation Today's Date 10/06/2020 [...] decline in level of ADL Social Support: Baptism, social, or cultural considerations to be made aware of before starting treatment: No Activities of Daily Living: Lower Body: increased time and effort with all Instrumental Activities of Daily Living: Current 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 Rick Elizabeth PT State License, [id number] documented in this encounter* Ann Jolly PTA - 10/08/2020 7:00 AM EST [facility] DAILY TREATMENT NOTE Today's [...] OTHER Notes visit 2: 7:04-7:40 Therapeutic Exercise (75882) Intervention provided written HEP handouts consisting of [...] and strengthening Ann Jolly PTA STATE LICENSE, [id number] documented in this encounter* Jayden Owen PTA - 10/13/2020 7:00 AM EDT [facility] DAILY TREATMENT NOTE Today's [...] OTHER Notes visit 2: 7:05-7:40 Therapeutic Exercise (30711) Intervention Pulleys - x3 min Parameters UEB [...] and stability Jayden Owen PTA STATE LICENSE, [id number] documented in this encounter* Ann Jolly PTA - 10/15/2020 7:00 AM EDT [facility] DAILY TREATMENT NOTE Today's [...] OTHER Notes visit 3: 7:05-7:45 Therapeutic Exercise (28349) Intervention Pulleys - x3 min Parameters UEB [...] Visit: Treatment Visit with focus on strengthening Annkenyetta Jolly PTA STATE LICENSE, [id number] documented in this encounter* Lidia Law MD - 02/10/2019 5:41 PM EDT Dictation on: 02/10/2019 5:42 PM by: LIDIA LAW [[id number]] documented in this encounter* Yashira Cooley CNP - 03/11/2020 5:07 PM EDT Associated Order(s): LG Jt Injection/Arthrocentesis: R knee; LG Jt Injection/Arthrocentesis: L knee Post-Procedure Diagnose(s): Primary osteoarthritis of both knees LG Jt Injection/Arthrocentesis: R knee Performed by: Yashira Cooley CNP Authorized by: Yashira Cooley CNP CPT 92734 - Large Joint Arthrocentesis: Consent given by: [...] LG Jt Injection/Arthrocentesis: L knee Performed by: Yashira Cooley CNP Authorized by: Yashira Cooley CNP CPT 15547 - Large Joint Arthrocentesis: Consent given by: [...] procedure well with no immediate complications * Yashira Cooley CNP - 03/11/2020 5:04 PM EDT [facility] [address] [facility] [address] [facility] [phone] Chief Complaint Patient presents with Left Knee [...] History: Procedure Laterality Date CHOLECYSTECTOMY LAPAROSCOPIC 07/17/2017 [facility] CLOSED REDUCTION HAND FRACTURE EYE SURGERY [...] file Gets together: Not on file Attends gnosticist service: Not on file Active member of [...] medial knee compartment joint space narrowing with vnuo-ca-hdhd appearance and moderate marginal osteophytes. Moderate marginal osteophytes of the lateral knee compartments. Severe patellofemoral compartment joint space narrowing with xsep-hb-zzim appearance andmoderate marginal osteophytes. No significant joint [...] Elizabeth, PT - 10/20/2020 7:00 AM EDT [facility] DAILY TREATMENT NOTE Today's [...] visit 5: 7:03 - 7:42 Therapeutic Exercise (28264) Intervention UEB lvl 2, 3' fwd/back Parameters [...] Plan: Discharge Rick Elizabeth PT State License, [id number] documented in this encounter* Lidia Law MD - 10/22/2020 5:54 PM EDT Dictation on: 10/22/2020 5:57 PM by: LIDIA LAW [[id number]] documented in this encounter* Randy Barrera PTA - 10/22/2020 1:45 PM EDT [facility] DAILY TREATMENT NOTE Today's [...] - 10/22/20 1354 OTHER Notes visit 6: 9343-5021 Therapeutic Exercise (40148) Intervention UEB lvl 2, 3' fwd/back Parameters [...] Visit: Discharge Randy Barrera PTA STATE LICENSE, [id number] documented in this encounter Chief Complaint F/U [...] [place] Home Medication Instructions Prior to Surgery JACQUELINE:[id number] Printed on:06/28/17 2164 Medication Information Take last dose on Take [...] the following: Clarity, Urine Cloudy (*) Specific [place] 1.033 (*) pH, Urine 8.0 (*) Blood, [...] following orders were created for panel order [place] Draw. Procedure Abnormality Status --------- ------ Lavender Top[[id number]] Final result Mint Green Top[[id number]] Final result Gold Top[[id number]] Final result Light Blue Top[[id number]] Final result Khan Top[[id number]] Final result [place] Top[[id number]] Final result Please view results for these tests on the individual orders. LAVENDER TOP MINT GREEN TOP GOLD TOP LIGHT BLUE TOP KHAN TOP PINK TOP CBC AND DIFFERENTIAL Narrative: The following orders were created for panel order CBC w/ Diff. Procedure Abnormality Status --------- ------ CBC Auto Differential[[id number]] Abnormal Final result Please view results for these tests on the individual orders. Imaging Results US Abdomen Limited Study Preliminary Result 1. Cholelithiasis with mild distention of the lumen of the gallbladder and minimal pericholecystic fluid. There is no gallbladder wall thickening and there was no sonographic Rariaga's sign to strongly suggest cholecystitis. If there is clinical concern for cystic duct obstruction, consider further evaluation with a nuclear medicine hepatobiliary scan. 2. Probable mild fatty infiltration of the liver without focal hepatic lesion. [facility] Workstation ID: [id number] CT Abdomen Pelvis With IV Contrast Only Preliminary Result 1. Nonspecific gallbladder distention. If there is clinical concern for cholecystitis, consider ultrasound follow-up. 2. Small infiltrate in the posterior right lung base could reflect atelectasis or mild pneumonia. [facility] Workstation ID: [id number] I have discussed the results of tests [...] Administered 06/28/17 1148) Marbin Krishna MD 06/28/17 1426 Pt states that he started having abd [...] DATE CREATED AUTHOR AUTHOR'S ORGANIZ ATION 03/28/2019 formerly [facility] DATE CREATED AUTHOR AUTHOR'S ORGANIZ ATION 11/09/2020 [facility] DATE CREATED AUTHOR AUTHOR'S ORGANIZ ATION 02/16/2022 [employer] DATE CREATED AUTHOR AUTHOR'S ORGANIZ ATION 02/19/2022 [facility] DATE CREATED AUTHOR AUTHOR'S ORGANIZ ATION 01/11/2023 [facility] DATE CREATED AUTHOR AUTHOR'S ORGANIZ ATION 03/06/2023 [facility] DATE CREATED AUTHOR AUTHOR'S ORGANIZ ATION 03/09/2023 formerly [facility] DATE CREATED AUTHOR AUTHOR'S ORGANIZ ATION 03/28/2023 [facility] DATE CREATED AUTHOR AUTHOR'S ORGANIZ ATION 07/22/2023 [facility] EPIC DATE CREATED AUTHOR AUTHOR'S ORGANIZ ATION 08/30/2023 [facility] DATE CREATED AUTHOR AUTHOR'S ORGANIZ ATION 08/30/2023 [facility] DATE CREATED AUTHOR AUTHOR'S ORGANIZ ATION 08/31/2023 [facility] Reason for Visit (unrecogniz ed section and content) Status Reason Specialty Diagnoses / Procedures Referre d By Contact Referred To Contact Closed Radiology Diagnoses Tear of left rotator cuff, unspecified tear extent, unspecified whether traumatic Procedures MR Shoulder Left Without Contrast Yashira Cooley CNP [address] [id number] Reason Comments Follow-up Reason Comments Physical Therapy Status Reason Specialty Diagnoses / Procedures Referred By Contact Referred To Contact Authorized Rehabilitation Diagnoses Tear of left rotator cuff, unspecified tear extent, unspecified whether traumatic Yashira Cooley CNP [address] [place] [address] [facility] [address] [address] [address] [place] [address] Reason Comments Follow-up Reason Comments Pain Reason [...] Care Teams (unrecognized sec tion and content) 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 Relationship Specialty Start Date End Date Justino Garrido MD [address] [place], [place] [id number] PCP - General Family Practice 10/27/21 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 Relationship Specialty Start Date End Date Justino Garrido MD [address] [place], [place] [id number] PCP - General Family Practice 10/27/21 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 Relationship Specialty Start Date End Date Justino Garrido MD [address] [place] [address] PCP - General Family Practice 10/27/21 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 Relationship Specialty Start Date End Date Justino Garrido MD PCP - General Family Medicine 06/28/17 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 Relationship Specialty Start Date End Date Justino Garrido MD [address] [place] [address] PCP - General Family Practice 10/27/21 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 Relationship Specialty Start Date End Date Justino Garrido MD PCP - General Family Medicine 06/28/17 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 Relationship Specialty Start Date End Date Justino Garrido MD PCP - General Family Medicine 06/28/17 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 Relationship Specialty Start Date End Date Carissa Winslow MD MPH [address] [facility], [address] [place] [address] PCP - General 02/10/22 Carissa Winslow MD MPH [address] [facility], [address] [place] [address] PCP - [employer] PCP 02/27/22 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 Relationship Specialty Start Date End Date Carissa Winslow [address] [facility] [address] [place] [address] PCP - General Family Medicine 01/10/23 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 Relationship Specialty Start Date End Date Carissa Winslow MD MPH [address] [facility], [address] [place] [address] PCP - General 02/10/22 Carissa Winslow MD MPH [address] [facility], [address] [place] [address] PCP - [employer] A[employer] PCP 02/27/22 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 Relationship Specialty Start Date End Date Justino Garrido MD PCP - General Family Medicine 06/28/17 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 Relationship Specialty Start Date End Date Justino Garrido MD [address] [place] [address] PCP - General Family Medicine 06/28/17 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 Relationship Specialty Start Date End Date Carissa Winslow MD MPH [address] [facility], [address] [place] [address] PCP - General 02/10/22 Carissa Winslow MD MPH [address] [facility], [address] [place] [address] PCP - [employer] A[employer] PCP 02/27/22 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 Relationship Specialty Start Date End Date Carissa Winslow MD MPH [address] [facility], [address] [place] [address] PCP - General 02/10/22 Carissa Winslow MD MPH [address] [facility], [address] [place] [address] PCP - [employer] PCP 02/27/22 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 Relationship Specialty Start Date End Date Carissa Winslow MD MPH [address] [facility], [address] [place] [address] PCP - General 02/10/22 Carissa Winslow MD MPH [address] [facility] [address] [place] [address] PCP - [employer] A[employer] PCP 02/27/22 Source Comments (unrecognize d section and content) In the event this informatio n is protected by the Federal Confidentiality of Alcohol and Drug Abuse Patient Records regulations: The Federal rules restrict any use of the information to criminally investigate or prosecute any alcohol or drug abuse patient.[facility] the event this information is protected by the Federal Confidentiality of Alcohol and Drug Abuse Patient Records regulations: The Federal rules restrict any use of the information to criminally investigate or prosecute any alcohol or drug abuse patient.[facility] the event this information is protected by the Federal Confidentiality of Alcohol and Drug Abuse Patient Records regulations: The Federal rules restrict any use of the information to criminally investigate or prosecute any alcohol or drug abuse patient.[facility] the event this information is protected by the Federal Confidentiality of Alcohol and Drug Abuse Patient Records regulations: The Federal rules restrict any use of the information to criminally investigate or prosecute any alcohol or drug abuse patient.[facility] the event this information is protected by the Federal Confidentiality of Alcohol and Drug Abuse Patient Records regulations: The Federal rules restrict any use of the information to criminally investigate or prosecute any alcohol or drug abuse patient.[facility] <item> Privacy Markings (unrecogniz ed section and [...] BE BASED ON THE PRIMARY CLINICAL RECORDS. [employer] [facility]. provides no warranty or guarantee of the accuracy or completeness of information in this document.
[2023-09-23 11:37] LABS: Anion Gap 4 (5-15); BUN 18 mg/dL (7-18); BUN/Creat Ratio 19.1 RATIO (10-20); Calcium,Total 9.5 mg/dL (8.5-10.1); Chloride 109 mmol/L (98-107); Creatinine, Serum 0.94 mg/dL (0.70-1.30); EST Glomerular Filtration Rate 90 mL/min (>60); Est Glom Filt Rate - Afr Amer 109 mL/min (>60); Estimated Creatinine Clearance 132.56 ml/min; Glucose 97 mg/dL (74-106); Potassium 3.8 mmol/L (3.5-5.1); Sodium Level 140 mmol/L (136-145); Troponin-I HS 6 pg/mL (3.0-78.0)
[2023-09-23 12:40] VITALS: BP 139/83; PULSE 81; RESP 18; TEMP 36.6; O2SAT 95
== END 2023-09-23 12:41 | disposition home or self-care (01) ==
PROVIDERS: Emergency Provider Emergency Medicine; PCP Family Medicine; Visit Provider Emergency Medicine
DX: I26.99 Other pulmonary embolism without acute cor pulmonale (principal); R91.1 Solitary pulmonary nodule; Z79.01 Long term (current) use of anticoagulants; Z79.899 Other long term (current) drug therapy
CPT/HCPCS: 71275; 80048; 84484; 85025; 93005; 99284; Q9967; A4216

== ENCOUNTER → 2023-09-25 | Outpatient (CLI) | payer OTHER, SELFPAY ==
--- NOTE | 2023-09-25 11:02 | VDLE_ITS ---
Reason For Study: RLE Pain RIGHT LEFT GSV is normal. CFV is compressible, spontaneous, phasic, Distal EIV is PARTIALLY COMPRESSIBLE with competent, and demonstrates normal continuous flow noted from SFJ/GSV. augmentation. Acute and Chronic deep vein thrombosis is noted in the CFV. It is dilated and PARTIALLY COMPRESSIBLE with continuous flow noted from GSV. Acute deep vein thrombosis is noted in the FV. It is dilated and NONCOMPRESSIBLE. POP V is PARTIALLY COMPRESSIBLE with bright intraluminal echoes and continuous flow. T/P Trunk is PARTIALLY COMPRESSIBLE. PTV is compressible Unable to accurately assess VANE V and Distal SFV. Non-Vascularized anechoic area is noted in the Rt Groin measuring approximately 2.78cm x 1.32cm. VL/Venous Duplex US, Unilateral Interpretation Summary Acute on chronic right common femoral vein thrombus, less dilation than prior s armanddy. External iliac vein with continuous flow pattern. Large caliber GSV flow into common femoral/e xternal iliac veins. Acute thrombus noted in femoral vein. Chronic thrombus noted in popliteal and TP trunk veins Ordering Physician: Meir Hurtado Referring Physician: Jaime Bailey Performed By: Demarco Tripathi, RVT
== END | disposition home or self-care (01) ==
PROVIDERS: PCP Family Medicine; Referring Provider Surgery Trauma Surgery; Visit Provider Surgery Trauma Surgery
DX: I82.409 Acute embolism and thrombosis of unspecified deep veins of unspecified lower extremity (principal); M79.604 Pain in right leg
CPT/HCPCS: 93971

== ENCOUNTER → 2023-11-01 | Outpatient (CLI) | payer OTHER, SELFPAY ==
--- NOTE | 2023-11-01 08:54 | VDLE_ITS ---
Reason For Study: S/P Rt Iliac vein stent RIGHT LEFT GSV is normal. CFV is compressible, spontaneous, phasic, competent, and demonstrates normal Chronic deep vein thrombosis is noted in the augmentation. CFV. It is dilated and PARTIALLY COMPRESSIBLE with phasic flow and normal augmentation. Chronic deep vein thrombosis is noted in the SFJ / Prox FV. It is dilated and PARTIALLY COMPRESSIBLE with phasic flow. Acute/Chronic deep vein thrombosis is noted in the Mid and Distal FV. It is dilated and NONCOMPRESSIBLE. Deep FV is PARTIALLY COMPRESSIBLE with phasic flow and normal augemtation. POP V is PARTIALLY COMPRESSIBLE with bright intraluminal echoes, normal augmentation and continuous flow. T/P Trunk is PARTIALLY COMPRESSIBLE. PTV is compressible Rico V is compressible at Mid/Distal. Unable to accurately assess at Prox. Procedure This is a venous duplex using B-mode, color flow and spectral Doppler. Exam performed in department. The study was technically difficult. VL/Venous Duplex US, Unilateral Interpretation Summary Chronic deep vein thrombosis is noted in the right common femoral vein, sapheno femoral junction, femoral vein, popliteal vein, tibioperoneal trunk vein. Acute on chronic deep vein thrombosis noted in the right femoral vein Ordering Physician: Meir Hurtado Referring Physician: Leo Sandoval Performed By: Demarco Tripathi RVT and Student
--- NOTE | 2023-11-01 08:54 | AAVD_ITS ---
Reason For Study: S/P Rt Iliac Vein Stent Inferior Vena Cava Proximal inferior vena cava measures 1.54 x 1.84 cm. in the cross-sectional axis. Proximal inferior vena cava measures 1.66 cm. in the longitudinal axis. Mid inferior vena cava measures 1.69 x 1.74 cm. in the cross-sectional axis. Mid inferior vena cava measures 1.41 cm. in the longitudinal axis. Distal inferior vena cava measures 1.43 x 1.87 cm. in the cross-sectional axis. Distal inferior vena cava measures 1.53 cm. in the longitudinal axis. The inferior vena cava has spontaneous, phasic flow throughout. Left Common Iliac Vein Left common iliac vein measures 1.29x 1.25 cm. in the cross-sectional axis. Left common iliac vein measures 1.32 cm. in the longitudinal axis. The left common iliac vein has spontaneous, phasic flow throughout. Right Common Iliac Vein Right common iliac vein measures 1.13 x 1.25 cm. in the cross-sectional axis. Right common iliac vein measures 1.21 cm. in the longitudinal axis. The right common iliac vein has spontaneous, phasic flow throughout. Patent Stent noted at Distal CIV / EIV measuring approximately 1.30cm in long axis. VL/Abd Aortic/IVC Duplex scan Interpretation Summary Patent IVC, left iliac vein, and right iliac stent with normal flow pattern. Ordering Physician: Meir Hurtado Referring Physician: Jaime Bailey Performed By: Demarco Tripathi RVT and Student
== END | disposition home or self-care (01) ==
LOC: CVS 08:53
PROVIDERS: PCP Family Medicine; Referring Provider Surgery Trauma Surgery; Visit Provider Surgery Trauma Surgery
DX: I82.409 Acute embolism and thrombosis of unspecified deep veins of unspecified lower extremity (principal); M79.604 Pain in right leg; Z95.820 Peripheral vascular angioplasty status with implants and grafts
CPT/HCPCS: 93971; 93978

== ENCOUNTER → 2023-11-06 | Outpatient (CLI) | payer OTHER, SELFPAY ==
--- NOTE | 2023-11-06 09:00 | PET_ITS ---
EXAMINATION: FDG PET/CT ? INDICATIONS: 48-year-old male with a history of pulmonary nodularity. ? COMPARISON EXAMINATION: CT of the chest report 09/23/2023 ? INDEX LESION SIZE SUV INTERPRETATION Left lower lung field, left lower lobe ? 1.7 max Quantitative criteria for viable neoplasm are not fulfilled ? Gastroesophageal junction 13.4 mm 5.1 Fulfills quantitative criteria for viable neoplasm with single point technique. Correlation with direct visualization recommended, if clinically indicated. ? TECHNIQUE: Following the intravenous administration of 13.27 mCi of F-18 deoxyglucose via the right antecubital fossa, multiplanar image acquisitions of the head, neck, chest, abdomen and pelvis to the level of the midthigh, obtained at one-hour post radiopharmaceutical administration contemporaneously interpreted with the current CT of the chest, abdomen and pelvis dated 11/06/2023 via coregistration reveal: ? SERUM GLUCOSE LEVEL:? 82 mg/dL? HEIGHT:?? 69 inches WEIGHT:?? 312 pounds ? FINDINGS: ? HEAD/NECK:? There is no evidence of abnormal increased glucose metabolism in the pharyngeal mucosal space, parapharyngeal space, oropharynx, bilateral-lateral and anterior neck, hypopharynx and distribution of the larynx. ? The visualized portion of the cerebral cortical-subcortical structures demonstrate symmetric and preserved glucose metabolism. ? CHEST: Facilitated uptake is noted at the level of the distal esophagus, gastroesophageal junction. The calculated maximum standard uptake value is 5.1. The maximal axial diameter of the metabolic, morphologic abnormality is 13.4 mm. Increased labeled glucose is visualized in the left lower posterior lung zone, left lower lobe generating a calculated standard uptake value of 1.7. The left ventricular myocardium visualization is consistent with the fed state. ? CT of the chest demonstrates the following anatomic characteristics: Calcified and noncalcified mediastinal and thoracic perihilar soft tissue is ametabolic. A calcified density noted in the left upper posterior lung zone is nonglucose avid. Right and left axillary soft tissue densities are ametabolic. Posterior pleural-based densities in the bilateral hemithorax are nonglucose avid. ? ABDOMEN/PELVIS:? Normal physiologic distribution of the radiopharmaceutical is identified in the hepatic (4.9) and splenic parenchyma, both renal units, urinary bladder, and visualized intestinal tract. Diffuse intestinal tract is identified in all four quadrants of the abdominal-pelvic mesentery. ? CT of the abdomen and pelvis is remarkable for the following: A right iliac stent is defined. Bilateral hip arthroplasties produce beam hardening artifact which precludes accurate assessment of the lower pelvic CT acquisitions. Fat containing bilateral inguinal hernias are noted. Right and left inguinal soft tissue densities are ametabolic. ? SKELETAL:? Right-left hip arthroplasties are demonstrated, as previously described. There is no evidence of quantitatively significant enhanced glucose metabolism on meticulous inspection of the appendicular and axial skeletal structures. ? Degenerative changes defined in the thoracic and lumbar spine demonstrate no evidence of increased glucose metabolism. There are no sclerotic, mixed sclerotic-lytic, or primarily lytic changes defined in the axial skeletal structures with evidence of increased FDG uptake. ? PET/PET/CT Tumor Base -Thigh Init IMPRESSION: 1. Increased radiopharmaceutical concentration defined in the left lower posterior lung zone, left lower lobe does not fulfill quantitative criteria for malignant transformation. (Wen et al, Journal of Nuclear Medicine, 32:1, 1991). 2. Anatomic stability may be ensured with repeat FDG-PET CT of the thorax in 3-6 months if clinically indicated. (Junior, Seminars in Thoracic and Cardiovascular surgery, 14:292, 2002). 3. Facilitated uptake noted in the distal esophagus-gastroesophageal junction may be further investigated with direct visualization, if the patient demonstrates corresponding epigastric symptomatology. Electronic Signature Poncho Ramos D.O. Accurate Quantification of SUVs for this report are calculated using the exclusive [employer] Technology. (U.S. Patent No. [id number] [phone] patent [id number] [phone] [phone]). Standardization and correction of the FDG SUV metric via [employer] technology allow for vendor non-specific objective quantitative examination comparison and optimization of the sensitivity and specificity of the FDG PET-CT examination. . [email or web address] Electronically Signed: Poncho Ramos DO at 22:44 EDT ,
== END | disposition home or self-care (01) ==
LOC: ONC 08:49
PROVIDERS: PCP Family Medicine; Referring Provider Nurse Practitioner Acute Care; Visit Provider Nurse Practitioner Acute Care
DX: R91.8 Other nonspecific abnormal finding of lung field (principal); R91.1 Solitary pulmonary nodule
CPT/HCPCS: 78815; A9552

== ENCOUNTER → 2023-12-08 | Outpatient (CLI) | payer OTHER, SELFPAY | END | disposition home or self-care (01) | LOC: MRI 07:27 | PROVIDERS: PCP Family Medicine; Referring Provider Orthopaedic Surgery; Visit Provider Orthopaedic Surgery | DX: M25.512 Pain in left shoulder (principal) ==

== ENCOUNTER → 2024-01-17 | Outpatient (CLI) | payer OTHER, SELFPAY ==
--- NOTE | 2024-01-17 07:53 | AAVD_ITS ---
Reason For Study: HX Rt Iliac Stent Inferior Vena Cava Proximal inferior vena cava measures 1.26 x 1.34 cm. in the cross-sectional axis. Proximal inferior vena cava measures 1.25 cm. in the longitudinal axis. Mid inferior vena cava measures 1.43 x 1.48 cm. in the cross-sectional axis. Mid inferior vena cava measures 1.38 cm. in the longitudinal axis. Distal inferior vena cava measures 1.56 x 1.67 cm. in the cross-sectional axis. Distal inferior vena cava measures 1.50 cm. in the longitudinal axis. The inferior vena cava has spontaneous, phasic flow throughout. Left Common Iliac Vein Left common iliac vein measures 1.18 x 1.18 cm. in the cross-sectional axis. Left common iliac vein measures 1.16 cm. in the longitudinal axis. The left common iliac vein has spontaneous, phasic flow throughout. Right Common Iliac Vein Right common iliac vein measures 1.26 x 1.30 cm. in the cross-sectional axis. Right common iliac vein measures 1.21 cm. in the longitudinal axis. The right common iliac vein has spontaneous, phasic flow throughout. Rt CIV / EIV Stent noted. Procedure Aorta IVC Iliac vasculature or bypass grafts 17924. The exam was diagnostic. VL/Abd Aortic/IVC Duplex scan Interpretation Summary Patent inferior vena cava and left iliac vein with normal venous flow pattern. Patent right iliac vein stent with normal venous flow pattern. Ordering Physician: Zulma Vanessa Referring Physician: Jaime Bailey Performed By: Demarco Tripathi, RVT
--- NOTE | 2024-01-17 07:53 | VDLE_ITS ---
Reason For Study: HX Rt Iliac V Stent / RLE Swelling RIGHT LEFT GSV is compressible with phasic flow noted CFV is compressible, spontaneous, phasic, throughout. competent, and demonstrates normal augmentation. Chronic deep vein thrombosis is noted in the CFV. It is dilated and PARTIALLY COMPRESSIBLE with phasic flow and normal augmentation. Chronic deep vein thrombosis is noted in the SFJ / Prox FV. It is dilated and PARTIALLY COMPRESSIBLE with continuous flow. Acute/Chronic deep vein thrombosis is noted throughout the FV. It is dilated and NONCOMPRESSIBLE. POP V is PARTIALLY COMPRESSIBLE with bright intraluminal echoes and phasic flow with normal augmentation. T/P Trunk is PARTIALLY COMPRESSIBLE. PTV is compressible Rico V is compressible at Mid/Distal. Unable to accurately assess at Prox. Procedure This is a venous duplex using B-mode, color flow and spectral Doppler. Exam performed in department. The exam was diagnostic. The study was technically difficult. VL/Venous Duplex US, Unilateral Interpretation Summary Acute on chronic deep vein thrombosis noted in the right femoral vein. Chronic deep vein thrombosis noted in the right common femoral vein, saphenofem oral junction, popliteal vein, tibioperoneal trunk vein. Ordering Physician: Zulma Vanessa Referring Physician: Jaime Bailey Performed By: Demarco Tripathi, RVT
== END | disposition home or self-care (01) ==
PROVIDERS: PCP Family Medicine; Referring Provider Physician Assistant; Visit Provider Physician Assistant
DX: Z48.812 Encounter for surgical aftercare following surgery on the circulatory system (principal); I82.421 Acute embolism and thrombosis of right iliac vein; I87.1 Compression of vein
CPT/HCPCS: 93971; 93978

== ENCOUNTER → 2024-05-19 | Outpatient (CLI) | payer OTHER, SELFPAY ==
--- NOTE | 2024-05-19 12:58 | VDLE_ITS ---
Reason For Study: Right leg swelling RIGHT GSV is normal. Chronic deep vein thrombosis is noted in the CFV. It is PARTIALLY COMPRESSIBLE with phasic flow and normal augmentation. Chronic deep vein thrombosis is noted in the SFJ / Prox FV. It is PARTIALLY COMPRESSIBLE with continuous flow. Chronic deep vein thrombosis is noted throughout the FV. It is PARTIALLY COMPRESSIBLE. POP V is PARTIALLY COMPRESSIBLE with bright intraluminal echoes, phasic flow with normal augmentation, and INCOMPETENT for greater than 0.5 seconds. T/P Trunk is PARTIALLY COMPRESSIBLE. PTV is compressible Rico V is compressible at Mid/Distal. Unable to accurately assess at Prox. Procedure This is a venous duplex using B-mode, color flow and spectral Doppler. Exam performed in department. VL/Venous Duplex US, Unilateral Interpretation Summary Chronic deep vein thrombosis is noted in the right common femoral vein, femoral vein, popliteal vein, tibioperoneal trunk vein. Ordering Physician: Zulma Vanessa Referring Physician: Jaylon Concepcion Performed By: Alison Vaughn RVT
== END | disposition home or self-care (01) ==
LOC: CVS 12:58
PROVIDERS: PCP Family Medicine; Referring Provider Physician Assistant; Visit Provider Physician Assistant
DX: Z48.812 Encounter for surgical aftercare following surgery on the circulatory system (principal); I82.421 Acute embolism and thrombosis of right iliac vein; I87.1 Compression of vein; M79.89 Other specified soft tissue disorders
CPT/HCPCS: 93971

== ENCOUNTER → 2024-06-18 | Outpatient (CLI) | payer OTHER, SELFPAY ==
--- NOTE | 2024-06-18 14:28 | CT_ITS ---
INDICATION: lung nodule EXAMINATION: CT CHEST WITHOUT CONTRAST - CT Chest W/O Contrast Injection TECHNIQUE: Helically acquired images were obtained of the chest. The protocol utilizes one or more of the following dose reduction techniques: automated exposure control, adjustment of mA and/or kV according to patient size,and/or use of iterative reconstruction technique. IV Contrast dosage and agent: None. RADIATION DOSAGE (If Supplied By Facility): CTDIvol = ( 20.15 ) mGy, DLP = ( 750.19 ) mGycm COMPARISON: Prior study dated: 09/23/2023 FINDINGS: LUNGS, PLEURA AND LARGE AIRWAYS: Previously noted left lower lobe nodule essentially resolved. Residual mild stranding in the left lower lobe in the region of the pulmonary nodule could be due to scarring. Mild stranding/scarring in the right lower lobe. Calcified left upper lobe granuloma. No other nodules are seen. No focal infiltrate. No pleural effusion or thickening. No pneumothorax. THYROID: No thyroid lesions. HEART AND PERICARDIUM: Heart size is normal. No pericardial effusion. CORONARY ARTERIES: Coronary artery calcification is not seen. VESSELS: Thoracic aorta is not dilated. MEDIASTINUM AND SHAZIA: Calcified mediastinal nodes. No evidence of adenopathy. Esophagus is unremarkable. No hiatal hernia. UPPER ABDOMEN: No acute pathology. BONES: No suspicious lytic or blastic abnormality. CT/Chest without Contrast IMPRESSION: 1. Previously noted left lower lobe nodule has resolved. Residual mild stranding or scarring in the left lower lobe. 2. Otherwise no mass, adenopathy or focal acute pulmonary infiltrate. 3. Residuals of old granulomatous disease. 4. Lung RADS category 2, continued annual screening with noncontrast low-dose CT scan. [employer] RECOMMENDATIONS FOR FOLLOW-UP OF SMALL SOLID LUNG NODULES DETECTED INCIDENTALLY ON CT (for PATIENTS ? 35 YEARS OF AGE with no known extra-pulmonary cancer and no clinical evidence of infection). Electronically Signed: Donald Jenkins MD at 15:52 EST ,
== END | disposition home or self-care (01) ==
LOC: CT 14:27
PROVIDERS: PCP Family Medicine; Referring Provider Nurse Practitioner Acute Care; Visit Provider Nurse Practitioner Acute Care
DX: R91.1 Solitary pulmonary nodule (principal)
CPT/HCPCS: 71250

== ENCOUNTER → 2024-08-28 | Outpatient (CLI) | payer OTHER, SELFPAY ==
--- NOTE | 2024-08-28 09:07 | AAVD_ITS ---
Reason For Study: HX Rt CIV / EIV Stent Inferior Vena Cava Proximal inferior vena cava measures 1.57 x 2.05 cm. in the cross-sectional axis. Proximal inferior vena cava measures 1.46 cm. in the longitudinal axis. Mid inferior vena cava measures 1.53 x 1.90 cm. in the cross-sectional axis. Mid inferior vena cava measures 1.30 cm. in the longitudinal axis. Distal inferior vena cava measures 1.61 x 1.87 cm. in the cross-sectional axis. Distal inferior vena cava measures 1.54 cm. in the longitudinal axis. The inferior vena cava has spontaneous, phasic flow throughout. Left Common Iliac Vein Left common iliac vein measures 1.45 x 1.89 cm. in the cross-sectional axis. Left common iliac vein measures 1.45 cm. in the longitudinal axis. The left common iliac vein has spontaneous, phasic flow throughout. Right Common Iliac Vein Right common iliac vein measures 1.60 x 1.63 cm. in the cross-sectional axis. Right common iliac vein measures 1.54 cm. in the longitudinal axis. The right common iliac vein has spontaneous, phasic flow throughout. Stent noted in CIV / EIV. Procedure Aorta IVC Iliac vasculature or bypass grafts [id number]. The exam was diagnostic. Exam performed in department. VL/Abd Aortic/IVC Duplex scan Interpretation Summary Inferior vena cava and left iliac vein patent with normal venous flow pattern. Right iliac vein stent patent with normal venous flow pattern. Ordering Physician: Zulma Vanessa Referring Physician: Jaylon Concepcion Performed By: Demarco Tripathi RVT
--- NOTE | 2024-08-28 09:07 | VDLE_ITS ---
Reason For Study: HX Rt CIV / EIV Stent - RLE DVT RIGHT LEFT GSV is normal. CFV is compressible, spontaneous, phasic, Chronic deep vein thrombosis is noted in the competent, and demonstrates normal CFV. It is PARTIALLY COMPRESSIBLE with phasic augmentation. flow and normal augmentation. Chronic deep vein thrombosis is noted in the SFJ / Prox FV. It is PARTIALLY COMPRESSIBLE with phasic flow and normal augmentation. Chronic deep vein thrombosis is noted throughout the FV. It is PARTIALLY COMPRESSIBLE. POP V is PARTIALLY COMPRESSIBLE with bright intraluminal echoes, phasic flow with normal augmentation, and INCOMPETENT for greater than 0.5 seconds. T/P Trunk is PARTIALLY COMPRESSIBLE. PTV is compressible Rico V is compressible at Mid/Distal. Unable to accurately assess at Prox. Procedure This is a venous duplex using B-mode, color flow and spectral Doppler. Exam performed in department. The exam was diagnostic. VL/Venous Duplex US, Unilateral Interpretation Summary Chronic deep vein thrombosis noted in the right common femoral vein, saphenofem oral vein, femoral vein, popliteal vein, tibioperoneal trunk vein. Ordering Physician: Zulma Vanessa Referring Physician: Jaylon Concepcion Performed By: Demarco Tripathi RVT
== END | disposition home or self-care (01) ==
PROVIDERS: PCP Family Medicine; Referring Provider Physician Assistant; Visit Provider Physician Assistant
DX: Z48.812 Encounter for surgical aftercare following surgery on the circulatory system (principal); I82.421 Acute embolism and thrombosis of right iliac vein; M79.89 Other specified soft tissue disorders; I87.1 Compression of vein
CPT/HCPCS: 93971; 93978

== ENCOUNTER → 2025-01-14 | Outpatient (CLI) | payer OTHER, SELFPAY ==
--- NOTE | 2025-01-14 09:01 | AAVD_ITS ---
Reason For Study Reason For Study: HX Rt CIV/EIV Stent Inferior Vena Cava Proximal inferior vena cava measures 1.60 X 1.86 cm. in the cross-sectional axis. Proximal inferior vena cava measures 1.74 cm. in the longitudinal axis. Mid inferior vena cava measures 1.54 x 1.73 cm. in the cross-sectional axis. Mid inferior vena cava measures 1.70 cm. in the longitudinal axis. Distal inferior vena cava measures 1.87 x 1.82 cm. in the cross-sectional axis. Distal inferior vena cava measures 1.60 cm. in the longitudinal axis. The inferior vena cava has spontaneous, phasic flow throughout. Left Common Iliac Vein Left common iliac vein measures 1.61 x 1.81 cm. in the cross-sectional axis. Left common iliac vein measures 1.80 cm. in the longitudinal axis. The left common iliac vein has spontaneous, phasic flow throughout. Right Common Iliac Vein Right common iliac vein measures 1.47 x 1.56 cm. in the cross-sectional axis. Right common iliac vein measures 1.46 cm. in the longitudinal axis. The right common iliac vein has spontaneous, phasic flow throughout. Stent noted in CIV / EIV. Procedure Aorta IVC Iliac vasculature or bypass grafts [id number]. The exam was diagnostic. Exam performed in department. VL/Abd Aortic/IVC Duplex scan Interpretation Summary Inferior vena cava and left iliac vein patent with normal venous flow pattern. Right iliac vein stent patent with normal venous flow pattern. Ordering Physician: Zulma Vanessa Referring Physician: Jaylon Concepcion Performed By: Demarco Tripathi RVT
--- NOTE | 2025-01-14 09:01 | VDLE_ITS ---
Reason For Study Reason For Study: HX RLE DVT RIGHT LEFT GSV is normal. CFV is compressible, spontaneous, phasic, competent, Chronic deep vein thrombosis is noted in the CFV. It and demonstrates normal augmentation. is PARTIALLY COMPRESSIBLE with phasic flow and normal augmentation. Chronic deep vein thrombosis is noted throughout the FV. It is PARTIALLY COMPRESSIBLE with diminished flow noted at mid thigh. POP V is PARTIALLY COMPRESSIBLE with bright intraluminal echoes, phasic flow and INCOMPETENT for greater than 0.5 seconds. T/P Trunk is PARTIALLY COMPRESSIBLE. PTV is compressible. RT PerV is compressible. Procedure This is a venous duplex using B-mode, color flow and spectral Doppler. Exam performed in department. The exam was diagnostic. The study was technically difficult. VL/Venous Duplex US, Unilateral Interpretation Summary Chronic deep vein thrombosis noted in right common femoral vein, femoral vein, popliteal vein, tibioperoneal trunk vein. Ordering Physician: Zulma Vanessa Referring Physician: Carlene Iyer Performed By: Demarco Tripathi RVT
== END | disposition home or self-care (01) ==
LOC: CVS 09:00
PROVIDERS: PCP Family Medicine; Referring Provider Physician Assistant; Visit Provider Physician Assistant
DX: Z48.812 Encounter for surgical aftercare following surgery on the circulatory system (principal); I87.1 Compression of vein
CPT/HCPCS: 93971; 93978